=== PATIENT | female | born 1960 | race Caucasian/White ===

== ENCOUNTER 2023-12-16 09:16 | Outpatient (OUT) | payer OTHER, SELFPAY ==
--- NOTE | 2023-12-16 09:30 | CT_ITS ---
The [address] [address] Patient Name: THEODORE FLETCHER MRN: [id number] date: 1960 Sex: F Assigned Patient Location: CT Current Patient Location: Accession/Order Number: [id number] Exam Date: 12/16/2023 09:35 Report Date: 12/17/2023 07:19 At the request of: LITTLE ELLER Procedure: CT sinus wo con EXAMINATION: CT sinus wo con HISTORY: Chronic Sinusitis J32.9 COMPARISON: No relevant comparison available. TECHNIQUE: Axial and Coronal CT images were created without IV contrast. Dose reduction techniques were achieved by using automated exposure control and/or adjustment of mA and/or kV according to patient size and/or use of iterative reconstruction technique. FINDINGS: MAXILLARY SINUSES: Minimal mucoperiosteal thickening measuring 2.7 mm inferior right maxillary and 1.5 mm inferior left maxillary sinus. Infundibula are patent. No significant anomalous inferior orbital ethmoid (Anika) air cells. ETHMOID SINUSES: No significant mucosal thickening or fluid. Fovea ethmoidali and lamina papyracea are symmetric and intact. SPHENOID SINUSES: No significant mucosal thickening or fluid. Sphenoethmoidal recesses are patent. No bony dehiscence. FRONTAL SINUSES: No significant mucosal thickening or fluid. Frontal recesses are patent. NASAL FOSSA: 5 mm leftward deviation of the nasal septum. Bilateral indigo bullosa right middle nasal turbinates. OTHER: Negative. Limited views of the skull base and orbits are unremarkable. CT/CT sinus wo con IMPRESSION: Minimal mucoperiosteal thickening bilateral inferior maxillary sinuses Electronically authenticated by: TANIA OCONNELL Date: 12/17/2023 07:19
== END 2023-12-16 09:17 | disposition home or self-care (01) ==
LOC: CT 09:20
PROVIDERS: PCP Internal Medicine; Visit Provider Internal Medicine
DX: J32.9 Chronic sinusitis, unspecified (principal)
CPT/HCPCS: 70486

== ENCOUNTER 2024-08-04 02:16 | Observation (INO) | payer OTHER, SELFPAY ==
[2024-08-04] VITALS (86 sets, daily range): BP systolic 75–161; BP diastolic 39–83; PULSE 72–102; TEMP 36.3–36.7; O2SAT 94–100; BMI 19.2; BMI 19.8
--- OUTSIDE RECORDS SUMMARY | 2024-08-04 02:23 | XMS_ITS | CCD ---
Author Organization [facility] Care Team Providers Care Licensed Clinical Social Worker Name Role Phone Romeo Fariba Primary Care Provider ZEUS RUBALCAVA Attending Unavailable OBRIEN, FARIBA Referring Unavailable OBRIEN, FARIBA Primary Care Unavailable ROQUE BOYD Attending Unavailable OBRIEN, FARIBA Referring Unavailable OBRIEN, FARIBA Primary Care Unavailable ROQUE BOYD Attending Unavailable OBRIEN, FARIBA Referring Unavailable OBRIEN, FARIBA Primary Care Unavailable SUMAN BROWN Attending Unavailable OBRIEN, FARIBA Referring Unavailable OBRIEN, FARIBA Primary Care Unavailable LOBO PERALTA Attending Unavailable OBRIEN, FARIBA Referring Unavailable OBRIEN, FARIBA Primary Care Unavailable ZEUS RUBALCAVA Attending Unavailable OBRIEN, FARIBA Referring Unavailable OBRIEN, FARIBA Primary Care Unavailable LOBO PERALTA Attending Unavailable OBRIEN, FARIBA Referring Unavailable OBRIEN, FARIBA Primary Care Unavailable ROQUE BOYD Attending Unavailable OBRIEN, FARIBA Referring Unavailable OBRIEN, FARIBA Primary Care Unavailable LOBO PERALTA Attending Unavailable OBRIEN, FARIBA Referring Unavailable OBRIEN, FARIBA Primary Care Unavailable OBRIEN, FARIBA Referring Unavailable OBRIEN, FARIBA Primary Care Unavailable OBRIEN, FARIBA Referring Unavailable OBRIEN, FARIBA Primary Care Unavailable OBRIEN, FARIBA Referring Unavailable OBRIEN, FARIBA Primary Care Unavailable OBRIEN, FARIBA Referring Unavailable OBRIEN, FARIBA Primary Care Unavailable OBRIEN, FARIBA Referring Unavailable OBRIEN, FARIBA Primary Care Unavailable OBRIEN, FARIBA Referring Unavailable OBRIEN, FARIBA Primary Care Unavailable OBRIEN, FARIBA Referring Unavailable OBRIEN, FARIBA Primary Care Unavailable OBRIEN, FARIBA Referring Unavailable OBRIEN, FARIBA Primary Care Unavailable OBRIEN, FARIBA Referring Unavailable OBRIEN, FARIBA Primary Care Unavailable OBRIEN, FARIBA Referring Unavailable OBRIEN, FARIBA Primary Care Unavailable OBRIEN, FARIBA Referring Unavailable OBRIEN, FARIBA Primary Care Unavailable OBRIEN, FARIBA Referring Unavailable OBRIEN, FARIBA Primary Care Unavailable RAFITA, DR FITCH Primary Care Unavailable PAY ., DR ARTEAGA Admitting Unavailable PAY ., DR ARTEAGA Attending Unavailable PAY ., DR ARTEAGA Consulting Unavailable KNABE, PETER Consulting Unavailable PETZNICK, DR UREÑA Admitting Unavailable PETZNICK, DR UREÑA Attending Unavailable BALL, DR FITCH Primary Care Unavailable PETZNICK, DR UREÑA Consulting Unavailable NARCISO, JOSÉ Admitting Unavailable NARCISO, JOSÉ Attending Unavailable BALL, DR FITCH Primary Care Unavailable NARCISO, JOSÉ Consulting Unavailable Rafita, Hayes Unavailable Evelyn Finn Unavailable DONTRELL KIRBY Attending Unavailable BALL, HAYES E Referring Unavailable TIMMIS, OLGA Jara Attending Unavailable BALL, HAYES E Referring Unavailable ZADIPIKA MAK Attending Unavailable TIMMIS, OLGA Jara Attending Unavailable PETZNICK, TANIA Sandoval Attending Unavailable BIEDDUDLEY, AKHIL Vee Attending Unavailable PETZNCHACHO, TANIA Sandoval Attending Unavailable LEIGH, AKHIL Vee Attending Unavailable RAFITA, HAYES E Referring Unavailable PETZNICK, TANIA Sandoval Attending Unavailable RAFITA, HAYES Hewitt Referring Unavailable Hayes Watkins MD Primary Care Provider Akhil Abraham DO Unavailable [phone] Allergies Allergy Classification Reported Allergen(s) Allergy Type Date of Onset Reaction(s) Facility (20 sources) Cephalexin Drug Allergy 02-10-20 17 [place], [place] (20 sources) Antihistamines, Chlorpheniramine-T ype Propensity to adverse reactions to drug 02-10-20 17 Other (See Comments) [place], [place] (7 sources) Cephalexin Drug Allergy hives [facility] Repository (3 sources) Nitrofurantoin Drug Allergy 12-02-19 24 Unknown Reaction [facility] Rep[facility] (16 sources) fexofenadine / Pseudoephedrine Drug Allergy 04-15-20 23 Comment:syncop e [facility] Other (6 sources) levoFLOXacin Drug Allergy anaphylaxis [facility] Other (16 sources) Nitrofurantoin Drug Allergy 03-20-20 23 Unknown [facility] Other (6 sources) Keflex *CEPHALOSPORINS* Propensity to adverse reactions Unknown [facility] Other (6 sources) Biaxin *MACROLIDES* Propensity to adverse reactions 12-24-19 19 Unknown [facility] Other (11 sources) Cephalosporins (Antibiotic) Allergy to substance 12-02-19 24 Unknown Reaction [facility] (12 sources) Clarithromycin Drug Allergy 07-30-19 24 Unknown Reaction [facility] (12 sources) levoFLOXacin Drug Allergy 07-30-19 24 Anaphylaxis [facility] (2 sources) Antihistamine & Nasal Deconges Allergy to substance 06-10-19 Comment:syncop e [facility] (10 sources) Propylamine derivative antihistamine Drug Intolerance 02-10-20 [facility] Medications Current Medications Medication Drug Class(es) Dates Sig (Normalized) Sig (Original) azithromycin 250 mg oral tablet (7 sources) Macrolide Antimicrobial Start: 03-19-2023 Azithromycin 250 MG as directed Orally daily for 5 days May, Active Blood-Glucose Sensor (Freestyle Lianna 3 Sensor) device (4 sources) Start: 09-17-2023 Blood-Glucose Sensor (Freestyle Lianna 3 Sensor) device Active 0 .Route 1 September 17, 2023 4:09pm Use to test home BS 4x daily Start: 09-17-2023 End: 09-17-2023 Blood-Glucose Sensor (Freest yle Lianna 3 Sensor) device Discontinued 0 .Route September 17, 2023 12:00am September 17, 2023 4:11pm As directed Continuous Glucose Sensor (FreeStyle Lianna 3 Sensor) [facility] [place]14 sources) Start: 01-28-2024 End: 01-28-2024 inject 1 dose by subcutaneous injection once Continuous Glucose Sensor (FreeStyle Lianna 3 Sensor) [facility] Indications: 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 (CMS/HCC) Inject 1 Device under the skin every 14 (fourteen) days 6 each 3 01/28/2024 01/28/2024 Discontinued (Reorder) Start: 01-28-2024 inject 1 dose by sub cutaneous injection once Continuous Glucose Sensor (FreeStyle Lianna 3 Sensor) [facility] Indications: 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 (CMS/HCC) Inject 1 Device under the skin every 14 (fourteen) days 6 each 3 01/28/2024 Active Start: 12-13-2023 End: 01-28-2024 inject 1 dose by subcutaneous injection once Continuous Glucose Sensor (FreeStyle Lianna 3 Sensor) [facility] [place] Indications: 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 (CMS/HCC) Inject 1 Device under the skin every 14 (fourteen) days 6 each 3 12/13/2023 01/28/2024 Discontinued (Reorder) Start: 12-13-2023 inject 1 dose by sub cutaneous injection once Continuous Glucose Sensor (FreeStyle Lianna 3 Sensor) [facility] [place]ications: 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 (CMS/HCC) Inject 1 Device under the skin every 14 (fourteen) days 6 each 3 12/13/2023 Active doxycycline hyclate 100 mg oral capsule (2 sources) Tetracycline-class Drug Start: 06-10-2023 take 1 capsule by mouth twice daily Doxycycline Hyclate 100 MG 1 capsule Orally twice daily for 10 days May, Active fluticasone propionate 0.05 mg/actuat metered dose nasal spray (10 sources) Corticosteroid Start: 05-29-2023 take 2 spray(s) nasal route once daily Fluticasone Propionate 50 MCG/ACT 2 sprays Nasally Once a day for 14 day(s) May, Active Start: 05-31-2019 take 1 spray(s) nasa l route once daily as needed Fluticasone Propionate 50 MCG/ACT 1 spray in each nostril Nasally Once a day for 21 days May, Not-Taking/PRN Start: 05-31-2019 take 1 spray(s) nasa l route once daily Fluticasone Propionate 50 MCG/ACT 1 spray in each nostril Nasally Once a day for 21 days May, Not-Taking FreeStyle Lianna 14 Day Sensor (6 sources) Start: 10-04-2021 FreeStyle Libr e 14 Day Sensor FreeStyle Lianna 14 Day Sensor , 1 (one) Unit Use to read BS 6-8x daily # 1, 10/04/2021, Ref. x11. Active Use to read BS 6-8x daily for 30 September, Active FreeStyle Lianna 2 [place] (6 sources) Start: 10-18-2021 FreeStyle Libr e 2 [place] FreeStyle Lianna 2 [place] , 1 (one) Device Use for BS readings 6-8 times daily # 1, 10/18/2021, No Refill. 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 (CMS/HCC) Inject 15 Units under the skin Daily 15 mL 3 02/23/2024 Active Start: 02-23-2024 insulin deglud ec (Tresiba FlexTouch) 100 UNIT/ML injection Indications: 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 (CMS/HCC) Inject 15 Units under the skin Daily 15 mL 3 02/23/2024 Active Start: 01-28-2024 End: 02-23-2024 insulin degludec (Tresiba Fl exTouch) 100 UNIT/ML injection Indications: 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 (CMS/HCC) Inject 20 Units under the skin Daily 15 mL 3 01/28/2024 02/23/2024 Discontinued (Dose adjustment) Start: 12-13-2023 End: 01-28-2024 insulin degludec (Tresiba Fl exTouch) 100 UNIT/ML injection Indications: 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 (CMS/HCC) Inject 15 Units under the skin Daily 15 mL 3 12/13/2023 01/28/2024 Discontinued (Dose adjustment) 3 ml insulin glargine 100 unt/ml pen injector (20 sources) Insulin Analog Start: 09-17-2023 End: 09-17-2023 Insulin Glargine (Lantus Solostar U-100 Insulin) 100 unit/mL (3 mL) insulin pen Active 14 UNIT SUBCUT Daily at bedtime September 17, 2023 4:10pm Start: 01-09-2023 Lantus SoloSta r 100 UNIT/ML 14 units Subcutaneous q HS for 90 days Dec, Active Start: 12-22-2021 Lantus 100UNIT /ML Lantus( 100UNIT/ML Subcutaneous 22 units at bedtime ) Active -Hx Entry Subcutaneous at bedtime for 0 Nov, Not-Taking/PRN Start: 12-22-2021 Lantus 100UNIT /ML Lantus( 100UNIT/ML Subcutaneous 22 units at bedtime ) Active -Hx Entry Subcutaneous at bedtime for 0 Nov, Not-Taking Start: 04-12-2014 Lantus SoloSta r 100 UNIT/ML 20 units with lantus pen at hs Subcutaneous daily for 90 days Mar, Active End: 01-28-2024 Lantus SoloStar 100 UNIT/ML pen INJECT 14 UNITS SUBCUTANEOUSLY AT BEDTIME 01/28/2024 Discontinued insulin glargine (LANTUS) 100 UNIT/ML injection vial Inject into the skin nightly 22 units before bedtime 0 Active 3 ml insulin lispro-aabc 100 unt/ml pen injector (16 sources) Insulin Analog Start: 12-13-2023 take 15 mL into the eye(s) once daily insulin lispro-aabc (Lyumjev KwikPen) 100 UNIT/ML pen Indications: 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 (CMS/HCC) 1:10 carb ratio qAC plus correction 1:75 > 150 mg/dl (max daily 50 units) 15 mL 3 12/13/2023 Active Start: 01-09-2023 Lyumjev KwikPe n 100 UNIT/ML as directed Subcutaneous Dec, Active Insulin Lispro-Aabc (Lyumjev Kwikpen U-100 Insulin) 100 unit/mL insulin pen (2 sources) Start: 12-02-2023 Insulin Lispro -Aabc (Lyumjev Kwikpen U-100 Insulin) 100 unit/mL insulin pen Active 1 sliding scale dose SUBCUT Use as Directed December 02, 2023 12:00am Insulin, Aspart, Human (20 sources) Insulin Analog Start: 12-22-2021 NovoLOG 100UNI T/ML NovoLOG( 100UNIT/ML Subcutaneous 12 units before every meal ) Active -Hx Entry Subcutaneous before every meal for 0 Nov, Not-Taking/PRN Start: 12-22-2021 NovoLOG 100UNI T/ML NovoLOG( 100UNIT/ML Subcutaneous 12 units before every meal ) Active -Hx Entry Subcutaneous before every meal for 0 Nov, Not-Taking inject 40 [IU] by cason bcutaneous injection once daily before mealtime NovoLOG FlexPen 100 UNIT/ML 6,8,10 units according to meal size for a total daily amt of 40 units Subcutaneous AC for 90 days Active Insulin Aspart ( NOVOLOG SC) Inject into the skin 14 units before meals 0 Active methylPREDNISolone 4 mg oral tablet (4 sources) Corticosteroid Start: 05-29-2023 Medrol 4 MG as directed Orally As Directed for 6 days May, Active predniSONE 20 mg oral tablet (11 sources) Start: 03-19-2023 take 1 tablet by mouth once daily predniSONE 20 MG 1 tablet Orally qd w/ food for 5 days Feb, Active Start: 06-11-2019 predniSONE 20 MG 1 tablet twice daily x 2 days then 1 tablet daily x 2 days Orally as directed for 4 days May, Not-Taking/PRN sulfacetamide sodium 100 mg/ml ophthalmic solution (2 sources) Sulfonamide Antibacterial take 2 drop(s) into the eye(s) four times daily Sulfacetamide Sodium 10 % 2 drops Ophthalmic qid in the affected eye for 7 days Active tiZANidine 2 mg oral tablet (6 sources) Central alpha-2 Adrenergic Agonist Start: 08-31-19 take 1 tablet by mouth once at bedtime tiZANidine HCl 2MG tiZANidine HCl 2MG, - 1 Tablet q HS # 10, 08/30/2021, Ref. x1. Active Oral q HS for 10 Aug, Active 24 hr tolterodine tartrate 4 mg extended release oral capsule (20 sources) Cholinergic Muscarinic Antagonist take 1 capsule by mouth once daily tolterodine (DETROL LA) 4 MG extended release capsule Take 4 mg by mouth daily 0 Active Triceba Insulin (6 sources) Start: 12-23-19 Triceba Insulin Triceba Insulin( ) Active -Hx Entry for 0 Nov, Active Completed/Discontinued Medications Medication Drug Class(es) Dates Sig (Normalized) Sig (Original) [id number] actuat albuterol 0.09 mg/actuat metered dose inhaler (6 sources) beta2-Adrenergic Agonist Start: 05-31-2019 take 2 puff(s) by inhalation every four hours as needed Albuterol Sulfate HFA 108 (90 Base) MCG/ACT 2 puffs as needed Inhalation every 4 hrs May, Not-Taking/PRN Start: 05-31-2019 take 2 puff(s) by in halation every four hours as needed Albuterol Sulfate HFA 108 (90 Base) MCG/ACT 2 puffs as needed Inhalation every 4 hrs May, Not-Taking Start: 05-31-2019 take 2 puff(s) by in halation every four hours as needed Albuterol Sulfate HFA 108 (90 Base) MCG/ACT 2 puffs as needed Inhalation every 4 hrs May, Not-Taking codeine phosphate 2 mg/ml / guaiFENesin 20 mg/ml oral solution (6 sources) Opioid Agonist Start: 05-31-2019 guaiFENesin-Codeine 100-10 MG/5ML 5 ml as needed EVERY [address] OR OPERATE HEAVY MACHINERY May, Not-Taking/PRN 12 hr guaiFENesin 600 mg / pseudoephedrine hydrochloride 60 mg extended release oral tablet (6 sources) alpha-Adrene rgic Agonist Start: 06-11-2019 take 1 tablet by mouth twice daily as needed Mucinex D 60-600 MG 1 tablet as needed Orally Twice a day May, Not-Taking/PRN Lantus SoloStar 100UNIT/ML (6 sources) Start: 12-20-2021 inject 100 [IU] by subcutaneous injection once as needed Lantus SoloStar 100UNIT/ML Lantus SoloStar 100UNIT/ML, 18 units SC q HS # 2, 12/20/2021, Ref. x11. Active Subcutaneous SC q HS for 30 Nov, Not-Taking/PRN Start: 12-20-2021 inject 100 [IU] by s ubcutaneous injection once at bedtime Lantus SoloStar 100UNIT/ML Lantus SoloStar 100UNIT/ML, 18 units SC q HS # 2, 12/20/2021, Ref. x11. 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, bilateral; Translations: [Hyperglycemia due to type 1 diabetes mellitus] Onset: 07-17-2022 Resolved: 12-13-2023 Chronic Diabetes mellitus without complication (1 source) Type 2 diabetes mellitus without complications; Translations: [TYPE 2 DM WITHOUT COMPLICATIONS] Onset: 09-10-2021 Chronic Disorders of lipid metabolism (7 sources) Mixed hyperlipidemia; Translations: [Mixed hyperlipidemia] Chronic Menopausal disorders (6 sources) Menopausal symptom; Translations: [Menopausal and female climacteric states] Chronic Other circulatory disease (1 source) Orthostatic hypotension; Translations: [Syncope due to orthostatic hypotension] Episodic Other circulatory disease (5 sources) Syncope due to orthostatic hypotension; Translations: [Orthostatic hypotension] Episodic Other ear and sense organ disorders (1 source) Sensorineural hearing loss; Translations: [Unspecified sensorineural hearing loss] 12-02-2023 Chronic Other ear and sense organ disorders (1 source) Unspecified sensorineural hearing loss; Translations: [Sensorineural hearing loss, unspecified] 12-02-2023 Chronic Other ear and sense organ disorders (10 sources) Mixed conductive AND sensorineural hearing loss; Translations: [Mixed conductive and sensorineural hearing loss, unilateral, left ear with restricted hearing on the contralateral side] Onset: 08-05-2023 08-05-2023 Chronic Other ear and sense organ disorders (4 sources) Sensorineural hearing loss, bilateral; Translations: [Sensorineural hearing loss, bilateral] 01-26-2024 Chronic Other screening for suspected conditions (not mental disorders or infectious disease) (7 sources) Mammographic breast density; Translations: [Inconclusive mammogram] Episodic Other upper respiratory disease (4 sources) Chronic rhinitis; Translations: [Chronic rhinitis] 01-26-2024 Chronic Other upper respiratory disease (4 sources) Deviated nasal septum; Translations: [Deviated nasal septum] 01-26-2024 Episodic Other upper respiratory infections (12 sources) Chronic sinusitis; Translations: [Chronic sinusitis, unspecified] Onset: 01-26-2024 Resolved: 01-26-2024 12-02-2023 Chronic Other upper respiratory infections (1 source) Acute upper respiratory infection, unspecified Episodic Spondylosis; intervertebral disc disorders; other back problems (12 sources) Sciatica; Translations: [Lumbago with sciatica, unspecified side] Episodic Unclassified (2 sources) LOW BACK PAIN, UNSPECIFIED; Translations: [LOW BACK PAIN, UNSPECIFIED] Onset: 09-10-2021 Past or Other Problems Problem Classification Problem Date Documented Da te Episodic/Chronic Calculus of urinary tract (20 sources) Kidney stone; Translations: [Calculus of kidney] Onset: 02-09-2017 Resolved: 01-26-2024 02-09-2017 Episodic Conditions associated with dizziness or vertigo (16 sources) Benign paroxysmal positional vertigo; Translations: [Benign paroxysmal vertigo, unspecified ear] Onset: 01-26-2024 Resolved: 01-26-2024 12-02-2023 Episodic Fluid and electrolyte disorders (1 source) Dehydration; Translations: [DEHYDRATION] Onset: 09-10-2021 Episodic Lymphadenitis (20 sources) Lymphadenopathy; Translations: [Enlarged lymph nodes, unspecified] Onset: 11-29-2003 Resolved: 01-26-2024 09-30-2017 Episodic Other aftercare (1 source) group home (current) use of insulin; Translations: [SENIOR LIVING CURRENT USE OF INSULIN] Onset: 09-10-2021 Episodic Other aftercare (1 source) Other fpc (current) drug therapy; Translations: [OTH SENIOR LIVING CURRENT DRUG THERAPY] Onset: 09-10-2021 Episodic Otitis media and related conditions (20 sources) Acute serous otitis media, left ear; Translations: [Acute serous otitis media of left ear] Onset: 07-30-2023 Episodic Unclassified (1 source) LOW BACK PAIN, UNSPECIFIED; Translations: [LOW BACK PAIN, UNSPECIFIED] Onset: 09-08-2021 Unclassified (1 source) Contact with and (suspected) exposure to covid-19 Z20.822 Urinary tract infections (20 sources) Recurrent urinary tract infection; Translations: [Urinary tract infection, site not specified] Onset: 02-09-2017 Resolved: 01-26-2024 02-09-2017 Episodic Results Test Name Value Interpretation Reference Range Facility HbA1c (Bld) [Mass fraction]o n 02-23-2024 Interpretation and review of laboratory results Abnormal [facility] Laboratory - Hematology and Cell countson 02-23-2024 HbA1c (Bld) [Mass fraction] 13.0 % [facility] COVID/FLU RT-PCRon SARS-CoV-2 (COVID-19) RNA SELVIN+probe Ql (Unsp spec) Negative [facility] Other COVID/FLU RT-PCR Negative [facility] [employer] Other CBC AUTO DIFFon 07-12-2022 BASO # 0.1 103/ul Normal 0.0-0.1 [facility] Comment on above: Performed By: #### L IPID, TSH, CMP #### [facility] [address] [address] [address] Jonas Ann Basophils/100 WBC (Bld) 0.8 % Normal 0.2-2.0 [facility] Comment on above: Performed By: #### L IPID, TSH, CMP #### [facility] [address] [address] [address] Jonas Ann EO # 0.2 103/ul Normal 0.0-0.7 [facility] Comment on above: Performed By: #### L IPID, TSH, CMP #### [facility] [address] [address] [address] Jonas Ann Eosinophils/100 WBC (Bld) 2.5 % Normal 0.9-7.0 [facility] Comment on above: Performed By: #### L IPID, TSH, CMP #### [facility] [address] [address] [address] Jonas Ann Erythrocyte distribution width (RBC) [Ratio] 12.8 % Normal 11.0-15.0 [facility] Comment on above: Performed By: #### L IPID, TSH, CMP #### [facility] [address] [place] [address] Dr. Jonas Ann Hematocrit (Bld) [Volume fraction] 39.5 % Normal 36.0-48.0 [facility] Comment on above: Performed By: #### L IPID, TSH, CMP #### [facility] [address] [place] [address] Dr. Jonas Ann Hemoglobin (Bld) [Mass/Vol] 13.4 g/dL Normal 12.0-16.0 [facility] Comment on above: Performed By: #### L IPID, TSH, CMP #### [facility] [address] [place] [address] Dr. Jonas Ann IG # 0.02 10e3/ul Normal 0.00-0.03 [facility] Comment on above: Performed By: #### L IPID, TSH, CMP #### [facility] [address] [place] [address] Dr. Jonas Ann IG % 0.3 % Normal 0.0-0.5 [facility] Comment on above: Performed By: #### L IPID, TSH, CMP #### [facility] [address] [place] [address] Dr. Jonas Ann LYMPH # 2.3 103/ul Normal 1.2-3.8 [facility] Comment on above: Performed By: #### L IPID, TSH, CMP #### [facility] [address] [place] [address] Dr. Jonas Ann Lymphocytes/100 WBC (Bld) 39.1 % Normal 20.5-60.0 [facility] Comment on above: Performed By: #### L IPID, TSH, CMP #### [facility] [address] [place] [address] Dr. Jonas Ann MANUAL DIFF REQ NO Normal [facility] Comment on above: Performed By: #### L IPID, TSH, CMP #### [facility] [address] [place] [address] Dr. Jonas Ann MCH (RBC) [Entitic mass] 28.9 pg Normal 26.7-34.0 [facility] Comment on above: Performed By: #### L IPID, TSH, CMP #### [facility] [address] [place] [address] Dr. Jonas Ann MCHC (RBC) [Mass/Vol] 33.9 g/dL Normal 29.9-35.2 [facility] Comment on above: Performed By: #### L IPID, TSH, CMP #### [facility] [address] [place] [address] Dr. Jonas Ann MCV (RBC) [Entitic vol] 85.1 fL Normal 81.0-99.0 [facility] Comment on above: Performed By: #### L IPID, TSH, CMP #### [facility] [address] [place] [address] Dr. Jonas Ann MONO # 0.5 103/ul Normal 0.3-0.8 [facility] Comment on above: Performed By: #### L IPID, TSH, CMP #### [facility] [address] [place] [address] Dr. Jonas Ann Monocytes/100 WBC (Bld) 8.3 % Normal 1.7-12.0 [facility] Comment on above: Performed By: #### L IPID, TSH, CMP #### [facility] [address] [place] [address] Dr. Jonas Ann NEUT # 2.9 103/ul Normal 1.4-6.5 [facility] Comment on above: Performed By: #### L IPID, TSH, CMP #### [facility] [address] [place] [address] Dr. Jonas Ann Neutrophils/100 WBC (Bld) 49.0 % Normal 43.0-75.0 [facility] Comment on above: Performed By: #### L IPID, TSH, CMP #### [facility] [address] [place] [address] Dr. Jonas Ann Platelet mean volume (Bld) [Entitic vol] 10.9 fL Normal 9.5-13.5 [facility] Comment on above: Performed By: #### L IPID, TSH, CMP #### [facility] [address] [address] [address] Jonas Ann PLT 278 103/ul Normal 150-450 [facility] Comment on above: Performed By: #### L IPID, TSH, CMP #### [facility] [address] [address] [address] Jonas Ann RBC 4.64 106/ul Normal 4.20-5.40 [facility] Comment on above: Performed By: #### L IPID, TSH, CMP #### [facility] [address] [address] [address] Jonas Ann WBC 5.9 103/ul Normal 4.0-11.0 [facility] Comment on above: Performed By: #### L IPID, TSH, CMP #### [facility] [address] [place] [address] Dr. Jonas Ann LIPID PROFILEon 07-12-2022 CHOL-HDL RATIO NORM SEE BELOW Normal [facility] Comment on above: Result Comment: 3.3 - 4.4 LOW RISK 4.4 - 7.1 AVERAGE RISK 7.1 - 11.0 MODERATE RISK >11.0 HIGH RISK Performed By: #### L IPID, TSH, CMP #### [facility] [address] [place] [address] Dr. Jonas Ann Cholesterol [Mass/Vol] 264 mg/dL Critically high <=200 [facility] Comment on above: Performed By: #### L IPID, TSH, CMP #### [facility] [address] [address] [address] Jonas Ann Cholesterol in HDL [Mass/Vol] 95 mg/dL Critically high 40-60 [facility] Comment on above: Performed By: #### L IPID, TSH, CMP #### [facility] [address] [place] [address] Dr. Jonas Ann Cholesterol in LDL [Mass/Vol] 155.2 mg/dL Normal [facility] Comment on above: Performed By: #### L IPID, TSH, CMP #### [facility] [address] [place] [address] Dr. Jonas Ann Cholesterol.total/C holesterol in HDL [Mass ratio] 2.8 {ratio} Normal [facility] Comment on above: Performed By: #### L IPID, TSH, CMP #### [facility] [address] [place] [address] Dr. Jonas Ann HDL NORMAL > or = 60 mg/dl - LO W CARDIOVASCULAR RISK <40 mg/dl - HIGH CARDIOVASCULAR RISK Normal [facility] Comment on above: Performed By: #### L IPID, TSH, CMP #### [facility] [address] [address] [address] Jonas Ann LDL CALC NORMAL SEE BELOW Normal [facility] Comment on above: Result Comment: <100 mg/dl OPTIMAL 100 - 129 mg/dl NEAR OR ABOVE OPTIMAL 130 - 159 mg/dl BORDERLINE HIGH 160 - 189 mg/dl HIGH >190 mg/dl VERY HIGH Performed By: #### L IPID, TSH, CMP #### [facility] [address] [place] [address] Dr. Jonas Ann Triglyceride [Mass/Vol] 69 mg/dL Normal <=150 [facility] Comment on above: Performed By: #### L IPID, TSH, CMP #### [facility] [address] [place] [address] Dr. Jonas Ann VLDL CALC 13.8 mg/dL Normal [facility] Comment on above: Performed By: #### L IPID, TSH, CMP #### [facility] [address] [place] [address] Dr. Jonas Ann MICROALB CREAT RATIO RANDOMo n 07-12-2022 mALB 4.5 mg/L Normal <=30.0 [facility] Comment on above: Performed By: #### L IPID, TSH, CMP #### [facility] [address] [place] [address] Dr. Jonas Ann MALB CR RATIO 20.9 mg/g Normal 0.0-29.9 [facility] Comment on above: Performed By: #### L IPID, TSH, CMP #### [facility] [address] [place] [address] Dr. Jonas Ann MALB CR RATIO RANGE SEE BELOW Normal [facility] Comment on above: Result Comment: NO M ICROALBUMINURIA 0-29 MG/G CLINICAL MICROALBUMINURIA 30-300 MG/G MACROALBUMINURIA >300 MG/G Performed By: #### L IPID, TSH, CMP #### [facility] [address] [address] [address] Jonas Ann URINE CREAT 215.82 mg/dL Normal 20.00-300.00 [facility] Comment on above: Performed By: #### L IPID, TSH, CMP #### [facility] [address] [address] [address] Jonas Ann PROF 14(COMP METB)on 023 Albumin [Mass/Vol] 3.7 g/dL Normal 3.4-5.0 [facility] Comment on above: Performed By: #### L IPID, TSH, CMP #### [facility] [address] [place] [address] Dr. Jonas Ann Albumin/Globulin [Mass ratio] 1.1 {ratio} Normal [facility] Comment on above: Performed By: #### L IPID, TSH, CMP #### [facility] [address] [place] [address] Dr. Jonas Ann ALP [Catalytic activity/Vol] 93 U/L Normal 46-116 [facility] Comment on above: Performed By: #### L IPID, TSH, CMP #### [facility] [address] [address] [address] Jonas Ann ALT [Catalytic activity/Vol] 26 U/L Normal 14-59 [facility] Comment on above: Performed By: #### L IPID, TSH, CMP #### [facility] [address] [address] [address] Jonas Ann Anion gap [Moles/Vol] 12.8 mmol/L Normal [facility] Comment on above: Performed By: #### L IPID, TSH, CMP #### [facility] [address] [address] [address] Jonas Ann AST [Catalytic activity/Vol] 17 U/L Normal 15-37 [facility] Comment on above: Performed By: #### L IPID, TSH, CMP #### [facility] [address] [place] [address] Dr. Jonas Ann Bilirubin [Mass/Vol] 0.7 mg/dL Normal 0.2-1.0 [facility] Comment on above: Performed By: #### L IPID, TSH, CMP #### [facility] [address] [place] [address] Dr. Jonas Ann Calcium [Mass/Vol] 9.4 mg/dL Normal 8.5-10.1 [facility] Comment on above: Performed By: #### L IPID, TSH, CMP #### [facility] [address] [place] [address] Dr. Jonas Ann Chloride [Moles/Vol] 106 mmol/L Normal 98-107 [facility] Comment on above: Performed By: #### L IPID, TSH, CMP #### [facility] [address] [place] [address] Dr. Jonas Ann CO2 [Moles/Vol] 27.5 mmol/L Normal 21.0-32.0 [facility] Comment on above: Performed By: #### L IPID, TSH, CMP #### [facility] [address] [place] [address] Dr. Jonas Ann Creatinine [Mass/Vol] 0.76 mg/dL Normal 0.55-1.02 [facility] Comment on above: Performed By: #### L IPID, TSH, CMP #### [facility] [address] [place] [address] Dr. Jonas Ann EGFR-AF BHUTANESE >60 Normal >=60 [facility] Comment on above: Performed By: #### L IPID, TSH, CMP #### [facility] [address] [place] [address] Dr. Jonas Ann EGFR-NON AF BHUTANESE >60 Normal >=60 [facility] Comment on above: Performed By: #### L IPID, TSH, CMP #### [facility] [address] [place], [place] [id number] Dr. Jonas Ann Globulin (S) [Mass/Vol] 3.3 g/dL Normal [facility] Comment on above: Performed By: #### L IPID, TSH, CMP #### [facility] [address] [place] [address] Dr. Jonas Ann Glucose [Mass/Vol] 211 mg/dL Critically high 74-106 [facility] Comment on above: Performed By: #### L IPID, TSH, CMP #### [facility] [address] [place] [address] Dr. Jonas Ann Potassium [Moles/Vol] 4.3 mmol/L Normal 3.5-5.1 [facility] Comment on above: Performed By: #### L IPID, TSH, CMP #### [facility] [address] [place] [address] Dr. Jonas Ann Protein [Mass/Vol] 7.0 g/dL Normal 6.4-8.2 [facility] Comment on above: Performed By: #### L IPID, TSH, CMP #### [facility] [address] [place] [address] Dr. Jonas Ann Sodium [Moles/Vol] 142 mmol/L Normal 136-145 [facility] Comment on above: Performed By: #### L IPID, TSH, CMP #### [facility] [address] [place] [address] Dr. Jonas Ann Urea nitrogen [Mass/Vol] 15.0 mg/dL Normal 7.0-18.0 [facility] Comment on above: Performed By: #### L IPID, TSH, CMP #### [facility] [address] [place] [address] Dr. Jonas Ann Urea nitrogen/Creatinine [Mass ratio] 19.7 mg/mg Normal [facility] Comment on above: Performed By: #### L IPID, TSH, CMP #### [facility] [address] [place] [address] Dr. Jonas Ann TSHon 07-12-2022 TSH 0.417 uIU/mL Normal 0.358-3.740 [facility] Comment on above: Performed By: #### L IPID, TSH, CMP #### [facility] [address] [address] [address] Jonas Ann GLUCOSE BLOODon 05-05-2022 Glucose [Mass/Vol] 224 mg/dL Critically high 74-106 [facility] Comment on above: Performed By: #### G KAYLI, LIPID #### [facility] [address] [address] [address] Jonas Ann LIPID PROFILEon 05-05-2022 CHOL-HDL RATIO NORM SEE BELOW Normal [facility] Comment on above: Result Comment: 3.3 - 4.4 LOW RISK 4.4 - 7.1 AVERAGE RISK 7.1 - 11.0 MODERATE RISK >11.0 HIGH RISK Performed By: #### G KAYLI, LIPID #### [facility] [address] [address] [address] Jonas Ann Cholesterol [Mass/Vol] 287 mg/dL Critically high <=200 [facility] Comment on above: Performed By: #### G KAYLI, LIPID #### [facility] [address] [address] [address] Jonas Ann Cholesterol in HDL [Mass/Vol] 99 mg/dL Critically high 40-60 [facility] Comment on above: Performed By: #### G KAYLI, LIPID #### [facility] [address] [address] [address] Jonas Ann Cholesterol in LDL [Mass/Vol] 170.2 mg/dL Normal [facility] Comment on above: Performed By: #### G KAYLI, LIPID #### [facility] [address] [address] [address] Jonas Ann Cholesterol.total/C holesterol in HDL [Mass ratio] 2.9 {ratio} Normal [facility] Comment on above: Performed By: #### G KAYLI, LIPID #### [facility] [address] [address] [address] Jonas Ann HDL NORMAL > or = 60 mg/dl - LO W CARDIOVASCULAR RISK <40 mg/dl - HIGH CARDIOVASCULAR RISK Normal [facility] Comment on above: Performed By: #### G KAYLI, LIPID #### [facility] [address] [place] [address] Dr. Jonas Ann LDL CALC NORMAL SEE BELOW Normal [facility] Comment on above: Result Comment: <100 mg/dl OPTIMAL 100 - 129 mg/dl NEAR OR ABOVE OPTIMAL 130 - 159 mg/dl BORDERLINE HIGH 160 - 189 mg/dl HIGH >190 mg/dl VERY HIGH Performed By: #### G KAYLI, LIPID #### [facility] [address] [place] [address] Dr. Jonas Ann Triglyceride [Mass/Vol] 89 mg/dL Normal <=150 [facility] Comment on above: Performed By: #### G KAYLI, LIPID #### [facility] [address] [place] [address] Dr. Jonas Ann VLDL CALC 17.8 mg/dL Normal [facility] Comment on above: Performed By: #### G KAYLI, LIPID #### [facility] [address] [place] [address] Dr. Jonas Ann CBC AUTO DIFFon 09-08-2021 BASO # 0.0 103/ul Normal 0.0-0.1 [facility] Comment on above: Performed By: #### L IPID, TSH, CMP #### [facility] [address] [place] [address] Dr. Jonas Ann Basophils/100 WBC (Bld) 0.4 % Normal 0.2-2.0 [facility] Comment on above: Performed By: #### L IPID, TSH, CMP #### [facility] [address] [place] [address] Dr. Jonas Ann EO # 0.1 103/ul Normal 0.0-0.7 [facility] Comment on above: Performed By: #### L IPID, TSH, CMP #### [facility] [address] [place] [address] Dr. Jonas Ann Eosinophils/100 WBC (Bld) 0.8 % Critically low 0.9-7.0 [facility] Comment on above: Performed By: #### L IPID, TSH, CMP #### [facility] [address] [address] [address] Jonas Ann Erythrocyte distribution width (RBC) [Ratio] 13.2 % Normal 11.0-15.0 [facility] Comment on above: Performed By: #### L IPID, TSH, CMP #### [facility] [address] [place] [address] Dr. Jonas Ann Hematocrit (Bld) [Volume fraction] 37.6 % Normal 36.0-48.0 [facility] Comment on above: Performed By: #### L IPID, TSH, CMP #### [facility] [address] [place] [address] Dr. Jonas Ann Hemoglobin (Bld) [Mass/Vol] 12.4 g/dL Normal 12.0-16.0 [facility] Comment on above: Performed By: #### L IPID, TSH, CMP #### [facility] [address] [place] [address] Dr. Jonas Ann IG # 0.03 10e3/ul Normal 0.00-0.03 [facility] Comment on above: Performed By: #### L IPID, TSH, CMP #### [facility] [address] [place] [address] Dr. Jonas Ann IG % 0.3 % Normal 0.0-0.5 [facility] Comment on above: Performed By: #### L IPID, TSH, CMP #### [facility] [address] [place] [address] Dr. Jonas Ann LYMPH # 2.0 103/ul Normal 1.2-3.8 [facility] Comment on above: Performed By: #### L IPID, TSH, CMP #### [facility] [address] [place] [address] Dr. Jonas Ann Lymphocytes/100 WBC (Bld) 20.5 % Normal 20.5-60.0 [facility] Comment on above: Performed By: #### L IPID, TSH, CMP #### [facility] [address] [place] [address] Dr. Jonas Ann MANUAL DIFF REQ NO Normal [facility] Comment on above: Performed By: #### L IPID, TSH, CMP #### [facility] [address] [place] [address] Dr. Jonas Ann MCH (RBC) [Entitic mass] 29.0 pg Normal 26.7-34.0 [facility] Comment on above: Performed By: #### L IPID, TSH, CMP #### [facility] [address] [place] [address] Dr. Jonas Ann MCHC (RBC) [Mass/Vol] 33.0 g/dL Normal 29.9-35.2 [facility] Comment on above: Performed By: #### L IPID, TSH, CMP #### [facility] [address] [place] [address] Dr. Jonas Ann MCV (RBC) [Entitic vol] 88.1 fL Normal 81.0-99.0 [facility] Comment on above: Performed By: #### L IPID, TSH, CMP #### [facility] [address] [place] [address] Dr. Jonas Ann MONO # 0.7 103/ul Normal 0.3-0.8 [facility] Comment on above: Performed By: #### L IPID, TSH, CMP #### [facility] [address] [place] [address] Dr. Jonas Ann Monocytes/100 WBC (Bld) 7.4 % Normal 1.7-12.0 [facility] Comment on above: Performed By: #### L IPID, TSH, CMP #### [facility] [address] [place] [address] Dr. Jonas Ann NEUT # 6.9 103/ul Critically high 1.4-6.5 [facility] Comment on above: Performed By: #### L IPID, TSH, CMP #### [facility] [address] [place] [address] Dr. Jonas Ann Neutrophils/100 WBC (Bld) 70.6 % Normal 43.0-75.0 [facility] Comment on above: Performed By: #### L IPID, TSH, CMP #### [facility] [address] [place], [place] [address] Dr. Jonas Ann Platelet mean volume (Bld) [Entitic vol] 11.3 fL Normal 9.5-13.5 [facility] Comment on above: Performed By: #### L IPID, TSH, CMP #### [facility] [address] [place], [place] [address] Dr. Jonas Ann PLT 275 103/ul Normal 150-450 [facility] Comment on above: Performed By: #### L IPID, TSH, CMP #### [facility] [address] [place], [place] [address] Dr. Jonas Ann RBC 4.27 106/ul Normal 4.20-5.40 [facility] Comment on above: Performed By: #### L IPID, TSH, CMP #### [facility] [address] [place], [place] [address] Dr. Jonas Ann WBC 9.8 103/ul Normal 4.0-11.0 [facility] Comment on above: Performed By: #### L IPID, TSH, CMP #### [facility] [address] [place], [place] [address] ABD/PELV W CONon 09-09-19 CT ABD/PELV W CON EXAMINATION: CT ABD/PEL W CON HISTORY: Generalized abdominal pain. COMPARISON: 08/13/2016. TECHNIQUE: Routine CT abdomen/pelvis with intravenous contrast. Dose reduction techniques were achieved by using automated exposure control and/or adjustment of mA and/or kV according to patient size and/or use of iterative reconstruction technique. FINDINGS: Lower chest: Unremarkable. Solid organs: There is a 0.2 to 0.3 cm hypodense lesion within the liver near the dome which most likely represents a cyst however is too small to further characterize by computed tomography. There is a 0.4 cm nodule along the wall of the gallbladder which most likely represents a polyp. The common duct is upper limits normal size measuring 0.6 cm in transverse dimension on the coronal images. The intrahepatic biliary tree is visualized however does not appear significantly dilated. There is absence of the pancreatic neck, body and tail. The spleen is unremarkable. The bilateral adrenal glands are unremarkable. Kidneys: There is cortical scarring along the contour of both kidneys. There is a 0.2 to 0.3 cm nonobstructing calculus within the mid to upper pole of the right renal pelvis. There is an extra renal pelvis. There is no right pelvocaliectasis. The right ureter is partially obscured. Given this limitation, there is no obvious right ureteral calculus or hydroureter. There are numerous nonobstructing calculi within the left renal pelvis, largest measuring 0.8 cm. There is an obstructing 0.6 cm calculus within the proximal left ureter with moderate left pelvocaliectasis and moderate left hydroureter proximal to this. The left ureter distal to this is normal size. There are bilateral renal cysts. Bowel: There is a large amount of stool within the nondistended colon. There is no colonic wall thickening. There are diverticula. There is no diverticulitis. The appendix is unremarkable. The distal esophagus, stomach and small bowel are unremarkable. The bowel gas pattern is nonobstructive. Inflammation: There is a small amount of free fluid within the dependent portion of the pelvis. There is no free air or inflammatory reaction. Lymphadenopathy: There are no pathologically enlarged lymph nodes within the abdomen/pelvis. Vasculature: Atheromatous plaque along the distal descending thoracic aorta and the abdominal aorta. There are also atheromatous calcifications along the iliac arteries. The inferior vena cava is unremarkable. Pelvis: The urinary bladder is collapsed and not adequately visualized. There is a subserosal fibroid off the fundal portion of the uterus containing numerous calcifications. There are pelvic phleboliths. Musculoskeletal: There is a small amount of mesenteric fat extending into the umbilicus. The bony structures are osteopenic. There is mild dextroscoliosis of the lumbar spine. IMPRESSION: There is an obstructing 0.6 cm calculus within the proximal left ureter with moderate left pelvocaliectasis and moderate left hydroureter proximal to this. Numerous additional findings as described in the body the report. Electronically authenticated by: VIVIAN OSPINA Date: 2021-09-08 16:14 Normal [facility] ER URINE PROFILEon 2 Bilirubin Ql (U) Negative Normal NEGATIVE [facility] Comment on above: Performed By: #### E SLOANE FARAH #### [facility] [address] [place] [address] Dr. Jonas Ann Clarity (U) CLEAR Normal CLEAR [facility] Comment on above: Performed By: #### Marcelina FARAH UMICRO #### [facility] [address] [address] [address] Jonas Ann Color (U) LT. YELLOW Normal YELLOW [facility] Comment on above: Performed By: #### Marcelina FARAH UMICRO #### [facility] [address] [address] [address] Jonas SMITH A micrscopic examination will be performed if indicated. Normal [facility] Comment on above: Performed By: #### Marcelina FARAH UMICRO #### [facility] [address] [place] [address] Dr. Jonas Ann Glucose Ql (U) 500 mg/dl Abnormal NEGATIVE [facility] Comment on above: Performed By: #### Marcelina FARAH UMICRO #### [facility] [address] [place] [address] Dr. Jonas Ann Hemoglobin Ql (U) LARGE Abnormal NEGATIVE [facility] Comment on above: Performed By: #### Marcelina FARAH UMICRO #### [facility] [address] [place] [address] Dr. Jonas Ann Ketones Ql (U) >=80 Abnormal NEGATIVE [facility] Comment on above: Performed By: #### Marcelina FARAH UMICRO #### [facility] [address] [place] [address] Dr. Jonas Ann LEUKOCYTES Negative Normal NEGATIVE [facility] Comment on above: Performed By: #### Marcelina FARAH UMICRO #### [facility] [address] [place] [address] Dr. Jonas Ann Nitrite Ql (U) Negative Normal NEGATIVE [facility] Comment on above: Performed By: #### Marcelina FARAH UMICRO #### [facility] [address] [place] [address] Dr. Jonas Ann pH (U) 5.5 [pH] Normal 5-9 [facility] Comment on above: Performed By: #### Marcelina FARAH UMICRO #### [facility] [address] [place] [address] Dr. Jonas Ann SPEC GRAVITY 1.020 Normal 1.005-<=1.025 [facility] Comment on above: Performed By: #### ARMANDO CASASRO #### [facility] [address] [place] [address] Dr. Jonas Ann UA PROTEIN Negative Normal NEGATIVE/ TRACE [facility] Comment on above: Performed By: #### ARMANDO CASASRO #### [facility] [address] [place] [address] Dr. Jonas Ann UR MICRO IND INDICATED Normal [facility] Comment on above: Performed By: #### SLOANE CASAS #### [facility] [address] [place] [address] Dr. Jonas Ann Urobilinogen Qn (U) 0.2 {Bettina'U}/dL Normal 0.2 - 1. 0 [facility] Comment on above: Performed By: #### ARMANDO CASASRO #### [facility] [address] [place] [address] Dr. Jonas Ann LIPASEon 09-08-2021 Lipase [Catalytic activity/Vol] 94.0 U/L Normal 23.0-300.0 [facility] Comment on above: Performed By: #### L IPA, CMP #### [facility] [address] [place] [address] Dr. Jonas Ann PROF 14(COMP METB)on 022 Albumin [Mass/Vol] 4.2 g/dL Normal 3.4-5.0 [facility] Comment on above: Performed By: #### L IPA, CMP #### [facility] [address] [place] [address] Dr. Jonas Ann Albumin/Globulin [Mass ratio] 1.3 {ratio} Normal [facility] Comment on above: Performed By: #### L IPA, CMP #### [facility] [address] [place] [address] Dr. Jonas Ann ALP [Catalytic activity/Vol] 107 U/L Normal 46-116 [facility] Comment on above: Performed By: #### L IPA, CMP #### [facility] [address] [address] [address] Jonas Ann ALT [Catalytic activity/Vol] 44 U/L Normal 14-59 [facility] Comment on above: Performed By: #### L IPA, CMP #### [facility] [address] [address] [address] Jonas Ann Anion gap [Moles/Vol] 19.4 mmol/L Normal [facility] Comment on above: Performed By: #### L IPA, CMP #### [facility] [address] [address] [address] Jonas Ann AST [Catalytic activity/Vol] 28 U/L Normal 15-37 [facility] Comment on above: Performed By: #### L IPA, CMP #### [facility] [address] [address] [address] Jonas Ann Bilirubin [Mass/Vol] 1.2 mg/dL Normal 0.2-1.3 [facility] Comment on above: Performed By: #### L IPA, CMP #### [facility] [address] [address] [address] Jonas Ann Calcium [Mass/Vol] 9.4 mg/dL Normal 8.5-10.1 [facility] Comment on above: Performed By: #### L IPA, CMP #### [facility] [address] [address] [address] Jonas Ann Chloride [Moles/Vol] 100 mmol/L Normal 98-107 [facility] Comment on above: Performed By: #### L IPA, CMP #### [facility] [address] [address] [address] Jonas Ann CO2 [Moles/Vol] 21.9 mmol/L Critically low 22.0-30.0 [facility] Comment on above: Performed By: #### L IPA, CMP #### [facility] [address] [address] [address] Jonas Ann Creatinine [Mass/Vol] 0.86 mg/dL Normal 0.52-1.04 [facility] Comment on above: Performed By: #### L IPA, CMP #### [facility] [address] [address] [address] Jonas Ann EGFR-AF BHUTANESE >60 Normal >=60 [facility] Comment on above: Performed By: #### L IPA, CMP #### [facility] [address] [address] [address] Jonas Ann EGFR-NON AF BHUTANESE >60 Normal >=60 [facility] Comment on above: Performed By: #### L IPA, CMP #### [facility] [address] [address] [address] Jonas Ann Globulin (S) [Mass/Vol] 3.2 g/dL Normal [facility] Comment on above: Performed By: #### L IPA, CMP #### [facility] [address] [address] [address] Jonas Ann Glucose [Mass/Vol] 262 mg/dL Critically high 74-106 [facility] Comment on above: Performed By: #### L IPA, CMP #### [facility] [address] [address] [address] Jonas Ann Potassium [Moles/Vol] 3.3 mmol/L Critically low 3.4-5.0 [facility] Comment on above: Performed By: #### L IPA, CMP #### [facility] [address] [address] [address] Jonas Ann Protein [Mass/Vol] 7.4 g/dL Normal 6.1-8.2 [facility] Comment on above: Performed By: #### L IPA, CMP #### [facility] [address] [address] [address] Jonas Ann Sodium [Moles/Vol] 138 mmol/L Normal 137-145 [facility] Comment on above: Performed By: #### L IPA, CMP #### [facility] [address] [address] [address] Jonas Ann Urea nitrogen [Mass/Vol] 19.0 mg/dL Critically high 7.0-18.0 [facility] Comment on above: Performed By: #### L IPA, CMP #### [facility] [address] [place] [address] Dr. Jonas Ann Urea nitrogen/Creatinine [Mass ratio] 22.1 mg/mg Normal [facility] Comment on above: Performed By: #### L IPA, CMP #### [facility] [address] [place] [address] Dr. Jonas Ann URINE MICROSCOPIC ONLYon BACTERIA NONE SEEN Normal NONE SEEN [facility] Comment on above: Performed By: #### E RUR, UMICRO #### [facility] [address] [place] [address] Dr. Jonas Ann Bacteria identified Cx Nom (U) NOT INDICATED Normal [facility] Comment on above: Performed By: #### E RUR, UMICRO #### [facility] [address] [place] [address] Dr. Jonas Ann CAST NONE SEEN Normal NONE SEEN [facility] Comment on above: Performed By: #### E RUR, UMICRO #### [facility] [address] [place] [address] Dr. Jonas Ann Crystals LM Nom (Urine sed) SEEN Abnormal NONE SEEN [facility] Comment on above: Performed By: #### E RUR, UMICRO #### [facility] [address] [place] [address] Dr. Jonas Ann Epithelial cells LM Ql (Urine sed) NONE SEEN Normal NONE SEEN /RARE [facility] Comment on above: Performed By: #### E RUR, UMICRO #### [facility] [address] [place] [address] Dr. Jonas Ann MUCOUS NONE SEEN Normal NONE SEEN [facility] Comment on above: Performed By: #### E RUR, UMICRO #### [facility] [address] [place] [address] Dr. Jonas Ann RBC 10-20 Abnormal 0-2 [facility] Comment on above: Performed By: #### E RUR, UMICRO #### [facility] [address] [place] [address] Dr. Jonas Ann WBC NONE SEEN Normal NONE SEEN [facility] Comment on above: Performed By: #### E SLOANE FARAH #### [facility] [address] [address] [address] Jonas Ann Vital Signs Date Time Vital Sign Value Performing Clinician Facility 02-23-2024 09:25-0400 Body height 157.5 cm Tania Petznick DO Work Phone: [facility] 02-23-2024 09:25-0400 Body mass index (BMI) [Ratio] 19.39 kg/m2 Tania Petznick DO Work Phone: [facility] 02-23-2024 09:25-0400 Body temperature 97.5 [degF] Tania Petznick DO Work Phone: [facility] 02-23-2024 09:25-0400 Body weight 48.08 kg Tania Petznick DO Work Phone: [facility] 02-23-2024 09:25-0400 Diastolic blood pressure 72 mm[Hg] Tania Petznick DO Work Phone: [facility] 02-23-2024 09:25-0400 Heart rate 70 /min Tania Petznick DO Work Phone: [facility] 02-23-2024 09:25-0400 SaO2% (BldA) [Mass fraction] 99 % Tania Petznick DO Work Phone: [facility] 02-23-2024 09:25-0400 Systolic blood pressure 124 mm[Hg] Tania Petznick DO Work Phone: [facility] 02-16-2024 15:36-0400 Body height 157.5 cm Akhil Biedenbach DO Work Phone: [facility] 02-16-2024 15:36-0400 Body mass index (BMI) [Ratio] 18.47 kg/m2 Akhil Biedenbach DO Work Phone: [facility] 02-16-2024 15:36-0400 Body weight 45.81 kg Akhil Biedenbach DO Work Phone: [facility] 01-28-2024 [id number]:110400 Body height 157.5 cm Tania Petznick DO Work Phone: [facility] 01-28-2024 09:11-0400 Body mass index (BMI) [Ratio] 18.47 kg/m2 Tania Petznick DO Work Phone: [facility] 01-28-2024 09:11-0400 Body temperature 98.1 [degF] Tania Petznick DO Work Phone: [facility] 01-28-2024 09:11-0400 Body weight 45.81 kg Tania Petznick DO Work Phone: [facility] 01-28-2024 09:11-0400 Diastolic blood pressure 60 mm[Hg] Tania Petznick DO Work Phone: [facility] 01-28-2024 09:11-0400 Heart rate 67 /min Tania Petznick DO Work Phone: [facility] 01-28-2024 09:11-0400 SaO2% (BldA) [Mass fraction] 95 % Tania Petznick DO Work Phone: [facility] 01-28-2024 09:11-0400 Systolic blood pressure 122 mm[Hg] Tania Petznick DO Work Phone: [facility] 01-26-2024 15:17-0400 Body height 157.5 cm Akhil Zaydamarbin DO Work Phone: [facility] 01-26-2024 15:17-0400 Body mass index (BMI) [Ratio] 18.11 kg/m2 Akhil Biedenbach DO Work Phone: [facility] 01-26-2024 15:17-0400 Body weight 44.91 kg Akhil Biedenmarbin DO Work Phone: [facility] 12-02-2023 09:29-0400 Body height 157.48 cm [facility] 12-02-2023 09:29-0400 Body mass index (BMI) [Ratio] 18.3 kg/m2 [facility] 12-02-2023 09:29-0400 Body weight 45.35 kg [facility] 12-02-2023 09:29-0400 Diastolic blood pressure 67 mm[Hg] [facility] 12-02-2023 09:29-0400 Heart rate 76 /min [facility] 12-02-2023 09:29-0400 Respiratory rate 12 /min [facility] 12-02-2023 09:29-0400 Systolic blood pressure 106 mm[Hg] [facility] 06-10-2023 09:30-0500 Body height 157.48 cm Hayes Ball Other [facility] [employer] Other 06-10-2023 09:30-0500 Body mass index (BMI) [Ratio] 19.75 kg/m2 Hayes Ball Other [facility] [employer] Other 06-10-2023 09:30-0500 Body weight 48.99 kg Hayes Ball Other [facility] [employer] Other 06-10-2023 09:30-0500 Diastolic blood pressure 70 mm[Hg] Hayes Ball Other [facility] [employer] Other 06-10-2023 09:30-0500 Respiratory rate 12 /min Hayes Ball Other [facility] [employer] Other 06-10-2023 09:30-0500 Systolic blood pressure 111 mm[Hg] Hayes Ball Other [facility] [employer] Other 05-29-2023 12:25-0500 Body height 157.48 cm Evelyn Finn Other [employer] Other 05-29-2023 12:25-0500 Body mass index (BMI) [Ratio] 19.46 kg/m2 Evelyn Finn Other [employer] Other 05-29-2023 12:25-0500 Body temperature 97.5 [degF] Evelyn Finn Other [employer] Other 05-29-2023 12:25-0500 Body weight 48.26 kg Evelyn Silvermanmond Other [employer] Other 05-29-2023 12:25-0500 Diastolic blood pressure 54 mm[Hg] Evelyn Finn Other [employer] Other 05-29-2023 12:25-0500 Respiratory rate 18 /min Evelyn Finn Other [employer] Other 05-29-2023 12:25-0500 SaO2% (BldA) [Mass fraction] 97 % Evelyn Finn Other [employer] Other 05-29-2023 12:25-0500 Systolic blood pressure 112 mm[Hg] Evelyn Silvermanmond Other [employer] Other 01-09-2023 08:45-0400 Body height 157.48 cm Hayes Ball Other [employer] Other 01-09-2023 08:45-0400 Body mass index (BMI) [Ratio] 21.54 kg/m2 Hayes Ball Other [employer] Other 01-09-2023 08:45-0400 Body weight 53.43 kg Hayes Ball Other [employer] Other 01-09-2023 08:45-0400 Diastolic blood pressure 74 mm[Hg] Hayes Ball Other [employer] Other 01-09-2023 08:45-0400 Respiratory rate 12 /min Hayes Watkins Other [employer] Other 01-09-2023 08:45-0400 Systolic blood pressure 133 mm[Hg] Hayes Watkins Other [employer] Other Encounters Encounter Date Encounter Type Care Provider Facility Start: 02-23-2024 End: 02-23-2024 Office outpatient visit 25 minutes Tania Samson DO Work Phone: 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 (CMS/HCC) Start: 02-23-2024 End: 02-23-2024 ambulatory TANIA KAMINSKIGERRY Not Available Start: 02-16-2024 End: 02-16-2024 ambulatory AKHIL ABRAHAM Not Available Start: 02-16-2024 End: 02-16-2024 Office outpatient visit 15 minutes Akhil Abraham DO Work Phone: [facility] Comment on above: Sensorineural hearin g loss (SNHL) of both ears (Primary Dx); Dizziness and giddiness; Nasal septal deviation; Chronic rhinitis Start: 02-16-2024 End: 02-16-2024 Bamboo flowsheet Akhil Abraham DO Work Phone: [facility] Start: 02-16-2024 End: 02-16-2024 Bamboo flowsheet Akhil Abraham DO Work Phone: [facility] Start: 01-28-2024 End: 01-28-2024 Office outpatient visit 25 minutes Tania Samson DO Work Phone: 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 (CMS/HCC) Start: 01-28-2024 End: 01-28-2024 ambulatory TANIA SAMSON Not Available Start: 01-26-2024 End: 01-26-2024 Office outpatient visit 25 minutes [facility] Comment on above: Sensorineural hearin g loss (SNHL) of both ears (Primary Dx); Dizziness and giddiness; Nasal septal deviation; Chronic rhinitis Start: 01-26-2024 End: 01-26-2024 ambulatory AKHIL ABRAHAM Not Available Start: 01-26-2024 End: 01-26-2024 Bamboo flowsheet [facility] Start: 01-26-2024 End: 01-26-2024 Bamboo flowsheet Akhil Abraham DO Work Phone: [facility] Start: 12-17-2023 ambulatory [facility] Work Phone: Start: 12-17-2023 Non-patient / Non-visit [facility] Work Phone: Start: 12-11-2023 End: 12-11-2023 ambulatory TANIA SAMSON Not Available Start: 12-02-2023 End: 12-02-2023 ambulatory [facility] Work Phone: Start: 12-02-2023 End: 12-02-2023 Patient encounter procedure [facility] Physician [facility] Work Phone: Start: 09-17-2023 Non-patient / Non-visit [facility] Physician [facility] Work Phone: Start: 08-11-2023 End: 08-11-2023 ambulatory OLGA H TIMMIS Not Available Start: 08-05-2023 End: 08-05-2023 ambulatory OLGA H TIMMIS Not Available Start: 07-31-2023 End: 07-31-2023 ambulatory DONTRELL KIRBY Not Available Start: 06-15-2023 End: 06-15-2023 ambulatory Hayes Watkins Other [employer] Other Start: 06-15-2023 Telephone encounter Hayes LYN [facility] Start: 06-10-2023 End: 06-10-2023 ambulatory Hayes Watkins Other [employer] Other Start: 06-10-2023 Office outpatient vi sit 15 minutes Hayes Watkins [facility] Start: 05-29-2023 End: 05-29-2023 ambulatory Evelyn Finn Other [employer] Other Start: 05-29-2023 Office outpatient vi sit 15 minutes Evelynjaren Finn [facility] Start: 05-29-2023 Telephone encounter Hayes [facility] Start: 04-15-2023 End: 04-15-2023 ambulatory DIPIKA GRANT Not Available Start: 03-19-2023 End: 03-19-2023 ambulatory Hayes Watkins Other [employer] Other Start: 03-19-2023 Office outpatient vi sit 15 minutes Hayes Watkins [facility] Start: 01-09-2023 End: 01-09-2023 ambulatory Hayes Watkins Other [employer] Other Start: 01-09-2023 Encounter for genera l adult medical examination without abnormal findings Hayes Watkins [facility] Start: 01-09-2023 Periodic preventive med est patient 40-64yrs Hayes Watkins [facility] Start: 07-17-2022 Encounter for genera l adult medical examination without abnormal findings DR TANIA SAMSON [facility] Start: 07-12-2022 End: 07-13-[address] TANIA SAMSON Facility:[facility] Start: 07-12-2022 End: 07-13-2022 Encounter for general adult medical examination without abnormal findings DR TANIA SAMSON Facility:[facility] Start: 05-05-2022 End: 05-06-2022 ambulatory JOSÉ STUART Facility:[facility] Start: 09-08-2021 End: 09-08-[address] HAYES WATKINS Facility:[facility] Start: 04-12-2019 End: 04-13-2019 [facility] Start: 04-12-2019 End: 04-12-2019 Subsequent hospital visit by physician Suman Brown [facility] Comment on above: Arrived Start: 04-06-2019 End: 04-07-2019 Patient encounter [facility] Start: 03-30-2019 End: 03-30-2019 Subsequent hospital visit by physician Zeus Rubalcava [facility] Start: 03-28-2019 End: 03-29-2019 Patient encounter [facility] Start: 03-28-2019 End: 03-28-2019 Subsequent hospital visit by physician Roque Boyd [facility] Comment on above: Arrived Start: 03-23-2019 End: 03-24-2019 Patient encounter procedure FARIBA OBRIEN [facility] Start: 03-23-2019 End: 03-23-2019 Subsequent hospital visit by physician Zeus Rubalcava [facility] Comment on above: Arrived Start: 03-21-2019 End: 03-22-2019 Patient encounter procedure FARIBA OBRIEN [facility] Start: 03-21-2019 End: 03-21-2019 Subsequent hospital visit by physician Lobo Floyd [facility] Comment on above: Arrived Start: 03-16-2019 End: 03-16-2019 Subsequent hospital visit by physician Roque Boyd [facility] Start: 03-14-2019 End: 03-15-2019 Patient encounter procedure FARIBA OBRIEN [facility] Start: 03-14-2019 End: 03-14-2019 Subsequent hospital visit by physician Lobo Floyd [facility] Comment on above: Arrived Start: 03-09-2019 End: 03-09-2019 Subsequent hospital visit by physician Zeus Rubalcava [facility] Start: 03-08-2019 End: 03-09-2019 Patient encounter procedure [facility] Start: 03-08-2019 End: 03-08-2019 Subsequent hospital visit by physician Maximiliano Hickey [facility] Comment on above: Arrived Start: 03-02-2019 End: 03-03-2019 Patient encounter procedure FARIBA [place] [facility] Start: 03-02-2019 End: 03-02-2019 Subsequent hospital visit by physician Zeus [facility] Comment on above: Arrived Start: 03-01-2019 End: 03-02-2019 Patient encounter procedure FARIBA [place] [facility] Start: 03-01-2019 End: 03-01-2019 Subsequent hospital visit by physician Roque [facility] Comment on above: Arrived Start: 02-23-2019 End: 02-24-2019 Patient encounter procedure FARIBA [place] [facility] Start: 02-23-2019 End: 02-23-2019 Subsequent hospital visit by physician Roque [facility] Comment on above: Arrived Start: 02-21-2019 End: 02-22-2019 Patient encounter procedure FARIBA [place] [facility] Start: 02-21-2019 End: 02-21-2019 Subsequent hospital visit by physician Lobo [facility] Comment on above: Arrived Start: 02-15-2019 End: 02-16-2019 Patient encounter procedure FARIBA [place] [facility] Start: 02-14-2019 End: 02-15-2019 Patient encounter procedure [facility] Start: 02-14-2019 End: 02-14-2019 Subsequent hospital visit by physician Lobo [facility] Comment on above: Arrived Start: 02-09-2019 End: 02-10-2019 Patient encounter procedure [facility]YD [facility] Start: 02-09-2019 End: 02-09-2019 Subsequent hospital visit by physician Roque [facility] Comment on above: Arrived Start: 02-07-2019 End: 02-08-2019 Patient encounter procedure [facility] Start: 02-07-2019 End: 02-07-2019 Subsequent hospital visit by physician Lobo [facility] Comment on above: Arrived Start: 02-02-2019 End: 02-03-2019 Patient encounter procedure ZEUS RUBALCAVA [facility] Start: 02-02-2019 End: 02-02-2019 Subsequent hospital visit by physician Zeus [facility] Comment on above: Arrived Start: 01-31-2019 End: 02-01-2019 Patient encounter procedure LOBO PERALTA [facility] Start: 01-31-2019 End: 01-31-2019 Subsequent hospital visit by physician Lobo Floyd [facility] Comment on above: Arrived Start: 01-26-2019 End: 01-27-2019 Patient encounter procedure SUMAN BROWN [facility] Start: 01-26-2019 End: 01-26-2019 Subsequent hospital visit by physician Suman Brown [facility] Comment on above: Arrived Start: 01-19-2019 End: 01-20-2019 Patient encounter procedure [facility] Start: 01-17-2019 End: 01-18-2019 Patient encounter procedure [facility] Start: 01-17-2019 End: 01-17-2019 Subsequent hospital visit by physician Rqoue Boyd [facility] Comment on above: Arrived Start: 01-12-2019 End: 01-13-2019 [facility] Start: 01-12-2019 End: 01-12-2019 [facility]: Arrived Procedures Date Procedure Procedure Detail Performing Clinician Start: 02-23-2024 Hemoglobin glycosyla annie a1c Tania Samson DO Work Phone: Plan of Treatment Date Care Activity Detail Author Start: 02-21-2025 End: 02-21-2025 Patient encounter procedure 02/21/2025 3:45 PM EDT Office Visit [facility] [address] [place] [phone] Akhil Abraham, DO [address] [place] [address] [facility] [place] Start: 02-14-2025 End: 02-14-2025 Patient encounter procedure 02/14/2025 3:30 PM EDT Office Visit [facility] [address] [place] [phone] Tania Warren, AUD [address] [place] [address] [facility] Start: 04-08-2024 End: 04-08-2024 Patient encounter procedure 04/08/2024 8:45 AM EST Office Visit [facility] [address] [place] [phone] Tania Samson, DO [address] [place] [address] [facility] [address] Start: 02-23-2024 End: 02-23-2024 Patient encounter procedure 02/23/2024 9:30 AM EDT Office Visit [facility] [address] [place] [phone] Tania Samson, DO [address] [place] [address] [facility] [address] Start: 02-16-2024 End: 02-16-2024 Patient encounter procedure 02/16/2024 3:30 PM EDT Office Visit [facility] [address] [place] [phone] Akhil Abraham, DO [address] [place] [address] [facility] [place] Start: 01-28-2024 End: 01-28-2024 Patient encounter procedure 01/28/2024 9:15 AM EDT Office Visit [facility] [address] [place] [phone] Tania Samson, DO [address] [place] [address] [facility] [address] Start: 01-26-2024 End: 01-26-2024 Patient encounter procedure 01/26/2024 3:30 PM EDT Office Visit [facility] [address] [place] [phone] Akhil Abraham S, DO [address] [facility] [address] Arrived [facility] [place] Comment on above: Arrived Start: 12-17-2023 Patient referral [facility] Work Phone: Start: 04-12-2019 End: 04-12-2019 Appointment [facility] Start: 04-06-2019 End: 04-06-2019 Appointment 04/06/2019 Appointment Physical Therapy [facility] Start: 03-30-2019 End: 03-30-2019 Appointment 03/30/2019 Appointment Physical Therapy [facility] Rubalcava, [facility] Start: 03-23-2019 End: 03-23-2019 Appointment 03/23/2019 Appointment Physical Therapy Zeus Rubalcava, [facility] Start: 03-21-2019 End: 03-21-2019 Appointment [facility] Start: 03-16-2019 End: 03-16-2019 Appointment [facility] Start: 03-14-2019 End: 03-14-2019 Appointment [facility] Start: 03-09-2019 End: 03-09-2019 Appointment 03/09/2019 Appointment Physical Therapy [facility] Start: 03-08-2019 End: 03-08-2019 Appointment 03/08/2019 Appointment Physical Therapy Maximiliano Hickey [facility] Start: 03-07-2019 End: 03-07-2019 Appointment 03/07/2019 Appointment Physical Therapy Lobo Floyd, LEGAL ADMINISTRATIVE ASSISTANT [facility] Start: 03-02-2019 End: 03-02-2019 Appointment 03/02/2019 Appointment Physical Therapy Zeus Rubalcava, PT [facility] Start: 03-01-2019 End: 03-01-2019 Appointment 03/01/2019 Appointment Physical Therapy Roque Boyd P[facility] Start: 02-23-2019 End: 02-23-2019 Appointment 02/23/2019 Appointment Physical Therapy Roque Boyd PTA [facility] Physical Therapy Start: 02-21-2019 End: 02-21-2019 Appointment 02/21/2019 Appointment Physical Therapy Lobo Floyd PTA [facility] Physical Therapy Start: 02-16-2019 End: 02-16-2019 Appointment 02/16/2019 Appointment Physical Therapy Zeus Rubalcava PT [facility] Physical Therapy Start: 02-15-2019 End: 02-15-2019 Appointment 02/15/2019 Appointment Physical Therapy Maximiliano Hickey [facility] Physical Therapy Start: 02-14-2019 End: 02-14-2019 Appointment 02/14/2019 Appointment Physical Therapy Lobo Floyd PTA [facility] Physical Therapy Start: 02-09-2019 End: 02-09-2019 Appointment 02/09/2019 Appointment Physical Therapy Roque Boyd PTA [facility] Physical Therapy Start: 02-07-2019 End: 02-07-2019 Appointment 02/07/2019 Appointment Physical Therapy Lobo Floyd PTA [facility] [facility] Start: 02-02-2019 End: 02-02-2019 Appointment [facility] Start: 01-31-2019 End: 01-31-2019 Appointment 01/31/2019 Appointment Physical Therapy Lobo Floyd PTA [facility] Physical Therapy Start: 01-26-2019 End: 01-26-2019 Appointment [facility] Start: 01-23-2019 Influenza vaccination Flu vaccine (# 1) [place], [place] Start: 01-20-2019 End: 01-20-2019 Appointment 01/20/2019 Appointment Physical Therapy Ramya Odonnell [facility] Physical Therapy Start: 01-19-2019 End: 01-19-2019 Appointment 01/19/2019 Appointment Physical Therapy Roque Boyd PTA [facility] Physical Therapy Start: 01-17-2019 End: 01-17-2019 Appointment 01/17/2019 Appointment Physical Therapy Roque Boyd PTA [facility] Physical Therapy Start: 2012 Breast cancer screen Breast cancer s creen [place], [place] Start: 2012 Colon cancer screen colonoscopy Colon cancer screen colonoscopy [place], [place] Start: 2012 Shingles Vaccine (1 of 2) Shingles Vaccine (1 of 2) [place], [place] Start: 2002 Lipid screen Lipid screen [place], [place] Start: 1983 Cervical cancer screen Cervical canc er screen [place], [place] Start: 1981 DTaP/Tdap/Td vaccine (1 - Tdap) DTaP/Tdap/Td vaccine (1 - Tdap) [place], [place] Start: 1977 HIV screen HIV screen [place], [place] Start: 1973 DTaP/Tdap/Td vaccine (1 - Tdap) DTaP/Tdap/Td vaccine (1 - Tdap) [place], [place] Start: 1962 Hepatitis C screen Hepatitis C scree n [place], [place] CT Sinuses WO contrast [facility] Patient referral [facility] Work Phone: Payers Date Payer Category Payer Private Health Insurance [facility] [id number] 2022-Present [address] [address] [place] [address] [id number] 2022 Private Health Insurance [id number] 2016 Unknown [employer] [address] xxxxxxxxxxxx 2016-Present [phone] [address] [place] [address] xxxxxxxxxxxx [id number] 2016 Unknown [id number] 1962 Unknown [id number] 2.16.840.1.423731.3.579.2 .173 1962 Unknown [id number] 2.16.840.1.969223.3.579.2 .173 1962 Unknown [id number] 2.16.840.1.427036.3.579.2 .173 1962 Unknown [id number] 2.16.840.1.843559.3.579.2 .173 1962 Unknown [id number] 2.16.840.1.193870.3.579.2 .173 1962 Unknown [id number] 2.16.840.1.811920.3.579.2 .173 1962 Unknown [id number] 2.16.840.1.085065.3.579.2 .173 1962 Unknown [id number] 2.16.840.1.382200.3.579.2 .173 1962 Unknown [id number] 2.16.840.1.846332.3.579.2 .173 1962 Unknown [id number] 2.16.840.1.355580.3.579.2 .173 1962 Unknown [id number] 2.16.840.1.335226.3.579.2 .173 1962 Unknown [id number] 2.16.840.1.022524.3.579.2 .173 1962 Unknown [id number] 2.16.840.1.055563.3.579.2 .173 1962 Unknown [id number] 2.16.840.1.451824.3.579.2 .173 1962 Unknown [id number] 2.16.840.1.994643.3.579.2 .173 1962 Unknown [id number] 2.16.840.1.322654.3.579.2 .173 1962 Unknown [id number] 2.16.840.1.818632.3.579.2 .173 1962 Unknown [id number] 2.16.840.1.494174.3.579.2 .173 1962 Unknown [id number] 2.16.840.1.758951.3.579.2 .173 1962 Unknown [id number] 2.16.840.1.876107.3.579.2 .173 1962 Unknown [id number] 2.16.840.1.893487.3.579.2 .173 1962 Unknown [id number] 2.16.840.1.117788.3.579.2 .593 1962 Unknown [id number] 2.16.840.1.105911.3.579.2 .593 1962 Unknown [id number] 2.16.840.1.694968.3.579.2 .593 1962 Unknown [id number] 2.16.840.1.224870.3.579.2 .1259 1962 Unknown [id number] 2.16.840.1.151701.3.579.2 .9 1962 Unknown [id number] 2.16.840.1.966440.3.579.2 .9 1962 Unknown [id number] 2.16.840.1.824490.3.579.2 .1259 1962 Unknown [id number] 2.16.840.1.002594.3.579.2 .9 1962 Unknown [id number] 2.16.840.1.604714.3.579.2 .1259 1962 Unknown [id number] 2.16.840.1.082803.3.579.2 .9 1962 Unknown [id number] 2.16.840.1.064750.3.579.2 .1259 1962 Unknown [id number] 2.16.840.1.821262.3.579.2 .9 1959 Unknown [id number] Social History Date Type Detail Facility Start: 09-30-2017 End: 08-05-2023 Tobacco smoking status NCIS Never smoker [facility] Start: 09-30-2017 End: 12-04-2023 Alcohol intake Yes [facility] Start: 09-18-2017 Alcohol Comment occasional [facility] Start: 1960 [facility] Start: 09-30-2017 End: 02-16-2024 Alcohol intake Current drinker of alcohol (finding) Nancie [facility] SHANEKA KRISHNAMURTHY Start: 1960 Sex Assigned At Female [facility] Start: 08-05-2023 Tobacco use and exposure Smokeless tobacco non-user [facility] Start: 12-04-2023 End: 01-28-2024 History of Social function [facility] How often do you nee d to have someone help you when you read instructions, pamphlets, or other written material from your doctor or pharmacy [SILS] Never [facility] Do you belong to any clubs or organizations such as judaism groups, unions, fraternal or athletic groups, or school groups? Yes [facility] Are you now , , , , never or living with a partner? [facility] How many standard dr inks containing alcohol do you have on a typical day? 1 or 2 [facility] How often do you hav e 6 or more drinks on 1 occasion? Never [facility] Do you feel stress - tense, restless, nervous, or anxious, or unable to sleep at night because your mind is troubled all the time - these days [OSQ] To some extent [facility] (I/We) worried wheth er (my/our) food would run out before (I/we) got money to buy more. Never true [facility] In the past 12 month s, was there a time when you were not able to pay the mortgage or rent on time? No [facility] Start: 01-26-2024 Alcohol Comment Only have 1 or 2 drinks per month [facility] Start: 07-30-2023 Alcohol Comment 1- Monthly [facility] Clinical Notes 01-09-2023 to 02-23-2024 Tania Samson, DO - 02/23/2024 12:56 PM Dhara Samson, DO - 02/23/2024 9:30 AM Martha Abraham, DO - 02/16/2024 3:30 PM Dhara Samson, DO - 01/28/2024 11:15 AM EDT Note Date & Type Note Facility 02-23-2024 History of Present illness Narrative Associated Problem(s): Type 1 diabetes mellitus with proliferative retinopathy of both eyes ([facility]) During the appointment today all pertinent labs, imaging, health maintenance, and glucose readings were reviewed. Encouraged to check blood glucose throughout the day with some fasting and some PP readings. They are to bring their glucose meter/cgm in to all appointments. All of the patients questions, treatment options, and current care plan and goals were discussed. A copy of this along with pertinent instructions were given to the patient at the end of the appointment. The patient voices understanding of all of this and is to call in between appointments if they have any problems or questions. Marychuy Robertson is making improvements and encouraged on this. , The patient is wearing their cgm on a daily basis and making decisions in regards to adjusting insulin daily as well for at least the last 60 days , Instructed on the importance of taking insulin before eating. If it has been more than 30-45 min since eating they should not give the meal dose but should just give a correction insulin dose. , Instructions given today include: Hypoglycemia management, Insulin instructions, and Dietary education. She is to keep working on her consistency with taking insulin, counting carbs, and taking the right amt of insulin for her carbs. Will decrease tresiba to help prevent low bg. Images from the original note were not included. Marychuy Robertson is a 63 y.o. female presents with chief complaint of Diabetes HPI: Diabetes Mellitus Follow-up: Marychuy Robertson is here for follow-up evaluation of diabetes mellitus. The initial diagnosis of diabetes was made in 1991 with GDM and 1997 DM Type 2. Diabetes complications: retinopathy She has been checking her blood glucose with Lianna 3 CGM - LINKED- on a daily basis. Last A1c: >15 on 12/11/2023 Last eye exam: 03/20/2023 Current concerns include: Last office visit was on 01/28/2024 States her BG have are better Noticed when she put her sensor on her arm she had a lot of pain (normally wears on abdomen). Pt not sure why she had so much pain. Diet: Trying to watch what she is eating Drinks: water, zero sugar tea, diet pop Exercise: none Hypoglycemia: Unsure Taking tresiba about 5 days a week. Getting better with the lyumjev, still misses this about once a day at dinner. Not taking any correction doses of lyumjev due to being nervous about it dropping her too low. She is still not great about counting carbs and taking the correct amt of insulin. Is doing better with eating more protein and less carbs during the day. SUBJECTIVE: PROBLEM LIST SOCIAL ALLERGIES: Patient Active Problem List Diagnosis Age-related nuclear cataract of both eyes Pseudophakia Left acute serous otitis media Type 1 diabetes mellitus with proliferative retinopathy of both eyes (CMS/HCC) Mixed conductive and sensorineural hearing loss of left ear with restricted hearing of right ear ETD (Eustachian tube dysfunction), bilateral Type 1 diabetes mellitus with hyperglycemia (HCC) (CMS/HCC) Social History Tobacco Use Smoking status: Never Smokeless tobacco: Never Substance Use Topics Alcohol use: Yes Comment: Only have 1 or 2 drinks per month Drug use: Never Allergies Allergen Reactions Levaquin [Levofloxacin] Anaphylaxis Antihistamines, Chlorpheniramine-Type Other Reaction(s): Other (See Comments) dizziness Biaxin [Clarithromycin] Cephalexin Hives Other Reaction(s): hives Cephalosporins Other Reaction(s): Unknown Reaction Fexofenadine-Pseudoephed Er Other Reaction(s): dizzy Nitrofurantoin Other Reaction(s): shortness of breath and rapid heart beat Synopsis [facility] 02/23/2024 01/28/2024 01/26/2024 00:00 Antidiabetic medications Insulin Degludec 15 Units Daily SC-Discontinued (Dose adjustm) 15 Units Daily SC No sig Insulin Degludec 20 Units Daily SC-Discontinued (Dose adjustm) 20 Units Daily SC Insulin Degludec 15 Units Daily SC Insulin Glargine INJECT 14 UNITS SUBCUTANEOUSLY AT BEDTIME (100 UNIT/ML SOPN)-Discontinued INJECT 14 UNITS SUBCUTANEOUSLY AT BEDTIME (100 UNIT/ML SOPN) Insulin Lispro-aabc 1:10 carb ratio qAC plus correction 1:75 > 150 mg/dl (max daily 50 units) (100 UNIT/ML SOPN) 1:10 carb ratio qAC plus correction 1:75 > 150 mg/dl (max daily 50 units) (100 UNIT/ML SOPN) 1:10 carb ratio qAC plus correction 1:75 > 150 mg/dl (max daily 50 units) (100 UNIT/ML SOPN) No sig Labs MHPT A1C 13.0 Outpatient prescription Medication marked as long-term Patient-reported medication REVIEW OF SYMPTOMS: Review of Systems Constitutional: Positive for fatigue. Negative for appetite change and unexpected weight change. Eyes: Negative for visual disturbance. Respiratory: Negative for cough, shortness of breath and wheezing. Cardiovascular: Negative for chest pain, palpitations and leg swelling. Neurological: Positive for numbness. Endocrine: Negative for polydipsia, polyphagia and polyuria. OBJECTIVE: 02/23/2024 9:25 AM 02/16/2024 3:36 PM 01/28/2024 9:11 AM Vitals BMI 19.39 kg/m2 18.47 kg/m2 18.47 kg/m2 Systolic 124 122 Diastolic 72 60 Heart Rate 70 67 Temp 97.5 F 98.1 F Height (in) 5' 2 5' 2 5' 2 Weight (lb) 106 101 101 Visit Report Report Report Report Physical Exam Constitutional: General: She is not in acute distress. Appearance: Normal appearance. Cardiovascular: Rate and Rhythm: Normal rate and regular rhythm. Heart sounds: No murmur heard. No friction rub. No gallop. Pulmonary: Breath sounds: Normal breath sounds. No wheezing, rhonchi or rales. Musculoskeletal: General: No swelling. Neurological: Mental Status: She is alert. ASSESSMENT AND PLAN: Problem List Items Addressed This Visit Type 1 diabetes mellitus with proliferative retinopathy of both eyes (CMS/HCC) During the appointment today all pertinent labs, imaging, health maintenance, and glucose readings were reviewed. Encouraged to check blood glucose throughout the day with some fasting and some PP readings. They are to bring their glucose meter/cgm in to all appointments. All of the patients questions, treatment options, and current care plan and goals were discussed. A copy of this along with pertinent instructions were given to the patient at the end of the appointment. The patient voices understanding of all of this and is to call in between appointments if they have any problems or questions. Marychuy Robertson is making improvements and encouraged on this. , The patient is wearing their cgm on a daily basis and making decisions in regards to adjusting insulin daily as well for at least the last 60 days , Instructed on the importance of taking insulin before eating. If it has been more than 30-45 min since eating they should not give the meal dose but should just give a correction insulin dose. , Instructions given today include: Hypoglycemia management, Insulin instructions, and Dietary education. She is to keep working on her consistency with taking insulin, counting carbs, and taking the right amt of insulin for her carbs. Will decrease tresiba to help prevent low bg. Relevant Medications insulin degludec (Tresiba FlexTouch) 100 UNIT/ML injection Other Relevant Orders POCT glycosylated hemoglobin (Hb A1C) docked device (Completed) Type 1 diabetes mellitus with hyperglycemia (HCC) ([facility]/HCC) - Primary Follow up in about 6 weeks (around 04/05/2024) for Recheck. Patient's Medications New Prescriptions No medications on file Previous Medications CONTINUOUS GLUCOSE SENSOR (FREESTYLE LIANNA 3 SENSOR) MISC Inject 1 Device under the skin every 14 (fourteen) days INSULIN LISPRO-AABC (LYUMJEV KWIKPEN) 100 UNIT/ML PEN 1:10 carb ratio qAC plus correction 1:75 > 150 mg/dl (max daily 50 units) Modified Medications Modified Medication Previous Medication INSULIN DEGLUDEC (TRESIBA FLEXTOUCH) 100 UNIT/ML INJECTION insulin degludec (Tresiba FlexTouch) 100 UNIT/ML injection Inject 15 Units under the skin Daily Inject 20 Units under the skin Daily Discontinued Medications No medications on file I have reviewed and reconciled the history and medication list with the patient today. documented in this encounter [facility] 02-16-2024 History of Present illness Narrative Subjective Patient ID: Marychuy Robertson is a 63 y.o. female who presents for Vertigo (3 week kevin ) HPI This patient presents for recheck of bilateral hearing loss, dizziness, septal deviation, and chronic rhinitis. Review of Systems Patient describes significant improvement of condition. Continues to have difficulties with dizziness which is likely secondary to her low blood pressure. Has been using steroid nasal spray on a daily basis with some improvement of nasal function. Denies any significant change of her hearing. The rest of her review of systems is unchanged. Objective ENT Physical Exam General Examination: General overview: Normal, age-appropriate, no evidence of distress Head: Normocephalic, atraumatic Eyes: Pupils are equally round and reactive to light and accommodation, extraocular muscles are intact Ears: External ear architecture within normal limits, ear canals are patent, tympanic membranes are intact. Nose: External nose unremarkable, nares patent, septum intact, Deviation of the nasal septum. Mild to moderate congestion. Oral cavity: Mucosa moist, no evidence of ulcer, mass, or lesion Throat: Clear Neck/thyroid: Neck supple, full range of motion, no cervical lymphadenopathy, no evidence of thyromegaly Lymph nodes: No cervical lymphadenopathy Skin: Warm and dry, no evidence of suspicious lesions, no rash Heart: No jugular venous distention, point of maximal impulse normal Lungs: Good air movement, no audible wheezing, no shortness of breath Chest: Normal shape and expansion Abdomen: Normal, soft, nontender, nondistended Musculoskeletal: Cervical spine normal, full range of motion Extremities: No clubbing, cyanosis, or edema Peripheral pulses: 2+ radial, 2+ carotid Neurologic: Alert and oriented, cranial nerves 2-12 are grossly intact Psych: Alert and oriented, normal affect, no evidence of distress Assessment/Plan Diagnoses and all orders for this visit: Sensorineural hearing loss (SNHL) of both ears Comments: Recommend repeat hearing test in 1 year Dizziness and giddiness Comments: stable, we will see this patient back if her symptoms worsen. Nasal septal deviation Comments: Observe for any worsening symptoms Chronic rhinitis Comments: continue steroid nasal spray. documented in this encounter [facility] 01-28-2024 History of Present illness Narrative Associated Problem(s): Type 1 diabetes mellitus with proliferative retinopathy of both eyes ([facility]) During the appointment today all pertinent labs, imaging, health maintenance, and glucose readings were reviewed. Encouraged to check blood glucose throughout the day with some fasting and some PP readings. They are to bring their glucose meter/cgm in to all appointments. All of the patients questions, treatment options, and current care plan and goals were discussed. A copy of this along with pertinent instructions were given to the patient at the end of the appointment. The patient voices understanding of all of this and is to call in between appointments if they have any problems or questions. Marychuy Robertson is struggling to gain control of their diabetes. I am very concerned for diabetes related complications. , The patient is wearing their cgm on a daily basis and making decisions in regards to adjusting insulin daily as well for at least the last 60 days , Instructed on the importance of taking insulin before eating. If it has been more than 30-45 min since eating they should not give the meal dose but should just give a correction insulin dose. , Instructions given today include: Insulin instructions and Dietary education. She is to keep her lyumjev in a clear glass on her table and work and in her living room to help remind her to take this when she is eating. Recommend eating more meals and less on snacking. Will increase tresiba. Images from the original note were not included. Marychuy Robertson is a 63 y.o. female presents with chief complaint of Diabetes HPI: Diabetes Mellitus Follow-up: Marychuy Robertson is here for follow-up evaluation of diabetes mellitus. The initial diagnosis of diabetes was made in 1991 with GDM and 1997 DM Type 2. Diabetes complications: retinopathy She has been checking her blood glucose with Lianna 3 CGM - LINKED- on a daily basis. Running high throughout the day. Last A1c: >15 on 12/11/2023 Last eye exam: 2022 Current concerns include: States her BG have are still high. She has not been wearing a sensor for a week due to running out. She doesn't have a meter so she has not checked her bg level. Diet: no appetite, not eating much. Needs help with quick healthy foods. Drinks: water, zero sugar tea, diet pop Exercise: none Hypoglycemia: none Taking tresiba daily but still missing lyumjev about 75% of the time. SUBJECTIVE: PROBLEM LIST SOCIAL ALLERGIES: Patient Active Problem List Diagnosis Age-related nuclear cataract of both eyes Pseudophakia Left acute serous otitis media Type 1 diabetes mellitus with proliferative retinopathy of both eyes (CMS/HCC) Mixed conductive and sensorineural hearing loss of left ear with restricted hearing of right ear ETD (Eustachian tube dysfunction), bilateral Type 1 diabetes mellitus with hyperglycemia (HCC) (CMS/HCC) Social History Tobacco Use Smoking status: Never Smokeless tobacco: Never Substance Use Topics Alcohol use: Yes Comment: Only have 1 or 2 drinks per month Drug use: Never Allergies Allergen Reactions Levaquin [Levofloxacin] Anaphylaxis Antihistamines, Chlorpheniramine-Type Other Reaction(s): Other (See Comments) dizziness Biaxin [Clarithromycin] Cephalexin Hives Other Reaction(s): hives Cephalosporins Other Reaction(s): Unknown Reaction Fexofenadine-Pseudoephed Er Other Reaction(s): dizzy Nitrofurantoin Other Reaction(s): shortness of breath and rapid heart beat Synopsis [facility] 01/28/2024 01/26/2024 00:00 12/13/2023 Antidiabetic medications Insulin Degludec 15 Units Daily SC-Discontinued (Dose adjustm) 15 Units Daily SC 15 Units Daily SC Insulin Degludec 20 Units Daily SC Insulin Glargine inject subcutaneously 14 UNITS AT BEDTIME (100 UNIT/ML SOPN) -Discontinued No sig Insulin Glargine INJECT 14 UNITS SUBCUTANEOUSLY AT BEDTIME (100 UNIT/ML SOPN)-Discontinued INJECT 14 UNITS SUBCUTANEOUSLY AT BEDTIME (100 UNIT/ML SOPN) Insulin Lispro-aabc 1:5 carb ratio QAC plus correction 1:75 > 150 mg/dl (max daily 50 units) Subcutaneous (100 UNIT/ML SOPN) -Discontinued (Reorder) No sig Insulin Lispro-aabc 1:10 carb ratio qAC plus correction 1:75 > 150 mg/dl (max daily 50 units) (100 UNIT/ML SOPN) 1:10 carb ratio qAC plus correction 1:75 > 150 mg/dl (max daily 50 units) (100 UNIT/ML SOPN) 1:10 carb ratio qAC plus correction 1:75 > 150 mg/dl (max daily 50 units) (100 UNIT/ML SOPN) Outpatient prescription Medication marked as long-term Patient-reported medication REVIEW OF SYMPTOMS: Review of Systems Constitutional: Positive for fatigue. Negative for appetite change and unexpected weight change. Eyes: Negative for visual disturbance. Respiratory: Negative for cough, shortness of breath and wheezing. Cardiovascular: Negative for chest pain, palpitations and leg swelling. Neurological: Negative for numbness. Endocrine: Negative for polydipsia, polyphagia and polyuria. OBJECTIVE: 01/28/2024 9:11 AM 01/26/2024 3:17 PM 12/11/2023 8:18 AM Vitals BMI 18.47 kg/m2 18.11 kg/m2 18.22 kg/m2 Systolic 122 112 Diastolic 60 62 Heart Rate 67 80 Temp 98.1 F 98.5 F Height (in) 5' 2 5' 2 5' 2 Weight (lb) 101 99 99.6 Visit Report Report Report Report Physical Exam Constitutional: General: She is not in acute distress. Appearance: Normal appearance. Cardiovascular: Rate and Rhythm: Normal rate and regular rhythm. Heart sounds: No murmur heard. No friction rub. No gallop. Pulmonary: Breath sounds: Normal breath sounds. No wheezing, rhonchi or rales. Musculoskeletal: General: No swelling. Neurological: Mental Status: She is alert. ASSESSMENT AND PLAN: Problem List Items Addressed This Visit Type 1 diabetes mellitus with proliferative retinopathy of both eyes (CMS/HCC) During the appointment today all pertinent labs, imaging, health maintenance, and glucose readings were reviewed. Encouraged to check blood glucose throughout the day with some fasting and some PP readings. They are to bring their glucose meter/cgm in to all appointments. All of the patients questions, treatment options, and current care plan and goals were discussed. A copy of this along with pertinent instructions were given to the patient at the end of the appointment. The patient voices understanding of all of this and is to call in between appointments if they have any problems or questions. Marychuy Robertson is struggling to gain control of their diabetes. I am very concerned for diabetes related complications. , The patient is wearing their cgm on a daily basis and making decisions in regards to adjusting insulin daily as well for at least the last 60 days , Instructed on the importance of taking insulin before eating. If it has been more than 30-45 min since eating they should not give the meal dose but should just give a correction insulin dose. , Instructions given today include: Insulin instructions and Dietary education. She is to keep her trevor in a clear glass on her table and work and in her living room to help remind her to take this when she is eating. Recommend eating more meals and less on snacking. Will increase tresiba. Relevant Medications Continuous Glucose Sensor (FreeStyle Lianna 3 Sensor) misc insulin degludec (Tresiba FlexTouch) 100 UNIT/ML injection Type 1 diabetes mellitus with hyperglycemia (HCC) ([facility]/HCC) - Primary Follow up in about 4 weeks (around 02/25/2024) for Recheck. Patient's Medications New Prescriptions No medications on file Previous Medications INSULIN LISPRO-AABC (LYUMJEV KWIKPEN) 100 UNIT/ML PEN 1:10 carb ratio qAC plus correction 1:75 > 150 mg/dl (max daily 50 units) Modified Medications Modified Medication Previous Medication CONTINUOUS GLUCOSE SENSOR (FREESTYLE LIANNA 3 SENSOR) MISC Continuous Glucose Sensor (FreeStyle Lianna 3 Sensor) misc Inject 1 Device under the skin every 14 (fourteen) days Inject 1 Device under the skin every 14 (fourteen) days INSULIN DEGLUDEC (TRESIBA FLEXTOUCH) 100 UNIT/ML INJECTION insulin degludec (Tresiba FlexTouch) 100 UNIT/ML injection Inject 20 Units under the skin Daily Inject 15 Units under the skin Daily Discontinued Medications LANTUS SOLOSTAR 100 UNIT/ML PEN INJECT 14 UNITS SUBCUTANEOUSLY AT BEDTIME I have reviewed and reconciled the history and medication list with the patient today. documented in this encounter [facility] 01-26-2024 History of Present illness Narrative Subjective Patient ID: Marychuy Robertson is a 63 y.o. female who presents for Vertigo (Previous Timmis / vertigo) HPI 63-year-old white female presents today for evaluation of hearing loss and episodic dizziness. Symptoms began several months ago with cyst ear infection resulting in ear discomfort and drainage. Patient was treated with antibiotics but has had persistent decreased hearing in both ears. Review of Systems Patient does describe difficulties with hearing bilaterally, greater on the right. Describes episodic difficulties with severe lightheadedness when changing position. Denies any loss of consciousness. Does describe difficulties with nasal congestion and pressure. Patient does have a history of diabetes in his currently on insulin. Patient also describes to have a history of low blood pressure. Family history is positive for hearing loss on her father side. Denies any history of head trauma. Denies any cephalgia. The rest of her review of systems is negative. Allergies as of 01/26/2024 - Reviewed 01/26/2024 Allergen Reaction Noted Levaquin [levofloxacin] Anaphylaxis 07/30/2023 Antihistamines, chlorpheniramine-type 02/09/2017 Biaxin [clarithromycin] 07/30/2023 Cephalexin Hives 02/09/2017 Cephalosporins 12/02/2023 Fexofenadine-pseudoephed er 04/15/2023 Nitrofurantoin 03/20/2023 Past Medical History: Diagnosis Date BPPV (benign paroxysmal positional vertigo) 01/26/2024 Breast density Cataract Chronic sinusitis 01/26/2024 Ear problems May 2023 Enlarged lymph nodes 11/29/2003 Frequent UTI 02/09/2017 History of anemia History of nephrolithiasis HL (hearing loss) Had a virus in May that caused hearing loss Low back pain with radiation Low blood pressure Menopausal symptoms Pain in pelvis PDR (proliferative diabetic retinopathy) ([facility]) s/p antiVEGF OD x1 and OS x4 and PRP OU. R.A.C. Renal stones 02/09/2017 Sciatica of left side Syncope due to orthostatic hypotension Type 1 diabetes ([facility]) 1991 started Gestational Current Outpatient Medications: Continuous Glucose Sensor (FreeStyle Lianna 3 Sensor) misc, Inject 1 Device under the skin every 14 (fourteen) days, Disp: 6 each, Rfl: 3 insulin degludec (Tresiba FlexTouch) 100 UNIT/ML injection, Inject 15 Units under the skin Daily, Disp: 15 mL, Rfl: 3 insulin lispro-aabc (Lyumjev KwikPen) 100 UNIT/ML pen, 1:10 carb ratio qAC plus correction 1:75 > 150 mg/dl (max daily 50 units), Disp: 15 mL, Rfl: 3 Lantus SoloStar 100 UNIT/ML pen, INJECT 14 UNITS SUBCUTANEOUSLY AT BEDTIME, Disp: , Rfl: Past Surgical History: Procedure Laterality Date CATARACT EXTRACTION CYST REMOVAL 6th grade - removal KIDNEY STONE SURGERY LYMPH NODE DISSECTION 3 x surgery removal TUBAL LIGATION 1991 Social History Socioeconomic History Marital status: Spouse name: Not on file Number of children: Not on file Years of education: Not on file Highest education level: Not on file Occupational History Not on file Tobacco Use Smoking status: Never Smokeless tobacco: Never Substance and Sexual Activity Alcohol use: Yes Comment: Only have 1 or 2 drinks per month Drug use: Never Sexual activity: Defer Other Topics Concern Not on file Social History Narrative Not on file Social Determinants of Health Financial Resource Strain: Low Risk (12/04/2023) Overall Financial Resource Strain (CARDIA) Difficulty of Paying Living Expenses: Not hard at all Food Insecurity: No Food Insecurity (12/04/2023) Hunger Vital Sign Worried About Running Out of Food in the Last Year: Never true Ran Out of Food in the Last Year: Never true Transportation Needs: No Transportation Needs (12/04/2023) PRAPARE - Transportation Lack of Transportation (Medical): No Lack of Transportation (Non-Medical): No Physical Activity: Inactive (12/04/2023) Exercise Vital Sign Days of Exercise per Week: 0 days Minutes of Exercise per Session: 0 min Stress: Stress Concern Present (12/04/2023) [place] [employer] - Occupational Stress Questionnaire Feeling of Stress : To some extent Social Connections: Moderately Isolated (12/04/2023) Social Connection and Isolation Panel [NHANES] Frequency of Communication with Friends and Family: Once a week Frequency of Social Gatherings with Friends and Family: Once a week Attends Christian Services: More than 4 times per year Active Member of Clubs or Organizations: Yes Attends Club or Organization Meetings: More than 4 times per year Marital Status: Intimate Partner Violence: Not on file Housing Stability: Low Risk (12/04/2023) Housing Stability Vital Sign Unable to Pay for Housing in the Last Year: No Number of Times Moved in the Last Year: 0 Homeless in the Last Year: No Objective ENT Physical Exam General Examination: General overview: Normal, age-appropriate, no evidence of distress Head: Normocephalic, atraumatic Eyes: Pupils are equally round and reactive to light and accommodation, extraocular muscles are intact Ears: External ear architecture within normal limits, ear canals are patent, tympanic membranes are intact. Review of her audiogram does reveal evidence of bilateral downsloping sensorineural hearing loss, more significant on the right. Flat tympanogram on the left. Nose: External nose unremarkable, nares patent, septum intact, deviation of the nasal septum to the left with mild to moderate congestion. Oral cavity: Mucosa moist, no evidence of ulcer, mass, or lesion Throat: Clear Neck/thyroid: Neck supple, full range of motion, no cervical lymphadenopathy, no evidence of thyromegaly Lymph nodes: No cervical lymphadenopathy Skin: Warm and dry, no evidence of suspicious lesions, no rash Heart: No jugular venous distention, point of maximal impulse normal Lungs: Good air movement, no audible wheezing, no shortness of breath Chest: Normal shape and expansion Abdomen: Normal, soft, nontender, nondistended Musculoskeletal: Cervical spine normal, full range of motion Extremities: No clubbing, cyanosis, or edema Peripheral pulses: 2+ radial, 2+ carotid Neurologic: Alert and oriented, cranial nerves 2-12 are grossly intact Psych: Alert and oriented, normal affect, no evidence of distress Assessment/Plan Diagnoses and all orders for this visit: Sensorineural hearing loss (SNHL) of both ears Comments: Consider hearing aids Dizziness and giddiness Comments: Recommend this patient return to her family physician for orthostatic blood pressures Nasal septal deviation Comments: Observe for worsening symptoms Chronic rhinitis Comments: Continue Flonase, will get a copy of her CT scan for review documented in this encounter [facility] 12-17-2023 Hospital Discharge instructions Ambulatory OrdersReferral to ENT Time Frame: 12/17/23, Location: [facility] Work Phone: 06-10-2023 Evaluation note Encounter Date Diagnosis Assessment Notes May, Non-recurrent acute serous otitis media of left ear (ICD-10 - H65.02) Continue use of saline NS and Flonase. Stop Cortisporin otic drops. Will send for Audiogram and ENT evaluation. May, Type 1 diabetes mellitus with hyperglycemia (ICD-10 - E10.65) This patient is following a comprehensive diabetic treatment plan. They are checking their feet daily for calluses and nonhealing ulcers. They are being seen for yearly dilated eye examinations. Goals: SBP less than 130, LDL less than 100, FBS less than 140, A1C less than 7%. They are checking their BS daily, will which are reviewed at the office visit. Continue regular routine monitoring of A1C,] Microalbumin, Dilated eye exam and Foot exam Increases her risk for more severe, persistent infection. [facility] Other 01-05-2024 Evaluation note* Encounter Date Diagnosis Assessment Notes Treatment Notes Treatment Clinical Notes May, Contact with and (suspected) exposure to covid-19 (ICD-10 - Z20.822) May, Viral URI (ICD-10 - J06.9) Drink plenty fluids, get plenty of rest. Continue home medications as prescribed. Take the Medrol Dosepak as prescribed until gone. The fluticasone nasal spray as prescribed for your sinus symptoms until your symptoms improved. Take Tylenol or Motrin as needed for aches pains or fevers. Take Mucinex and/or Sudafed for congestion. Run a coolmist humidifier at bedside. Follow-up with your family physician if no improvement in 2 to 3 days [facility] Other 10-26-2023 Evaluation note* Encounter Date Diagnosis Assessment Notes Treatment Notes Treatment Clinical Notes Feb, Acute bronchitis due to other specified organisms (ICD-10 - J20.8) Instructed to use Robitussin or Mucinex for cough, saline or Flonase NS for congestion, Tylenol for pain and fever. Feb, Type 1 diabetes mellitus with hyperglycemia (ICD-10 - E10.65) Acute illness and prednisone may increase BS temporarily. May adjust insulin if experienced. [facility] Other 08-18-2023 Evaluation note* Encounter Date Diagnosis Assessment Notes Treatment Notes Treatment Clinical Notes Dec, Wellness examination (ICD-10 - Z00.00) Healthy diet and exercise. Reviewed age-appropriate preventive testing recommended. Dec, Type 1 diabetes mellitus with hyperglycemia (ICD-10 - E10.65) This patient is following a comprehensive diabetic treatment plan. They are checking their feet daily for calluses and nonhealing ulcers. They are being seen for yearly dilated eye examinations. Goals: SBP less than 130, LDL less than 100, FBS less than 140, AC and A1C less than 7%. They are checking their BS daily, will which are reviewed at the office visit. Continue regular routine monitoring of A1C,] Microalbumin, Dilated eye exam and Foot exam Dec, Type 1 diabetes mellitus with moderate nonproliferative retinopathy of both eyes without macular edema (ICD-10 - E10.3393) Optimal control of diabetes, f/u Ophthalmology Dec, Mixed hyperlipidemia (ICD-10 - E78.2) Instructed on diet and exercise with continued statin therapy.Discussed the beneficial effects of lowering cholesterol in reducing the risk for cerebrovascular and cardiovascular disease. Dec, History of nephrolithiasis (ICD-10 - Z87.442) Push fluids, no recent attacks Dec, Screening for colon cancer (ICD-10 - Z12.11) Reommend colonoscopy but patient refuses. 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 (CMS/HCC) documented in this encounter [facility] HealthcareEvaluation note* Diagnosis Sensorineural hearing loss (SNHL) of both ears- Primary Dizziness and giddiness Nasal septal deviation Deviated nasal septum Chronic rhinitis documented in this encounter [facility] HealthcareEvaluation note* Diagnosis Type 1 diabetes mellitus with hyperglycemia (HCC) (CMS/HCC)- Primary 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 (CMS/HCC) documented in this encounter [facility] HealthcareEvaluation note* Diagnosis Sensorineural hearing loss (SNHL) of both ears- Primary Dizziness and giddiness Nasal septal deviation Deviated nasal septum Chronic rhinitis documented in this encounter [facility] HealthcareHistory general Narrative - Reported* Type Description Date Medical History type II diabetic Medical History low blood pressure Medical History hx of anemia Medical History Type 1 diabetes mellitus with hy perglycemia Medical History History of nephrolithiasis Medical History Syncope due to orthostatic hypot ension Medical History Breast density Medical History Pain in pelvis Medical History Menopausal symptom Medical History Low back pain with radiation Medical History Sciatica of left side Surgical History tubal ligation 1991 Surgical History 3x's surgery lymp node removal Surgical History 6th grade cyst removal Surgical History ablation 2010 Surgical History kidney stones Surgical History gland in vaginal area removed Hospitalization History SEE ABOVE SURGERY [facility] Other History general Narrative - Reported* Type Description Date Medical History type II diabetic Medical History low blood pressure Medical History hx of anemia Medical History Type 1 diabetes mellitus with hy perglycemia Medical History History of nephrolithiasis Medical History Syncope due to orthostatic hypot ension Medical History Breast density Medical History Pain in pelvis Medical History Menopausal symptom Medical History Low back pain with radiation Medical History Sciatica of left side Surgical History tubal ligation 1991 Surgical History 3x's surgery lymp node removal Surgical History 6th grade cyst removal Surgical History ablation 2010 Surgical History kidney stones Surgical History gland in vaginal area removed Surgical History cataract removal 2022 Hospitalization History SEE ABOVE SURGERY [facility] Other Reason for referral (narrative)* Reason Referral for persist ent decreased hearing, left ear pain, drainage and dizziness Diagnosis 1 Non-recurrent acute serous otitis media of left ear (H65.02) Referral Organization [facility] Rafita saldivar Referring Provider First Name Hayes Referring Provider Last Name Rafita Referring Provider Specialty Internal Me jenni Referred Organization [facility] Referred Provider Olga Pinon Referred Address ,[place], [place],[address] Referred Provider Specialty Otolaryngolo gy Referral Priority Routine General Notes Patient w/ persisten t left ear pain, drainage and dizziness. Examination reveals erythematous, injected left TM (RUQ) w/ ear drainage, decreased hearing w/ B>A and dizziness. She has been instructed to continue Flonase and prescribed a second antibiotic. 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 Advance Directives and Living Will Power of Firesetter Advance Directive Response Recorded Date/ Time Advance Directives No December 01 9:15am History of Present Illness * Sarah Youngblood - 03/16/2019 3:44 PM EDT [facility] Inpatient/Observation/Outpatient Rehabilitation Date: 03/16/2019 Patient Name: Marychuy Robertson [] Inpatient Acute/Observation [x] Outpatient : 1960 [] Pt no showed for scheduled appointment [] Pt refused/declined therapy at this time due to: [x] Pt cancelled due to: [] No Reason Given [] Sick/ill [x] Other: Patient called to cancel statingthat a nurse is coming to the house to do a teaching for her and her . Sarah Youngblood Date: 03/16/2019 documented in this encounter* Zeus Rubalcava, PT - 03/23/2019 6:09 PM EDT [facility] Outpatient Physical Therapy Daily Note Patient: Marychuy Robertson : 1960 CSN #: [id number] Referring Practitioner: Prasad Ortega DO Referral Date : 01/07/19 Date: 03/23/2019 Diagnosis: Adhesive capsulitis of left shoulder, M75.02 Treatment Diagnosis: L shoulder adhesive capsulitis Onset Date: 10/12/18 PT Insurance Information: [id number] VISITS PT&OT COMBINED COVERED AT 100% AFTER 3820.00 DED MET 0 MET Total # of Visits Approved: 24 Per Physician Order Total # of Visits to Date: No Show: 0 Canceled Appointment: 1 Pre-Treatment Pain: 0/10 Subjective: Pt. reports stiffness/tightness remains in R shoulder but it is still feeling pretty good. Pt. is hoping the doctor will approve more therapy visits so she can continue improving her shoulder. Exercises: Exercise 1: HEP: IR towel stretch, post. capsule stretch, table slides flex/abd, ER with cane, scapretractions Exercise 2: Pulleys x 6 min Exercise 3: Ball rolls up wall 15x 5 sec holds Exercise 4: Standing cane ex 15x ea Exercise 5: ER stretch at wall 3x30 sec Exercise 6: Table slides 15x Exercise 7: IR behind back stretch w/ strap 3x30 sec Exercise 8: TRX shld flex stretch 15x 3 sec holds Exercise 14: Supine hands behind head stretch 3x20 sec Exercise 15: Posterior capsule stretch/cross arm stretch 3x30 sec ea Manual: Joint mobilization: Gr I-II post-inf L GH mob's PROM: L shoulder all planes Assessment Assessment: Patient demo's improved PROM of L shoulder ER/IR: 35*, flexion: 126*, abd: 123*, progressing toward goal for improved functional mobility. Patient to benefit from continued physical therapy to meet remaining goals. Will progress as able. Patient Education Exercise technique; POC Pt verbalized/demonstrated good understanding: [x] Yes [] No, pt required further clarification. Post Treatment Pain: 0/10 Plan Times per week: 3 Plan weeks: 6-8 Goals (Total # of Visits to Date: 19) Short Term Goals - Time Frame for Short term goals: 3 weeks Short term goal 1: Pt. to initiate HEP for improved L shoulder ROM -MET []Met []Partially met []Not met Short term goal 2: Pt. to begin AAROM exercises progressing to AROM as able for improved functionalmobility -MET []Met []Partially met []Not met Short term goal 3: Pt. to have improved PROM of L shoulder flex: 140, abd: 120*, ER: 35*, IR: 35* for improved functional mobility. -PARTIALLY MET (03/23/19 flex: 126*, abd: 123*, ER: 36*, IR: 35*) []Met []Partially met []Not met []Met []Partially met []Not met [facility] Goals - Time Frame for continuous churn buttermaker goals : 6 weeks continuous churn buttermaker goal 1: Pt. to be independent with HEP -MET []Met []Partially met []Not met continuous churn buttermaker goal 2: Pt. to have improved AROM of L shoulder flex/abd: 120*, ER: T2, IR: T10 in order to improve functional mobility. []Met []Partially met []Not met group home goal 3: Pt. to have increased L shoulder strength >/=4/5 all planes for improved functional strength. -MET []Met []Partially met []Not met group home goal 4: Pt. to report decrease in pain to </=3/10 at worst for improved QOL. -MET []Met []Partially met []Not met []Met []Partially met []Not met Minutes Tracking: Time In: 1731 Time Out: 1809 Minutes: 38 Zeus Rubalcava PT, DPT Date: 03/23/2019 documented in this encounter* Zeus Rubalcava, PT - 03/30/2019 6:36 PM [facility] Inpatient/Observation/Outpatient Rehabilitation Date: 03/30/2019 Patient Name: Marychuy Robertson [] Inpatient Acute/Observation [x] Outpatient : 1960 [x] Pt no showed for scheduled appointment [] Pt refused/declined therapy at this time due to: [] Pt cancelled due to: [] No Reason Given [] Sick/ill [] Other: Called and left voicemail reminding patient of next scheduled appointment, April 06, at 5:15pm. Will attempt evaluation at our earliest opportunity. Zeus Rubalcava PT, DPT Date: 03/30/2019 documented in this encounter* Roque Boyd, LEGAL ADMINISTRATIVE ASSISTANT - 02/09/2019 6:09 PM EDT [facility] Outpatient Physical Therapy Daily Note Patient: Marychuy Robertson : 1960 CSN #: [id number] Referring Practitioner: Prasad Ortega DO Referral Date : 01/07/19 Date: 02/09/2019 Diagnosis: Adhesive capsulitis of left shoulder, M75.02 Treatment Diagnosis: L shoulder adhesive capsulitis Onset Date: 10/12/18 PT Insurance Information: [id number] VISITS PT&OT COMBINED COVERED AT 100% AFTER 3820.00 DED MET 0 MET Total # of Visits Approved: 24 Per Physician Order Total # of Visits to Date: 8 No Show: 0 Canceled Appointment: 0 Pre-Treatment Pain: 0/10 Subjective: Pt reports she still is having pain in front side of shoulder and still has alot of tightness but up untill today she flet like it was getting a little looser. Pt denies current pain. Exercises: Exercise 1: HEP: IR towel stretch, post. capsule stretch, table slides flex/abd, ER with cane, scapretractions Exercise 2: Pulleys x 8 min Exercise 3: Ball rolls up wall 15x 5 sec holds Exercise 9: sidelying ER 15x/ sidelying flex 15x and sidelying flex with cane 15x Manual: Joint mobilization: Gr I-II post-inf L GH mob's PROM: L shoulder all planes Modalities: Moist heat: MHP x15 minutes in sitting to L shoulder to decrease pain and promote muscle relaxation E-stim (parameters): IFC x15 min for pain relief Assessment Assessment: Pt L shld flex PROM 119* and Abd PROM 80*. Focused on joint mobs and capsular stretching within tolerable limits. Patient Education Cont current HEP. Pt verbalized/demonstrated good understanding: [x] Yes [] No, pt required further clarification. Post Treatment Pain: 0/10 Plan Times per week: 3 Plan weeks: 6-8 Goals (Total # of Visits to Date: 8) Short Term Goals - Time Frame for Short term goals: 3 weeks Short term goal 1: Pt. to initiate HEP for improved L shoulder ROM -MET [x]Met []Partially met []Not met Short term goal 2: Pt. to begin AAROM exercises progressing to AROM as able for improved functionalmobility -MET [x]Met []Partially met []Not met Short term goal 3: Pt. to have improved PROM of L shoulder flex: 140, abd: 120*, ER: 35*, IR: 35* for improved functional mobility. -PROGRESSING (refer to note on 02/02/19 for measurements) []Met [x]Partially met []Not met []Met []Partially met []Not met [facility] Goals - Time Frame for group home goals : 6 weeks group home goal 1: Pt. to be independent with HEP []Met []Partially met [x]Not met group home goal 2: Pt. to have improved AROM of L shoulder flex/abd: 120*, ER: T2, IR: T10 in order to improve functional mobility. []Met []Partially met [x]Not met group home goal 3: Pt. to have increased L shoulder strength >/=4/5 all planes for improved functional strength. []Met []Partially met [x]Not met continuous churn buttermaker goal 4: Pt. to report decrease in pain to </=3/10 at worst for improved QOL. []Met []Partially met [x]Not met []Met []Partially met []Not met Minutes Tracking: Time In: 1709 Time Out: 1805 Minutes: 56 Roque Boyd PTA Date: 02/09/2019 documented in this encounter* Zeus Rubalcava, PT - 01/12/2019 7:02 PM EDT [facility] Outpatient Physical Therapy Evaluation Date: 01/12/2019 Patient: Marychuy Robertson : 1960 [facility] #: [id number] Referring Practitioner: Prasad Ortega DO Referral Date : 01/07/19 Diagnosis: Adhesive capsulitis of left shoulder, M75.02 Treatment Diagnosis: L shoulder adhesive capsulitis Onset Date: 10/12/18 PT Insurance Information: [employer] [place] Total # of Visits Approved: 24 Total # of Visits to Date: 1 No Show: 0 Canceled Appointment: 0 Subjective Subjective: Pt. reports occasional numbness and tingling in ulnar nerve distribution and sharp shooting pain along neck and L collar bone. Pt. reports 7/10 pain at worst and 1/10 pain at rest in the L shoulder, and nerve damage in L index finger from working with scissors several years ago. Pt. hasgreat difficulty with grooming hair, dressing, and other basic ADL's due to ROM limitations. Pt. remembers no initial injury, just gradual onset of pain and stiffness. 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 Additional Pertinent Hx: DM Type I, bladder control problems, removal of kidney stones (July 2016) Objective Observation/Palpation Posture: Fair Palpation: TTP L biceps, L teres minor Observation: Pt. stands with forward head and shoulders. RLE General AROM: . RUE General AROM: Shoulder, flex/abd: 160*, IR: T7, ER: T4 LUE General PROM: Shoulder flex: 110*, abd: 101*, ER: 15*, IR: 19* LUE General AROM: Shoulder flex: 90*, abd: 70*, ER: top of shoulder, IR: L hip Strength RUE Comment: Shoulder flex/abd: 4-/5, IR/ER: 4/5; elbow flex: 4/5, ext: 3+/5 Strength LUE Comment: Shoulder flex/abd: 3+/5, ER: 4-/5, IR: 4-/5 Functional Outcome Measures Any of your usual work, housework, or school activities: Quite a Bit of Difficulty Your usual hobbies, recreational, or sporting activities: Extreme Difficulty or Unable to Perform Activity Lifting a bag of groceries to waist level: Quite a Bit of Difficulty Lifting a bag of groceries above your head: Extreme Difficulty or Unable to Perform Activity Grooming your hair: Quite a Bit of Difficulty Pushing up on your hands (eg from bathtub/chair): Moderate Difficulty Preparing food (eg peeling, cutting): Moderate Difficulty Driving: Moderate Difficulty Vacuuming, sweeping, or raking: Quite a Bit of Difficulty Dressing: Quite a Bit of Difficulty Doing up buttons: No Difficulty Using tools or appliances: Quite a Bit of Difficulty Opening doors: Moderate Difficulty Cleaning: Quite a Bit of Difficulty Tying or lacing shoes: A Little Bit of Difficulty Sleeping: Extreme Difficulty or Unable to Perform Activity Laundering clothes (eg washing, ironing, folding) : Quite a Bit of Difficulty Opening a jar: Moderate Difficulty Throwing a ball: Extreme Difficulty or Unable to Perform Activity Carrying a small suitcase with your affected limb: Quite a Bit of Difficulty UEFS Score: 32.5 Assessment Assessment: Pt. is 58 year old female with dx of L shoulder adhesive capsulitis who presents with increased pain 7/10 at worst and 1/10 at rest with minimal radicular symptoms following ulnar nerve distribution. Pt. stands with forward head and shoulders and is TTP L biceps tendon and L teres minor. Pt. has decreased L shoulder AROM: Shoulder flex: 90*, abd: 70*, ER: top of shoulder, IR: L hip and decreased PROM: Shoulder flex: 110*, abd: 101*, ER: 15*, IR: 19*. Pt. has decreased L shoulder strength: Shoulder flex/abd: 3+/5, ER: 4-/5, IR: 4- /5. Pt. to benefit from physical therapy to decreasepain and improve L shoulder ROM and strength in order to return to PLOF. Prognosis: Good Decision Making: Low Complexity Patient Education PT eval, POC, HEP Pt verbalized/demonstrated good understanding: [X] Yes [] No, pt required further clarification. Goals Short term goals Time Frame for Short term goals: 3 weeks Short term goal 1: Pt. to initiate HEP for improved L shoulder ROM Short term goal 2: Pt. to begin AAROM exercises progressing to AROM as able for improved functionalmobility Short term goal 3: Pt. to have improved PROM of L shoulder flex: 140, abd: 120*, ER: 35*, IR: 35* for improved functional mobility. continuous churn buttermaker goals Time Frame for continuous churn buttermaker goals : 6 weeks continuous churn buttermaker goal 1: Pt. to be independent with HEP group home goal 2: Pt. to have improved AROM of L shoulder flex/abd: 120*, ER: T2, IR: T10 in order to improve functional mobility. continuous churn buttermaker goal 3: Pt. to have increased L shoulder strength >/=4/5 all planes for improved functional strength. continuous churn buttermaker goal 4: Pt. to report decrease in pain to </=3/10 at worst for improved QOL. Patient goals : To regain my range of motion and get rid of any pain and numbness Minutes Tracking: Time In: 1740 Time Out: 1835 Minutes: 55 Zeus Rubalcava, PT, DPT 01/12/2019 documented in this encounter* Zeus Rubalcava, PT - 02/02/2019 5:55 PM EDT [facility] Outpatient Physical Therapy Daily Note Patient: Marychuy Robertson : 1960 CSN #: [id number] Referring Practitioner: Prasad Ortega DO Referral Date : 01/07/19 Date: 02/02/2019 Diagnosis: Adhesive capsulitis of left shoulder, M75.02 Treatment Diagnosis: L shoulder adhesive capsulitis Onset Date: 10/12/18 PT Insurance Information: [employer] [place] Total # of Visits Approved: 24 Per Physician Order Total # of Visits to Date: 6 No Show: 0 Canceled Appointment: 0 Pre-Treatment Pain: 4/10 Subjective: Pt. 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 Pt.arrived 30 minutes late to session; able to accommodate d/t half hour gap in schedule. Exercises: Exercise 1: HEP: IR towel stretch, post. capsule stretch, table slides flex/abd, ER with cane, scapretractions Exercise 2: Pulleys 5 mins Exercise 3: Ball rolls up wall 10x 5 sec holds Exercise 4: Standing cane ex 15x ea Exercise 5: ER stretch at wall 3x30 sec Exercise 6: table slides 15x Exercise 7: IR behind back stretch w/ strap 3x20 sec Exercise 8: TRX shld flex stretch 15x 3 sec holds Manual: Joint mobilization: Gr I-II post-inf L GH mob's PROM: L shoulder all planes Modalities: Moist heat: MHP x15 minutes in sitting to L shoulder to decrease pain and promote muscle relaxation E-stim (parameters): IFC x15 min for pain relief Assessment Assessment: Pt. tolerated all ther ex well this date to improve L shoulder mobility and had less pain with IR stretch with strap with inferior mob provided by therapist simultaneously. Pt. demo's mild improvements in shoulder ROM since initial evaluation flex: 119*, scaption: 122*, abd: 110*, ER: 26* and IR: 37* following manual techniques and mobilizations. Will cont. to progress as able. Patient Education Exercise technique; progression toward ROM goals Pt verbalized/demonstrated good understanding: [x] Yes [] No, pt required further clarification. Post Treatment Pain: 3/10 Plan Times per week: 3 Plan weeks: 6-8 Goals (Total # of Visits to Date: 6) Short Term Goals - Time Frame for Short term goals: 3 weeks Short term goal 1: Pt. to initiate HEP for improved L shoulder ROM -MET []Met []Partially met []Not met Short term goal 2: Pt. to begin AAROM exercises progressing to AROM as able for improved functionalmobility -MET []Met []Partially met []Not met Short term goal 3: Pt. to have improved PROM of L shoulder flex: 140, abd: 120*, ER: 35*, IR: 35* for improved functional mobility. -PROGRESSING []Met []Partially met []Not met []Met []Partially met []Not met Quarantine Inspector Goals - Time Frame for continuous churn buttermaker goals : 6 weeks group home goal 1: Pt. to be independent with HEP []Met []Partially met []Not met group home goal 2: Pt. to have improved AROM of L shoulder flex/abd: 120*, ER: T2, IR: T10 in order to improve functional mobility. []Met []Partially met []Not met group home goal 3: Pt. to have increased L shoulder strength >/=4/5 all planes for improved functional strength. []Met []Partially met []Not met group home goal 4: Pt. to report decrease in pain to </=3/10 at worst for improved QOL. []Met []Partially met []Not met []Met []Partially met []Not met Minutes Tracking: Time In: 1713 Time Out: 1812 Minutes: 59 Zeus Rubalcava, PT, DPT Date: 02/02/2019 documented in this encounter* Zeus Rubalcava, PT - 03/02/2019 6:09 PM EDT [facility] Outpatient Physical Therapy Daily Note Patient: Marychuy Robertson : 1960 CSN #: [id number] Referring Practitioner: Prasad Ortega DO Referral Date : 01/07/19 Date: 03/02/2019 Diagnosis: Adhesive capsulitis of left shoulder, M75.02 Treatment Diagnosis: L shoulder adhesive capsulitis Onset Date: 10/12/18 PT Insurance Information: [id number] VISITS PT&OT COMBINED COVERED AT 100% AFTER 3820.00 DED MET 0 MET Total # of Visits Approved: 24 Per Physician Order Total # of Visits to Date: 15 No Show: 0 Canceled Appointment: 0 Pre-Treatment Pain: 0/10 Subjective: Patient reports no pain in the shoulder, just stiffness. Exercises: Exercise 1: HEP: IR towel stretch, post. capsule stretch, table slides flex/abd, ER with cane, scapretractions Exercise 2: Pulleys x 6 min Exercise 3: Ball rolls up wall 15x 5 sec holds Exercise 4: Standing cane ex 15x ea Exercise 5: ER stretch at wall 3x30 sec Exercise 7: IR behind back stretch w/ strap 3x20 sec Exercise 14: Supine hands behind head stretch 3x20 sec Exercise 15: Posterior capsule stretch/cross arm stretch 3x30 sec ea Manual: Joint mobilization: Gr I-II post-inf L GH mob's PROM: L shoulder all planes Assessment Assessment: Patient continues to have limited capsular mobility and ROM. PROM flexion: 118*, abd inscapular plane: 123*, ER: 25*, IR: 15*. Will progress as able. Patient Education Exercise technique Pt verbalized/demonstrated good understanding: [x] Yes [] No, pt required further clarification. Post Treatment Pain: 0/10 Plan Times per week: 3 Plan weeks: 6-8 Goals (Total # of Visits to Date: 15) Short Term Goals - Time Frame for Short term goals: 3 weeks Short term goal 1: Pt. to initiate HEP for improved L shoulder ROM -MET []Met []Partially met []Not met Short term goal 2: Pt. to begin AAROM exercises progressing to AROM as able for improved functionalmobility -MET []Met []Partially met []Not met Short term goal 3: Pt. to have improved PROM of L shoulder flex: 140, abd: 120*, ER: 35*, IR: 35* for improved functional mobility. -PROGRESSING (03/02/19 flex: 118*, abd: 123*, ER: 25*, IR: 15*) []Met []Partially met []Not met []Met []Partially met []Not met Quarantine Inspector Goals - Time Frame for group home goals : 6 weeks group home goal 1: Pt. to be independent with HEP -MET []Met []Partially met []Not met continuous churn buttermaker goal 2: Pt. to have improved AROM of L shoulder flex/abd: 120*, ER: T2, IR: T10 in order to improve functional mobility. []Met []Partially met []Not met continuous churn buttermaker goal 3: Pt. to have increased L shoulder strength >/=4/5 all planes for improved functional strength. []Met []Partially met []Not met continuous churn buttermaker goal 4: Pt. to report decrease in pain to </=3/10 at worst for improved QOL. -MET []Met []Partially met []Not met []Met []Partially met []Not met Minutes Tracking: Time In: 1728 Time Out: 1807 Minutes: 39 Zeus Rubalcava, PT, DPT Date: 03/02/2019 documented in this encounter* Zeus Rubalcava, PT - 03/09/2019 5:43 PM EDT [facility] Inpatient/Observation/Outpatient Rehabilitation Date: 03/09/2019 Patient Name: Marychuy Robertson [] Inpatient Acute/Observation [x] Outpatient : 1960 [] Pt no showed for scheduled appointment [] Pt refused/declined therapy at this time due to: [x] Pt cancelled due to: [] No Reason Given [] Sick/ill [] Other: Patient is sick and cancelled herappointment today. Will attempt evaluation at our earliest opportunity. Zeus Rubalcava PT, DPT Date: 03/09/2019 documented in this encounter* Suman Brown, LEGAL ADMINISTRATIVE ASSISTANT - 01/26/2019 10:15 AM EDT [facility] Outpatient Physical Therapy Daily Note Patient: Marychuy Robertson : 1960 CSN #: [id number] Referring Practitioner: Prasad Ortega DO Referral Date : 01/07/19 Date: 01/26/2019 Diagnosis: Adhesive capsulitis of left shoulder, M75.02 Treatment Diagnosis: L shoulder adhesive capsulitis Onset Date: 10/12/18 PT Insurance Information: [employer] [place] Total # of Visits Approved: 24 Per Physician Order Total # of Visits to Date: 4 No Show: 0 Canceled Appointment: 0 Pre-Treatment Pain: Reports not having much pain. Subjective: Pt reports not having much pain at all upon arrival. States her pain will increase with sleeping or with a lot of movement. Exercises: Exercise 1: HEP: IR towel stretch, post. capsule stretch, table slides flex/abd, ER with cane, scapretractions Exercise 2: Pulleys 5 mins Exercise 4: cane ex 15x ea Exercise 5: ER stretch on wall 3x30 Exercise 7: IR behind back stretch 3x30 Manual: Joint mobilization: Gr I-II post-inf L GH mob's PROM: L shoulder all planes Modalities: Moist heat: HP x15 minutes in sitting to L shoulder to decrease pain and promote muscle relaxation E-stim (parameters): IFC x15 min for pain relief Assessment Assessment: Focused on manual and stretching today to increase ROM. Pt limited by pain today with PROM. PROM jbpe=721*, abd=87*, IR=27* and ER=16 - all limited by pain today. WIll progress. Patient Education Exercise rationale Pt verbalized/demonstrated good understanding: [x] Yes [] No, pt required further clarification. Post Treatment Pain: 0/10 Plan Times per week: 3 Plan weeks: 6-8 Goals (Total # of Visits to Date: 4) Short Term Goals - Time Frame for Short term goals: 3 weeks Short term goal 1: Pt. to initiate HEP for improved L shoulder ROM []Met []Partially met []Not met Short term goal 2: Pt. to begin AAROM exercises progressing to AROM as able for improved functionalmobility []Met []Partially met []Not met Short term goal 3: Pt. to have improved PROM of L shoulder flex: 140, abd: 120*, ER: 35*, IR: 35* for improved functional mobility.- progressing []Met []Partially met []Not met []Met []Partially met []Not met [facility] Goals - Time Frame for continuous churn buttermaker goals : 6 weeks group home goal 1: Pt. to be independent with HEP []Met []Partially met []Not met continuous churn buttermaker goal 2: Pt. to have improved AROM of L shoulder flex/abd: 120*, ER: T2, IR: T10 in order to improve functional mobility. []Met []Partially met []Not met continuous churn buttermaker goal 3: Pt. to have increased L shoulder strength >/=4/5 all planes for improved functional strength. []Met []Partially met []Not met continuous churn buttermaker goal 4: Pt. to report decrease in pain to </=3/10 at worst for improved QOL. []Met []Partially met []Not met []Met []Partially met []Not met Minutes Tracking: Time In: 931 Time Out: 1029 Minutes: 57 Suman Brown, RADHAMES Date: 01/26/2019 documented in this encounter Summary Purpose Family History Relationship Condition Age at Onset Recorded Date/T tanmay father Malignant neoplasm Unknown grandparent Malignant neoplasm Unknown Unknown Chief Complaint and Reason for Visit Chief Complaint Amb Documentation Vertigo Chief Complaint Vertigo Reason for Visit BPPV (benign paroxys mal positional vertigo) Chronic sinusitis SNHL (sensorineural hearing loss) Additional Source Comments INFORMATION SOURCE (unrecogn ized section and content) DATE CREATED AUTHOR 04/13/2019 [facility] DATE CREATED AUTHOR AUTHOR'S ORGANIZ ATION 07/18/2022 [facility] DATE CREATED AUTHOR AUTHOR'S ORGANIZ ATION 02/24/2024 [facility] EPIC REASON FOR VISIT (unrecogniz ed section and content) Reason Comments Diabetes Reason Comments Vertigo Previous Timmis / ve rtigo Reason Comments Vertigo 3 week kevin Care Teams (unrecognized sec tion and content) Team Status: Active Member Role Status Dates Hayes Watkins DO Primary Care Provider Active Team Status: Inactive Member Role Status Dates Hayes Watkins DO Primary Care Provide r, Attending Provider Active Start: December 02, 2023 End: December 02, 2023 Team Status: Active Member Role Status Dates Hayes Watkins DO Primary Care Provide r, Attending Provider Active Start: December 17, 2023 Team Status: Active Member Role Status Dates Javi Rivers DO Primary Care Provider Active Start: September 17, 2023 KHADAR Rangel Attending Provider Active Start : September 17, 2023 Licensed Clinical Social Worker Relationship Specialty Start Date End Date Hayes Watkins MD [address] [place] [phone] PCP - General Internal Medicine 01/21/24 Akhil Abraham DO [address] [place] [address] Otolaryngology 02/16/24 Licensed Clinical Social Worker Relationship Specialty Start Date End Date Hayes Watkins MD [address] [place] [phone] PCP - General Internal Medicine 01/21/24 Licensed Clinical Social Worker Relationship Specialty Start Date End Date Hayes Watkins MD [address] [place] [phone] PCP - General Internal Medicine 01/21/24 Licensed Clinical Social Worker Relationship Specialty Start Date End Date Hayes Watikns MD [address] [place] [phone] PCP - General Internal Medicine 01/21/24 Licensed Clinical Social Worker Relationship Specialty Start Date End Date Hayes Watkins MD [address] [place] [facility] [phone] PCP - General Internal Medicine 01/21/24 Akhil Abraham, [address] [place] [address] Otolaryngology 02/16/24 Licensed Clinical Social Worker Relationship Specialty Start Date End Date Hayes Watkins MD [address] [place] [facility] [phone] PCP - General Internal Medicine 01/21/24 Akhil Abraham DO [address] [place] [address] Otolaryngology 02/16/24 Goals (unrecognized section and content) Goals may be documented in a n alternate section FOR RECORDS PERTAINING TO PATIENTS WHO ARE OR HAVE BEEN ENROLLED IN A CHEMICAL DEPENDENCY/SUBSTANCEABUSE PROGRAM, SOME INFORMATION MAY BE OMITTED. This clinical summary was aggregated from multiple sources. Caution should be exercised in using it in the provision of clinical care. This summary normalizes information from multiple sources, and as a consequence, information in this document may materially change the coding, format and clinical context of patient data. In addition, data may be omitted in some cases. CLINICAL DECISIONS SHOULD BE BASED ON THE PRIMARY CLINICAL RECORDS. [employer] [email or web address] provides no warranty or guarantee of the accuracy or completeness of information in this document.
--- NOTE | 2024-08-04 02:33 | ED.GENADUL1 ---
HPI HPI - General Adult General Chief complaint: Abdominal Pain Stated complaint: POSS KIDNEY STONE Time Seen by Provider: 08/04/24 02:27 Source: patient Mode of arrival: walk-in Limitations: no limitations History of Present Illness HPI narrative: Patient is a 64-year-old female presenting to the emergency department for left flank pain. Pain began on August 01. Patient had pain in her left flank and had evidence of hematuria. It went away. Then tonight at midnight the pain started again. Pain is a 10 out of 10. Radiates to her left lower quadrant. Patient has associated nausea and vomiting. No dysuria hematuria, urgency or frequency today. Patient did not take anything for the pain or nausea prior to arrival. Patient's had a longstanding history of kidney stones. She has not had 1 in 5 years. They have all needed intervention such as cystoscopy or lithotripsy. Patient stated that her pain feels the same. Nothing makes it worse. Nothing makes it better. Patient denies any diarrhea or constipation. No recent black, bloody, tarry stools. No known history of diverticulitis. No fever or chills. Patient is shaky but she states that she is anxious. Patient sees [facility]. She used to see Dr. Musa but would like to not see this gentleman in that practice. Related Data Home Medications ?Medication ?Instructions ?Recorded ?Confirmed insulin glargine 100 unit/mL (3 unit subcut 08/04/24 mL) subcutaneous pen (Lantus Solostar U-100 Insulin) insulin lispro-aabc 100 unit/mL subcut 08/04/24 subcutaneous pen (Lyumjev KwikPen U-100 Insulin) Allergies Allergy/AdvReac Type Severity Reaction Status Date / Time cephalexin (From Keflex) Allergy Unknown Unknown Verified 08/04/24 02:21 nitrofurantoin (From Allergy Unknown Unknown Verified 08/04/24 02:21 Macrobid) Opioid HPI Opioid Management Most Recent Opioid Data: No Data to Display Review of Systems ROS Narrative 10 Systems were reviewed, and unless noted in the HPI, all other systems are reviewed, unremarkable, or noncontributory. PFSH PFSH Social History Little interest or pleasure in doing things: not at all Feeling down, depressed, or hopeless: not at all Exam Narrative Exam Narrative: Prior to examining the patient, I have washed with hospital approved and provided Antiseptic Hand Adjunct Trainer and have also applied gloves.? Prior to touching the patient, I asked for consent to examine the patient.? General: Alert and oriented, well nourished, moderate distress. Shaking uncontrollably Eye: PERRL, EOMI, normal conjunctiva. HENT: Normocephalic, normal hearing, moist oral mucosa, no scleral icterus Neck: Supple, non-tender, no carotid bruits, no JVD, no lymphadenopathy. Lungs: Clear to auscultation and percussion, non-labored respiration. Heart: Normal rate, regular rhythm, no murmur, gallop or edema. Abdomen: Soft, non-tender, non-distended, normal bowel sounds, no masses. Musculoskeletal: Normal range of motion and strength, no tenderness or swelling. Skin: Skin is warm, dry and pink, no rashes or lesions. Neurologic: Awake, alert, and oriented X3, CN II-XII intact. Psychiatric: Cooperative, appropriate mood and affect.? Following the conclusion of the examination, I have washed my hands thoroughly after removing examination gloves. Constitutional Vital Signs, click to edit/add: Last Vital Signs Temp 97.8 F 08/04/24 02:21 Pulse 85 08/04/24 02:21 Resp 16 08/04/24 02:21 BP 161/71 H 08/04/24 02:21 Pulse Ox 100 08/04/24 02:21 O2 Del Method Room Air 08/04/24 02:21 Course Course Hospital Course: Patient's a 64-year-old female who was going to have an IV placed on her left upper extremity. Patient is can to be given a liter normal saline bolus, Zofran, morphine, Toradol. Patient is receiving a CBC, BMP, urinalysis and a CT scan. Reevaluation(s) Reevaluation #1: Inform the patient that she has a kidney stone but unfortunately also has pretty significant hyperglycemia and would need that manage before she gets attempted surgical intervention. In the interim, or calling the urologist on-call. Time: 03:50 Consultations Consultation #1: I had an opportunity to speak to the urologist Dr. Ethan estrada and I went through all of the laboratories and imaging. I have explained to her at this time the patient does not appear septic. She does not appear toxic. I do not believe for her to have a UTI. She is not having any burning, urgency, frequency. She has no white count or nitrites. We are going to get blood cultures and empirically treat her while she is awaiting procedures and since then obstructive uropathy. She is also going to be kept NPO. Time: 04:00 Consultation #2: Discussed with Allisonurnist/IM. She did agree to accept the admission of the patient. Time: 04:08 Vital Signs Vital signs: Vital Signs Temperature 97.8 F 08/04/24 02:21 Pulse Rate 85 08/04/24 02:21 Respiratory Rate 16 08/04/24 02:21 Blood Pressure 161/71 H 08/04/24 02:21 Pulse Oximetry 100 08/04/24 02:21 Oxygen Delivery Method Room Air 08/04/24 02:21 Temperature 97.8 F 08/04/24 02:21 Pulse Rate 85 08/04/24 02:21 Respiratory Rate 16 08/04/24 02:21 Blood Pressure 161/71 H 08/04/24 02:21 Pulse Oximetry 100 08/04/24 02:21 Oxygen Delivery Method Room Air 08/04/24 02:21 Medical Decision Making [facility] Narrative Medical decision making narrative: Patient is a 64-year-old female presenting to the [facility] part for left flank pain rating to the left lower quadrant. Patient arrived and received IV fluids and was kept n.p.o. received Toradol and Zofran. She was offered morphine but declined. Patient had a confirmatory CT scan that revealed the severe left hydronephrosis and hydroureter due to a 6 mm mid ureteral stone. The patient was given Flomax. Upon further investigation the patient was found to have an elevated lactic acid. We are hydrating her with 0 point percent normal saline 1 L bolus. In addition, the patient was found to have marked hyperglycemia without evidence of diabetic ketoacidosis. Patient is being started on an insulin drip without a bolus. Patient does not have evidence of a urinary tract infection nor does she has symptoms. However, after having a conversation with Dr. Long, the patient will continue to be aggressively hydrated, kept n.p.o., blood cultures were advised and we will start the patient on prophylactic antibiotic therapy for procedure. Patient is allergic to Rocephin so we provided Cipro 400 mg IV piggyback. Differential Diagnosis Differential Diagnosis: Kidney stone, pyelonephritis, gastroenteritis, diverticulitis, bowel obstru Medical Records Medical records reviewed: Yes I reviewed the patient's medical records Lab Data Lab results reviewed: Yes I reviewed the patient's lab results Lab results narrative: Patient has no evidence of anemia or leukocytosis. Patient is lactic acid elevation at 3.3 as well as hyperglycemia with a sugar of 639. Patient has a normal bicarb level and the acetone is negative. Patient does not have evidence of diabetic ketoacidosis. Patient has a pseudohyponatremia with a listed sodium of 134 but her corrected sodium is 142. Labs: Lab Results 08/04/24 08/04/24 Range/Units 02:27 02:34 WBC 8.9 (4.0-11.0) 10^3/uL RBC 4.32 (4.20-5.40) 10^6/uL Hgb 12.5 (12.0-16.0) g/dL Hct 36.6 (36.0-48.0) % MCV 84.7 (81.0-99.0) fL MCH 28.9 (26.7-34.0) pg MCHC 34.2 (29.9-35.2) g/dL RDW 12.7 (11.0-15.0) % Plt Count 304 (150-450) 10^3/uL MPV 11.5 (9.5-13.5) fL Neut % (Auto) 60.8 (43.0-75.0) % Lymph % (Auto) 29.6 (20.5-60.0) % Sandoval % (Auto) 7.7 (1.7-12.0) % Eos % (Auto) 1.2 (0.9-7.0) % Baso % (Auto) 0.5 (0.2-2.0) % Neut # (Auto) 5.4 (1.4-6.5) 10^3/uL Lymph # (Auto) 2.6 (1.2-3.8) 10^3/uL Sandoval # (Auto) 0.7 (0.3-0.8) 10^3/uL Eos # (Auto) 0.1 (0.0-0.7) 10^3/uL Baso # (Auto) 0.0 (0.0-0.1) 10^3/uL Abs Immat Gran (auto) 0.02 (0.00-0.03) 10^3/uL Imm/Tot Granulo (auto) 0.2 (0.0-0.5) % Sodium 134 L (136-145) mmol/L Potassium 4.0 (3.5-5.1) mmol/L Chloride 96 L (98-107) mmol/L Carbon Dioxide 24.4 (21.0-32.0) mmol/L Anion Gap 17.6 BUN 19.0 H (7.0-18.0) mg/dL Creatinine 1.41 H (0.55-1.02) mg/dL Est GFR ( Amer) 46 L (>=60 mL/min/1.73m^2) Est GFR (Non-Af Amer) 38 L (>=60 mL/min/1.73m^2) BUN/Creatinine Ratio 13.5 Glucose 639 H* (74-106) mg/dL Lactate 3.3 H* (0.4-2.0) mmol/L Calcium 9.5 (8.5-10.1) mg/dL Total Bilirubin 0.5 (0.2-1.0) mg/dL AST 13 L (15-37) U/L ALT 25 (14-59) U/L Alkaline Phosphatase 106 (46-116) U/L Total Protein 7.3 (6.4-8.2) g/dL Albumin 3.7 (3.4-5.0) g/dL Globulin 3.6 g/dL Albumin/Globulin Ratio 1.0 Urine Color Lt. yellow (YELLOW) Urine Clarity Clear (CLEAR) Urine pH 8.0 (5.0-9.0) Ur Specific [place] 1.010 (1.005-1.025) Urine Protein Negative (NEG/TRACE) mg/dL Urine Glucose (UA) >=1000 A (NEGATIVE) mg/dL Urine Ketones Negative (NEGATIVE) mg/dL Urine Occult Blood Moderate A (NEGATIVE) Urine Nitrite Negative (NEGATIVE) Urine Bilirubin Negative (NEGATIVE) Urine Urobilinogen 0.2 (0.2-1.0) EU/dL Ur Leukocyte Esterase Trace A (NEGATIVE) Urine RBC 20-50 A (0-2) #/HPF Urine WBC 5-10 A (NONE SEEN) #/HPF Ur Squamous Epith Cells None seen (NONE/RARE) #/LPF Urine Crystals None seen (None Seen) #/HPF Urine Bacteria Trace A (NONE SEEN) #/HPF Urine Casts None seen (NONE SEEN) #/LPF Urine Mucus None seen (NONE SEEN) Ur Culture Indicated? Yes-[facility] Acetone, Qual Negative (NEGATIVE) Imaging Data CT scan - abdomen: Attestation: I have reviewed the pertinent imaging results. Radiologist's impression: Impression: 1. Severe left hydronephrosis and hydroureter due to a 6 mm mid ureteral stone. 2. Bilateral nephrolithiasis. Discharge Plan Discharge Chief Complaint: Abdominal Pain Clinical Impression: Hydronephrosis due to obstruction of ureter, Acute hyperglycemia Patient Disposition: Admitted As Inpatient Time of Disposition Decision: 04:21 Condition: Fair Prescriptions / Home Meds: No Action insulin glargine [Lantus Solostar U-100 Insulin] 100 unit/mL (3 mL) insulin pen SUBCUT Jennifer Garza U-100 Insulin 100 unit/mL insulin pen SUBCUT Print Language: Italian Referrals: Hayes Watkins DO [Primary Care Provider] - 1 week
[2024-08-04 02:44] LABS: Basophils Percent Auto 0.5 % (0.2-2.0); Eosinophils Absolute Auto 0.1 10^3/uL (0.0-0.7); Eosinophils Percent Auto 1.2 % (0.9-7.0); Hematocrit 36.6 % (36.0-48.0); Hemoglobin 12.5 g/dL (12.0-16.0); Immature Granulocytes Abs Auto 0.02 10^3/uL (0.00-0.03); Immature Granulocytes Pct Auto 0.2 % (0.0-0.5); Lymphocytes Absolute Auto 2.6 10^3/uL (1.2-3.8); Lymphocytes Percent Auto 29.6 % (20.5-60.0); Mean Corpuscular HGB Conc 34.2 g/dL (29.9-35.2); Mean Corpuscular Hemoglobin 28.9 pg (26.7-34.0); Mean Corpuscular Volume 84.7 fL (81.0-99.0); Mean Platelet Volume 11.5 fL (9.5-13.5); Monocytes Absolute Auto 0.7 10^3/uL (0.3-0.8); Monocytes Percent Auto 7.7 % (1.7-12.0); Neutrophils Absolute Auto 5.4 10^3/uL (1.4-6.5); Neutrophils Percent Auto 60.8 % (43.0-75.0); Platelet Count 304 10^3/uL (150-450); Red Blood Count 4.32 10^6/uL (4.20-5.40); Red Cell Distribution Width 12.7 % (11.0-15.0); White Blood Count 8.9 10^3/uL (4.0-11.0)
[2024-08-04 02:45] LABS: Bilirubin Urine NEGATIVE (NEGATIVE); Blood Urine MODERATE (NEGATIVE); Clarity Urine CLEAR (CLEAR); Color Urine LT. YELLOW (YELLOW); Glucose Urine UA >=1000 mg/dL (NEGATIVE); Ketones Urine NEGATIVE (NEGATIVE); Leukocyte Esterase Urine TRACE (NEGATIVE); Nitrite Urine NEGATIVE (NEGATIVE); Protein Urine NEGATIVE (NEG/TRACE); Urobilinogen Urine 0.2 EU/dL (0.2-1.0)
[2024-08-04] MEDS: ONDANSETRON PF 4 MG/2 ML VIAL IV ×2 (02:56→08:51)
[2024-08-04] MEDS: KETOROLAC TROMETHAMINE 30 MG/ML VIAL 15 MG IVP (02:56)
[2024-08-04] MEDS: 0.9 % SODIUM CHLORIDE 1,000 ML 999 ML IV (02:57)
[2024-08-04 02:58] LABS: Bacteria Urine TRACE #/HPF (NONE SEEN); Cast Seen? NONE SEEN #/LPF (NONE SEEN); Crystals Seen? None Seen #/HPF (None Seen); Mucus Urine NONE SEEN (NONE SEEN); RBC Urine 20-50 #/HPF (0-2); Squamous Epithelial Cell Urine NONE SEEN #/LPF (NONE/RARE); Urine Culture Indicated YES-FRMC
[2024-08-04 03:10] LABS: Alanine Aminotransferase 25 U/L (14-59); Albumin Level 3.7 g/dL (3.4-5.0); Alkaline Phosphatase 106 U/L (46-116); Anion Gap 17.6; Aspartate Amino Transferase 13 U/L (15-37); BUN Creatinine Ratio 13.5; Bilirubin Total 0.5 mg/dL (0.2-1.0); Calcium 9.5 mg/dL (8.5-10.1); Carbon Dioxide 24.4 mmol/L (21.0-32.0); Chloride 96 mmol/L (98-107); Estimated GFR (African America 46 (>=60 mL/min/1.73m^2); Estimated GFR (Non-African Ame 38 (>=60 mL/min/1.73m^2); Globulin 3.6 g/dL; Sodium 134 mmol/L (136-145); Total Protein 7.3 g/dL (6.4-8.2)
[2024-08-04 03:17] LABS: Lactate/Lactic Acid 3.3 mmol/L (0.4-2.0)
[2024-08-04 03:29] LABS: Glucose 639 mg/dL (74-106)
[2024-08-04] MEDS: INSULIN REGULAR IN 0.9 % NACL 100 UNIT/100 ML PLAST..BAG IV (03:49)
[2024-08-04 03:52] LABS: Acetone NEGATIVE (NEGATIVE)
[2024-08-04] MEDS: 0.9 % SODIUM CHLORIDE 1,000 ML 1000 ML IV (04:25)
[2024-08-04] MEDS: CIPROFLOXACIN IN 5 % DEXTROSE 400 MG/200 ML PREMIX 200 MG IV ×3 (04:25→14:08)
[2024-08-04 04:40] LABS: Lactate/Lactic Acid 1.1 mmol/L (0.4-2.0)
--- OUTSIDE RECORDS SUMMARY | 2024-08-04 05:00 | XMS_ITS | CCD ---
Author Organization [facility] Care Team Providers Care Supervisor Of Operations Name Role Phone Romeo Fariba Primary Care [...] Primary Care Provider Akhil Abraham DO Unavailable [phone] Allergies Allergy Classification Reported Allergen(s) Allergy Type Date of Onset Reaction(s) Facility (20 sources) Cephalexin Drug Allergy 02-10-20 17 [place], [place] (20 sources) Antihistamines, Chlorpheniramine-T ype Propensity to adverse reactions to drug 02-10-20 17 Other (See Comments) [place], [place] (7 sources) Cephalexin Drug Allergy hives [facility] Repository (3 sources) Nitrofurantoin Drug Allergy 12-02-19 24 Unknown Reaction [facility] (16 sources) fexofenadine / Pseudoephedrine Drug Allergy 04-15-20 23 Comment:syncop e [facility] Other (6 sources) levoFLOXacin Drug Allergy anaphylaxis [facility] Other (16 sources) Nitrofurantoin Drug Allergy 03-20-20 23 Unknown [facility] Other (6 sources) Keflex *CEPHALOSPORINS* Propensity to adverse reactions Unknown [facility] Other (6 sources) Biaxin *MACROLIDES* Propensity to adverse reactions 12-24-19 19 Unknown [facility] Other (11 sources) Cephalosporins (Antibiotic) Allergy to substance 12-02-19 24 Unknown Reaction [facility] (12 sources) Clarithromycin Drug Allergy 07-30-19 24 Unknown Reaction [facility] (12 sources) levoFLOXacin Drug Allergy 07-30-19 24 Anaphylaxis [facility] (2 sources) Antihistamine & Nasal Deconges Allergy to substance 06-10-19 Comment:syncop e [facility] (10 sources) Propylamine derivative antihistamine Drug Intolerance [...] Continuous Glucose Sensor (FreeStyle Lianna 3 Sensor) [facility] (14 sources) Start: 01-28-2024 End: 01-28-2024 inject 1 dose by subcutaneous injection once Continuous Glucose Sensor (FreeStyle Lianna 3 Sensor) [facility] Indications: 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 (CMS/HCC) Inject 1 Device under the skin every 14 (fourteen) days 6 each 3 01/28/2024 01/28/2024 Discontinued (Reorder) Start: 01-28-2024 inject 1 dose by sub cutaneous injection once Continuous Glucose Sensor (FreeStyle Lianna 3 Sensor) [facility] Indications: 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 (CMS/HCC) Inject 1 Device under the skin every 14 (fourteen) days 6 each 3 01/28/2024 Active Start: 12-13-2023 End: 01-28-2024 inject 1 dose by subcutaneous injection once Continuous Glucose Sensor (FreeStyle Lianna 3 Sensor) [facility] Indications: 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 Active Use for BS readings 6-8 times daily for 999 September, Active hydrocortisone 10 mg/ml / neomycin 3.5 mg/ml / polymyxin b 75961 unt/ml otic suspension (2 sources) Aminoglycoside Antibacterial, Polymyxin-class Antibacterial, Corticosteroid Start: 06-02-2023 Nmydqgeh-Iygqrmwgc-C C 3.5-05541-9 4 drops into affected ear Otic qid [...] Drug Class(es) Dates Sig (Normalized) Sig (Original) [id number] actuat albuterol 0.09 mg/actuat metered dose [...] 01-26-2024 09-30-2017 Episodic Other aftercare (1 source) [facility] (current) use of insulin; Translations: [GROUP HOME CURRENT USE OF INSULIN] Onset: 09-10-2021 Episodic Other aftercare (1 source) Other snf (current) drug therapy; Translations: [OTH GROUP HOME CURRENT DRUG THERAPY] Onset: 09-10-2021 Episodic Otitis [...] Interpretation and review of laboratory results Abnormal [facility] e Laboratory - Hematology and Cell countson 02-23-2024 HbA1c (Bld) [Mass fraction] 13.0 % [facility] COVID/FLU RT-PCRon SARS-CoV-2 (COVID-19) RNA SELVIN+probe Ql (Unsp spec) Negative [facility] Other COVID/FLU RT-PCR Negative [facility] [employer] Other CBC AUTO DIFFon 07-12-2022 BASO # 0.1 103/ul Normal 0.0-0.1 [facility] Comment on above: Performed By: #### L IPID, TSH, CMP #### [facility] [address] [address] [address] Jonas Ann Basophils/100 WBC (Bld) 0.8 % Normal 0.2-2.0 [facility] Comment on above: Performed By: #### L IPID, TSH, CMP #### [facility] [address] [address] [address] Jonas Ann EO # 0.2 103/ul Normal 0.0-0.7 [facility] Comment on above: Performed By: #### L IPID, TSH, CMP #### [facility] [address] [address] [address] Jonas Ann Eosinophils/100 WBC (Bld) 2.5 % Normal 0.9-7.0 [facility] Comment on above: Performed By: #### L IPID, TSH, CMP #### [facility] [address] [address] [address] Jonas Ann Erythrocyte distribution width (RBC) [Ratio] 12.8 % Normal 11.0-15.0 [facility] Comment on above: Performed By: #### L IPID, TSH, CMP #### [facility] [address] [place] [address] Dr. Jonas Ann Hematocrit (Bld) [Volume fraction] 39.5 % Normal 36.0-48.0 [facility] Comment on above: Performed By: #### L IPID, TSH, CMP #### [facility] [address] [place] [address] Dr. Jonas Ann Hemoglobin (Bld) [Mass/Vol] 13.4 g/dL Normal 12.0-16.0 [facility] Comment on above: Performed By: #### L IPID, TSH, CMP #### [facility] [address] [place] [address] Dr. Jonas Ann IG # 0.02 10e3/ul Normal 0.00-0.03 [facility] Comment on above: Performed By: #### L IPID, TSH, CMP #### [facility] [address] [place] [address] Dr. Jonas Ann IG % 0.3 % Normal 0.0-0.5 [facility] Comment on above: Performed By: #### L IPID, TSH, CMP #### [facility] [address] [place] [address] Dr. Jonas Ann LYMPH # 2.3 103/ul Normal 1.2-3.8 [facility] Comment on above: Performed By: #### L IPID, TSH, CMP #### [facility] [address] [place] [address] Dr. Jonas Ann Lymphocytes/100 WBC (Bld) 39.1 % Normal 20.5-60.0 [facility] Comment on above: Performed By: #### L IPID, TSH, CMP #### [facility] [address] [place] [address] Dr. Jonas Ann MANUAL DIFF REQ NO Normal [facility] Comment on above: Performed By: #### L IPID, TSH, CMP #### [facility] [address] [place] [address] Dr. Jonas Ann MCH (RBC) [Entitic mass] 28.9 pg Normal 26.7-34.0 [facility] Comment on above: Performed By: #### L IPID, TSH, CMP #### [facility] [address] [place] [address] Dr. Jonas Ann MCHC (RBC) [Mass/Vol] 33.9 g/dL Normal 29.9-35.2 [facility] Comment on above: Performed By: #### L IPID, TSH, CMP #### [facility] [address] [place] [address] Dr. Jonas Ann MCV (RBC) [Entitic vol] 85.1 fL Normal 81.0-99.0 [facility] Comment on above: Performed By: #### L IPID, TSH, CMP #### [facility] [address] [place] [address] Dr. Jonas Ann MONO # 0.5 103/ul Normal 0.3-0.8 [facility] Comment on above: Performed By: #### L IPID, TSH, CMP #### [facility] [address] [place] [address] Dr. Jonas Ann Monocytes/100 WBC (Bld) 8.3 % Normal 1.7-12.0 [facility] Comment on above: Performed By: #### L IPID, TSH, CMP #### [facility] [address] [place] [address] Dr. Jonas Ann NEUT # 2.9 103/ul Normal 1.4-6.5 [facility] Comment on above: Performed By: #### L IPID, TSH, CMP #### [facility] [address] [place] [address] Dr. Jonas Ann Neutrophils/100 WBC (Bld) 49.0 % Normal 43.0-75.0 [facility] Comment on above: Performed By: #### L IPID, TSH, CMP #### [facility] [address] [place] [address] Dr. Jonas Ann Platelet mean volume (Bld) [Entitic vol] 10.9 fL Normal 9.5-13.5 [facility] Comment on above: Performed By: #### L IPID, TSH, CMP #### [facility] [address] [address] [address] Jonas Ann PLT 278 103/ul Normal 150-450 [facility] Comment on above: Performed By: #### L IPID, TSH, CMP #### [facility] [address] [address] [address] Jonas Ann RBC 4.64 106/ul Normal 4.20-5.40 [facility] Comment on above: Performed By: #### L IPID, TSH, CMP #### [facility] [address] [address] [address] Jonas Ann WBC 5.9 103/ul Normal 4.0-11.0 [facility] Comment on above: Performed By: #### L IPID, TSH, CMP #### [facility] [address] [place] [address] Dr. Jonas Ann LIPID PROFILEon 07-12-2022 CHOL-HDL RATIO NORM SEE BELOW Normal [facility] Comment on above: Result Comment: 3.3 - 4.4 LOW RISK 4.4 - 7.1 AVERAGE RISK 7.1 - 11.0 MODERATE RISK >11.0 HIGH RISK Performed By: #### L IPID, TSH, CMP #### [facility] [address] [place] [address] Dr. Jonas Ann Cholesterol [Mass/Vol] 264 mg/dL Critically high <=200 [facility] Comment on above: Performed By: #### L IPID, TSH, CMP #### [facility] [address] [address] [address] Jonas Ann Cholesterol in HDL [Mass/Vol] 95 mg/dL Critically high 40-60 [facility] Comment on above: Performed By: #### L IPID, TSH, CMP #### [facility] [address] [place] [address] Dr. Jonas Ann Cholesterol in LDL [Mass/Vol] 155.2 mg/dL Normal [facility] Comment on above: Performed By: #### L IPID, TSH, CMP #### [facility] [address] [place] [address] Dr. Jonas Ann Cholesterol.total/C holesterol in HDL [Mass ratio] 2.8 {ratio} Normal [facility] Comment on above: Performed By: #### L IPID, TSH, CMP #### [facility] [address] [place] [address] Dr. Jonas Ann HDL NORMAL > or = 60 mg/dl - LO W CARDIOVASCULAR RISK <40 mg/dl - HIGH CARDIOVASCULAR RISK Normal [facility] Comment on above: Performed By: #### L IPID, TSH, CMP #### [facility] [address] [address] [address] Jonas Ann LDL CALC NORMAL SEE BELOW Normal [facility] Comment on above: Result Comment: <100 mg/dl OPTIMAL 100 - 129 mg/dl NEAR OR ABOVE OPTIMAL 130 - 159 mg/dl BORDERLINE HIGH 160 - 189 mg/dl HIGH >190 mg/dl VERY HIGH Performed By: #### L IPID, TSH, CMP #### [facility] [address] [place] [address] Dr. Jonas Ann Triglyceride [Mass/Vol] 69 mg/dL Normal <=150 [facility] Comment on above: Performed By: #### L IPID, TSH, CMP #### [facility] [address] [place] [address] Dr. Jonas Ann VLDL CALC 13.8 mg/dL Normal [facility] Comment on above: Performed By: #### L IPID, TSH, CMP #### [facility] [address] [place] [address] Dr. Jonas Ann MICROALB CREAT RATIO RANDOMo n 07-12-2022 mALB 4.5 mg/L Normal <=30.0 [facility] Comment on above: Performed By: #### L IPID, TSH, CMP #### [facility] [address] [place] [address] Dr. Jonas Ann MALB CR RATIO 20.9 mg/g Normal 0.0-29.9 [facility] Comment on above: Performed By: #### L IPID, TSH, CMP #### [facility] [address] [place] [address] Dr. Jonas Ann MALB CR RATIO RANGE SEE BELOW Normal [facility] Comment on above: Result Comment: NO M ICROALBUMINURIA 0-29 MG/G CLINICAL MICROALBUMINURIA 30-300 MG/G MACROALBUMINURIA >300 MG/G Performed By: #### L IPID, TSH, CMP #### [facility] [address] [address] [address] Jonas Ann URINE CREAT 215.82 mg/dL Normal 20.00-300.00 [facility] Comment on above: Performed By: #### L IPID, TSH, CMP #### [facility] [address] [address] [address] Jonas Ann PROF 14(COMP METB)on 023 Albumin [Mass/Vol] 3.7 g/dL Normal 3.4-5.0 [facility] Comment on above: Performed By: #### L IPID, TSH, CMP #### [facility] [address] [place] [address] Dr. Jonas Ann Albumin/Globulin [Mass ratio] 1.1 {ratio} Normal [facility] Comment on above: Performed By: #### L IPID, TSH, CMP #### [facility] [address] [place] [address] Dr. Jonas Ann ALP [Catalytic activity/Vol] 93 U/L Normal 46-116 [facility] Comment on above: Performed By: #### L IPID, TSH, CMP #### [facility] [address] [address] [address] Jonas Ann ALT [Catalytic activity/Vol] 26 U/L Normal 14-59 [facility] Comment on above: Performed By: #### L IPID, TSH, CMP #### [facility] [address] [address] [address] Jonas Ann Anion gap [Moles/Vol] 12.8 mmol/L Normal [facility] Comment on above: Performed By: #### L IPID, TSH, CMP #### [facility] [address] [address] [address] Jonas Ann AST [Catalytic activity/Vol] 17 U/L Normal 15-37 [facility] Comment on above: Performed By: #### L IPID, TSH, CMP #### [facility] [address] [place] [address] Dr. Jonas Ann Bilirubin [Mass/Vol] 0.7 mg/dL Normal 0.2-1.0 [facility] Comment on above: Performed By: #### L IPID, TSH, CMP #### [facility] [address] [place] [address] Dr. Jonas Ann Calcium [Mass/Vol] 9.4 mg/dL Normal 8.5-10.1 [facility] Comment on above: Performed By: #### L IPID, TSH, CMP #### [facility] [address] [place] [address] Dr. Jonas Ann Chloride [Moles/Vol] 106 mmol/L Normal 98-107 [facility] Comment on above: Performed By: #### L IPID, TSH, CMP #### [facility] [address] [place] [address] Dr. Jonas Ann CO2 [Moles/Vol] 27.5 mmol/L Normal 21.0-32.0 [facility] Comment on above: Performed By: #### L IPID, TSH, CMP #### [facility] [address] [place] [address] Dr. Jonas Ann Creatinine [Mass/Vol] 0.76 mg/dL Normal 0.55-1.02 [facility] Comment on above: Performed By: #### L IPID, TSH, CMP #### [facility] [address] [place] [address] Dr. Jonas Ann EGFR-AF SWAZI >60 Normal >=60 [facility] Comment on above: Performed By: #### L IPID, TSH, CMP #### [facility] [address] [place] [address] Dr. Jonas Ann EGFR-NON AF SWAZI >60 Normal >=60 [facility] Comment on above: Performed By: #### L IPID, TSH, CMP #### [facility] [address] [place], [place] [id number] Dr. Jonas Ann Globulin (S) [Mass/Vol] 3.3 g/dL Normal [facility] Comment on above: Performed By: #### L IPID, TSH, CMP #### [facility] [address] [place] [address] Dr. Jonas Ann Glucose [Mass/Vol] 211 mg/dL Critically high 74-[address] [facility] Comment on above: Performed By: #### L IPID, TSH, CMP #### [facility] [address] [place] [address] Dr. Jonas Ann Potassium [Moles/Vol] 4.3 mmol/L Normal 3.5-5.1 [facility] Comment on above: Performed By: #### L IPID, TSH, CMP #### [facility] [address] [place] [address] Dr. Jonas Ann Protein [Mass/Vol] 7.0 g/dL Normal 6.4-8.2 [facility] Comment on above: Performed By: #### L IPID, TSH, CMP #### [facility] [address] [place] [address] Dr. Jonas Ann Sodium [Moles/Vol] 142 mmol/L Normal 136-145 [facility] Comment on above: Performed By: #### L IPID, TSH, CMP #### [facility] [address] [place] [address] Dr. Jonas Ann Urea nitrogen [Mass/Vol] 15.0 mg/dL Normal 7.0-18.0 [facility] Comment on above: Performed By: #### L IPID, TSH, CMP #### [facility] [address] [place] [address] Dr. Jonas Ann Urea nitrogen/Creatinine [Mass ratio] 19.7 mg/mg Normal [facility] Comment on above: Performed By: #### L IPID, TSH, CMP #### [facility] [address] [place] [address] Dr. Jonas Ann TSHon 07-12-2022 TSH 0.417 uIU/mL Normal 0.358-3.740 [facility] Comment on above: Performed By: #### L IPID, TSH, CMP #### [facility] [address] [address] [address] Jonas Ann GLUCOSE BLOODon 05-05-2022 Glucose [Mass/Vol] 224 mg/dL Critically high 74-106 [facility] Comment on above: Performed By: #### G KAYLI, LIPID #### [facility] [address] [address] [address] Jonas Ann LIPID PROFILEon 05-05-2022 CHOL-HDL RATIO NORM SEE BELOW Normal [facility] Comment on above: Result Comment: 3.3 - 4.4 LOW RISK 4.4 - 7.1 AVERAGE RISK 7.1 - 11.0 MODERATE RISK >11.0 HIGH RISK Performed By: #### G KAYLI, LIPID #### [facility] [address] [address] [address] Jonas Ann Cholesterol [Mass/Vol] 287 mg/dL Critically high <=200 [facility] Comment on above: Performed By: #### G KAYLI, LIPID #### [facility] [address] [address] [address] Jonas Ann Cholesterol in HDL [Mass/Vol] 99 mg/dL Critically high 40-60 [facility] Comment on above: Performed By: #### G KAYLI, LIPID #### [facility] [address] [address] [address] Jonas Ann Cholesterol in LDL [Mass/Vol] 170.2 mg/dL Normal [facility] Comment on above: Performed By: #### G KAYLI, LIPID #### [facility] [address] [address] [address] Jonas Ann Cholesterol.total/C holesterol in HDL [Mass ratio] 2.9 {ratio} Normal [facility] Comment on above: Performed By: #### G KAYLI, LIPID #### [facility] [address] [address] [address] Jonas Ann HDL NORMAL > or = 60 mg/dl - LO W CARDIOVASCULAR RISK <40 mg/dl - HIGH CARDIOVASCULAR RISK Normal [facility] Comment on above: Performed By: #### G KAYLI, LIPID #### [facility] [address] [place] [address] Dr. Jonas Ann LDL CALC NORMAL SEE BELOW Normal [facility] Comment on above: Result Comment: <100 mg/dl OPTIMAL 100 - 129 mg/dl NEAR OR ABOVE OPTIMAL 130 - 159 mg/dl BORDERLINE HIGH 160 - 189 mg/dl HIGH >190 mg/dl VERY HIGH Performed By: #### G KAYLI, LIPID #### [facility] [address] [place] [address] Dr. Jonas Ann Triglyceride [Mass/Vol] 89 mg/dL Normal <=150 [facility] Comment on above: Performed By: #### G KAYLI, LIPID #### [facility] [address] [place] [address] Dr. Jonas Ann VLDL CALC 17.8 mg/dL Normal [facility] Comment on above: Performed By: #### G KAYLI, LIPID #### [facility] [address] [place] [address] Dr. Jonas Ann CBC AUTO DIFFon 09-08-2021 BASO # 0.0 103/ul Normal 0.0-0.1 [facility] Comment on above: Performed By: #### L IPID, TSH, CMP #### [facility] [address] [place] [address] Dr. Jonas Ann Basophils/100 WBC (Bld) 0.4 % Normal 0.2-2.0 [facility] Comment on above: Performed By: #### L IPID, TSH, CMP #### [facility] [address] [place] [address] Dr. Jonas Ann EO # 0.1 103/ul Normal 0.0-0.7 [facility] Comment on above: Performed By: #### L IPID, TSH, CMP #### [facility] [address] [place] [address] Dr. Jonas Ann Eosinophils/100 WBC (Bld) 0.8 % Critically low 0.9-7.0 [facility] Comment on above: Performed By: #### L IPID, TSH, CMP #### [facility] [address] [address] [address] Jonas Ann Erythrocyte distribution width (RBC) [Ratio] 13.2 % Normal 11.0-15.0 [facility] Comment on above: Performed By: #### L IPID, TSH, CMP #### [facility] [address] [place] [address] Dr. Jonas Ann Hematocrit (Bld) [Volume fraction] 37.6 % Normal 36.0-48.0 [facility] Comment on above: Performed By: #### L IPID, TSH, CMP #### [facility] [address] [place] [address] Dr. Jonas Ann Hemoglobin (Bld) [Mass/Vol] 12.4 g/dL Normal 12.0-16.0 [facility] Comment on above: Performed By: #### L IPID, TSH, CMP #### [facility] [address] [place] [address] Dr. Jonas Ann IG # 0.03 10e3/ul Normal 0.00-0.03 [facility] Comment on above: Performed By: #### L IPID, TSH, CMP #### [facility] [address] [place] [address] Dr. Jonas Ann IG % 0.3 % Normal 0.0-0.5 [facility] Comment on above: Performed By: #### L IPID, TSH, CMP #### [facility] [address] [place] [address] Dr. Jonas Ann LYMPH # 2.0 103/ul Normal 1.2-3.8 [facility] Comment on above: Performed By: #### L IPID, TSH, CMP #### [facility] [address] [place] [address] Dr. Jonas Ann Lymphocytes/100 WBC (Bld) 20.5 % Normal 20.5-60.0 [facility] Comment on above: Performed By: #### L IPID, TSH, CMP #### [facility] [address] [place] [address] Dr. Jonas Ann MANUAL DIFF REQ NO Normal [facility] Comment on above: Performed By: #### L IPID, TSH, CMP #### [facility] [address] [place] [address] Dr. Jonas Ann MCH (RBC) [Entitic mass] 29.0 pg Normal 26.7-34.0 [facility] Comment on above: Performed By: #### L IPID, TSH, CMP #### [facility] [address] [place] [address] Dr. Jonas Ann MCHC (RBC) [Mass/Vol] 33.0 g/dL Normal 29.9-35.2 [facility] Comment on above: Performed By: #### L IPID, TSH, CMP #### [facility] [address] [place] [address] Dr. Jonas Ann MCV (RBC) [Entitic vol] 88.1 fL Normal 81.0-99.0 [facility] Comment on above: Performed By: #### L IPID, TSH, CMP #### [facility] [address] [place] [address] Dr. Jonas Ann MONO # 0.7 103/ul Normal 0.3-0.8 [facility] Comment on above: Performed By: #### L IPID, TSH, CMP #### [facility] [address] [place] [address] Dr. Jonas Ann Monocytes/100 WBC (Bld) 7.4 % Normal 1.7-12.0 [facility] Comment on above: Performed By: #### L IPID, TSH, CMP #### [facility] [address] [place] [address] Dr. Jonas Ann NEUT # 6.9 103/ul Critically high 1.4-6.5 [facility] Comment on above: Performed By: #### L IPID, TSH, CMP #### [facility] [address] [place] [address] Dr. Jonas Ann Neutrophils/100 WBC (Bld) 70.6 % Normal 43.0-75.0 [facility] Comment on above: Performed By: #### L IPID, TSH, CMP #### [facility] [address] [place], [place] [address] Dr. Jonas Ann Platelet mean volume (Bld) [Entitic vol] 11.3 fL Normal 9.5-13.5 [facility] Comment on above: Performed By: #### L IPID, TSH, CMP #### [facility] [address] [place], [place] [address] Dr. Jonas Ann PLT 275 103/ul Normal 150-450 [facility] Comment on above: Performed By: #### L IPID, TSH, CMP #### [facility] [address], [place] [address] Dr. Jonas Ann RBC 4.27 106/ul Normal 4.20-5.40 [facility] Comment on above: Performed By: #### L IPID, TSH, CMP #### [facility] [address], [place] [address] Dr. Jonas Ann WBC 9.8 103/ul Normal 4.0-11.0 [facility] Comment on above: Performed By: #### L IPID, TSH, CMP #### [facility] [address], [place] [address] ABD/PELV W CONon [...] VIVIAN OSPINA Date: 2021-09-08 16:14 Normal [facility] ER URINE PROFILEon 2 Bilirubin Ql (U) Negative Normal NEGATIVE The [facility] Comment on above: Performed By: #### E SLOANE FARAH #### [facility] [address] [place] [address] Dr. Jonas Ann Clarity (U) CLEAR Normal CLEAR [facility] Comment on above: Performed By: #### Marcelina FARAH UMICRO #### [facility] [address] [place] [address] [address] Jonas Ann Color (U) LT. YELLOW Normal YELLOW [facility] Comment on above: Performed By: #### Marcelina FARAH UMICRO #### [facility] [address] [address] [address] Jonas SMITH A micrscopic examination will be performed if indicated. Normal [facility] Comment on above: Performed By: #### Marcelina FARAH UMICRO #### [facility] [address] [place] [address] Dr. Jonas Ann Glucose Ql (U) 500 mg/dl Abnormal NEGATIVE [facility] Comment on above: Performed By: #### Marcelina FARAH UMICRO #### [facility] [address] [place] [address] Dr. Jonas Ann Hemoglobin Ql (U) LARGE Abnormal NEGATIVE [facility] Comment on above: Performed By: #### Marcelina FARAH UMICRO #### [facility] [address] [place] [address] Dr. Jonas Ann Ketones Ql (U) >=80 Abnormal NEGATIVE [facility] Comment on above: Performed By: #### Marcelina FARAH UMICRO #### [facility] [address] [place] [address] Dr. Jonas Ann LEUKOCYTES Negative Normal NEGATIVE [facility] Comment on above: Performed By: #### Marcelina FARAH UMICRO #### [facility] [address] [place] [address] Dr. Jonas Ann Nitrite Ql (U) Negative Normal NEGATIVE [facility] Comment on above: Performed By: #### Marcelina FARAH UMICRO #### [facility] [address] [place] [address] Dr. Jonas Ann pH (U) 5.5 [pH] Normal 5-9 [facility] Comment on above: Performed By: #### Marcelina FARAH UMICRO #### [facility] [address] [place] [address] Dr. Jonas Ann SPEC GRAVITY 1.020 Normal 1.005-<=1.025 The [facility] Comment on above: Performed By: #### ARMANDO CASASRO #### [facility] [address] [place] [address] Dr. Jonas Ann UA PROTEIN Negative Normal NEGATIVE/ TRACE [facility] Comment on above: Performed By: #### ARMANDO CASASRO #### [facility] [address] [place] [address] Dr. Jonas Ann UR MICRO IND INDICATED Normal [facility] Comment on above: Performed By: #### SLOANE CASAS #### [facility] [address] [place] [address] Dr. Jonas Ann Urobilinogen Qn (U) 0.2 {Bettina'U}/dL Normal 0.2 - 1. 0 [facility] Comment on above: Performed By: #### ARMANDO CASASRO #### [facility] [address] [place] [address] Dr. Jonas Ann LIPASEon 09-08-2021 Lipase [Catalytic activity/Vol] 94.0 U/L Normal 23.0-300.0 [facility] Comment on above: Performed By: #### L IPA, CMP #### [facility] [address] [place] [address] Dr. Jonas Ann PROF 14(COMP METB)on 022 Albumin [Mass/Vol] 4.2 g/dL Normal 3.4-5.0 [facility] Comment on above: Performed By: #### L IPA, CMP #### [facility] [address] [place] [address] Dr. Jonas Ann Albumin/Globulin [Mass ratio] 1.3 {ratio} Normal [facility] Comment on above: Performed By: #### L IPA, CMP #### [facility] [address] [place] [address] Dr. Jonas Ann ALP [Catalytic activity/Vol] 107 U/L Normal 46-116 [facility] Comment on above: Performed By: #### L IPA, CMP #### [facility] [address] [address] [address] Jonas Ann ALT [Catalytic activity/Vol] 44 U/L Normal 14-59 [facility] Comment on above: Performed By: #### L IPA, CMP #### [facility] [address] [address] [address] Jonas Ann Anion gap [Moles/Vol] 19.4 mmol/L Normal [facility] Comment on above: Performed By: #### L IPA, CMP #### [facility] [address] [address] [address] Jonas Ann AST [Catalytic activity/Vol] 28 U/L Normal 15-37 [facility] Comment on above: Performed By: #### L IPA, CMP #### [facility] [address] [address] [address] Jonas Ann Bilirubin [Mass/Vol] 1.2 mg/dL Normal 0.2-1.3 [facility] Comment on above: Performed By: #### L IPA, CMP #### [facility] [address] [address] [address] Jonas Ann Calcium [Mass/Vol] 9.4 mg/dL Normal 8.5-10.1 [facility] Comment on above: Performed By: #### L IPA, CMP #### [facility] [address] [address] [address] Jonas Ann Chloride [Moles/Vol] 100 mmol/L Normal 98-107 [facility] Comment on above: Performed By: #### L IPA, CMP #### [facility] [address] [address] [address] Jonas Ann CO2 [Moles/Vol] 21.9 mmol/L Critically low 22.0-30.0 [facility] Comment on above: Performed By: #### L IPA, CMP #### [facility] [address] [address] [address] Jonas Ann Creatinine [Mass/Vol] 0.86 mg/dL Normal 0.52-1.04 [facility] Comment on above: Performed By: #### L IPA, CMP #### [facility] [address] [address] [address] Jonas Ann EGFR-AF SWAZI >60 Normal >=60 [facility] Comment on above: Performed By: #### L IPA, CMP #### [facility] [address] [address] [address] Jonas Ann EGFR-NON AF SWAZI >60 Normal >=60 [facility] Comment on above: Performed By: #### L IPA, CMP #### [facility] [address] [address] [address] Jonas Ann Globulin (S) [Mass/Vol] 3.2 g/dL Normal [facility] Comment on above: Performed By: #### L IPA, CMP #### [facility] [address] [address] [address] Jonas Ann Glucose [Mass/Vol] 262 mg/dL Critically high 74-[address] [facility] Comment on above: Performed By: #### L IPA, CMP #### [facility] [address] [address] [address] Jonas Ann Potassium [Moles/Vol] 3.3 mmol/L Critically low 3.4-5.0 [facility] Comment on above: Performed By: #### L IPA, CMP #### [facility] [address] [address] [address] Jonas Ann Protein [Mass/Vol] 7.4 g/dL Normal 6.1-8.2 [facility] Comment on above: Performed By: #### L IPA, CMP #### [facility] [address] [address] [address] Jonas Ann Sodium [Moles/Vol] 138 mmol/L Normal 137-145 [facility] Comment on above: Performed By: #### L IPA, CMP #### [facility] [address] [address] [address] Jonas Ann Urea nitrogen [Mass/Vol] 19.0 mg/dL Critically high 7.0-18.0 [facility] Comment on above: Performed By: #### L IPA, CMP #### [facility] [address] [place] [address] Dr. Jonas Ann Urea nitrogen/Creatinine [Mass ratio] 22.1 mg/mg Normal [facility] Comment on above: Performed By: #### L IPA, CMP #### [facility] [address] [place] [address] Dr. Jonas Ann URINE MICROSCOPIC ONLYon BACTERIA NONE SEEN Normal NONE SEEN [facility] Comment on above: Performed By: #### E RUR, UMICRO #### [facility] [address] [place] [address] Dr. Jonas Ann Bacteria identified Cx Nom (U) NOT INDICATED Normal [facility] Comment on above: Performed By: #### E RUR, UMICRO #### [facility] [address] [place] [address] Dr. Jonas Ann CAST NONE SEEN Normal NONE SEEN [facility] Comment on above: Performed By: #### E RUR, UMICRO #### [facility] [address] [place] [address] Dr. Jonas Ann Crystals LM Nom (Urine sed) SEEN Abnormal NONE SEEN [facility] Comment on above: Performed By: #### E RUR, UMICRO #### [facility] [address] [place] [address] Dr. Jonas Ann Epithelial cells LM Ql (Urine sed) NONE SEEN Normal NONE SEEN /RARE [facility] Comment on above: Performed By: #### E RUR, UMICRO #### [facility] [address] [place] [address] Dr. Jonas Ann MUCOUS NONE SEEN Normal NONE SEEN [facility] Comment on above: Performed By: #### E RUR, UMICRO #### [facility] [address] [place] [address] Dr. Jonas Ann RBC 10-20 Abnormal 0-2 [facility] Comment on above: Performed By: #### E RUR, UMICRO #### [facility] [address] [place] [address] Dr. Jonas Ann WBC NONE SEEN Normal NONE SEEN [facility] Comment on above: Performed By: #### E SLOANE FARAH #### [facility] [address] [address] [address] Jonas Ann Vital Signs Date Time Vital Sign Value Performing Clinician Facility 02-23-2024 09:25-0400 Body height 157.5 cm Tania Petznick DO Work Phone: [facility] 02-23-2024 09:25-0400 Body mass index (BMI) [Ratio] 19.39 kg/m2 Tania Petznick DO Work Phone: [facility] 02-23-2024 09:25-0400 Body temperature 97.5 [degF] Tania Petznick DO Work Phone: [facility] 02-23-2024 09:25-0400 Body weight 48.08 kg Tania Petznick DO Work Phone: [facility] 02-23-2024 09:25-0400 Diastolic blood pressure 72 mm[Hg] Tania Petznick DO Work Phone: [facility] 02-23-2024 09:25-0400 Heart rate 70 /min Tania Petznick DO Work Phone: [facility] 02-23-2024 09:25-0400 SaO2% (BldA) [Mass fraction] 99 % Tania Petznick DO Work Phone: [facility] 02-23-2024 09:25-0400 Systolic blood pressure 124 mm[Hg] Tania Petznick DO Work Phone: [facility] 02-16-2024 15:36-0400 Body height 157.5 cm Akhil Biedenbach DO Work Phone: [facility] 02-16-2024 15:36-0400 Body mass index (BMI) [Ratio] 18.47 kg/m2 Akhil Biedenbach DO Work Phone: [facility] 02-16-2024 15:36-0400 Body weight 45.81 kg Akhil Biedenbach DO Work Phone: [facility] 01-28-2024 [id number] Body height 157.5 cm Tania Petznick DO Work Phone: [facility] 01-28-2024 09:11-0400 Body mass index (BMI) [Ratio] 18.47 kg/m2 Tania Petznick DO Work Phone: [facility] 01-28-2024 09:11-0400 Body temperature 98.1 [degF] Tania Petznick DO Work Phone: [facility] 01-28-2024 09:11-0400 Body weight 45.81 kg Tania Petznick DO Work Phone: [facility] 01-28-2024 09:11-0400 Diastolic blood pressure 60 mm[Hg] Tania Petznick DO Work Phone: [facility] 01-28-2024 09:11-0400 Heart rate 67 /min Tania Petznick DO Work Phone: [facility] 01-28-2024 09:11-0400 SaO2% (BldA) [Mass fraction] 95 % Tania Petznick DO Work Phone: [facility] 01-28-2024 09:11-0400 Systolic blood pressure 122 mm[Hg] Tania Petznick DO Work Phone: [facility] 01-26-2024 15:17-0400 Body height 157.5 cm Akhil Zaydamarbin DO Work Phone: [facility] 01-26-2024 15:17-0400 Body mass index (BMI) [Ratio] 18.11 kg/m2 Akhil Biedenbach DO Work Phone: [facility] 01-26-2024 15:17-0400 Body weight 44.91 kg Akhil Biedenmarbin DO Work Phone: [facility] 12-02-2023 09:29-0400 Body height 157.48 cm [facility] 12-02-2023 09:29-0400 Body mass index (BMI) [Ratio] 18.3 kg/m2 [facility] 12-02-2023 09:29-0400 Body weight 45.35 kg [facility] 12-02-2023 09:29-0400 Diastolic blood pressure 67 mm[Hg] [facility] 12-02-2023 09:29-0400 Heart rate 76 /min [facility] 12-02-2023 09:29-0400 Respiratory rate 12 /min [facility] 12-02-2023 09:29-0400 Systolic blood pressure 106 mm[Hg] [facility] 06-10-2023 09:30-0500 Body height 157.48 cm Hayes Ball Other [facility] [employer] Other 06-10-2023 09:30-0500 Body mass index (BMI) [Ratio] 19.75 kg/m2 Hayes Ball Other [facility] [employer] Other 06-10-2023 09:30-0500 Body weight 48.99 kg Hayes Ball Other [facility] [employer] Other 06-10-2023 09:30-0500 Diastolic blood pressure 70 mm[Hg] Hayes Ball Other [facility] [employer] Other 06-10-2023 09:30-0500 Respiratory rate 12 /min Hayes Ball Other [facility] [employer] Other 06-10-2023 09:30-0500 Systolic blood pressure 111 mm[Hg] Hayes Ball Other [facility] [employer] Other 05-29-2023 12:25-0500 Body height 157.48 cm Evelyn Finn Other [facility] Other 05-29-2023 12:25-0500 Body mass index (BMI) [Ratio] 19.46 kg/m2 Evelyn Finn Other [facility] Other 05-29-2023 12:25-0500 Body temperature 97.5 [degF] Evelyn Finn Other [facility] Other 05-29-2023 12:25-0500 Body weight 48.26 kg Evelyn Silvermanmond Other [facility] Other 05-29-2023 12:25-0500 Diastolic blood pressure 54 mm[Hg] Evelyn Finn Other [facility] Other 05-29-2023 12:25-0500 Respiratory rate 18 /min Evelyn Finn Other [facility] Other 05-29-2023 12:25-0500 SaO2% (BldA) [Mass fraction] 97 % Evelyn Finn Other [facility] Other 05-29-2023 12:25-0500 Systolic blood pressure 112 mm[Hg] Evelyn Silvermanmond Other [facility] Other 01-09-2023 08:45-0400 Body height 157.48 cm Hayes Ball Other [facility] Other 01-09-2023 08:45-0400 Body mass index (BMI) [Ratio] 21.54 kg/m2 Hayes Ball Other [facility] Other 01-09-2023 08:45-0400 Body weight 53.43 kg Hayes Ball Other [facility] Other 01-09-2023 08:45-0400 Diastolic blood pressure 74 mm[Hg] Hayes Ball Other [facility] Other 01-09-2023 08:45-0400 Respiratory rate 12 /min Hayes Watkins Other [facility] Other 01-09-2023 08:45-0400 Systolic blood pressure 133 mm[Hg] Hayes Watkins Other [facility] Other Encounters Encounter Date Encounter Type Care Provider Facility Start: 02-23-2024 End: 02-23-2024 Office outpatient visit 25 minutes Tania Samson DO Work Phone: [facility] Comment on above: Type 1 diabetes gary [...] Phone: 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 (CMS/HCC) Start: 01-28-2024 End: 01-28-2024 ambulatory TANIA SAMSON Not Available Start: 01-26-2024 End: 01-26-2024 Office outpatient visit 25 minutes [facility] Comment on above: Sensorineural hearin g loss (SNHL) of both ears (Primary Dx); Dizziness and giddiness; Nasal septal deviation; Chronic rhinitis Start: 01-26-2024 End: 01-26-2024 ambulatory AKHIL ABRAHAM Not Available Start: 01-26-2024 End: 01-26-2024 Bamboo flowsheet Akhil Abraham DO [facility] Start: 01-26-2024 End: 01-26-2024 Bamboo flowsheet Akhil Abraham DO Work Phone: [facility] Start: 12-17-2023 ambulatory [facility] Work Phone: Start: 12-17-2023 Non-patient / Non-visit [facility] Physician [facility] Work Phone: Start: 12-11-2023 End: 12-11-2023 ambulatory TANIA SAMSON Not Available Start: 12-02-2023 End: 12-02-2023 ambulatory [facility] Work Phone: Start: 12-02-2023 End: 12-02-2023 Patient encounter procedure [facility] Physician [facility] Work Phone: Start: 09-17-2023 Non-patient / Non-visit [facility] Physician [facility] Work Phone: Start: 08-11-2023 End: 08-11-2023 ambulatory OLGA H TIMMIS Not Available Start: 08-05-2023 End: 08-05-2023 ambulatory OLGA H TIMMIS Not Available Start: 07-31-2023 End: 07-31-2023 ambulatory DONTRELL KIRBY Not Available Start: 06-15-2023 End: 06-15-2023 ambulatory Hayes Watkins Other [facility] Other Start: 06-15-2023 Telephone encounter Hayes LYN G [facility] Start: 06-10-2023 End: 06-10-2023 ambulatory Hayes Watkins Other [facility] Other Start: 06-10-2023 Office outpatient vi sit 15 minutes Hayes Watkins [facility] Start: 05-29-2023 End: 05-29-2023 ambulatory Evelyn Finn Other [facility] Other Start: 05-29-2023 Office outpatient vi sit 15 minutes Evelynjaren Finn [facility] Start: 05-29-2023 Telephone encounter [facility] Start: 04-15-2023 End: 04-15-2023 ambulatory DIPIKA GRANT Not Available Start: 03-19-2023 End: 03-19-2023 ambulatory Hayes Watkins Other [facility] Other Start: 03-19-2023 Office outpatient vi sit 15 minutes Hayes Watkins [facility] Start: 01-09-2023 End: 01-09-2023 ambulatory Hayes Watkins Other [facility] Other Start: 01-09-2023 Encounter for genera l adult medical examination without abnormal findings Hayes Watkins [facility] Start: 01-09-2023 Periodic preventive med est patient 40-64yrs Hayes Watkins [facility] Start: 07-17-2022 Encounter for genera l adult medical examination without abnormal findings DR TANIA SAMSON [facility] Start: 07-12-2022 End: 07-13-[address] TANIA SAMSON Facility:[facility] Start: 07-12-2022 End: 07-13-2022 Encounter for general adult medical examination without abnormal findings DR TANIA SAMSON Facility:[facility] Start: 05-05-2022 End: 05-06-2022 ambulatory JOSÉ STUART Facility:[facility] Start: 09-08-2021 End: 09-08-[address] HAYES WATKINS Facility:[facility] Start: 04-12-2019 End: 04-13-2019 [facility] [place] [facility] Start: 04-12-2019 End: 04-12-2019 Subsequent hospital visit by physician Suman Brown [facility] Comment on above: Arrived Start: 04-06-2019 End: 04-07-2019 Patient [facility] [place] [facility] Start: 03-30-2019 End: 03-30-2019 Subsequent hospital visit by physician Zeus Rubalcava [facility] Start: 03-28-2019 End: 03-29-2019 Patient encounter [facility] [place] [facility] Start: 03-28-2019 End: 03-28-2019 Subsequent hospital visit by physician Roque Boyd [facility] Comment on above: Arrived Start: 03-23-2019 End: 03-24-2019 Patient encounter procedure FARIBA OBRIEN [facility] [place] Start: 03-23-2019 End: 03-23-2019 Subsequent hospital visit by physician Zeus Rubalcava [facility] Comment on above: Arrived Start: 03-21-2019 End: 03-22-2019 Patient encounter procedure FARIBA OBRIEN [facility] [place] Start: 03-21-2019 End: 03-21-2019 Subsequent hospital visit by physician Lobo Floyd [facility] Comment on above: Arrived Start: 03-16-2019 End: 03-16-2019 Subsequent hospital visit by physician Roque Boyd [facility] Start: 03-14-2019 End: 03-15-2019 Patient encounter procedure FARIBA OBRIEN [facility] [place] Start: 03-14-2019 End: 03-14-2019 Subsequent hospital visit by physician Lobo Floyd [facility] Comment on above: Arrived Start: 03-09-2019 End: 03-09-2019 Subsequent hospital visit by physician Zeus Rubalcava [facility] Start: 03-08-2019 End: 03-09-2019 Patient encounter [facility] [place] [facility] Start: 03-08-2019 End: 03-08-2019 Subsequent hospital visit by physician Mxaimiliano Hickey [facility] Comment on above: Arrived Start: 03-02-2019 End: 03-03-2019 Patient encounter procedure FARIBA [place] [facility] Start: 03-02-2019 End: 03-02-2019 Subsequent hospital visit by physician Zeus [facility] Comment on above: Arrived Start: 03-01-2019 End: 03-02-2019 Patient encounter procedure FARIBA [facility] Start: 03-01-2019 End: 03-01-2019 Subsequent hospital visit by physician Roque [facility] Comment on above: Arrived Start: 02-23-2019 End: 02-24-2019 Patient encounter procedure FARIBA [facility] Start: 02-23-2019 End: 02-23-2019 Subsequent hospital visit by physician Roque [facility] Comment on above: Arrived Start: 02-21-2019 End: 02-22-2019 Patient encounter procedure FARIBA [facility] Start: 02-21-2019 End: 02-21-2019 Subsequent hospital visit by physician Lobo [facility] Comment on above: Arrived Start: 02-15-2019 End: 02-16-2019 Patient encounter procedure FARIBA [facility] Start: 02-14-2019 End: 02-15-2019 Patient [facility] [place] [facility] Start: 02-14-2019 End: 02-14-2019 Subsequent hospital visit by physician Lobo [facility] Comment on above: Arrived Start: 02-09-2019 End: 02-10-2019 Patient encounter [facility] [place] [facility] Start: 02-09-2019 End: 02-09-2019 Subsequent hospital visit by physician Roque [facility] Comment on above: Arrived Start: 02-07-2019 End: 02-08-2019 Patient encounter [facility] [place] [facility] Start: 02-07-2019 End: 02-07-2019 Subsequent hospital visit by physician Lobo [facility] Comment on above: Arrived Start: 02-02-2019 End: 02-03-2019 Patient encounter procedure ZEUS RUBALCAVA [facility] [place] Start: 02-02-2019 End: 02-02-2019 Subsequent hospital visit by physician Zeus [facility] Comment on above: Arrived Start: 01-31-2019 End: 02-01-2019 Patient encounter procedure LOBO PERALTA [facility] [place] Start: 01-31-2019 End: 01-31-2019 Subsequent hospital visit by physician Lobo Floyd [facility] Comment on above: Arrived Start: 01-26-2019 End: 01-27-2019 Patient encounter procedure SUMAN BROWN [facility] [place] Start: 01-26-2019 End: 01-26-2019 Subsequent hospital visit by physician Suman Brown [facility] Comment on above: Arrived Start: 01-19-2019 End: 01-20-2019 Patient encounter procedure [facility] Start: 01-17-2019 End: 01-18-2019 Patient encounter procedure [facility] Start: 01-17-2019 End: 01-17-2019 Subsequent hospital visit by physician Roque Boyd [facility] Comment on above: Arrived Start: 01-12-2019 End: 01-13-2019 [facility] Start: 01-12-2019 End: 01-12-2019 Subsequent hospital visit by physician [facility]ren [facility] Comment on above: Arrived Procedures Date Procedure Procedure Detail Performing Clinician Start: 02-23-2024 Hemoglobin glycosyla annie a1c Tania Samson DO Work Phone: Plan of Treatment Date Care Activity Detail Author Start: 02-21-2025 End: 02-21-2025 Patient encounter procedure 02/21/2025 3:45 PM EDT Office Visit [facility] [address] [place] [id number] Akhil Abraham, DO [address] [place] [address] [facility] Start: 02-14-2025 End: 02-14-2025 Patient encounter procedure 02/14/2025 3:30 PM EDT Office Visit [facility] [address] [place] [phone] Tania Warren, AUD [address] [place] [address] [facility] Start: 04-08-2024 End: 04-08-2024 Patient encounter procedure 04/08/2024 8:45 AM EST Office Visit [facility] [address] [place] [phone] Tania Samson, DO [address] [place] [address] [facility] [address] Start: 02-23-2024 End: 02-23-2024 Patient encounter procedure 02/23/2024 9:30 AM EDT Office Visit [facility] [address] [place] [phone] Tania Samson, DO [address] [place] [address] [facility] [address] Start: 02-16-2024 End: 02-16-2024 Patient encounter procedure 02/16/2024 3:30 PM EDT Office Visit [facility] [address] [place] [phone] Akhil Abraham, DO [address] [place] [address] [facility] Start: 01-28-2024 End: 01-28-2024 Patient encounter procedure 01/28/2024 9:15 AM EDT Office Visit [facility] [address] [place] [phone] Tania Samson, DO [address] [place] [address] [facility] [address] Start: 01-26-2024 End: 01-26-2024 Patient encounter procedure 01/26/2024 3:30 PM EDT Office Visit [facility] [address] [place] [phone] Akhil Abraham S, DO [address] [facility] [address] Arrived [facility] [place] Comment on above: Arrived Start: 12-17-2023 Patient referral [facility] Work Phone: Start: 04-12-2019 End: 04-12-2019 Appointment [facility] Start: 04-06-2019 End: 04-06-2019 Appointment 04/06/2019 Appointment Physical Therapy Zeus Rubalcava, PT [facility] Start: 03-30-2019 End: 03-30-2019 Appointment 03/30/2019 Appointment Physical Therapy Zeus Rubalcava, PT [facility] Physical [facility] Start: 03-23-2019 End: 03-23-2019 Appointment 03/23/2019 Appointment Physical Therapy Zeus Rubalcava, PT [facility] Physical Therapy Start: 03-21-2019 End: 03-21-2019 Appointment [facility] Start: 03-16-2019 End: 03-16-2019 Appointment [facility] Start: 03-14-2019 End: 03-14-2019 Appointment [facility] Start: 03-09-2019 End: 03-09-2019 Appointment 03/09/2019 Appointment Physical Therapy Zeus Rubalcava PT [facility] Physical Therapy Start: 03-08-2019 End: 03-08-2019 Appointment 03/08/2019 Appointment Physical Therapy Maximiliano Hickey [facility] Physical Therapy Start: 03-07-2019 End: 03-07-2019 Appointment 03/07/2019 Appointment Physical Therapy Lobo Floyd, BACK TACKER [facility] Physical Therapy Start: 03-02-2019 End: 03-02-2019 Appointment 03/02/2019 Appointment Physical Therapy Zeus Rubalcava, PT [facility] Physical Therapy Start: 03-01-2019 End: 03-01-2019 Appointment 03/01/2019 Appointment Physical Therapy Roque Boyd PTA [facility] Physical Therapy Start: 02-23-2019 End: 02-23-2019 Appointment 02/23/2019 Appointment Physical Therapy Roque Boyd PTA [facility] Physical Therapy Start: 02-21-2019 End: 02-21-2019 Appointment 02/21/2019 Appointment Physical Therapy Lobo Floyd PTA [facility] Physical Therapy Start: 02-16-2019 End: 02-16-2019 Appointment 02/16/2019 Appointment Physical Therapy Zeus Rubalcava PT [facility] Physical Therapy Start: 02-15-2019 End: 02-15-2019 Appointment 02/15/2019 Appointment Physical Therapy Maximiliano Hickey [facility] Physical Therapy Start: 02-14-2019 End: 02-14-2019 Appointment 02/14/2019 Appointment Physical Therapy Lobo Floyd PTA [facility] Physical Therapy Start: 02-09-2019 End: 02-09-2019 Appointment 02/09/2019 Appointment Physical Therapy Roque Boyd PTA [facility] Physical Therapy Start: 02-07-2019 End: 02-07-2019 Appointment 02/07/2019 Appointment Physical Therapy Lobo Floyd PTA [facility] Physical Therapy Start: 02-02-2019 End: 02-02-2019 Appointment [facility] Start: 01-31-2019 End: 01-31-2019 Appointment 01/31/2019 Appointment Physical Therapy Lobo Floyd PTA [facility] Physical Therapy Start: 01-26-2019 End: 01-26-2019 Appointment [facility] Start: 01-23-2019 Influenza vaccination Flu vaccine (# 1) [place], [place] Start: 01-20-2019 End: 01-20-2019 Appointment 01/20/2019 Appointment Physical Therapy Ramya Odonnell [facility] Physical Therapy Start: 01-19-2019 End: 01-19-2019 Appointment 01/19/2019 Appointment Physical Therapy Roque Boyd PTA [facility] Physical Therapy Start: 01-17-2019 End: 01-17-2019 Appointment 01/17/2019 Appointment Physical Therapy Roque Boyd PTA [facility] Physical Therapy Start: 2012 Breast cancer screen Breast cancer s creen [place], [place] Start: 2012 Colon cancer screen colonoscopy Colon cancer screen colonoscopy [place], [place] Start: 2012 Shingles Vaccine (1 of 2) Shingles Vaccine (1 of 2) [place], [place] Start: 2002 Lipid screen Lipid screen [place], [place] Start: 1983 Cervical cancer screen Cervical canc er screen [place], [place] Start: 1981 DTaP/Tdap/Td vaccine (1 - Tdap) DTaP/Tdap/Td vaccine (1 - Tdap) [place], [place] Start: 1977 HIV screen HIV screen [place], [place] Start: 1973 DTaP/Tdap/Td vaccine (1 - Tdap) DTaP/Tdap/Td vaccine (1 - Tdap) [place], [place] Start: 1962 Hepatitis C screen Hepatitis C scree n [place], [place] CT Sinuses WO contrast [facility] Patient referral [facility] Work Phone: Payers Date Payer Category Payer Private Health Insurance [facility] [id number] 2022-Present [address] [address] [place] [address] [id number] 2022 Private Health Insurance [id number] [id number] 2016 Unknown [employer] [address] xxxxxxxxxxxx 2016-Present [phone] [address] [place] [address] xxxxxxxxxxxx [id number] .[id number] 2016 Unknown [id number] 1962 Unknown [id number] 2.16.840.1.417905.3.579.2 .173 1962 Unknown [id number] 2.16.840.1.223681.3.579.2 .173 1962 Unknown [id number] 2.16.840.1.597496.3.579.2 .173 1962 Unknown [id number] 2.16.840.1.563448.3.579.2 .173 1962 Unknown [id number] 2.16.840.1.308075.3.579.2 .173 1962 Unknown [id number] 2.16.840.1.504690.3.579.2 .173 1962 Unknown [id number] 2.16.840.1.479207.3.579.2 .173 1962 Unknown [id number] 2.16.840.1.663988.3.579.2 .173 1962 Unknown [id number] 2.16.840.1.026502.3.579.2 .173 1962 Unknown [id number] 2.16.840.1.030828.3.579.2 .173 1962 Unknown [id number] 2.16.840.1.996298.3.579.2 .173 1962 Unknown [id number] 2.16.840.1.072187.3.579.2 .173 1962 Unknown [id number] 2.16.840.1.264167.3.579.2 .173 1962 Unknown [id number] 2.16.840.1.329135.3.579.2 .173 1962 Unknown [id number] 2.16.840.1.255660.3.579.2 .173 1962 Unknown [id number] 2.16.840.1.005301.3.579.2 .173 1962 Unknown [id number] 2.16.840.1.457898.3.579.2 .173 1962 Unknown [id number] 2.16.840.1.448697.3.579.2 .173 1962 Unknown [id number] 2.16.840.1.949630.3.579.2 .173 1962 Unknown [id number] 2.16.840.1.066040.3.579.2 .173 1962 Unknown [id number] 2.16.840.1.832956.3.579.2 .173 1962 Unknown [id number] 2.16.840.1.035808.3.579.2 .593 1962 Unknown [id number] 2.16.840.1.719091.3.579.2 .593 1962 Unknown [id number] 2.16.840.1.833358.3.579.2 .593 1962 Unknown [id number] 2.16.840.1.287426.3.579.2 .1259 1962 Unknown [id number] 2.16.840.1.073643.3.579.2 .9 1962 Unknown [id number] 2.16.840.1.600723.3.579.2 .9 1962 Unknown [id number] 2.16.840.1.292554.3.579.2 .1259 1962 Unknown [id number] 2.16.840.1.112553.3.579.2 .9 1962 Unknown [id number] 2.16.840.1.773087.3.579.2 .1259 1962 Unknown [id number] 2.16.840.1.168655.3.579.2 .9 1962 Unknown [id number] 2.16.840.1.815923.3.579.2 .1259 1962 Unknown [id number] 2.16.840.1.396687.3.579.2 .9 1959 Unknown [id number] Social History Date Type Detail Facility Start: 09-30-2017 End: 08-05-2023 Tobacco smoking status TXIS Never smoker [facility] Start: 09-30-2017 End: 12-04-2023 Alcohol intake Yes [facility] Start: 09-18-2017 Alcohol Comment [facility]: 1960 [facility] Start: 09-30-2017 End: 02-16-2024 Alcohol intake Current drinker of alcohol (finding) [facility]ISH[facility]THY Start: 1960 Sex Assigned At Female [facility] Start: 08-05-2023 Tobacco use and exposure Smokeless tobacco non-user [facility] Start: 12-04-2023 End: 01-28-2024 History of Social function [facility] How often do you nee d to have someone help you when you read instructions, pamphlets, or other written material from your doctor or pharmacy [SILS] Never [facility] Do you belong to any clubs or organizations such as presybeterian groups, unions, fraternal or athletic groups, or [...] mellitus with proliferative retinopathy of both eyes ([facility]) During the appointment today all [...] Type 1 diabetes mellitus with hyperglycemia (HCC) ([facility]/HCC) - Primary Follow up in about 6 [...] the patient today. documented in this encounter [facility] 02-16-2024 History of Present illness Narrative Subjective [...] steroid nasal spray. documented in this encounter [facility] 01-28-2024 History of Present illness Narrative Associated Problem(s): Type 1 diabetes mellitus with proliferative retinopathy of both eyes ([facility]) During the appointment today all [...] Type 1 diabetes mellitus with hyperglycemia (HCC) ([facility]/HCC) - Primary Follow up in about 4 [...] the patient today. documented in this encounter [facility] 01-26-2024 History of Present illness Narrative Subjective [...] Pain in pelvis PDR (proliferative diabetic retinopathy) ([facility]) s/p antiVEGF OD x1 and OS x4 and PRP OU. R.A.C. Renal stones 02/09/2017 Sciatica of left side Syncope due to orthostatic hypotension Type 1 diabetes ([facility]) 1991 started Gestational Current Outpatient [...] 0 min Stress: Stress Concern Present (12/04/2023) [employer] - Occupational Stress Questionnaire Feeling of Stress : To some extent Social Connections: Moderately Isolated (12/04/2023) Social Connection and Isolation Panel [NHANES] Frequency of Communication with Friends and Family: Once a week Frequency of Social Gatherings with Friends and Family: Once a week Attends [employer] Services: More than 4 times per year [...] scan for review documented in this encounter [facility] 12-17-2023 Hospital Discharge instructions Ambulatory OrdersReferral to ENT Time Frame: 12/17/23, Location: [facility] Work Phone: 06-10-2023 Evaluation note Encounter [...] her risk for more severe, persistent infection. [facility] Other 01-05-2024 Evaluation note* Encounter Date Diagnosis [...] no improvement in 2 to 3 days [facility] 10-26-2023 Evaluation note* Encounter Date Diagnosis [...] BS temporarily. May adjust insulin if experienced. [facility] Other 08-18-2023 Evaluation note* Encounter Date Diagnosis [...] Reommend colonoscopy but patient refuses. 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 (CMS/HCC) documented in this encounter [facility] HealthcareEvaluation note* Diagnosis Sensorineural hearing loss (SNHL) of both ears- Primary Dizziness and giddiness Nasal septal deviation Deviated nasal septum Chronic rhinitis documented in this encounter [facility] HealthcareEvaluation note* Diagnosis Type 1 diabetes mellitus with hyperglycemia (HCC) (CMS/HCC)- Primary 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 (CMS/HCC) documented in this encounter [facility] HealthcareEvaluation note* Diagnosis Sensorineural hearing loss (SNHL) of both ears- Primary Dizziness and giddiness Nasal septal deviation Deviated nasal septum Chronic rhinitis documented in this encounter [facility] HealthcareHistory general Narrative - Reported* Type Description [...] area removed Hospitalization History SEE ABOVE SURGERY [facility] Other History general Narrative - Reported* Type [...] removal 2022 Hospitalization History SEE ABOVE SURGERY [facility] Other Reason for referral (narrative)* Reason Referral for persist ent decreased hearing, left ear pain, drainage and dizziness Diagnosis 1 Non-recurrent acute serous otitis media of left ear (H65.02) Referral Organization [facility] Rafita saldivar Referring Provider First Name Hayes Referring Provider Last Name Rafita Referring Provider Specialty Internal Me jenni Referred Organization [facility] Referred Provider Olga Pinon Referred Address ,[place], [place],[address] Referred Provider Specialty Otolaryngolo gy Referral Priority Routine General Notes Patient w/ persisten t left ear pain, drainage and dizziness. Examination reveals erythematous, injected left TM (RUQ) w/ ear drainage, decreased hearing w/ B>A and dizziness. She has been instructed to continue Flonase and prescribed a second antibiotic. [facility] Other Advance Directives Documents on File Type Date Recorded Patient Clinical Admissions Manager Expl anation Advance Directives and Living Will Power of Manager Machine Advance Directive Response Recorded Date/ Time Advance Directives No December 01 9:15am History of Present Illness * Sarah Youngblood - 03/16/2019 3:44 PM EDT [facility] Inpatient/Observation/Outpatient Rehabilitation Date: 03/16/2019 Patient Name: Marychuy [...] Rubalcava, PT - 03/23/2019 6:09 PM EDT [facility] Outpatient Physical Therapy Daily Note Patient: Marychuy Robertson : 1960 CSN #: [id number] Referring Practitioner: Prasad Orteag DO Referral Date : 01/07/19 Date: 03/23/2019 [...] []Not met []Met []Partially met []Not met [facility] Goals - Time Frame for termite exterminator goals : 6 weeks termite exterminator goal 1: Pt. to be independent with HEP -MET []Met []Partially met []Not met termite exterminator goal 2: Pt. to have improved AROM of L shoulder flex/abd: 120*, ER: T2, IR: T10 in order to improve functional mobility. []Met []Partially met []Not met [facility] goal 3: Pt. to have increased L shoulder strength >/=4/5 all planes for improved functional strength. -MET []Met []Partially met []Not met [facility] goal 4: Pt. to report decrease in pain to </=3/10 at worst for improved QOL. -MET []Met []Partially met []Not met []Met []Partially met []Not met Minutes Tracking: Time In: 1731 Time Out: 1809 Minutes: 38 Zeus Rubalcava PT, DPT Date: 03/23/2019 documented in this encounter* Zeus Rubalcava, PT - 03/30/2019 6:36 PM [facility] Inpatient/Observation/Outpatient Rehabilitation Date: 03/30/2019 Patient Name: Marychuy [...] 03/30/2019 documented in this encounter* Roque Boyd, BACK TACKER - 02/09/2019 6:09 PM EDT [facility] Outpatient Physical Therapy Daily Note Patient: Marychuy Robertson : 1960 CSN #: [id number] Referring Practitioner: Prasad Ortega DO Referral Date [...] []Not met []Met []Partially met []Not met [facility] Goals - Time Frame for [facility] goals : 6 weeks [facility] goal 1: Pt. to be independent with HEP []Met []Partially met [x]Not met [facility] goal 2: Pt. to have improved AROM of L shoulder flex/abd: 120*, ER: T2, IR: T10 in order to improve functional mobility. []Met []Partially met [x]Not met [facility] goal 3: Pt. to have increased L shoulder strength >/=4/5 all planes for improved functional strength. []Met []Partially met [x]Not met termite exterminator goal 4: Pt. to report decrease in pain to </=3/10 at worst for improved QOL. []Met []Partially met [x]Not met []Met []Partially met []Not met Minutes Tracking: Time In: 1709 Time Out: 1805 Minutes: 56 Roque Boyd PTA Date: 02/09/2019 documented in this encounter* Zeus Rubalcava, PT - 01/12/2019 7:02 PM EDT [facility] Outpatient Physical Therapy Evaluation Date: 01/12/2019 Patient: Marychuy Robertson : 1960 [facility] #: [id number] Referring Practitioner: Prasad Ortega DO Referral Date : 01/07/19 Diagnosis: Adhesive capsulitis of left shoulder, M75.02 Treatment Diagnosis: L shoulder adhesive capsulitis Onset Date: 10/12/18 PT Insurance Information: [employer] [place] Total # of Visits Approved: 24 Total [...] 35*, IR: 35* for improved functional mobility. termite exterminator goals Time Frame for termite exterminator goals : 6 weeks termite exterminator goal 1: Pt. to be independent with HEP [facility] goal 2: Pt. to have improved AROM of L shoulder flex/abd: 120*, ER: T2, IR: T10 in order to improve functional mobility. termite exterminator goal 3: Pt. to have increased L shoulder strength >/=4/5 all planes for improved functional strength. termite exterminator goal 4: Pt. to report decrease in pain to </=3/10 at worst for improved QOL. Patient goals : To regain my range of motion and get rid of any pain and numbness Minutes Tracking: Time In: 1740 Time Out: 1835 Minutes: 55 Zeus Rubalcava, PT, DPT 01/12/2019 documented in this encounter* Zeus Rubalcava, PT - 02/02/2019 5:55 PM EDT [facility] Outpatient Physical Therapy Daily Note Patient: Marychuy Robertson : 1960 CSN #: [id number] Referring Practitioner: Prasad Ortega DO Referral Date : 01/07/19 Date: 02/02/2019 Diagnosis: Adhesive capsulitis of left shoulder, M75.02 Treatment Diagnosis: L shoulder adhesive capsulitis Onset Date: 10/12/18 PT Insurance Information: [employer] [place] Total # of Visits Approved: 24 Per [...] []Not met []Met []Partially met []Not met Registered Radiographer Goals - Time Frame for termite exterminator goals : 6 weeks [facility] goal 1: Pt. to be independent with HEP []Met []Partially met []Not met [facility] goal 2: Pt. to have improved AROM of L shoulder flex/abd: 120*, ER: T2, IR: T10 in order to improve functional mobility. []Met []Partially met []Not met [facility] goal 3: Pt. to have increased L shoulder strength >/=4/5 all planes for improved functional strength. []Met []Partially met []Not met [facility] goal 4: Pt. to report decrease in pain to </=3/10 at worst for improved QOL. []Met []Partially met []Not met []Met []Partially met []Not met Minutes Tracking: Time In: 1713 Time Out: 1812 Minutes: 59 Zeus Rubalcava, PT, DPT Date: 02/02/2019 documented in this encounter* Zeus Rubalcava, PT - 03/02/2019 6:09 PM EDT [facility] Outpatient Physical Therapy Daily Note Patient: Marychuy Robertson : 1960 CSN #: [id number] Referring Practitioner: Prasad Ortega DO Referral Date [...] []Not met []Met []Partially met []Not met Registered Radiographer Goals - Time Frame for [facility] goals : 6 weeks [facility] goal 1: Pt. to be independent with HEP -MET []Met []Partially met []Not met termite exterminator goal 2: Pt. to have improved AROM of L shoulder flex/abd: 120*, ER: T2, IR: T10 in order to improve functional mobility. []Met []Partially met []Not met termite exterminator goal 3: Pt. to have increased L shoulder strength >/=4/5 all planes for improved functional strength. []Met []Partially met []Not met termite exterminator goal 4: Pt. to report decrease in pain to </=3/10 at worst for improved QOL. -MET []Met []Partially met []Not met []Met []Partially met []Not met Minutes Tracking: Time In: 1728 Time Out: 1807 Minutes: 39 Zeus Rubalcava, PT, DPT Date: 03/02/2019 documented in this encounter* Zeus Rubalcava, PT - 03/09/2019 5:43 PM EDT [facility] Inpatient/Observation/Outpatient Rehabilitation Date: 03/09/2019 Patient Name: Marychuy [...] 03/09/2019 documented in this encounter* Suman Brown, BACK TACKER - 01/26/2019 10:15 AM EDT [facility] Outpatient Physical Therapy Daily Note Patient: Marychuy Robertson : 1960 CSN #: [id number] Referring Practitioner: Prasad Ortega DO Referral Date : 01/07/19 Date: 01/26/2019 Diagnosis: Adhesive capsulitis of left shoulder, M75.02 Treatment Diagnosis: L shoulder adhesive capsulitis Onset Date: 10/12/18 PT Insurance Information: [employer] [place] Total # of Visits Approved: 24 Per [...] limited by pain today with PROM. PROM ibex=264*, abd=87*, IR=27* and ER=16 - all limited [...] []Not met []Met []Partially met []Not met [facility] Goals - Time Frame for termite exterminator goals : 6 weeks [facility] goal 1: Pt. to be independent with HEP []Met []Partially met []Not met termite exterminator goal 2: Pt. to have improved AROM of L shoulder flex/abd: 120*, ER: T2, IR: T10 in order to improve functional mobility. []Met []Partially met []Not met termite exterminator goal 3: Pt. to have increased L shoulder strength >/=4/5 all planes for improved functional strength. []Met []Partially met []Not met termite exterminator goal 4: Pt. to report decrease in [...] DATE CREATED AUTHOR AUTHOR'S ORGANIZ ATION 02/24/2024 [facility] EPIC REASON FOR VISIT (unrecogniz [...] Provider Active Start : September 17, 2023 Supervisor Of Operations Relationship Specialty Start Date End Date Hayes Watkins MD [address] [place] [phone] PCP - General Internal Medicine 01/21/24 Akhil Abraham DO [address] [place] [address] Otolaryngology 02/16/24 Supervisor Of Operations Relationship Specialty Start Date End Date Hayes Watkins MD [address] [place] [phone] PCP - General Internal Medicine 01/21/24 Supervisor Of Operations Relationship Specialty Start Date End Date Hayes Watkins MD [address] [place] [phone] PCP - General Internal Medicine 01/21/24 Supervisor Of Operations Relationship Specialty Start Date End Date Hayes Watkins MD [address] [place] [phone] PCP - General Internal Medicine 01/21/24 Supervisor Of Operations Relationship Specialty Start Date End Date Hayes Watkins MD [address] [facility] [place] [phone] PCP - General Internal Medicine 01/21/24 Akhil Abraham, [address] [place] [address] Otolaryngology 02/16/24 Supervisor Of Operations Relationship Specialty Start Date End Date Hayes Watkins MD [address] [facility] [place] [phone] PCP - General Internal Medicine 01/21/24 Akhil Abraham DO [address] [place] [address] Otolaryngology 02/16/24 Goals (unrecognized section and content) [...] BE BASED ON THE PRIMARY CLINICAL RECORDS. [facility]. provides no warranty or guarantee of the accuracy or completeness of information in this document.
[2024-08-04] MEDS: TAMSULOSIN HCL 0.4 MG CAPSULE PO (05:04)
[2024-08-04] MEDS: 0.9 % SODIUM CHLORIDE 1,000 ML 125 ML IV ×3 (05:05→16:28)
[2024-08-04 05:07] LABS: Glucometer 422 mg/dL (74-106)
[2024-08-04 05:56] LABS: Glucometer 280 mg/dL (74-106)
--- OUTSIDE RECORDS SUMMARY | 2024-08-04 06:12 | XMS_ITS | CCD ---
Author Organization [facility] Care Team Providers Care Warehouse Foreman Name Role Phone Romeo Fariba Primary Care Provider [phone] ZEUS RUBALCAVA Attending Unavailable OBRIEN, FARIBA Referring Unavailable OBRIEN, FARIBA Primary Care Unavailable ROQUE BOYD Attending Unavailable OBRIEN, FARIBA Referring Unavailable OBRIEN, FARIBA Primary Care Unavailable ROQUE BOYD Attending Unavailable OBRIEN, FARIBA Referring Unavailable OBRIEN, FARIBA Primary Care Unavailable SUMAN BROWN Attending Unavailable OBRIEN, FRAIBA Referring Unavailable OBRIEN, FARIBA Primary Care Unavailable [...] Primary Care Provider Akhil Abraham DO Unavailable Allergies Allergy Classification Reported Allergen(s) Allergy Type Date of Onset Reaction(s) Facility (20 sources) Cephalexin Drug Allergy 02-10-20 17 [place], [place] (20 sources) Antihistamines, Chlorpheniramine-T ype Propensity to adverse reactions to drug 02-10-20 17 Other (See Comments) [place], [place] (7 sources) Cephalexin Drug Allergy hives [facility] Repository (3 sources) Nitrofurantoin Drug Allergy 12-02-19 24 Unknown Reaction [facility] Repository (16 sources) fexofenadine / Pseudoephedrine Drug Allergy 04-15-20 23 Comment:syncop e Search to Phone Other (6 sources) levoFLOXacin Drug Allergy anaphylaxis Search to Phone Other (16 sources) Nitrofurantoin Drug Allergy 03-20-20 23 Unknown Search to Phone Other (6 sources) Keflex *CEPHALOSPORINS* Propensity to adverse reactions Unknown Search to Phone Other (6 sources) Biaxin *MACROLIDES* Propensity to adverse reactions 12-24-19 19 Unknown Search to Phone Other (11 sources) Cephalosporins (Antibiotic) Allergy to substance 12-02-19 24 Unknown Reaction [facility] (12 sources) Clarithromycin Drug Allergy 07-30-19 24 Unknown Reaction [facility] (12 sources) levoFLOXacin Drug Allergy 07-30-19 24 Anaphylaxis [facility] (2 sources) Antihistamine & Nasal Deconges Allergy to substance 06-10-19 Comment:syncop e [facility] (10 sources) Propylamine derivative antihistamine Drug Intolerance [...] Continuous Glucose Sensor (FreeStyle Lianna 3 Sensor) [facility] (14 sources) Start: 01-28-2024 End: 01-28-2024 inject 1 dose by subcutaneous injection once Continuous Glucose Sensor (FreeStyle Lianna 3 Sensor) 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 Indications: Type 1 diabetes mellitus with proliferative [...] for 30 September, Active FreeStyle Lianna 2 [place] (6 sources) Start: 10-18-2021 FreeStyle Libr e 2 [place] FreeStyle Lianna 2 [place] , 1 (one) Device Use for BS readings 6-8 times daily # 1, 10/18/2021, No Refill. Active Use for BS readings 6-8 times daily for 999 September, Active hydrocortisone 10 mg/ml / neomycin 3.5 mg/ml / polymyxin b 42719 unt/ml otic suspension (2 sources) Aminoglycoside Antibacterial, Polymyxin-class Antibacterial, Corticosteroid Start: 06-02-2023 Utulwbfo-Vplauiubf-Y C 3.5-25675-8 4 drops into affected ear Otic qid [...] Drug Class(es) Dates Sig (Normalized) Sig (Original) [id number] actuat albuterol 0.09 mg/actuat metered dose [...] 01-26-2024 09-30-2017 Episodic Other aftercare (1 source) shelter (current) use of insulin; Translations: [PRISON CURRENT USE OF INSULIN] Onset: 09-10-2021 Episodic Other aftercare (1 source) Other care home (current) drug therapy; Translations: [OTH PRISON CURRENT DRUG THERAPY] Onset: 09-10-2021 Episodic Otitis [...] Interpretation and review of laboratory results Abnormal [facility] e Laboratory - Hematology and Cell countson 02-23-2024 HbA1c (Bld) [Mass fraction] 13.0 % [facility] COVID/FLU RT-PCRon SARS-CoV-2 (COVID-19) RNA SELVIN+probe Ql (Unsp spec) Negative Search to Phone Other COVID/FLU RT-PCR Negative [place] [place] [employer] Other CBC AUTO DIFFon 07-12-2022 BASO # 0.1 103/ul Normal 0.0-0.1 [facility] Comment on above: Performed By: #### L IPID, TSH, CMP #### [facility] [address] [address] [address] Jonas Ann Basophils/100 WBC (Bld) 0.8 % Normal 0.2-2.0 [facility] Comment on above: Performed By: #### L IPID, TSH, CMP #### [facility] [address] [address] [address] Jonas Ann EO # 0.2 103/ul Normal 0.0-0.7 [facility] Comment on above: Performed By: #### L IPID, TSH, CMP #### [facility] [address] [address] [address] Jonas Ann Eosinophils/100 WBC (Bld) 2.5 % Normal 0.9-7.0 [facility] Comment on above: Performed By: #### L IPID, TSH, CMP #### [facility] [address] [address] [address] Jonas Ann Erythrocyte distribution width (RBC) [Ratio] 12.8 % Normal 11.0-15.0 [facility] Comment on above: Performed By: #### L IPID, TSH, CMP #### [facility] [address] [place] [address] Dr. Jonas Ann Hematocrit (Bld) [Volume fraction] 39.5 % Normal 36.0-48.0 [facility] Comment on above: Performed By: #### L IPID, TSH, CMP #### [facility] [address] [place] [address] Dr. Jonas Ann Hemoglobin (Bld) [Mass/Vol] 13.4 g/dL Normal 12.0-16.0 [facility] Comment on above: Performed By: #### L IPID, TSH, CMP #### [facility] [address] [place] [address] Dr. Jonas Ann IG # 0.02 10e3/ul Normal 0.00-0.03 [facility] Comment on above: Performed By: #### L IPID, TSH, CMP #### [facility] [address] [place] [address] Dr. Jonas Ann IG % 0.3 % Normal 0.0-0.5 [facility] Comment on above: Performed By: #### L IPID, TSH, CMP #### [facility] [address] [place] [address] Dr. Jonas Ann LYMPH # 2.3 103/ul Normal 1.2-3.8 [facility] Comment on above: Performed By: #### L IPID, TSH, CMP #### [facility] [address] [place] [address] Dr. Jonas Ann Lymphocytes/100 WBC (Bld) 39.1 % Normal 20.5-60.0 [facility] Comment on above: Performed By: #### L IPID, TSH, CMP #### [facility] [address] [place] [address] Dr. Jonas Ann MANUAL DIFF REQ NO Normal [facility] Comment on above: Performed By: #### L IPID, TSH, CMP #### [facility] [address] [place] [address] Dr. Jonas Ann MCH (RBC) [Entitic mass] 28.9 pg Normal 26.7-34.0 [facility] Comment on above: Performed By: #### L IPID, TSH, CMP #### [facility] [address] [place] [address] Dr. Jonas Ann MCHC (RBC) [Mass/Vol] 33.9 g/dL Normal 29.9-35.2 [facility] Comment on above: Performed By: #### L IPID, TSH, CMP #### [facility] [address] [place] [address] Dr. Jonas Ann MCV (RBC) [Entitic vol] 85.1 fL Normal 81.0-99.0 [facility] Comment on above: Performed By: #### L IPID, TSH, CMP #### [facility] [address] [place] [address] Dr. Jonas Ann MONO # 0.5 103/ul Normal 0.3-0.8 [facility] Comment on above: Performed By: #### L IPID, TSH, CMP #### [facility] [address] [place] [address] Dr. Jonas Ann Monocytes/100 WBC (Bld) 8.3 % Normal 1.7-12.0 [facility] Comment on above: Performed By: #### L IPID, TSH, CMP #### [facility] [address] [place] [address] Dr. Jonas Ann NEUT # 2.9 103/ul Normal 1.4-6.5 [facility] Comment on above: Performed By: #### L IPID, TSH, CMP #### [facility] [address] [place] [address] Dr. Jonas Ann Neutrophils/100 WBC (Bld) 49.0 % Normal 43.0-75.0 [facility] Comment on above: Performed By: #### L IPID, TSH, CMP #### [facility] [address] [place] [address] Dr. Jonas Ann Platelet mean volume (Bld) [Entitic vol] 10.9 fL Normal 9.5-13.5 [facility] Comment on above: Performed By: #### L IPID, TSH, CMP #### [facility] [address] [address] [address] Jonas Ann PLT 278 103/ul Normal 150-450 [facility] Comment on above: Performed By: #### L IPID, TSH, CMP #### [facility] [address] [address] [address] Jonas Ann RBC 4.64 106/ul Normal 4.20-5.40 [facility] Comment on above: Performed By: #### L IPID, TSH, CMP #### [facility] [address] [address] [address] Jonas Ann WBC 5.9 103/ul Normal 4.0-11.0 [facility] Comment on above: Performed By: #### L IPID, TSH, CMP #### [facility] [address] [place] [address] Dr. Jonas Ann LIPID PROFILEon 07-12-2022 CHOL-HDL RATIO NORM SEE BELOW Normal [facility] Comment on above: Result Comment: 3.3 - 4.4 LOW RISK 4.4 - 7.1 AVERAGE RISK 7.1 - 11.0 MODERATE RISK >11.0 HIGH RISK Performed By: #### L IPID, TSH, CMP #### [facility] [address] [place] [address] Dr. Jonas Ann Cholesterol [Mass/Vol] 264 mg/dL Critically high <=200 [facility] Comment on above: Performed By: #### L IPID, TSH, CMP #### [facility] [address] [address] [address] Jonas Ann Cholesterol in HDL [Mass/Vol] 95 mg/dL Critically high 40-60 [facility] Comment on above: Performed By: #### L IPID, TSH, CMP #### [facility] [address] [place] [address] Dr. Jonas Ann Cholesterol in LDL [Mass/Vol] 155.2 mg/dL Normal [facility] Comment on above: Performed By: #### L IPID, TSH, CMP #### [facility] [address] [place] [address] Dr. Jonas Ann Cholesterol.total/C holesterol in HDL [Mass ratio] 2.8 {ratio} Normal [facility] Comment on above: Performed By: #### L IPID, TSH, CMP #### [facility] [address] [place] [address] Dr. Jonas Ann HDL NORMAL > or = 60 mg/dl - LO W CARDIOVASCULAR RISK <40 mg/dl - HIGH CARDIOVASCULAR RISK Normal [facility] Comment on above: Performed By: #### L IPID, TSH, CMP #### [facility] [address] [address] [address] Jonas Ann LDL CALC NORMAL SEE BELOW Normal [facility] Comment on above: Result Comment: <100 mg/dl OPTIMAL 100 - 129 mg/dl NEAR OR ABOVE OPTIMAL 130 - 159 mg/dl BORDERLINE HIGH 160 - 189 mg/dl HIGH >190 mg/dl VERY HIGH Performed By: #### L IPID, TSH, CMP #### [facility] [address] [place] [address] Dr. Jonas Ann Triglyceride [Mass/Vol] 69 mg/dL Normal <=150 [facility] Comment on above: Performed By: #### L IPID, TSH, CMP #### [facility] [address] [place] [address] Dr. Jonas Ann VLDL CALC 13.8 mg/dL Normal [facility] Comment on above: Performed By: #### L IPID, TSH, CMP #### [facility] [address] [place] [address] Dr. Jonas Ann MICROALB CREAT RATIO RANDOMo n 07-12-2022 mALB 4.5 mg/L Normal <=30.0 [facility] Comment on above: Performed By: #### L IPID, TSH, CMP #### [facility] [address] [place] [address] Dr. Jonas Ann MALB CR RATIO 20.9 mg/g Normal 0.0-29.9 [facility] Comment on above: Performed By: #### L IPID, TSH, CMP #### [facility] [address] [place] [address] Dr. Jonas Ann MALB CR RATIO RANGE SEE BELOW Normal [facility] Comment on above: Result Comment: NO M ICROALBUMINURIA 0-29 MG/G CLINICAL MICROALBUMINURIA 30-300 MG/G MACROALBUMINURIA >300 MG/G Performed By: #### L IPID, TSH, CMP #### [facility] [address] [address] [address] Jonas Ann URINE CREAT 215.82 mg/dL Normal 20.00-300.00 [facility] Comment on above: Performed By: #### L IPID, TSH, CMP #### [facility] [address] [address] [address] Jonas Ann PROF 14(COMP METB)on 023 Albumin [Mass/Vol] 3.7 g/dL Normal 3.4-5.0 [facility] Comment on above: Performed By: #### L IPID, TSH, CMP #### [facility] [address] [place] [address] Dr. Jonas Ann Albumin/Globulin [Mass ratio] 1.1 {ratio} Normal [facility] Comment on above: Performed By: #### L IPID, TSH, CMP #### [facility] [address] [place] [address] Dr. Jonas Ann ALP [Catalytic activity/Vol] 93 U/L Normal 46-116 [facility] Comment on above: Performed By: #### L IPID, TSH, CMP #### [facility] [address] [address] [address] Jonas Ann ALT [Catalytic activity/Vol] 26 U/L Normal 14-59 [facility] Comment on above: Performed By: #### L IPID, TSH, CMP #### [facility] [address] [address] [address] Jonas Ann Anion gap [Moles/Vol] 12.8 mmol/L Normal [facility] Comment on above: Performed By: #### L IPID, TSH, CMP #### [facility] [address] [address] [address] Jonas Ann AST [Catalytic activity/Vol] 17 U/L Normal 15-37 [facility] Comment on above: Performed By: #### L IPID, TSH, CMP #### [facility] [address] [place] [address] Dr. Jonas Ann Bilirubin [Mass/Vol] 0.7 mg/dL Normal 0.2-1.0 [facility] Comment on above: Performed By: #### L IPID, TSH, CMP #### [facility] [address] [place] [address] Dr. Jonas Ann Calcium [Mass/Vol] 9.4 mg/dL Normal 8.5-10.1 [facility] Comment on above: Performed By: #### L IPID, TSH, CMP #### [facility] [address] [place] [address] Dr. Jonas Ann Chloride [Moles/Vol] 106 mmol/L Normal 98-107 [facility] Comment on above: Performed By: #### L IPID, TSH, CMP #### [facility] [address] [place] [address] Dr. Jonas Ann CO2 [Moles/Vol] 27.5 mmol/L Normal 21.0-32.0 [facility] Comment on above: Performed By: #### L IPID, TSH, CMP #### [facility] [address] [place] [address] Dr. Jonas Ann Creatinine [Mass/Vol] 0.76 mg/dL Normal 0.55-1.02 [facility] Comment on above: Performed By: #### L IPID, TSH, CMP #### [facility] [address] [place] [address] Dr. Jonas Ann EGFR-AF NAMIBIAN >60 Normal >=60 [facility] Comment on above: Performed By: #### L IPID, TSH, CMP #### [facility] [address] [place] [address] Dr. Jonas Ann EGFR-NON AF NAMIBIAN >60 Normal >=60 [facility] Comment on above: Performed By: #### L IPID, TSH, CMP #### [facility] [address] [place], [place] [id number] Dr. Jonas Ann Globulin (S) [Mass/Vol] 3.3 g/dL Normal [facility] Comment on above: Performed By: #### L IPID, TSH, CMP #### [facility] [address] [place] [address] Dr. Jonas Ann Glucose [Mass/Vol] 211 mg/dL Critically high 74-106 [facility] Comment on above: Performed By: #### L IPID, TSH, CMP #### [facility] [address] [place] [address] Dr. Jonas Ann Potassium [Moles/Vol] 4.3 mmol/L Normal 3.5-5.1 [facility] Comment on above: Performed By: #### L IPID, TSH, CMP #### [facility] [address] [place] [address] Dr. Jonas Ann Protein [Mass/Vol] 7.0 g/dL Normal 6.4-8.2 [facility] Comment on above: Performed By: #### L IPID, TSH, CMP #### [facility] [address] [place] [address] Dr. Jonas Ann Sodium [Moles/Vol] 142 mmol/L Normal 136-145 [facility] Comment on above: Performed By: #### L IPID, TSH, CMP #### [facility] [address] [place] [address] Dr. Jonas Ann Urea nitrogen [Mass/Vol] 15.0 mg/dL Normal 7.0-18.0 [facility] Comment on above: Performed By: #### L IPID, TSH, CMP #### [facility] [address] [place] [address] Dr. Jonas Ann Urea nitrogen/Creatinine [Mass ratio] 19.7 mg/mg Normal [facility] Comment on above: Performed By: #### L IPID, TSH, CMP #### [facility] [address] [place] [address] Dr. Jonas Ann TSHon 07-12-2022 TSH 0.417 uIU/mL Normal 0.358-3.740 [facility] Comment on above: Performed By: #### L IPID, TSH, CMP #### [facility] [address] [address] [address] Jonas Ann GLUCOSE BLOODon 05-05-2022 Glucose [Mass/Vol] 224 mg/dL Critically high 74-106 [facility] Comment on above: Performed By: #### G KAYLI, LIPID #### [facility] [address] [address] [address] Jonas Ann LIPID PROFILEon 05-05-2022 CHOL-HDL RATIO NORM SEE BELOW Normal [facility] Comment on above: Result Comment: 3.3 - 4.4 LOW RISK 4.4 - 7.1 AVERAGE RISK 7.1 - 11.0 MODERATE RISK >11.0 HIGH RISK Performed By: #### G AKYLI, LIPID #### [facility] [address] [address] [address] Jonas Ann Cholesterol [Mass/Vol] 287 mg/dL Critically high <=200 [facility] Comment on above: Performed By: #### G KAYLI, LIPID #### [facility] [address] [address] [address] Jonas Ann Cholesterol in HDL [Mass/Vol] 99 mg/dL Critically high 40-60 [facility] Comment on above: Performed By: #### G KAYLI, LIPID #### [facility] [address] [address] [address] Jonas Ann Cholesterol in LDL [Mass/Vol] 170.2 mg/dL Normal [facility] Comment on above: Performed By: #### G KAYLI, LIPID #### [facility] [address] [address] [address] Jonas Ann Cholesterol.total/C holesterol in HDL [Mass ratio] 2.9 {ratio} Normal [facility] Comment on above: Performed By: #### G KAYLI, LIPID #### [facility] [address] [address] [address] Jonas Ann HDL NORMAL > or = 60 mg/dl - LO W CARDIOVASCULAR RISK <40 mg/dl - HIGH CARDIOVASCULAR RISK Normal [facility] Comment on above: Performed By: #### G KAYLI, LIPID #### [facility] [address] [place] [address] Dr. Jonas Ann LDL CALC NORMAL SEE BELOW Normal [facility] Comment on above: Result Comment: <100 mg/dl OPTIMAL 100 - 129 mg/dl NEAR OR ABOVE OPTIMAL 130 - 159 mg/dl BORDERLINE HIGH 160 - 189 mg/dl HIGH >190 mg/dl VERY HIGH Performed By: #### G KAYLI, LIPID #### [facility] [address] [place] [address] Dr. Jonas Ann Triglyceride [Mass/Vol] 89 mg/dL Normal <=150 [facility] Comment on above: Performed By: #### G KAYLI, LIPID #### [facility] [address] [place] [address] Dr. Jonas Ann VLDL CALC 17.8 mg/dL Normal [facility] Comment on above: Performed By: #### G KAYLI, LIPID #### [facility] [address] [place] [address] Dr. Jonas Ann CBC AUTO DIFFon 09-08-2021 BASO # 0.0 103/ul Normal 0.0-0.1 [facility] Comment on above: Performed By: #### L IPID, TSH, CMP #### [facility] [address] [place] [address] Dr. Jonas Ann Basophils/100 WBC (Bld) 0.4 % Normal 0.2-2.0 [facility] Comment on above: Performed By: #### L IPID, TSH, CMP #### [facility] [address] [place] [address] Dr. Jonas Ann EO # 0.1 103/ul Normal 0.0-0.7 [facility] Comment on above: Performed By: #### L IPID, TSH, CMP #### [facility] [address] [place] [address] Dr. Jonas Ann Eosinophils/100 WBC (Bld) 0.8 % Critically low 0.9-7.0 [facility] Comment on above: Performed By: #### L IPID, TSH, CMP #### [facility] [address] [address] [address] Jonas Ann Erythrocyte distribution width (RBC) [Ratio] 13.2 % Normal 11.0-15.0 [facility] Comment on above: Performed By: #### L IPID, TSH, CMP #### [facility] [address] [place] [address] Dr. Jonas Ann Hematocrit (Bld) [Volume fraction] 37.6 % Normal 36.0-48.0 [facility] Comment on above: Performed By: #### L IPID, TSH, CMP #### [facility] [address] [place] [address] Dr. Jonas Ann Hemoglobin (Bld) [Mass/Vol] 12.4 g/dL Normal 12.0-16.0 [facility] Comment on above: Performed By: #### L IPID, TSH, CMP #### [facility] [address] [place] [address] Dr. Jonas Ann IG # 0.03 10e3/ul Normal 0.00-0.03 [facility] Comment on above: Performed By: #### L IPID, TSH, CMP #### [facility] [address] [place] [address] Dr. Jonas Ann IG % 0.3 % Normal 0.0-0.5 [facility] Comment on above: Performed By: #### L IPID, TSH, CMP #### [facility] [address] [place] [address] Dr. Jonas Ann LYMPH # 2.0 103/ul Normal 1.2-3.8 [facility] Comment on above: Performed By: #### L IPID, TSH, CMP #### [facility] [address] [place] [address] Dr. Jonas Ann Lymphocytes/100 WBC (Bld) 20.5 % Normal 20.5-60.0 [facility] Comment on above: Performed By: #### L IPID, TSH, CMP #### [facility] [address] [place] [address] Dr. Jonas Ann MANUAL DIFF REQ NO Normal [facility] Comment on above: Performed By: #### L IPID, TSH, CMP #### [facility] [address] [place] [address] Dr. Jonas Ann MCH (RBC) [Entitic mass] 29.0 pg Normal 26.7-34.0 [facility] Comment on above: Performed By: #### L IPID, TSH, CMP #### [facility] [address] [place] [address] Dr. Jonas Ann MCHC (RBC) [Mass/Vol] 33.0 g/dL Normal 29.9-35.2 [facility] Comment on above: Performed By: #### L IPID, TSH, CMP #### [facility] [address] [place] [address] Dr. Jonas Ann MCV (RBC) [Entitic vol] 88.1 fL Normal 81.0-99.0 [facility] Comment on above: Performed By: #### L IPID, TSH, CMP #### [facility] [address] [place] [address] Dr. Jonas Ann MONO # 0.7 103/ul Normal 0.3-0.8 [facility] [facility] Comment on above: Performed By: #### L IPID, TSH, CMP #### [facility] [address] [place] [address] Dr. Jonas Ann Monocytes/100 WBC (Bld) 7.4 % Normal 1.7-12.0 [facility] Comment on above: Performed By: #### L IPID, TSH, CMP #### [facility] [address] [place] [address] Dr. Jonas Ann NEUT # 6.9 103/ul Critically high 1.4-6.5 [facility] Comment on above: Performed By: #### L IPID, TSH, CMP #### [facility] [address] [place] [address] Dr. Jonas Ann Neutrophils/100 WBC (Bld) 70.6 % Normal 43.0-75.0 [facility] Comment on above: Performed By: #### L IPID, TSH, CMP #### [facility] [address] [place], [place] [address] Dr. Jonas Ann Platelet mean volume (Bld) [Entitic vol] 11.3 fL Normal 9.5-13.5 [facility] Comment on above: Performed By: #### L IPID, TSH, CMP #### [facility] [address] [place], [place] [address] Dr. Jonas Ann PLT 275 103/ul Normal 150-450 [facility] Comment on above: Performed By: #### L IPID, TSH, CMP #### [facility] [address] [place], [place] [address] Dr. Jonas Ann RBC 4.27 106/ul Normal 4.20-5.40 [facility] Comment on above: Performed By: #### L IPID, TSH, CMP #### [facility] [address] [place], [place] [address] Dr. Jonas Ann WBC 9.8 103/ul Normal 4.0-11.0 [facility] Comment on above: Performed By: #### L IPID, TSH, CMP #### [facility] [address] [place], [place] [address] ABD/PELV W CONon [...] VIVIAN OSPINA Date: 2021-09-08 16:14 Normal [facility] ER URINE PROFILEon 2 Bilirubin Ql (U) Negative Normal NEGATIVE [facility] Comment on above: Performed By: #### E SLOANE FARAH #### [facility] [address] [place] [address] Dr. Jonas Ann Clarity (U) CLEAR Normal CLEAR [facility] Comment on above: Performed By: #### Marcelina FARAH UMICRO #### [facility] [address] [place] [address] [address] Jonas Ann Color (U) LT. YELLOW Normal YELLOW [facility] Comment on above: Performed By: #### Marcelina FARAH UMICRO #### [facility] [address] [place] [address] [address] Jonas SMITH A micrscopic examination will be performed if indicated. Normal [facility] Comment on above: Performed By: #### Marcelina FARAH UMICRO #### [facility] [address] [place] [address] Dr. Jonas Ann Glucose Ql (U) 500 mg/dl Abnormal NEGATIVE [facility] Comment on above: Performed By: #### Marcelina FARAH UMICRO #### [facility] [address] [place] [address] Dr. Jonas Ann Hemoglobin Ql (U) LARGE Abnormal NEGATIVE [facility] Comment on above: Performed By: #### Marcelina FARAH UMICRO #### [facility] [address] [place] [address] Dr. Jonas Ann Ketones Ql (U) >=80 Abnormal NEGATIVE [facility] Comment on above: Performed By: #### Marcelina FARAH UMICRO #### [facility] [address] [place] [address] Dr. Jonas Ann LEUKOCYTES Negative Normal NEGATIVE [facility] Comment on above: Performed By: #### Marcelina FARAH UMICRO #### [facility] [address] [place] [address] Dr. Jonas Ann Nitrite Ql (U) Negative Normal NEGATIVE [facility] Comment on above: Performed By: #### Marcelina FARAH UMICRO #### [facility] [address] [place] [address] Dr. Jonas Ann pH (U) 5.5 [pH] Normal 5-9 [facility] Comment on above: Performed By: #### Marcelina FARAH UMICRO #### [facility] [address] [place] [address] Dr. Jonsa Ann SPEC GRAVITY 1.020 Normal 1.005-<=1.025 [facility] Comment on above: Performed By: #### ARMANDO CASASRO #### [facility] [address] [place] [address] Dr. Jonas Ann UA PROTEIN Negative Normal NEGATIVE/ TRACE [facility] Comment on above: Performed By: #### ARMANDO CASASRO #### [facility] [address] [place] [address] Dr. Jonas Ann UR MICRO IND INDICATED Normal [facility] Comment on above: Performed By: #### SLOANE CASAS #### [facility] [address] [place] [address] Dr. Jonas Ann Urobilinogen Qn (U) 0.2 {Bettina'U}/dL Normal 0.2 - 1. 0 [facility] Comment on above: Performed By: #### ARMANDO CASASRO #### [facility] [address] [place] [address] Dr. Jonas Ann LIPASEon 09-08-2021 Lipase [Catalytic activity/Vol] 94.0 U/L Normal 23.0-300.0 [facility] Comment on above: Performed By: #### L IPA, CMP #### [facility] [address] [place] [address] Dr. Jonsa Ann PROF 14(COMP METB)on 022 Albumin [Mass/Vol] 4.2 g/dL Normal 3.4-5.0 [facility] Comment on above: Performed By: #### L IPA, CMP #### [facility] [address] [place] [address] Dr. Jonas Ann Albumin/Globulin [Mass ratio] 1.3 {ratio} Normal [facility] Comment on above: Performed By: #### L IPA, CMP #### [facility] [address] [place] [address] Dr. Jonas Ann ALP [Catalytic activity/Vol] 107 U/L Normal 46-116 [facility] Comment on above: Performed By: #### L IPA, CMP #### [facility] [address] [place] [address] [address] Jonas Ann ALT [Catalytic activity/Vol] 44 U/L Normal 14-59 [facility] Comment on above: Performed By: #### L IPA, CMP #### [facility] [address] [place] [address] [address] Jonas Ann Anion gap [Moles/Vol] 19.4 mmol/L Normal [facility] Comment on above: Performed By: #### L IPA, CMP #### [facility] [address] [place] [address] [address] Jonas Ann AST [Catalytic activity/Vol] 28 U/L Normal 15-37 [facility] Comment on above: Performed By: #### L IPA, CMP #### [facility] [address] [address] [address] Jonas Ann Bilirubin [Mass/Vol] 1.2 mg/dL Normal 0.2-1.3 [facility] Comment on above: Performed By: #### L IPA, CMP #### [facility] [address] [place] [address] [address] Jonas Ann Calcium [Mass/Vol] 9.4 mg/dL Normal 8.5-10.1 [facility] Comment on above: Performed By: #### L IPA, CMP #### [facility] [address] [place] [address] [address] Jonas Ann Chloride [Moles/Vol] 100 mmol/L Normal 98-107 [facility] Comment on above: Performed By: #### L IPA, CMP #### [facility] [address] [place] [address] [address] Jonas Ann CO2 [Moles/Vol] 21.9 mmol/L Critically low 22.0-30.0 [facility] Comment on above: Performed By: #### L IPA, CMP #### [facility] [address] [address] [address] Jonas Ann Creatinine [Mass/Vol] 0.86 mg/dL Normal 0.52-1.04 [facility] Comment on above: Performed By: #### L IPA, CMP #### [facility] [address] [place] [address] [address] Jonas Ann EGFR-AF NAMIBIAN >60 Normal >=60 [facility] Comment on above: Performed By: #### L IPA, CMP #### [facility] [address] [place] [address] [address] Jonas Ann EGFR-NON AF NAMIBIAN >60 Normal >=60 [facility] Comment on above: Performed By: #### L IPA, CMP #### [facility] [address] [place] [address] [address] Jonas Ann Globulin (S) [Mass/Vol] 3.2 g/dL Normal [facility] Comment on above: Performed By: #### L IPA, CMP #### [facility] [address] [place] [address] [address] Jonas Ann Glucose [Mass/Vol] 262 mg/dL Critically high 74-106 [facility] Comment on above: Performed By: #### L IPA, CMP #### [facility] [address] [place] [address] [address] Jonas Ann Potassium [Moles/Vol] 3.3 mmol/L Critically low 3.4-5.0 [facility] Comment on above: Performed By: #### L IPA, CMP #### [facility] [address] [place] [address] [address] Jonas Ann Protein [Mass/Vol] 7.4 g/dL Normal 6.1-8.2 [facility] Comment on above: Performed By: #### L IPA, CMP #### [facility] [address] [place] [address] [address] Jonas Ann Sodium [Moles/Vol] 138 mmol/L Normal 137-145 [facility] Comment on above: Performed By: #### L IPA, CMP #### [facility] [address] [place] [address] [address] Jonas Ann Urea nitrogen [Mass/Vol] 19.0 mg/dL Critically high 7.0-18.0 [facility] Comment on above: Performed By: #### L IPA, CMP #### [facility] [address] [place] [address] Dr. Jonas Ann Urea nitrogen/Creatinine [Mass ratio] 22.1 mg/mg Normal [facility] Comment on above: Performed By: #### L IPA, CMP #### [facility] [address] [place] [address] Dr. Jonas Ann URINE MICROSCOPIC ONLYon BACTERIA NONE SEEN Normal NONE SEEN [facility] Comment on above: Performed By: #### E RUR, UMICRO #### [facility] [address] [place] [address] Dr. Jonas Ann Bacteria identified Cx Nom (U) NOT INDICATED Normal [facility] Comment on above: Performed By: #### E RUR, UMICRO #### [facility] [address] [place] [address] Dr. Jonas Ann CAST NONE SEEN Normal NONE SEEN [facility] Comment on above: Performed By: #### E RUR, UMICRO #### [facility] [address] [place] [address] Dr. Jonas Ann Crystals LM Nom (Urine sed) SEEN Abnormal NONE SEEN [facility] Comment on above: Performed By: #### E RUR, UMICRO #### [facility] [address] [place] [address] Dr. Jonas Ann Epithelial cells LM Ql (Urine sed) NONE SEEN Normal NONE SEEN /RARE [facility] Comment on above: Performed By: #### E RUR, UMICRO #### [facility] [address] [place] [address] Dr. Jonas Ann MUCOUS NONE SEEN Normal NONE SEEN [facility] Comment on above: Performed By: #### E RUR, UMICRO #### [facility] [address] [place] [address] Dr. Jonas Ann RBC 10-20 Abnormal 0-2 [facility] Comment on above: Performed By: #### E RUR, UMICRO #### [facility] [address] [place] [address] Dr. Jonas Ann WBC NONE SEEN Normal NONE SEEN [facility] Comment on above: Performed By: #### E SLOANE FARAH #### [facility] [address] [place] [address] [address] Jonas Ann Vital Signs Date Time Vital Sign Value Performing Clinician Facility 02-23-2024 09:25-0400 Body height 157.5 cm Tania Petznick DO Work Phone: [facility] 02-23-2024 09:25-0400 Body mass index (BMI) [Ratio] 19.39 kg/m2 Tania Petznick DO Work Phone: [facility] 02-23-2024 09:25-0400 Body temperature 97.5 [degF] Tania Petznick DO Work Phone: [facility] 02-23-2024 09:25-0400 Body weight 48.08 kg Tania Petznick DO Work Phone: [facility] 02-23-2024 09:25-0400 Diastolic blood pressure 72 mm[Hg] Tania Petznick DO Work Phone: [facility] 02-23-2024 09:25-0400 Heart rate 70 /min Tania Petznick DO Work Phone: [facility] 02-23-2024 09:25-0400 SaO2% (BldA) [Mass fraction] 99 % Tania Petznick DO Work Phone: [facility] 02-23-2024 09:25-0400 Systolic blood pressure 124 mm[Hg] Tania Petznick DO Work Phone: [facility] 02-16-2024 15:36-0400 Body height 157.5 cm Akhil Biedenbach DO Work Phone: [facility] 02-16-2024 15:36-0400 Body mass index (BMI) [Ratio] 18.47 kg/m2 Akhil Biedenbach DO Work Phone: [facility] 02-16-2024 15:36-0400 Body weight 45.81 kg Akhil Biedenbach DO Work Phone: [facility] 01-28-2024 [id number] Body height 157.5 cm Tania Petznick DO Work Phone: [facility] 01-28-2024 09:11-0400 Body mass index (BMI) [Ratio] 18.47 kg/m2 Tania Petznick DO Work Phone: [facility] 01-28-2024 09:11-0400 Body temperature 98.1 [degF] Tania Petznick DO Work Phone: [facility] 01-28-2024 09:11-0400 Body weight 45.81 kg Tania Petznick DO Work Phone: [facility] 01-28-2024 09:11-0400 Diastolic blood pressure 60 mm[Hg] Tania Petznick DO Work Phone: [facility] 01-28-2024 09:11-0400 Heart rate 67 /min Tania Petznick DO Work Phone: [facility] 01-28-2024 09:11-0400 SaO2% (BldA) [Mass fraction] 95 % Tania Petznick DO Work Phone: [facility] 01-28-2024 09:11-0400 Systolic blood pressure 122 mm[Hg] Tania Petznick DO Work Phone: [facility] 01-26-2024 15:17-0400 Body height 157.5 cm Akhil Zaydamarbin DO Work Phone: [facility] 01-26-2024 15:17-0400 Body mass index (BMI) [Ratio] 18.11 kg/m2 Akhil Biedenbach DO Work Phone: [facility] 01-26-2024 15:17-0400 Body weight 44.91 kg Akhil Biedenmarbin DO Work Phone: [facility] 12-02-2023 09:29-0400 Body height 157.48 cm [facility] 12-02-2023 09:29-0400 Body mass index (BMI) [Ratio] 18.3 kg/m2 [facility] 12-02-2023 09:29-0400 Body weight 45.35 kg [facility] 12-02-2023 09:29-0400 Diastolic blood pressure 67 mm[Hg] [facility] 12-02-2023 09:29-0400 Heart rate 76 /min [facility] 12-02-2023 09:29-0400 Respiratory rate 12 /min [facility] 12-02-2023 09:29-0400 Systolic blood pressure 106 mm[Hg] [facility] 06-10-2023 09:30-0500 Body height 157.48 cm Hayes Ball Other [facility] [employer] Other 06-10-2023 09:30-0500 Body mass index (BMI) [Ratio] 19.75 kg/m2 Hayes Ball Other [facility] [employer] Other 06-10-2023 09:30-0500 Body weight 48.99 kg Hayes Ball Other [facility] [employer] Other 06-10-2023 09:30-0500 Diastolic blood pressure 70 mm[Hg] Hayes Ball Other [facility] [employer] Other 06-10-2023 09:30-0500 Respiratory rate 12 /min Hayes Ball Other [facility] [employer] Other 06-10-2023 09:30-0500 Systolic blood pressure 111 mm[Hg] Hayes Ball Other [facility] [employer] Other 05-29-2023 12:25-0500 Body height 157.48 cm Evelyn Finn Other [employer] Other 05-29-2023 12:25-0500 Body mass index (BMI) [Ratio] 19.46 kg/m2 Evelyn Finn Other [employer] Other 05-29-2023 12:25-0500 Body temperature 97.5 [degF] Evelyn Finn Other [employer] Other 05-29-2023 12:25-0500 Body weight 48.26 kg Evelyn Silvermanmond Other [employer] Other 05-29-2023 12:25-0500 Diastolic blood pressure 54 mm[Hg] Evelyn Finn Other [employer] Other 05-29-2023 12:25-0500 Respiratory rate 18 /min Evelyn Finn Other [employer] Other 05-29-2023 12:25-0500 SaO2% (BldA) [Mass fraction] 97 % Evelyn Finn Other [employer] Other 05-29-2023 12:25-0500 Systolic blood pressure 112 mm[Hg] Evelyn Silvermanmond Other [employer] Other 01-09-2023 08:45-0400 Body height 157.48 cm Hayes Ball Other [employer] Other 01-09-2023 08:45-0400 Body mass index (BMI) [Ratio] 21.54 kg/m2 Hayes Ball Other [employer] Other 01-09-2023 08:45-0400 Body weight 53.43 kg Hayes Ball Other [employer] Other 01-09-2023 08:45-0400 Diastolic blood pressure 74 mm[Hg] Hayes Ball Other [employer] Other 01-09-2023 08:45-0400 Respiratory rate 12 /min Hayes Watkins Other [employer] Other 01-09-2023 08:45-0400 Systolic blood pressure 133 mm[Hg] Hayes Watkins Other [employer] Other Encounters Encounter Date Encounter Type Care Provider Facility Start: 02-23-2024 End: 02-23-2024 Office outpatient visit 25 minutes Tania Samson DO Work Phone: [facility] Comment on above: Type 1 diabetes gary [...] minutes Tania Samson DO Work Phone: [phone] Comment on above: Type 1 diabetes gary itus with hyperglycemia (HCC) (CMS/HCC) (Primary Dx); 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 (CMS/HCC) Start: 01-28-2024 End: 01-28-2024 ambulatory TANIA SAMSON Not Available Start: 01-26-2024 End: 01-26-2024 Office outpatient visit 25 minutes [facility]il Abraham [facility] Comment on above: Sensorineural hearin g loss (SNHL) of both ears (Primary Dx); Dizziness and giddiness; Nasal septal deviation; Chronic rhinitis Start: 01-26-2024 End: 01-26-2024 ambulatory AKHIL ABARHAM Not Available Start: 01-26-2024 End: 01-26-2024 Bamboo flowsheet Akhil Abraham DO [facility] Start: 01-26-2024 End: 01-26-2024 Bamboo flowsheet Akhil Abraham DO Work Phone: [facility] Start: 12-17-2023 ambulatory [facility] Work Phone: Start: 12-17-2023 Non-patient / Non-visit [facility] Physician [facility] Work Phone: Start: 12-11-2023 End: 12-11-2023 ambulatory TANIA SAMSON Not Available Start: 12-02-2023 End: 12-02-2023 ambulatory [facility] Work Phone: Start: 12-02-2023 End: 12-02-2023 Patient encounter procedure [facility] Physician [facility] Work Phone: Start: 09-17-2023 Non-patient / Non-visit [facility] Physician [facility] Work Phone: Start: 08-11-2023 End: 08-11-2023 ambulatory OLGA H TIMMIS Not Available Start: 08-05-2023 End: 08-05-2023 ambulatory OLGA H TIMMIS Not Available Start: 07-31-2023 End: 07-31-2023 ambulatory DONTRELL KIRBY Not Available Start: 06-15-2023 End: 06-15-2023 ambulatory Hayes Watkins Other [employer] Other Start: 06-15-2023 Telephone encounter Hayes LYN G [facility] Start: 06-10-2023 End: 06-10-2023 ambulatory Hayes Watkins Other [employer] Other Start: 06-10-2023 Office outpatient vi sit 15 minutes Hayes Watkins [facility] Start: 05-29-2023 End: 05-29-2023 ambulatory Evelyn Finn Other [employer] Other Start: 05-29-2023 Office outpatient vi sit 15 minutes Evelynjaren Finn [facility] Start: 05-29-2023 Telephone encounter Hayes [facility] Start: 04-15-2023 End: 04-15-2023 ambulatory DIPIKA GRANT Not Available Start: 03-19-2023 End: 03-19-2023 ambulatory Hayes Watkins Other [employer] Other Start: 03-19-2023 Office outpatient vi sit 15 minutes Hayes Watkins [facility] Start: 01-09-2023 End: 01-09-2023 ambulatory Hayes Watkins Other [employer] Other Start: 01-09-2023 Encounter for genera l adult medical examination without abnormal findings Hayes Watkins [facility] Start: 01-09-2023 Periodic preventive med est patient 40-64yrs Hayes Watkins [facility] Start: 07-17-2022 Encounter for genera l adult medical examination without abnormal findings DR TANIA SAMSON [facility] Start: 07-12-2022 End: 07-13-[address] TANIA SAMSON Facility:[facility] Start: 07-12-2022 End: 07-13-2022 Encounter for general adult medical examination without abnormal findings DR TANIA SAMSON Facility:[facility] Start: 05-05-2022 End: 05-06-2022 ambulatory JOSÉ STUART Facility:[facility] Start: 09-08-2021 End: 09-08-[address] HAYES WATKINS Facility:[facility] Start: 04-12-2019 End: 04-13-2019 [facility] Start: 04-12-2019 End: 04-12-2019 Subsequent hospital visit by physician Suman Brown [facility] Comment on above: Arrived Start: 04-06-2019 End: 04-07-2019 Patient [facility] Start: 03-30-2019 End: 03-30-2019 Subsequent hospital visit by physician Zeus Rubalcava [facility] Start: 03-28-2019 End: 03-29-2019 Patient encounter [facility] Start: 03-28-2019 End: 03-28-2019 Subsequent hospital visit by physician Roque Boyd [facility] Comment on above: Arrived Start: 03-23-2019 End: 03-24-2019 Patient encounter procedure FARIBA OBRIEN [facility] Start: 03-23-2019 End: 03-23-2019 Subsequent hospital visit by physician Zeus Rubalcava [facility] Comment on above: Arrived Start: 03-21-2019 End: 03-22-2019 Patient encounter procedure FARIBA OBRIEN [facility] Start: 03-21-2019 End: 03-21-2019 Subsequent hospital visit by physician Lobo Floyd [facility] Comment on above: Arrived Start: 03-16-2019 End: 03-16-2019 Subsequent hospital visit by physician Roque Boyd [facility] Start: 03-14-2019 End: 03-15-2019 Patient encounter procedure FARIBA OBRIEN [facility] Start: 03-14-2019 End: 03-14-2019 Subsequent hospital visit by physician Lobo Floyd [facility] Comment on above: Arrived Start: 03-09-2019 End: 03-09-2019 Subsequent hospital visit by physician Zeus Rubalcava [facility] Start: 03-08-2019 End: 03-09-2019 Patient encounter [facility] Start: 03-08-2019 End: 03-08-2019 Subsequent hospital visit by physician Maximiliano Hickey [facility] Comment on above: Arrived Start: 03-02-2019 End: 03-03-2019 Patient encounter procedure FARIBA [facility] Start: 03-02-2019 End: 03-02-2019 Subsequent hospital visit by physician Zeus [facility] Comment on above: Arrived Start: 03-01-2019 End: 03-02-2019 Patient encounter procedure FARIBA [facility] Start: 03-01-2019 End: 03-01-2019 Subsequent hospital visit by physician Roque [facility] Comment on above: Arrived Start: 02-23-2019 End: 02-24-2019 Patient encounter procedure FARIBA [facility] Start: 02-23-2019 End: 02-23-2019 Subsequent hospital visit by physician Roque [facility] Comment on above: Arrived Start: 02-21-2019 End: 02-22-2019 Patient encounter procedure FARIBA [facility] Start: 02-21-2019 End: 02-21-2019 Subsequent hospital visit by physician Lobo [facility] Comment on above: Arrived Start: 02-15-2019 End: 02-16-2019 Patient encounter procedure FARIBA [facility] Start: 02-14-2019 End: 02-15-2019 Patient [facility] Start: 02-14-2019 End: 02-14-2019 Subsequent hospital visit by physician Lobo [facility] Comment on above: Arrived Start: 02-09-2019 End: 02-10-2019 Patient encounter [facility]D [facility] Start: 02-09-2019 End: 02-09-2019 Subsequent hospital visit by physician Roque [facility] Comment on above: Arrived Start: 02-07-2019 End: 02-08-2019 Patient [facility] Start: 02-07-2019 End: 02-07-2019 Subsequent hospital visit by physician Lobo [facility] Comment on above: Arrived Start: 02-02-2019 End: 02-03-2019 Patient encounter procedure ZEUS RUBALCAVA [facility] Start: 02-02-2019 End: 02-02-2019 Subsequent hospital visit by physician Zeus [facility] Comment on above: Arrived Start: 01-31-2019 End: 02-01-2019 Patient encounter procedure LOBO PERALTA [facility] Start: 01-31-2019 End: 01-31-2019 Subsequent hospital visit by physician Lobo Floyd [facility] Physical Therapy Comment on above: Arrived Start: 01-26-2019 End: 01-27-2019 Patient encounter procedure SUMAN BROWN [facility] Start: 01-26-2019 End: 01-26-2019 Subsequent hospital visit by physician Suman Brown [facility] Physical Therapy Comment on above: Arrived Start: 01-19-2019 End: 01-20-2019 Patient encounter procedure [facility] Start: 01-17-2019 End: 01-18-2019 Patient encounter procedure [facility] Start: 01-17-2019 End: 01-17-2019 Subsequent hospital visit by physician Roque Boyd [facility] Physical Therapy Comment on above: Arrived Start: 01-12-2019 End: 01-13-2019 [facility] Start: 01-12-2019 End: 01-12-2019 [facility] above: Arrived Procedures Date Procedure Procedure Detail Performing Clinician Start: 02-23-2024 Hemoglobin glycosyla annie a1c Tania Samson DO Work Phone: Plan of Treatment Date Care Activity Detail Author Start: 02-21-2025 End: 02-21-2025 Patient encounter procedure 02/21/2025 3:45 PM EDT Office Visit [facility] [address] [place] [phone] Akhil Abraham, DO [address] [place] [address] [facility] [place] Start: 02-14-2025 End: 02-14-2025 Patient encounter procedure 02/14/2025 3:30 PM EDT Office Visit [facility] [address] [place] [phone] Tania Warren, AUD [address] [place] [address] [facility] Start: 04-08-2024 End: 04-08-2024 Patient encounter procedure 04/08/2024 8:45 AM EST Office Visit [facility] [address] [place] [phone] Tania Samson, DO [address] [place] [address] [facility] [address] Start: 02-23-2024 End: 02-23-2024 Patient encounter procedure 02/23/2024 9:30 AM EDT Office Visit [facility] [address] [place] [phone] Tania Samson, DO [address] [place] [address] [facility] [address] Start: 02-16-2024 End: 02-16-2024 Patient encounter procedure 02/16/2024 3:30 PM EDT Office Visit [facility] [place] [address] [place] [phone] Akhil Abraham, DO [address] [place] [address] [facility] [place] Start: 01-28-2024 End: 01-28-2024 Patient encounter procedure 01/28/2024 9:15 AM EDT Office Visit [facility] [address] [place] [phone] Tania Samson, DO [address] [place] [address] [facility] [address] Start: 01-26-2024 End: 01-26-2024 Patient encounter procedure 01/26/2024 3:30 PM EDT Office Visit [facility] [place] [address] [place] [phone] Akhil Abraham S, DO [address] [facility] [place] [address] Arrived [facility] [place] Comment on above: Arrived Start: 12-17-2023 Patient referral [facility] Work Phone: Start: 04-12-2019 End: 04-12-2019 Appointment [facility] Start: 04-06-2019 End: 04-06-2019 Appointment 04/06/2019 Appointment Physical Therapy Zeus Rubalcava, PT [facility] Start: 03-30-2019 End: 03-30-2019 Appointment 03/30/2019 Appointment Physical Therapy Zeus Rubalcava, PT [facility] Start: 03-23-2019 End: 03-23-2019 Appointment 03/23/2019 Appointment Physical Therapy Zeus Rubalcava, PT [facility] Start: 03-21-2019 End: 03-21-2019 Appointment [facility] Start: 03-16-2019 End: 03-16-2019 Appointment [facility] Start: 03-14-2019 End: 03-14-2019 Appointment [facility] Start: 03-09-2019 End: 03-09-2019 Appointment 03/09/2019 Appointment Physical Therapy Zeus Rubalcava PT [facility] Start: 03-08-2019 End: 03-08-2019 Appointment 03/08/2019 Appointment Physical Therapy Maximiliano Hickey [facility] Start: 03-07-2019 End: 03-07-2019 Appointment 03/07/2019 Appointment Physical Therapy Lobo Floyd, BIOLOGICAL SCIENCE TECHNICIAN FISH [facility] Start: 03-02-2019 End: 03-02-2019 Appointment 03/02/2019 Appointment Physical Therapy Zeus Rubalcava, PT [facility] Start: 03-01-2019 End: 03-01-2019 Appointment 03/01/2019 Appointment Physical Therapy Roque Boyd PTA [facility] Start: 02-23-2019 End: 02-23-2019 Appointment 02/23/2019 Appointment Physical Therapy Roque Boyd PTA [facility] Physical Therapy Start: 02-21-2019 End: 02-21-2019 Appointment 02/21/2019 Appointment Physical Therapy Lobo Floyd PTA [facility] Physical Therapy Start: 02-16-2019 End: 02-16-2019 Appointment 02/16/2019 Appointment Physical Therapy Zeus Rubalcava PT [facility] Physical Therapy Start: 02-15-2019 End: 02-15-2019 Appointment 02/15/2019 Appointment Physical Therapy Maximiliano Hickey [facility] Physical Therapy Start: 02-14-2019 End: 02-14-2019 Appointment 02/14/2019 Appointment Physical Therapy Lobo Floyd PTA [facility] Physical Therapy Start: 02-09-2019 End: 02-09-2019 Appointment 02/09/2019 Appointment Physical Therapy Roque Boyd PTA [facility] Physical Therapy Start: 02-07-2019 End: 02-07-2019 Appointment 02/07/2019 Appointment Physical Therapy Lobo Floyd PTA [facility] Physical Therapy Start: 02-02-2019 End: 02-02-2019 Appointment [facility] Start: 01-31-2019 End: 01-31-2019 Appointment 01/31/2019 Appointment Physical Therapy Lobo Floyd PTA [facility] Physical Therapy Start: 01-26-2019 End: 01-26-2019 Appointment [facility] Start: 01-23-2019 Influenza vaccination Flu vaccine (# 1) [place] Start: 01-20-2019 End: 01-20-2019 Appointment 01/20/2019 Appointment Physical Therapy Ramya Odonnell [facility] Physical Therapy Start: 01-19-2019 End: 01-19-2019 Appointment 01/19/2019 Appointment Physical Therapy Roque Boyd PTA [facility] Physical Therapy Start: 01-17-2019 End: 01-17-2019 Appointment 01/17/2019 Appointment Physical Therapy Roque Boyd PTA [facility] Physical Therapy Start: 2012 Breast cancer screen Breast cancer s creen [place], [place] Start: 2012 Colon cancer screen colonoscopy Colon cancer screen colonoscopy [place] Start: 2012 Shingles Vaccine (1 of 2) Shingles Vaccine (1 of 2) [place] Start: 2002 Lipid screen Lipid screen [place], [place] Start: 1983 Cervical cancer screen Cervical canc er screen [place], [place] Start: 1981 DTaP/Tdap/Td vaccine (1 - Tdap) DTaP/Tdap/Td vaccine (1 - Tdap) [place] Start: 1977 HIV screen HIV screen [place], [place] Start: 1973 DTaP/Tdap/Td vaccine (1 - Tdap) DTaP/Tdap/Td vaccine (1 - Tdap) [place] Start: 1962 Hepatitis C screen Hepatitis C scree n [place], [place] CT Sinuses WO contrast [facility] Patient referral [facility] Work Phone: Payers Date Payer Category Payer Private Health Insurance [facility] [id number] 2022-Present [address] [address] [place] [address] [id number] 2022 Private Health Insurance [id number] [id number] 2016 Unknown [employer] [address] xxxxxxxxxxxx 2016-Present [phone] [address] [place] [address] xxxxxxxxxxxx [id number] .[id number] 2016 Unknown [id number] 1962 Unknown [id number] 2.16.840.1.330928.3.579.2 .173 1962 Unknown [id number] 2.16.840.1.752083.3.579.2 .173 1962 Unknown [id number] 2.16.840.1.621992.3.579.2 .173 1962 Unknown [id number] 2.16.840.1.596083.3.579.2 .173 1962 Unknown [id number] 2.16.840.1.876821.3.579.2 .173 1962 Unknown [id number] 2.16.840.1.583008.3.579.2 .173 1962 Unknown [id number] 2.16.840.1.305726.3.579.2 .173 1962 Unknown [id number] 2.16.840.1.394810.3.579.2 .173 1962 Unknown [id number] 2.16.840.1.427123.3.579.2 .173 1962 Unknown [id number] 2.16.840.1.117753.3.579.2 .173 1962 Unknown [id number] 2.16.840.1.841719.3.579.2 .173 1962 Unknown [id number] 2.16.840.1.374721.3.579.2 .173 1962 Unknown [id number] 2.16.840.1.274132.3.579.2 .173 1962 Unknown [id number] 2.16.840.1.163307.3.579.2 .173 1962 Unknown [id number] 2.16.840.1.472174.3.579.2 .173 1962 Unknown [id number] 2.16.840.1.082712.3.579.2 .173 1962 Unknown [id number] 2.16.840.1.068511.3.579.2 .173 1962 Unknown [id number] 2.16.840.1.931550.3.579.2 .173 1962 Unknown [id number] 2.16.840.1.543089.3.579.2 .173 1962 Unknown [id number] 2.16.840.1.475883.3.579.2 .173 1962 Unknown [id number] 2.16.840.1.301259.3.579.2 .173 1962 Unknown [id number] 2.16.840.1.095733.3.579.2 .593 1962 Unknown [id number] 2.16.840.1.801757.3.579.2 .593 1962 Unknown [id number] 2.16.840.1.480723.3.579.2 .593 1962 Unknown [id number] 2.16.840.1.598602.3.579.2 .1259 1962 Unknown [id number] 2.16.840.1.252598.3.579.2 .9 1962 Unknown [id number] 2.16.840.1.867560.3.579.2 .9 1962 Unknown [id number] 2.16.840.1.321684.3.579.2 .1259 1962 Unknown [id number] 2.16.840.1.646613.3.579.2 .9 1962 Unknown [id number] 2.16.840.1.972398.3.579.2 .1259 1962 Unknown [id number] 2.16.840.1.577048.3.579.2 .9 1962 Unknown [id number] 2.16.840.1.024746.3.579.2 .1259 1962 Unknown [id number] 2.16.840.1.169181.3.579.2 .9 1959 Unknown [id number] Social History Date Type Detail Facility Start: 09-30-2017 End: 08-05-2023 Tobacco smoking status VTIS Never smoker [facility] Start: 09-30-2017 End: 12-04-2023 Alcohol intake Yes [facility] Start: 09-18-2017 Alcohol Comment occasional [facility] Start: 1960 [facility]igned [facility] Start: 09-30-2017 End: 02-16-2024 Alcohol intake Current drinker of alcohol (finding) Nancie [facility] KRISHNAMURTHY Start: 1960 Sex Assigned At Female [facility] Start: 08-05-2023 Tobacco use and exposure Smokeless tobacco non-user [facility] Start: 12-04-2023 End: 01-28-2024 History of Social function [facility] How often do you nee d to have someone help you when you read instructions, pamphlets, or other written material from your doctor or pharmacy [SILS] Never [facility] Do you belong to any clubs or organizations such as latter day groups, unions, fraternal or athletic groups, or [...] mellitus with proliferative retinopathy of both eyes ([facility]) During the appointment today all pertinent labs, [...] Type 1 diabetes mellitus with hyperglycemia (HCC) ([facility]/HCC) - Primary Follow up in about 6 [...] the patient today. documented in this encounter [facility] 02-16-2024 History of Present illness Narrative [...] steroid nasal spray. documented in this encounter [facility] 01-28-2024 History of Present illness Narrative Associated Problem(s): Type 1 diabetes mellitus with proliferative retinopathy of both eyes ([facility]) During the appointment today all pertinent labs, [...] Type 1 diabetes mellitus with hyperglycemia (HCC) ([facility]/HCC) - Primary Follow up in about 4 [...] the patient today. documented in this encounter [facility] 01-26-2024 History of Present illness Narrative [...] Pain in pelvis PDR (proliferative diabetic retinopathy) ([facility]) s/p antiVEGF OD x1 and OS x4 and PRP OU. R.A.C. Renal stones 02/09/2017 Sciatica of left side Syncope due to orthostatic hypotension Type 1 diabetes ([facility]) 1991 started Gestational Current Outpatient Medications: Continuous [...] 0 min Stress: Stress Concern Present (12/04/2023) [employer] - Occupational Stress Questionnaire Feeling of Stress : To some extent Social Connections: Moderately Isolated (12/04/2023) Social Connection and Isolation Panel [NHANES] Frequency of Communication with Friends and Family: Once a week Frequency of Social Gatherings with Friends and Family: Once a week Attends Jainism Services: More than 4 times per year [...] scan for review documented in this encounter [facility] 12-17-2023 Hospital Discharge instructions Ambulatory OrdersReferral to ENT Time Frame: 12/17/23, Location: [facility] Work Phone: 06-10-2023 Evaluation note Encounter [...] her risk for more severe, persistent infection. Search to Phone Other 01-05-2024 Evaluation note* Encounter Date Diagnosis [...] no improvement in 2 to 3 days Search to Phone Other 10-26-2023 Evaluation note* Encounter Date Diagnosis [...] BS temporarily. May adjust insulin if experienced. Search to Phone Other 08-18-2023 Evaluation note* Encounter Date Diagnosis [...] Reommend colonoscopy but patient refuses. 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 (CMS/HCC) documented in this encounter [facility] HealthcareEvaluation note* Diagnosis Sensorineural hearing loss (SNHL) of both ears- Primary Dizziness and giddiness Nasal septal deviation Deviated nasal septum Chronic rhinitis documented in this encounter [facility] HealthcareEvaluation note* Diagnosis Type 1 diabetes mellitus with hyperglycemia (HCC) (CMS/HCC)- Primary 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 (CMS/HCC) documented in this encounter [facility] HealthcareEvaluation note* Diagnosis Sensorineural hearing loss (SNHL) of both ears- Primary Dizziness and giddiness Nasal septal deviation Deviated nasal septum Chronic rhinitis documented in this encounter [facility] HealthcareHistory general Narrative - Reported* Type [...] area removed Hospitalization History SEE ABOVE SURGERY Search to Phone Other History general Narrative - Reported* Type [...] removal 2022 Hospitalization History SEE ABOVE SURGERY Search to Phone Other Reason for referral (narrative)* Reason Referral for persist ent decreased hearing, left ear pain, drainage and dizziness Diagnosis 1 Non-recurrent acute serous otitis media of left ear (H65.02) Referral Organization [facility] Rafita saldivar Referring Provider First Name Hayes Referring Provider Last Name Rafita Referring Provider Specialty Internal Me jenni Referred Organization [facility] Referred Provider Olga Pinon Referred Address ,[place], [place],[address] Referred Provider Specialty Otolaryngolo gy Referral Priority Routine General Notes Patient w/ persisten t left ear pain, drainage and dizziness. Examination reveals erythematous, injected left TM (RUQ) w/ ear drainage, decreased hearing w/ B>A and dizziness. She has been instructed to continue Flonase and prescribed a second antibiotic. Search to Phone Other Advance Directives Documents on File Type Date Recorded Patient Aoc Operations Intelligence Chief Expl anation Advance Directives and Living Will Power of Clay Molder Advance Directive Response Recorded Date/ Time Advance Directives No December 01 9:15am History of Present Illness * Sarah Youngblood - 03/16/2019 3:44 PM EDT [facility] Inpatient/Observation/Outpatient Rehabilitation Date: 03/16/2019 Patient Name: Marychuy [...] Rubalcava, PT - 03/23/2019 6:09 PM EDT [facility] Outpatient Physical Therapy Daily Note Patient: Marychuy Robertson : 1960 CSN #: [id number] Referring Practitioner: Prasad Ortega DO Referral Date [...] []Not met []Met []Partially met []Not met Longterm Goals - Time Frame for line maintainer goals : 6 weeks line maintainer goal 1: Pt. to be independent with HEP -MET []Met []Partially met []Not met line maintainer goal 2: Pt. to have improved AROM of L shoulder flex/abd: 120*, ER: T2, IR: T10 in order to improve functional mobility. []Met []Partially met []Not met shelter goal 3: Pt. to have increased L shoulder strength >/=4/5 all planes for improved functional strength. -MET []Met []Partially met []Not met shelter goal 4: Pt. to report decrease in pain to </=3/10 at worst for improved QOL. -MET []Met []Partially met []Not met []Met []Partially met []Not met Minutes Tracking: Time In: 1731 Time Out: 1809 Minutes: 38 Zeus Rubalcava PT, DPT Date: 03/23/2019 documented in this encounter* Zeus Rubalcava, PT - 03/30/2019 6:36 PM [facility] Inpatient/Observation/Outpatient Rehabilitation Date: 03/30/2019 Patient Name: Marychuy [...] 03/30/2019 documented in this encounter* Roque Boyd, BIOLOGICAL SCIENCE TECHNICIAN FISH - 02/09/2019 6:09 PM EDT [facility] Outpatient Physical Therapy Daily Note Patient: Marychuy Robertson : 1960 CSN #: [id number] Referring Practitioner: Prasad Ortega DO Referral Date [...] []Not met []Met []Partially met []Not met Longterm Goals - Time Frame for shelter goals : 6 weeks shelter goal 1: Pt. to be independent with HEP []Met []Partially met [x]Not met shelter goal 2: Pt. to have improved AROM of L shoulder flex/abd: 120*, ER: T2, IR: T10 in order to improve functional mobility. []Met []Partially met [x]Not met shelter goal 3: Pt. to have increased L shoulder strength >/=4/5 all planes for improved functional strength. []Met []Partially met [x]Not met line maintainer goal 4: Pt. to report decrease in pain to </=3/10 at worst for improved QOL. []Met []Partially met [x]Not met []Met []Partially met []Not met Minutes Tracking: Time In: 1709 Time Out: 1805 Minutes: 56 Roque Boyd PTA Date: 02/09/2019 documented in this encounter* Zeus Rubalcava, PT - 01/12/2019 7:02 PM EDT [facility] Outpatient Physical Therapy Evaluation Date: 01/12/2019 Patient: Marychuy Robertson : [address] [facility] #: [id number] Referring Practitioner: Prasad Ortega DO Referral Date : 01/07/19 Diagnosis: Adhesive capsulitis of left shoulder, M75.02 Treatment Diagnosis: L shoulder adhesive capsulitis Onset Date: 10/12/18 PT Insurance Information: [employer] Total # of Visits Approved: 24 Total [...] 35*, IR: 35* for improved functional mobility. line maintainer goals Time Frame for line maintainer goals : 6 weeks line maintainer goal 1: Pt. to be independent with HEP shelter goal 2: Pt. to have improved AROM of L shoulder flex/abd: 120*, ER: T2, IR: T10 in order to improve functional mobility. line maintainer goal 3: Pt. to have increased L shoulder strength >/=4/5 all planes for improved functional strength. line maintainer goal 4: Pt. to report decrease in pain to </=3/10 at worst for improved QOL. Patient goals : To regain my range of motion and get rid of any pain and numbness Minutes Tracking: Time In: 1740 Time Out: 1835 Minutes: 55 Zeus Rubalcava, PT, DPT 01/12/2019 documented in this encounter* Zeus Rubalcava, PT - 02/02/2019 5:55 PM EDT [facility] Outpatient Physical Therapy Daily Note Patient: Marychuy Robertson : 1960 CSN #: [id number] Referring Practitioner: Prasad Ortega DO Referral Date : 01/07/19 Date: 02/02/2019 Diagnosis: Adhesive capsulitis of left shoulder, M75.02 Treatment Diagnosis: L shoulder adhesive capsulitis Onset Date: 10/12/18 PT Insurance Information: [employer] Total # of Visits Approved: 24 Per [...] []Not met []Met []Partially met []Not met Analytical Laboratory Technician Goals - Time Frame for line maintainer goals : 6 weeks shelter goal 1: Pt. to be independent with HEP []Met []Partially met []Not met shelter goal 2: Pt. to have improved AROM of L shoulder flex/abd: 120*, ER: T2, IR: T10 in order to improve functional mobility. []Met []Partially met []Not met shelter goal 3: Pt. to have increased L shoulder strength >/=4/5 all planes for improved functional strength. []Met []Partially met []Not met shelter goal 4: Pt. to report decrease in pain to </=3/10 at worst for improved QOL. []Met []Partially met []Not met []Met []Partially met []Not met Minutes Tracking: Time In: 1713 Time Out: 1812 Minutes: 59 Zeus Rubalcava, PT, DPT Date: 02/02/2019 documented in this encounter* Zeus Rubalcava, PT - 03/02/2019 6:09 PM EDT [facility] Outpatient Physical Therapy Daily Note Patient: Marychuy Robertson : 1960 CSN #: [id number] Referring Practitioner: Prasad Ortega DO Referral Date [...] []Not met []Met []Partially met []Not met Analytical Laboratory Technician Goals - Time Frame for shelter goals : 6 weeks shelter goal 1: Pt. to be independent with HEP -MET []Met []Partially met []Not met line maintainer goal 2: Pt. to have improved AROM of L shoulder flex/abd: 120*, ER: T2, IR: T10 in order to improve functional mobility. []Met []Partially met []Not met line maintainer goal 3: Pt. to have increased L shoulder strength >/=4/5 all planes for improved functional strength. []Met []Partially met []Not met line maintainer goal 4: Pt. to report decrease in pain to </=3/10 at worst for improved QOL. -MET []Met []Partially met []Not met []Met []Partially met []Not met Minutes Tracking: Time In: 1728 Time Out: 1807 Minutes: 39 Zeus Rubalcava, PT, DPT Date: 03/02/2019 documented in this encounter* Zeus Rubalcava, PT - 03/09/2019 5:43 PM EDT [facility] Inpatient/Observation/Outpatient Rehabilitation Date: 03/09/2019 Patient Name: Marychuy [...] 03/09/2019 documented in this encounter* Suman Brown, BIOLOGICAL SCIENCE TECHNICIAN FISH - 01/26/2019 10:15 AM EDT [facility] Outpatient Physical Therapy Daily Note Patient: Marychuy Robertson : 1960 CSN #: [id number] Referring Practitioner: Prasad Ortega DO Referral Date : 01/07/19 Date: 01/26/2019 Diagnosis: Adhesive capsulitis of left shoulder, M75.02 Treatment Diagnosis: L shoulder adhesive capsulitis Onset Date: 10/12/18 PT Insurance Information: [employer] Total # of Visits Approved: 24 Per [...] limited by pain today with PROM. PROM [id number]*, abd=87*, IR=27* and ER=16 - all limited [...] []Not met []Met []Partially met []Not met Longterm Goals - Time Frame for line maintainer goals : 6 weeks shelter goal 1: Pt. to be independent with HEP []Met []Partially met []Not met line maintainer goal 2: Pt. to have improved AROM of L shoulder flex/abd: 120*, ER: T2, IR: T10 in order to improve functional mobility. []Met []Partially met []Not met line maintainer goal 3: Pt. to have increased L shoulder strength >/=4/5 all planes for improved functional strength. []Met []Partially met []Not met line maintainer goal 4: Pt. to report decrease in [...] DATE CREATED AUTHOR AUTHOR'S ORGANIZ ATION 02/24/2024 [facility] d[facility] Specialists EPIC REASON FOR VISIT (unrecogniz [...] Provider Active Start : September 17, 2023 Warehouse Foreman Relationship Specialty Start Date End Date Hayes Watkins MD [address] [place] [id number] PCP - General Internal Medicine 01/21/24 Akhil Abraham DO [address] [place] [address] Otolaryngology 02/16/24 Warehouse Foreman Relationship Specialty Start Date End Date Hayes Watkins MD [address] [place] [id number] PCP - General Internal Medicine 01/21/24 [employer] Relationship Specialty Start Date End Date Hayes Watkins MD [address] [place] [id number] PCP - General Internal Medicine 01/21/24 Warehouse Foreman Relationship Specialty Start Date End Date Hayes Watkins MD [address] [place] [id number] PCP - General Internal Medicine 01/21/24 Warehouse Foreman Relationship Specialty Start Date End Date Hayes Watkins MD [address] [place] [phone] PCP - General Internal Medicine 01/21/24 Akhil Abraham, [address] [place] [address] Otolaryngology 02/16/24 Warehouse Foreman Relationship Specialty Start Date End Date Hayes Watkins MD [address] [place] [phone] PCP - General Internal Medicine 01/21/24 Akhil Abraham DO [address] [place] [address] Otolaryngology 02/16/24 Goals (unrecognized section and content) [...] BE BASED ON THE PRIMARY CLINICAL RECORDS. [employer] [facility] provides no warranty or guarantee of the accuracy or completeness of information in this document.
[2024-08-04 07:07] LABS: Glucometer 108 mg/dL (74-106)
[2024-08-04 08:17] LABS: Glucometer 106 mg/dL (74-106)
--- NOTE | 2024-08-04 09:02 | ECG_ITS ---
[facility] Test Date: 2024-08-04 Pat Name: THEODORE FLETCHER Department: Room: 2731 Gender: Female Chamber Magistrate: : [id number] Requested By: TETE ARAGON Order Number: [id number] Reading MD: HENRIETTA RICHARDS M.D. Measurements Intervals [place] Rate: 81 P: 60 SD: 116 QRS: 74 QRSD: 80 T: 55 QT: 396 QTc: 434 Interpretive Statements 1100 Sinus rhythm 2210 Short SD interval 9150 abnormal ECG No previous ECG available for comparison Electronically Signed On 08-04-2024 20:25:30 EDT by HENRIETTA RICHARDS M.D.
--- NOTE | 2024-08-04 11:15 | PM.HP ---
HPI H&P: HPI History of Present Illness Chief complaint: OBSTRUCTIVE URETERAL CALCULI, HYPERGLYCEMIA Narrative: 64 y/o female with a history of kidney stones presents to ER with left flank pain. Initially felt pain few days prior in left flank. Noticed blood in urine then pain and hematuria improved. Day admission had sudden onset of recurrent pain. Pain in left flank and into LLQ. Developed nausea and vomiting. Again blood in urine and to ER. Afebrile and WBC normal. Glucose 639 but no evidence of DKA. Reports lost insurance and not back to endo but last A1C around 11. UA showed blood and CT with left mid ureter stone with hydronephrosis and hydroureter. Discussed with urology and admitted. Started cipro for possible UTI. Currently pain improved but still nausea. Opioid HPI Opioid Management Most Recent Pain and Opioid Data: Last Pain Assessment 08/04/24 10:00 Last ORT Total Score 0 08/04/24 05:04 08/04/24 Last ORT Risk Category Low Risk 08/04/24 05:04 08/04/24 Review of Systems ROS Constitutional Denies: fever, chills or fatigue Cardiovascular Denies: chest pain, palpitations or edema Respiratory Denies: shortness of breath, cough or wheezing Gastrointestinal Reports: abdominal pain, nausea and vomiting; Denies: diarrhea Genitourinary Reports: blood in urine; Denies: painful urination [facility] Medical History (Updated 08/04/24 @ 09:30 by Doug Junior MD) Ureteral stone with hydronephrosis ?N13.2 - Hydronephrosis with renal and ureteral calculous obstruction (ICD-10) Acute hyperglycemia ?R73.9 - Hyperglycemia, unspecified (ICD-10) Type 1 diabetes ?E10.9 - Type 1 diabetes mellitus without complications (ICD-10) Bilateral artificial lens implant ?Z96.1 - Presence of intraocular lens (ICD-10) Calcium kidney stone ?N20.0 - Calculus of kidney (ICD-10) Surgical History (Updated 08/04/24 @ 05:45 by Milla Villa) H/O lithotripsy ?Z98.890 - Other specified postprocedural states (ICD-10) H/O artificial lens replacement ?Z96.1 - Presence of intraocular lens (ICD-10) Family History (Updated 08/04/24 @ 05:44 by Milla Villa) Father Family history of cancer Social History (Updated 08/04/24 @ 05:46 by Milla Villa) Within the past year, how often did you have a drink containing alcohol: monthly or less Smoking status: Never smoker Non-prescribed substance use: denies use Highest level of school completed/degree received: high school graduate Are you now , , , , never or living with a partner: Little interest or pleasure in doing things: not at all Feeling down, depressed, or hopeless: not at all Feel stressed/tense/nervous/anxious/difficulty sleeping: not at all Do you think of yourself as: straight/heterosexual Gender Identity: female Meds Home Medications and Allergies Home Medications ?Medication ?Instructions ?Recorded ?Confirmed ?Type insulin glargine 100 unit/mL (3 14 unit subcut .QHS 08/04/24 08/04/24 History mL) subcutaneous pen (Lantus Solostar U-100 Insulin) insulin lispro-aabc 100 unit/mL 1 - 10 unit subcut [facility] 08/04/24 08/04/24 History subcutaneous pen (Lyumjev KwikPen U-100 Insulin) Allergies Allergy/AdvReac Type Severity Reaction Status Date / Time cephalexin (From Keflex) Allergy Unknown Unknown Verified 08/04/24 02:21 nitrofurantoin (From Allergy Unknown Unknown Verified 08/04/24 02:21 Macrobid) Antihistamines - Alkylamine AdvReac Severe confusion Verified 08/04/24 05:49 Exam Constitutional Vital Signs, click to edit/add: Last Vital Signs Temp 98.1 F 08/04/24 05:04 Pulse 90 08/04/24 10:00 Resp 21 H 08/04/24 07:20 BP 120/63 08/04/24 07:06 Pulse Ox 95 08/04/24 07:20 O2 Del Method Room Air 08/04/24 07:27 Documenting provider has reviewed patient's vital signs: yes Common normals: no apparent distress, oriented x3 and alert HENMT Common normals: normocephalic Eye Common normals: PERRL and EOMs intact bilaterally Respiratory Common normals: normal respiratory effort and clear to auscultation bilaterally Cardio Common normals: regular rate, regular rhythm, no gallops, no murmurs and no rub GI Common normals: Normal to inspection, nondistended, normoactive bowel sounds present and non-tender Extremity Common normals: no pedal edema Results Labs Labs: Short CBC 08/04/24 Range/Units 02:27 WBC 8.9 (4.0-11.0) 10^3/uL Hgb 12.5 (12.0-16.0) g/dL Hct 36.6 (36.0-48.0) % Plt Count 304 (150-450) 10^3/uL BMP 08/04/24 02:27 Sodium 134 L Potassium 4.0 Chloride 96 L Carbon Dioxide 24.4 BUN 19.0 H Creatinine 1.41 H Glucose 639 H* Calcium 9.5 Liver Function 08/04/24 Range/Units 02:27 Total Bilirubin 0.5 (0.2-1.0) mg/dL AST 13 L (15-37) U/L ALT 25 (14-59) U/L Alkaline Phosphatase 106 (46-116) U/L Albumin 3.7 (3.4-5.0) g/dL Urine 08/04/24 Range/Units 02:34 Urine Color Lt. yellow (YELLOW) Urine Clarity Clear (CLEAR) Urine pH 8.0 (5.0-9.0) Ur Specific [place] 1.010 (1.005-1.025) Urine Protein Negative (NEG/TRACE) mg/dL Urine Glucose (UA) >=1000 A (NEGATIVE) mg/dL Imaging CT scan - abdomen: Attestation: I have reviewed the pertinent imaging results. Assessment and Plan Assessment and Plan (1) Ureteral stone: (2) Hydronephrosis due to obstruction of ureter: (3) Type 1 diabetes mellitus with hyperglycemia: Plan Admitted with obstructing ureteral stone and hyperglycemia. Currently NPO and urology will take to OR later this afternoon. On cipro for possible UTI. Initially on insulin drip and glucose quickly improved. Currently on accuchecks and sliding scale. If symptoms improved after OR possibly home later today.
--- NOTE | 2024-08-04 11:20 | CM.NOTE ---
Rounds made with Dr. Junior, pt will go to OR at 2:00 and possible discharge to home post-op. Pt will follow up with PCP and urology.
[2024-08-04 11:24] LABS: Glucometer 145 mg/dL (74-106)
[2024-08-04] MEDS: PROMETHAZINE HCL 25 MG in 0.9 % SODIUM CHLORIDE 50 ML 204 MG IV (11:44)
--- NOTE | 2024-08-04 13:41 | PC.NURSE ---
taken to OR via bed. update given. family at bedside.
--- NOTE | 2024-08-04 14:18 | P.CN_ITS ---
Consult Note: HPI Data of Consult Consult date: 08/04/24 Requesting Physician: Doug Junior MD Primary Care Provider: Hayes Watkins, DO Consult Narrative Reason for consult: obstructive uropathy, pain, lactic acidosis Narrative: 64-year-old female with a history of kidney stones requiring intervention, IDDM1 presented to the emergency room overnight for worsening left flank pain x 3 days, nausea/emesis and hematuria. Workup revealed 6 mm left mid ureteral stone with severe hydronephrosis and significant perinephric stranding, multiple additional left kidney stones (largest 1.3x1 cm on review). Labs wnl except Cr 1.4, glucose > 600 and lactic acid 3.3. UA trace leuks, multiple RBCs, WBCs, sent for culture. Vitals wnl, however now developing tachycardia. She was started on empiric ciprofloxacin, fluids, glucose control, admitted to ICU for further management, on insulin drip. Urology consulted regarding ureteral stone. Prior pt of Dr. Musa, has not been seen in 3 years. Last stone event about 5 years ago. Reports history of recurrent UTI in past, none of recent. Admits DM have not been well controlled. Currently still with significant left flank pain. Denies fever, chills or dysuria. Denies hx [place] or stroke. Not on anticoagulation. Per daughter, pt has not been compliant with meds. Hx DM 1 and 2 cc:: CC: Doug Junior MD Review of Systems ROS Status of ROS 10 or more systems reviewed and unremark able except as noted in history and below Constitutional Denies: fever or chills Respiratory Denies: shortness of breath or cough Gastrointestinal Reports: nausea and vomiting Genitourinary Reports: blood in urine; Denies: painful urination Musculoskeletal Reports: back pain [facility] Medical History (Updated 08/04/24 @ 14:52 by Sarai Long MD) Ureteral stone with hydronephrosis ?N13.2 - Hydronephrosis with renal and ureteral calculous obstruction (ICD- 10) Acute hyperglycemia ?R73.9 - Hyperglycemia, unspecified (ICD-10) Type 1 diabetes ?E10.9 - Type 1 diabetes mellitus without complications (ICD-10) Bilateral artificial lens implant ?Z96.1 - Presence of intraocular lens (ICD-10) Calcium kidney stone ?N20.0 - Calculus of kidney (ICD-10) Surgical History (Updated 08/04/24 @ 05:45 by Milla Villa) H/O lithotripsy ?Z98.890 - Other specified postprocedural states (ICD-10) H/O artificial lens replacement ?Z96.1 - Presence of intraocular lens (ICD-10) Family History (Updated 08/04/24 @ 05:44 by Milla Villa) Father Family history of cancer Social History (Updated 08/04/24 @ 05:46 by Milla Villa) Within the past year, how often did you have a drink containing alcohol: monthly or less Smoking status: Never smoker Non-prescribed substance use: denies use Highest level of school completed/degree received: high school graduate Are you now , , , , never or living with a partner: Little interest or pleasure in doing things: not at all Feeling down, depressed, or hopeless: not at all Feel stressed/tense/nervous/anxious/difficulty sleeping: not at all Do you think of yourself as: straight/heterosexual Gender Identity: female Meds Home Medications and Allergies Home Medications ?Medication ?Instructions ?Recorded ?Confirmed ?Type insulin glargine 100 unit/mL (3 14 unit subcut .QHS 08/04/24 08/04/24 History mL) subcutaneous pen (Lantus Solostar U-100 Insulin) insulin lispro-aabc 100 unit/mL 1 - 10 unit subcut [facility] 08/04/24 08/04/24 History subcutaneous pen (Lyumjev KwikPen U-100 Insulin) Allergies Allergy/AdvReac Type Severity Reaction Status Date / Time cephalexin (From Keflex) Allergy Unknown Unknown Verified 08/04/24 02:21 nitrofurantoin (From Allergy Unknown Unknown Verified 08/04/24 02:21 Macrobid) Antihistamines - Alkylamine AdvReac Severe confusion Verified 08/04/24 05:49 Exam Narrative Exam Narrative: No acute distress, appears fatigued Nonlabored respirations, symmetric chest rise, on room air Normal rhythm, tachycardic, no peripheral edema Abd non tender, non distended Left CVA tenderness to palpation, no suprapubic or right CVA tenderness palpation Moves all extremities, no deformities Alert and oriented x 4, no acute focal deficits Skin dry, intact Appropriate, cooperative Constitutional Vital Signs, click to edit/add: Last Vital Signs Temp 98.1 F 08/04/24 05:04 Pulse 102 H 08/04/24 12:00 Resp 21 H 08/04/24 11:30 BP 112/59 08/04/24 11:21 Pulse Ox 96 08/04/24 11:38 O2 Del Method Room Air 08/04/24 11:38 Results Labs Labs: Short CBC 08/04/24 Range/Units 02:27 WBC 8.9 (4.0-11.0) 10^3/uL Hgb 12.5 (12.0-16.0) g/dL Hct 36.6 (36.0-48.0) % Plt Count 304 (150-450) 10^3/uL BMP 08/04/24 02:27 Sodium 134 L Potassium 4.0 Chloride 96 L Carbon Dioxide 24.4 BUN 19.0 H Creatinine 1.41 H Glucose 639 H* Calcium 9.5 Liver Function 08/04/24 Range/Units 02:27 Total Bilirubin 0.5 (0.2-1.0) mg/dL AST 13 L (15-37) U/L ALT 25 (14-59) U/L Alkaline Phosphatase 106 (46-116) U/L Albumin 3.7 (3.4-5.0) g/dL Urine 08/04/24 Range/Units 02:34 Urine Color Lt. yellow (YELLOW) Urine Clarity Clear (CLEAR) Urine pH 8.0 (5.0-9.0) Ur Specific [place] 1.010 (1.005-1.025) Urine Protein Negative (NEG/TRACE) mg/dL Urine Glucose (UA) >=1000 A (NEGATIVE) mg/dL Imaging CT scan - abdomen: Attestation: I personally reviewed and interpreted this imaging study as follows: My impression: 6 mm left proximal ureteral stone with severe hydronephrosis and significant perinephric stranding, multiple left kidney stones (4-5 stones, largest 1.3x1 cm) Assessment and Plan Assessment and Plan (1) Hydronephrosis due to obstruction of ureter: (2) Ureteral stone: (3) Lactic acidosis: (4) ISIS (acute kidney injury): (5) Flank pain: (6) Kidney stones: Plan 64-year-old female with a history of kidney stones requiring intervention and uncontrolled IDDM admitted with lactic acidosis, ISIS and pain secondary to a 6 mm left mid ureteral stone with severe hydronephrosis and significant perinephric stranding, multiple additional left kidney stones. Pt developing tachycardia, discussed potential for sepsis. Although WBC wnl, imaging concerning and UA may not be as impressive due to obstructing stone blocking infected urine. Discussed risks of septic shock, renal failure and stricture without intervention of stent. Risk of sepsis if stones were to be treated today, recommend acute decompression at this time. After discussion of risks/benefits of management options, patient elected to proceed to the OR for cystoscopy, left retrograde pyelogram, left ureteral stent placement. Risks were discussed including but not limited to bleeding, pain, infection, damage to surrounding structures, inability to treat the stone/place a stent, and need for additional procedures. The patient understands the stent is not permanent and needs to be removed or exchanged within 3 months to prevent encrustation, infection, invasive procedures and/or permanent renal damage. -Stone to be treated once potential UTI treated, glucose under control and period of decompression. Future surgery will be longer to treat large stone burden in kidney as well. -Cont care under primary postop, tight DM control, monitor for postop fevers, cont empiric abx -Office to call to schedule definitive stone treatment in 1-2 weeks.
[2024-08-04] MEDS: IOHEXOL 240 MG/ML - 50 ML VIAL INJ (14:39)
--- NOTE | 2024-08-04 14:59 | P.URON_ITS ---
Urology Surgery Operative Note Operative Note Procedure Date: 08/04/24 Time Out Performed: yes Pre-op Diagnosis: Left ureteral stone with hydronephrosis Post-op Diagnosis: same as pre-op (Left ureteral stone with hydronephrosis, cystit) Procedures performed: Cystoscopy, left retrograde pyelogram, left ureteral stent placement Anesthesia: MAC Primary Surgeon: Sarai Long Complications: none Estimated blood loss (mL): 0 Findings: Cystitis cystica throughout bladder. 1+ trabeculations. L RPG - no contrast passing radioqapque left mid ureteral stone. Severe hydronephrosis proximal to stone. Return of cloudy urine, hydronephrotic drip after wire placed. Specimens: urine culture Drains: 6Fr x 24 cm JJ left ureteral stent Indications for Procedures: 64-year-old female with a history of kidney stones requiring intervention and uncontrolled IDDM admitted with lactic acidosis, ISIS and pain secondary to a 6 mm left mid ureteral stone with severe hydronephrosis and significant perinephric stranding, multiple additional left kidney stones. Pt developing tachycardia, discussed potential for sepsis. After discussion of risks/benefits of management options, patient elected to proceed to the OR for cystoscopy, left retrograde pyelogram, left ureteral stent placement. Stone to be treated at later date. Risks were discussed including but not limited to bleeding, pain, infection, damage to surrounding structures, inability to treat the stone/place a stent, and need for additional procedures. The patient understands the stent is not permanent and needs to be removed or exchanged within 3 months to prevent encrustation, infection, invasive procedures and/or permanent renal damage. Detailed description of Procedure: After informed consent was obtained, the patient was brought to the operating room and transferred onto the operating table in supine position. Sequential compression devices were placed on bilateral lower extremities. The patient received the appropriate dose of preoperative IV antibiotics and MAC anesthesia was induced. They were positioned in modified dorsolithotomy with the appropriate pressure points padded, prepped, and draped in the usual sterile fashion for this procedure. An operative safety timeout was performed confirming the patient's identity, laterality and procedure, and all present agreed to proceed. I began by inserting a 22 [place] rigid cystoscope with 30 degree lens into the patient's urethra and bladder without difficulty. There were no bladder tumors, stones or foreign bodies; findings as above. Bilateral ureteral orifices were orthotopic and patent. I turned my attention to the left ureteral orifice and a 6- [place] open-ended catheter was inserted into the ureteral orifice. Gentle instillation of dilute contrast was injected for retrograde pyelogram with findings as above. A sensor wire was inserted into the catheter to bypass the radiopaque ureteral stone up to the renal pelvis confirmed on fluoroscopy. Released urine after wire was sent for culture. The open ended catheter was advanced over the wire to instill some contrast proximally to assist with anatomy for appropriate stent placement. The open-ended catheter was removed, leaving wire in place. A 6Fr x 24cm JJ ureteral stent was advanced over the wire, noting adequate curl in the renal pelvis and bladder on fluoroscopic and direct visualization. The bladder was irrigated several times until clear and inspected one final time to ensure adequate position of stent and no undue trauma to the bladder was done. The bladder was drained and cystoscope was removed. The patient tolerated the procedure well without complication. The patient was awakened from anesthesia and sent to the PACU in stable condition. Plan: -Cont care on the floor per primary. -Cont empiric abx and f/u urine culture to ensure on sensitive abx x 7-10 days -Stable for dc home tonight vs tmrw pending postop progression, no fevers, DM control and pain controlled -Tamsulosin 0.4mg qd, oxybutynin 5 mg TID PRN for bladder spasms/stent pain, pyridium 100-200mg TID PRN for dysuria. -Follow up in 1-2 weeks for left ureteroscopy, laser lithotripsy, stent exchange for treatment of both ureteral and kidney stones. Findings/plan discussed with pt's approved family member
[2024-08-04 15:00] LABS: Bilirubin Urine NEGATIVE (NEGATIVE); Blood Urine LARGE (NEGATIVE); Clarity Urine CLEAR (CLEAR); Color Urine LT. YELLOW (YELLOW); Glucose Urine UA 500 mg/dL (NEGATIVE); Ketones Urine NEGATIVE (NEGATIVE); Leukocyte Esterase Urine NEGATIVE (NEGATIVE); Nitrite Urine NEGATIVE (NEGATIVE); Protein Urine NEGATIVE (NEG/TRACE); Specific Gravity Urine 1.015 (1.005-1.025); Urobilinogen Urine 0.2 EU/dL (0.2-1.0); pH Urine 5.5 (5.0-9.0)
[2024-08-04 15:04] LABS: Urine Microscopic Indicated YES
[2024-08-04 15:10] LABS: Bacteria Urine TRACE #/HPF (NONE SEEN); Cast Seen? NONE SEEN #/LPF (NONE SEEN); Crystals Seen? None Seen #/HPF (None Seen); Mucus Urine NONE SEEN (NONE SEEN); RBC Urine 20-50 #/HPF (0-2); Squamous Epithelial Cell Urine RARE #/LPF (NONE/RARE); Urine Culture Indicated NO
[2024-08-04 16:03] LABS: Glucometer 156 mg/dL (74-106)
--- NOTE | 2024-08-04 18:20 | PC.NURSE ---
iv's x2 and tele dc'd. dc instructions explained to pt and daughter, both verbalize understanding. pt dressed, taken to exit via wheelchair with all belongings. discharged to private vehicle.
[2024-08-05 06:57] LABS: A. calcoaceticus-baumannii Cpx NOT DETECTED (NOT DETECTE); Bacteroides fragilis NOT DETECTED (NOT DETECTE); Candida albicans NOT DETECTED (NOT DETECTE); Candida auris NOT DETECTED (NOT DETECTE); Candida glabrata NOT DETECTED (NOT DETECTE); Candida krusei NOT DETECTED (NOT DETECTE); Candida parapsilosis NOT DETECTED (NOT DETECTE); Candida tropicalis NOT DETECTED (NOT DETECTE); Cryptococcus neoformans/gattii NOT DETECTED (NOT DETECTE); Enterobacter cloacae complex NOT DETECTED (NOT DETECTE); Enterobacterales NOT DETECTED (NOT DETECTE); Enterococcus faecalis NOT DETECTED (NOT DETECTE); Enterococcus faecium NOT DETECTED (NOT DETECTE); Haemophilus influenzae NOT DETECTED (NOT DETECTE); Klebsiella aerogenes NOT DETECTED (NOT DETECTE); Klebsiella pneumoniae group NOT DETECTED (NOT DETECTE); Listeria monocytogenes NOT DETECTED (NOT DETECTE); Neisseria meningitidis NOT DETECTED (NOT DETECTE); Proteus spp. NOT DETECTED (NOT DETECTE); Pseudomonas aeruginosa NOT DETECTED (NOT DETECTE); Salmonella spp. NOT DETECTED (NOT DETECTE); Serratia marcescens NOT DETECTED (NOT DETECTE); Staphylococcus epidermidis NOT DETECTED (NOT DETECTE); Staphylococcus lugdunensis NOT DETECTED (NOT DETECTE); Stenotrophomonas maltophilia NOT DETECTED (NOT DETECTE); Streptococcus agalactiae NOT DETECTED (NOT DETECTE); Streptococcus pneumoniae NOT DETECTED (NOT DETECTE); Streptococcus pyogenes NOT DETECTED (NOT DETECTE); Streptococcus spp. NOT DETECTED (NOT DETECTE)
[2024-08-05 10:35] LABS: Source BLOOD
[2024-08-05 10:37] LABS: Staphylococcus spp. DETECTED (NOT DETECTE)
--- NOTE | 2024-08-05 12:33 | CM.DCFOLLOWU ---
08/05- 1st attempt. No answer
--- NOTE | 2024-08-09 14:24 | CM.NOTE ---
Urine culture complete, pt discharged on Cipro organism susceptible to Cipro.
--- NOTE | 2024-08-10 14:21 | CM.DCFOLLOWU ---
2nd attempt 08/10/24, no answer
--- NOTE | 2024-08-11 13:43 | CM.DCFOLLOWU ---
08/11/24, 3rd attempt, no answer
== END 2024-08-04 18:12 | disposition home or self-care (01) ==
LOC: ER 04:54 → ICU 06:09
PROVIDERS: Urology; Admitting Provider Family Medicine; Emergency Provider Emergency Medicine; PCP Internal Medicine; Visit Provider Family Medicine
PROC: (CPT 52332; principal; 2024-08-04 14:00)
DX: N13.2 Hydronephrosis with renal and ureteral calculous obstruction (principal); E10.65 Type 1 diabetes mellitus with hyperglycemia; E87.20 Acidosis, unspecified; N17.9 Acute kidney failure, unspecified; Z79.4 Long term (current) use of insulin; Z88.1 Allergy status to other antibiotic agents; Z88.8 Allergy status to other drugs, medicaments and biological substances
CPT/HCPCS: 52332; 36415; 74176; 74420; 80053; 81001; 82009; 82948; 83605; 85025; 87040; 87086; 87150; 87186; 93005; 94761; 96361; 96365; 96366; 96367; 96368; 96375; 96376; 99285; 99999; G0378; J0744; J1885; J2250; J2405; J2550; J2704; J3010; Q9966

== ENCOUNTER 2024-08-09 13:01 | Outpatient (OUT) | payer OTHER, SELFPAY ==
--- OUTSIDE RECORDS SUMMARY | 2024-08-09 13:04 | XMS_ITS | CCD ---
Author Organization [facility] Care Team Providers Care Primary Care Md Name Role Phone Fariba Obrien Primary Care Provider ZEUS RUBALCAVA Attending Unavailable [...] Primary Care Unavailable OBRIEN, FARIBA Referring Unavailable ORBIEN, FARIBA Primary Care Unavailable OBRIEN, FARIBA Referring Unavailable OBRIEN, FARIBA Primary Care Unavailable RAFITA, DR FITCH Primary Care Unavailable PAY ., DR ARTEAGA Admitting Unavailable PAY ., DR ARTEAGA Attending Unavailable PAY ., DR ARTEAGA Consulting Unavailable KNABEVIVIAN Consulting Unavailable PETZNICK, DR UREÑA Admitting Unavailable PETZNICK, DR UREÑA Attending Unavailable BALL, DR FITCH Primary Care Unavailable PETZNICK, DR UREÑA Consulting Unavailable NARCISO, JOSÉ Admitting Unavailable NARCISO, JOSÉ Attending Unavailable BALL, DR FITCH Primary Care Unavailable NARCISO, JOSÉ Consulting Unavailable Ball, Hayes Unavailable Evelyn Finn Unavailable DONTRELL KIRBY Attending Unavailable BALL, HAYES E Referring Unavailable TIMMIS, OLGA Jara Attending Unavailable BALL, HAYES E Referring Unavailable ZAHLDIPIKA CHOUDHARY Attending Unavailable TIMMIS, OLGA Jara Attending Unavailable PETZNICK, TANIA Sandoval Attending Unavailable BIEDDUDLEY, AKHIL Swan Attending Unavailable PETZNICK, TANIA Sandoval Attending Unavailable BIEDAKHIL BUCKNER Attending Unavailable BALL, HAYES E Referring Unavailable PETZNICK, TANIA Sandoval Attending Unavailable BALLHAYES Referring Unavailable Ball Hayes BARTLETT Primary Care Provider Akhil Abraham DO Unavailable NON STAFF Attending Provider Unavailable NON STAFF Admitting Unavailable NON STAFF Attending Unavailable Sarai Long Attending Unavailable Sarai Long Attending Unavailable Allergies Allergy Classification Reported Allergen(s) Allergy Type Date of Onset Reaction(s) Facility (20 sources) Cephalexin Drug Allergy 02-10-20 17 [facility] [place], [place] (20 sources) Antihistamines, Chlorpheniramine-T ype Propensity to adverse reactions to drug 02-10-20 17 Other (See Comments) [place] (7 sources) Cephalexin Drug Allergy hives [facility] (4 sources) Nitrofurantoin Drug Allergy 12-02-19 24 Unknown Reaction [facility] (16 sources) fexofenadine / Pseudoephedrine Drug Allergy 04-15-20 23 Comment:syncop e [facility] Other (6 sources) levoFLOXacin Drug Allergy anaphylaxis [facility] Other (16 sources) Nitrofurantoin Drug Allergy 03-20-20 23 Unknown [facility] Other (6 sources) Keflex *CEPHALOSPORINS* Propensity to adverse reactions Unknown [facility] Other (6 sources) Biaxin *MACROLIDES* Propensity to adverse reactions 12-24-19 Unknown [facility] Other (12 sources) Cephalosporins (Antibiotic) Allergy to substance 12-02-19 Unknown Reaction [facility] (13 sources) Clarithromycin Drug Allergy 07-30-19 Unknown Reaction [facility] Comment on above: Onset Date: 12/24/19 19 (13 sources) levoFLOXacin Drug Allergy 07-30-19 Anaphylaxis [facility] (3 sources) Antihistamine & Nasal Deconges Allergy to substance 06-10-19 Comment:syncop e [facility] (10 sources) Propylamine derivative antihistamine Drug Intolerance 02-10-20 [facility] Medications Current Medications Medication Drug Class(es) Dates Sig (Normalized) Sig (Original) azithromycin 250 mg oral tablet (7 sources) Macrolide Antimicrobial Start: 03-19-2023 Azithromycin 250 MG as directed Orally daily for 5 days May, Active Blood-Glucose Sensor (Freestyle Lianna 3 Sensor) device (6 sources) Start: 09-17-2023 Blood-Glucose Sensor (Freestyle Lianna 3 Sensor) device Active 0 .Route 1 September 17, 2023 4:09pm Use to test home BS 4x daily Start: 09-17-2023 End: 09-17-2023 Blood-Glucose Sensor (Freest yle Lianna 3 Sensor) device Discontinued 0 .Route September 17, 2023 12:00am September 17, 2023 4:11pm As directed Continuous Glucose Sensor (FreeStyle Lianna 3 Sensor) misc (14 sources) Start: 01-28-2024 End: 01-28-2024 inject 1 dose by subcutaneous injection once Continuous Glucose Sensor (FreeStyle Lianna 3 Sensor) mis Indications: 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 (CMS/HCC) Inject 1 Device under the skin every 14 (fourteen) days 6 each 3 01/28/2024 01/28/2024 Discontinued (Reorder) Start: 01-28-2024 inject 1 dose by sub cutaneous injection once Continuous Glucose Sensor (FreeStyle Lianna 3 Sensor) [facility] [place] Indications: 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 (CMS/HCC) Inject 1 Device under the skin every 14 (fourteen) days 6 each 3 01/28/2024 Active Start: 12-13-2023 End: 01-28-2024 inject 1 dose by subcutaneous injection once Continuous Glucose Sensor (FreeStyle Lianna 3 Sensor) [facility] [place] Indications: 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 Active Use for BS readings 6-8 times daily for 999 September, Active hydrocortisone 10 mg/ml / neomycin 3.5 mg/ml / polymyxin b 22861 unt/ml otic suspension (2 sources) Aminoglycoside Antibacterial, Polymyxin-class Antibacterial, Corticosteroid Start: 06-02-2023 Axvnrdyn-Rvsisszff-A C 3.5-63180-3 4 drops into affected ear Otic qid [...] Kwikpen U-100 Insulin) 100 unit/mL insulin pen (3 sources) Start: 12-02-2023 Insulin Lispro -Aabc (Jennifer Archerbong U-100 Insulin) 100 unit/mL insulin pen Active [...] Drug Class(es) Dates Sig (Normalized) Sig (Original) [id number] 60 actuat albuterol 0.09 mg/actuat metered dose [...] Active Subcutaneous SC q HS for Nov, Not-Taking/PRN Start: 12-20-2021 inject 100 [IU] [...] bronchitis due to other specified organisms Episodic Calculus of urinary tract (20 sources) Kidney stone; Translations: [Calculus of kidney] Onset: 02-09-2017 Resolved: 01-26-2024 02-09-2017 Episodic Cataract (20 sources) Bilateral age-related nuclear cataracts; Translations: [Age-related nuclear cataract, bilateral] Onset: 03-20-2023 03-20-2023 Chronic Conditions associated with dizziness or vertigo (17 sources) Benign paroxysmal positional vertigo; Translations: [Benign paroxysmal vertigo, unspecified ear] Onset: 01-26-2024 Resolved: 01-26-2024 12-02-2023 Episodic Diabetes mellitus with complications (20 sources) Type [...] Episodic Other ear and sense organ disorders (2 sources) Sensorineural hearing loss; Translations: [Unspecified sensorineural hearing [...] septum] 01-26-2024 Episodic Other upper respiratory infections (13 sources) Chronic sinusitis; Translations: [Chronic sinusitis, unspecified] [...] Classification Problem Date Documented Da te Episodic/Chronic Fluid and electrolyte disorders (1 source) Dehydration; Translations: [DEHYDRATION] Onset: 09-10-2021 Episodic Lymphadenitis (20 sources) Lymphadenopathy; Translations: [Enlarged lymph nodes, unspecified] Onset: 11-29-2003 Resolved: 01-26-2024 09-30-2017 Episodic Other aftercare (1 source) 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 worker (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) use of insulin; Translations: [RETIREMENT CURRENT USE OF INSULIN] Onset: 09-10-2021 Episodic Other aftercare (1 source) Other long-term (current) drug therapy; Translations: [OTH BURN OUT TENDER LACE CURRENT DRUG THERAPY] Onset: 09-10-2021 Episodic Otitis [...] Test Name Value Interpretation Reference Range Facility Basophils Auto (Bld) [#/Vol] on 08-04-2024 Basophils (Bld) [#/Vol] Automated basophil count 0.0-0.1 [facility] Basophils/100 WBC Auto (Bld) on 08-04-2024 Basophils/100 WBC (Bld) Automated basophil % 0.2-2.0 [facility] Eosinophils/100 WBC Auto (Bl d)on 08-04-2024 Eosinophils/100 WBC (Bld) Automated eosinophil % 0.9-7.0 [facility] Erythrocyte distribution wid th Auto (RBC) [Ratio]on 08-04-2024 Erythrocyte distribution width (RBC) [Ratio] Erythrocyte distribution width [Ratio] by Automated count 11.0-15.0 [facility] Estimated glomerular filtrat ion rate (GFR) non- Americanon 08-04-2024 GFR/1.73 sq M.predicted among non-blacks MDRD (S/P/Bld) [Vol rate/Area] Estimated glomerular filtration rate (GFR) non- Low >=60 mL/min/1.73m 2 [facility] Globulin Calc (S) [Mass/Vol] on 08-04-2024 Globulin (S) [Mass/Vol] Serum globulin measurement by calculation (mass/volume) [facility] Hematocrit Auto (Bld) [Volum e fraction]on 08-04-2024 Hematocrit (Bld) [Volume fraction] Hematocrit [Volume Fraction] of Blood by Automated count 36.0-48.0 [facility] Hemoglobin [Mass/volume] in Bloodon 08-04-2024 Hemoglobin (Bld) [Mass/Vol] Hemoglobin [Mass/volume] in Blood 12.0-16.0 [facility] Laboratory - Chemistry and C hemistry - challengeon 08-04-2024 Lactate [Moles/Vol] 1.1 mmol/L 0.4-2.0 [facility] Albumin [Mass/Vol] 3.7 g/dL 3.4-5.0 [facility] ALP [Catalytic activity/Vol] 106 U/L 46-116 [facility] ALT [Catalytic activity/Vol] 25 U/L 14-59 [facility] AST [Catalytic activity/Vol] 13 U/L Low 15-37 [facility] Bilirubin [Mass/Vol] 0.5 mg/dL 0.2-1.0 [facility] Calcium [Mass/Vol] 9.5 mg/dL 8.5-10.1 [facility] Chloride [Moles/Vol] 96 mmol/L Low 98-107 [facility] CO2 [Moles/Vol] 24.4 mmol/L 21.0-32.0 [facility] Creatinine [Mass/Vol] 1.41 mg/dL High 0.55-1.02 [facility] GFR/1.73 sq M.predicted MDRD (S/P/Bld) [Vol rate/Area] 46 mL/min/{1.73_m2} Low >=60 mL/min/1.73m 2 [facility] Glucose [Mass/Vol] 639 mg/dL Critically high 74-[address] [facility] Comment on above: RESULTS CALLED TO JOHN JOSHUA RN at 0319 Potassium [Moles/Vol] 4.0 mmol/L 3.5-5.1 [facility] Protein [Mass/Vol] 7.3 g/dL 6.4-8.2 [facility] Sodium [Moles/Vol] 134 mmol/L Low 136-145 [facility] Urea nitrogen [Mass/Vol] 19.0 mg/dL High 7.0-18.0 [facility] Urea nitrogen/Creatinine [Mass ratio] 13.5 mg/mg [facility] Laboratory - Hematology and Cell countson 08-04-2024 Immature granulocytes/100 WBC (Bld) 0.2 % 0.0-0.5 [facility] - Urinalysison Mucus Ql (Urine sed) NONE SEEN NONE SEEN [facility] Leukocytes [#/volume] correc annie for nucleated erythrocytes in Blood by Automated counon 08-04-2024 WBC corrected for nucl RBC Auto (Bld) [#/Vol] Leukocytes [#/volume] corrected for nucleated erythrocytes in Blood by Automated coun 4.0-11.0 [facility] Lymphocytes Auto (Bld) [#/Vo l]on 08-04-2024 Lymphocytes (Bld) [#/Vol] Lymphocytes [#/volume] in Blood by Automated count 1.2-3.8 [facility] Lymphocytes/100 WBC Auto (Bl d)on 08-04-2024 Lymphocytes/100 WBC (Bld) Lymphocytes/100 leukocytes in Blood by Automated count 20.5-60.0 [facility] MCH Auto (RBC) [Entitic mass ]on 08-04-2024 MCH (RBC) [Entitic mass] MCH [Entitic mass] by Automated count 26.7-34.0 [facility] MCHC Auto (RBC) [Mass/Vol]on 08-04-2024 MCHC (RBC) [Mass/Vol] MCHC [Mass/volume] by Automated count 29.9-35.2 [facility] MCV Auto (RBC) [Entitic vol] on 08-04-2024 MCV (RBC) [Entitic vol] MCV [Entitic volume] by Automated count 81.0-99.0 [facility] Monocytes Auto (Bld) [#/Vol] on 08-04-2024 Monocytes (Bld) [#/Vol] Automated blood monocyte count 0.3-0.8 [facility] Monocytes/100 WBC Auto (Bld) on 08-04-2024 Monocytes/100 WBC (Bld) Automated monocyte % 1.7-12.0 [facility] Neutrophils Auto (Bld) [#/Vo l]on 08-04-2024 Neutrophils (Bld) [#/Vol] Neutrophils [#/volume] in Blood by Automated count 1.4-6.5 [facility] Neutrophils/100 WBC Auto (Bl d)on 08-04-2024 Neutrophils/100 WBC (Bld) Automated neutrophil % 43.0-75.0 [facility] No Panel Informationon 08-04 Urine Bacteria TRACE #/HPF Abnormal NONE SEEN [facility] Urine Culture Reflexed NO [facility] Urine Other Casts NONE SEEN #/LPF NONE SEEN [facility] Urine Other Crystals None Seen #/HPF None Seen [facility] Urine RBC 20-50 #/HPF Abnormal 0-2 [facility] Urine Squamous Epithelial Cells RARE #/LPF NONE/RARE [facility] Urine WBC 2-5 #/HPF Abnormal NONE SEEN [facility] Acetone Level Negative NEGATIVE [facility] Eosinophils # (Auto) 0.1 10 3/uL 0.0-0.7 [facility] Immature Granulocyte # (Auto) 0.02 10 3/uL 0.00-0.03 [facility] Platelet mean volume Auto (B ld) [Entitic vol]on 08-04-2024 Platelet mean volume (Bld) [Entitic vol] Platelet mean volume [Entitic volume] in Blood by Automated count 9.5-13.5 [facility] Platelets Auto (Bld) [#/Vol] on 08-04-2024 Platelets (Bld) [#/Vol] Platelets [#/volume] in Blood by Automated count 150-450 [facility] RBC Auto (Bld) [#/Vol]on RBC (Bld) [#/Vol] Erythrocytes [#/volume] in Blood by Automated count 4.20-5.40 [facility] Serum or plasma albumin/glob ulin mass ratioon 08-04-2024 Albumin/Globulin [Mass ratio] Serum or plasma albumin/globulin mass ratio [facility] Serum or plasma anion gap de terminationon 08-04-2024 Anion gap [Moles/Vol] Serum or plasma anion gap determination [facility] Urine Cultureon 08-04-2024 Bacteria identified Cx Nom (U) DR JEANNINE ULLOA ORGANISM: Escherichia coli (O:ESCCOL) [place] Count >100,000 Aerobic BECKI Charge ([id number]) ----- SUSCEPTIBILITY ---- ORGANISM: O:ESCCOL ANTIBIOTIC INTERPRETATION BECKI Amikacin S <16 Amoxacillin/K Clavulanate S <8 Ampicillin S <8 Ampicillin/Sulbactam S <4 Aztreonam S <4 Cefazolin S <2 Cefepime S <2 Ceftazidime S <1 Ceftazidime/Avibacta m S <4 Ceftolozane/Tazobact am S <2 Ceftriaxone S <1 Cefuroxime S <4 Ciprofloxacin S <0.25 Ertapenem S <0.5 Gentamicin S <2 Levofloxacin S <0.5 Meropenem S <1 Meropenem/Vaborbacta m S <2 Nitrofurantoin S <32 Piperacillin/Tazobac olivas S <8 Tetracycline S <4 Tigecycline S <2 Tobramycin S <2 Trimethoprim/Sulfame thoxazole S <0.5 S = SUSCEPTIBLE I = INTERMEDIATE R = RESISTANT BLANK = DATA NOT AVAILABLE, OR DRUG NOT ADVISABLE OR TESTED R* = RESISTANCE DUE TO EXTENDED SPECTRUM BETA-LACTAMASES ESBL = EXTENDED SPECTRUM BETA-LACTAMASE TFG = THYMIDINE-DEPENDENT STRAIN KATHERINE = BETA-LACTAMASE POSITIVE IB = INDUCIBLE BETA-LACTAMASE. APPEARS IN PLACE OF 'S' WITH SPECIES KNOWN TO POSSESS INDUCIBLE BETA-LACTAMASES. POTENTIALLY THEY MAY BECOME RESISTANT TO ALL B-LACTAM DRUGS. PERFORMED BY: [place] [address] PATHOLOGIST TIME PIECE REPAIRER MARIBELL MONZON M.D. Normal [facility] Comment on above: Performed By: #### C UU #### [address] HbA1c (Bld) [Mass fraction]o n 02-23-2024 Interpretation and review of laboratory results Abnormal [facility] Lob [facility] e Laboratory - Hematology and Cell countson 02-23-2024 HbA1c (Bld) [Mass fraction] 13.0 % [facility] COVID/FLU RT-PCRon 4 SARS-CoV-2 (COVID-19) RNA SELVIN+probe Ql (Unsp spec) Negative [facility] Other COVID/FLU RT-PCR Negative [facility] Other CBC AUTO DIFFon 07-12-2022 BASO # 0.1 103/ul Normal 0.0-0.1 [facility] Comment on above: Performed By: #### L IPID, TSH, CMP #### [facility] [address] [place] [address] Dr. Jonas Ann Basophils/100 WBC (Bld) 0.8 % Normal 0.2-2.0 [facility] Comment on above: Performed By: #### L IPID, TSH, CMP #### [facility] [address] [place] [address] Dr. Jonas Ann EO # 0.2 103/ul Normal 0.0-0.7 [facility] Comment on above: Performed By: #### L IPID, TSH, CMP #### [facility] [address] [place] [address] Dr. Jonas Ann Eosinophils/100 WBC (Bld) 2.5 % Normal 0.9-7.0 [facility] Comment on above: Performed By: #### L IPID, TSH, CMP #### [facility] [address] [place] [address] Dr. Jonas Ann Erythrocyte distribution width (RBC) [Ratio] 12.8 % Normal 11.0-15.0 [facility] Comment on above: Performed By: #### L IPID, TSH, CMP #### [facility] [address] [place] [address] Dr. Jonas Ann Hematocrit (Bld) [Volume fraction] 39.5 % Normal 36.0-48.0 [facility] Comment on above: Performed By: #### L IPID, TSH, CMP #### [facility] [address] [place] [address] Dr. Jonas Ann Hemoglobin (Bld) [Mass/Vol] 13.4 g/dL Normal 12.0-16.0 [facility] Comment on above: Performed By: #### L IPID, TSH, CMP #### [facility] [address] [place], [place] [id number] Dr. Jonas Ann IG # 0.02 10e3/ul Normal 0.00-0.03 [facility] Comment on above: Performed By: #### L IPID, TSH, CMP #### [facility] [address] [place] [address] Dr. Jonas Ann IG % 0.3 % Normal 0.0-0.5 [facility] Comment on above: Performed By: #### L IPID, TSH, CMP #### [facility] [address] [place] [address] Dr. Jonas Ann LYMPH # 2.3 103/ul Normal 1.2-3.8 [facility] Comment on above: Performed By: #### L IPID, TSH, CMP #### [facility] [address] [place] [address] Dr. Jonas Ann Lymphocytes/100 WBC (Bld) 39.1 % Normal 20.5-60.0 [facility] Comment on above: Performed By: #### L IPID, TSH, CMP #### [facility] [address] [place] [address] Dr. Jonas Ann MANUAL DIFF REQ NO Normal [facility] Comment on above: Performed By: #### L IPID, TSH, CMP #### [facility] [address] [place] [address] Dr. Jonas Ann MCH (RBC) [Entitic mass] 28.9 pg Normal 26.7-34.0 [facility] Comment on above: Performed By: #### L IPID, TSH, CMP #### [facility] [address] [place] [address] Dr. Jonas Ann MCHC (RBC) [Mass/Vol] 33.9 g/dL Normal 29.9-35.2 [facility] Comment on above: Performed By: #### L IPID, TSH, CMP #### [facility] [address] [place] [address] Dr. Jonas Ann MCV (RBC) [Entitic vol] 85.1 fL Normal 81.0-99.0 [facility] Comment on above: Performed By: #### L IPID, TSH, CMP #### [facility] [address] [place] [address] Dr. Jonas Ann MONO # 0.5 103/ul Normal 0.3-0.8 [facility] Comment on above: Performed By: #### L IPID, TSH, CMP #### [facility] [address] [place] [address] Dr. Jonas Ann Monocytes/100 WBC (Bld) 8.3 % Normal 1.7-12.0 [facility] Comment on above: Performed By: #### L IPID, TSH, CMP #### [facility] [address] [place] [address] Dr. Jnoas Ann NEUT # 2.9 103/ul Normal 1.4-6.5 [facility] Comment on above: Performed By: #### L IPID, TSH, CMP #### [facility] [address] [place] [address] Dr. Jonas Ann Neutrophils/100 WBC (Bld) 49.0 % Normal 43.0-75.0 [facility] Comment on above: Performed By: #### L IPID, TSH, CMP #### [facility] [address] [place] [address] Dr. Jonas Ann Platelet mean volume (Bld) [Entitic vol] 10.9 fL Normal 9.5-13.5 [facility] Comment on above: Performed By: #### L IPID, TSH, CMP #### [facility] [address] [place] [address] Dr. Jonas Ann PLT 278 103/ul Normal 150-450 [facility] Comment on above: Performed By: #### L IPID, TSH, CMP #### [facility] [address] [place] [address] Dr. Jonas Ann RBC 4.64 106/ul Normal 4.20-5.40 [facility] Comment on above: Performed By: #### L IPID, TSH, CMP #### [facility] [address] [place] [address] Dr. Jonas Ann WBC 5.9 103/ul Normal 4.0-11.0 [facility] Comment on above: Performed By: #### L IPID, TSH, CMP #### [facility] [address] [address] [address] Jonas Ann LIPID PROFILEon 07-12-2022 CHOL-HDL RATIO NORM SEE BELOW Normal [facility] Comment on above: Result Comment: 3.3 - 4.4 LOW RISK 4.4 - 7.1 AVERAGE RISK 7.1 - 11.0 MODERATE RISK >11.0 HIGH RISK Performed By: #### L IPID, TSH, CMP #### [facility] [address] [address] [address] Jonas Ann Cholesterol [Mass/Vol] 264 mg/dL Critically high <=200 [facility] Comment on above: Performed By: #### L IPID, TSH, CMP #### [facility] [address] [address] [address] Jonas Ann Cholesterol in HDL [Mass/Vol] 95 mg/dL Critically high 40-60 [facility] Comment on above: Performed By: #### L IPID, TSH, CMP #### [facility] [address] [address] [address] Jonas Ann Cholesterol in LDL [Mass/Vol] 155.2 mg/dL Normal [facility] Comment on above: Performed By: #### L IPID, TSH, CMP #### [facility] [address] [address] [address] Jonas Ann Cholesterol.total/Ch olesterol in HDL [Mass ratio] 2.8 {ratio} Normal [facility] Comment on above: Performed By: #### L IPID, TSH, CMP #### [facility] [address] [address] [address] Jonas Ann HDL NORMAL > or = 60 mg/dl - LOW CARDIOVASCULAR RISK <40 mg/dl - HIGH CARDIOVASCULAR RISK Normal [facility] Comment on above: Performed By: #### L IPID, TSH, CMP #### [facility] [address] [address] [address] Jonas Ann LDL CALC NORMAL SEE BELOW Normal [facility] Comment on above: Result Comment: <100 mg/dl OPTIMAL 100 - 129 mg/dl NEAR OR ABOVE OPTIMAL 130 - 159 mg/dl BORDERLINE HIGH 160 - 189 mg/dl HIGH >190 mg/dl VERY HIGH Performed By: #### L IPID, TSH, CMP #### [facility] [address] [address] [address] Jonas Ann Triglyceride [Mass/Vol] 69 mg/dL Normal <=150 [facility] Comment on above: Performed By: #### L IPID, TSH, CMP #### [facility] [address] [address] [address] Jonas Ann VLDL CALC 13.8 mg/dL Normal [facility] Comment on above: Performed By: #### L IPID, TSH, CMP #### [facility] [address] [address] [address] Jonas Ann MICROALB CREAT RATIO RANDOMo n 07-12-2022 mALB 4.5 mg/L Normal <=30.0 [facility] Comment on above: Performed By: #### L IPID, TSH, CMP #### [facility] [address] [address] [address] Jonas HUERTAB CR RATIO 20.9 mg/g Normal 0.0-29.9 [facility] Comment on above: Performed By: #### L IPID, TSH, CMP #### [facility] [address] [address] [address] Jonas Ann MALB CR RATIO RANGE SEE BELOW Normal [facility] Comment on above: Result Comment: NO M ICROALBUMINURIA 0-29 MG/G CLINICAL MICROALBUMINURIA 30-300 MG/G MACROALBUMINURIA >300 MG/G Performed By: #### L IPID, TSH, CMP #### [facility] [address] [address] [address] Jonas Ann URINE CREAT 215.82 mg/dL Normal 20.00-300.00 [facility] Comment on above: Performed By: #### L IPID, TSH, CMP #### [facility] [address] [address] [address] Jonas Ann PROF 14(COMP METB)on 023 Albumin [Mass/Vol] 3.7 g/dL Normal 3.4-5.0 [facility] Comment on above: Performed By: #### L IPID, TSH, CMP #### [facility] [address] [address] [address] Jonas Ann Albumin/Globulin [Mass ratio] 1.1 {ratio} Normal [facility] Comment on above: Performed By: #### L IPID, TSH, CMP #### [facility] [address] [address] [address] Jonas Ann ALP [Catalytic activity/Vol] 93 U/L Normal 46-116 [facility] Comment on above: Performed By: #### L IPID, TSH, CMP #### [facility] [address] [address] [address] Jonas Ann ALT [Catalytic activity/Vol] 26 U/L Normal 14-59 [facility] Comment on above: Performed By: #### L IPID, TSH, CMP #### [facility] [address] [address] [address] Jonas Ann Anion gap [Moles/Vol] 12.8 mmol/L Normal [facility] Comment on above: Performed By: #### L IPID, TSH, CMP #### [facility] [address] [address] [address] Jonas Ann AST [Catalytic activity/Vol] 17 U/L Normal 15-37 [facility] Comment on above: Performed By: #### L IPID, TSH, CMP #### [facility] [address] [address] [address] Jonas Ann Bilirubin [Mass/Vol] 0.7 mg/dL Normal 0.2-1.0 [facility] Comment on above: Performed By: #### L IPID, TSH, CMP #### [facility] [address] [address] [address] Jonas Ann Calcium [Mass/Vol] 9.4 mg/dL Normal 8.5-10.1 [facility] Comment on above: Performed By: #### L IPID, TSH, CMP #### [facility] [address] [address] [address] Jonas Ann Chloride [Moles/Vol] 106 mmol/L Normal 98-107 [facility] Comment on above: Performed By: #### L IPID, TSH, CMP #### [facility] [address] [address] [address] Jonas Ann CO2 [Moles/Vol] 27.5 mmol/L Normal 21.0-32.0 [facility] Comment on above: Performed By: #### L IPID, TSH, CMP #### [facility] [address] [address] [address] Jonas Ann Creatinine [Mass/Vol] 0.76 mg/dL Normal 0.55-1.02 [facility] Comment on above: Performed By: #### L IPID, TSH, CMP #### [facility] [address] [place] [address] Dr. Jonas Ann EGFR-AF QATARI >60 Normal >=60 [facility] Comment on above: Performed By: #### L IPID, TSH, CMP #### [facility] [address] [place] [address] Dr. Jonas Ann EGFR-NON AF QATARI >60 Normal >=60 [facility] Comment on above: Performed By: #### L IPID, TSH, CMP #### [facility] [address] [address] [address] Jonas Ann Globulin (S) [Mass/Vol] 3.3 g/dL Normal [facility] Comment on above: Performed By: #### L IPID, TSH, CMP #### [facility] [address] [address] [address] Jonas Ann Glucose [Mass/Vol] 211 mg/dL Critically high 74-106 [facility] Comment on above: Performed By: #### L IPID, TSH, CMP #### [facility] [address] [address] [address] Jonas Ann Potassium [Moles/Vol] 4.3 mmol/L Normal 3.5-5.1 [facility] Comment on above: Performed By: #### L IPID, TSH, CMP #### [facility] [address] [address] [address] Jonas Ann Protein [Mass/Vol] 7.0 g/dL Normal 6.4-8.2 [facility] Comment on above: Performed By: #### L IPID, TSH, CMP #### [facility] [address] [address] [address] Jonas Ann Sodium [Moles/Vol] 142 mmol/L Normal 136-145 [facility] Comment on above: Performed By: #### L IPID, TSH, CMP #### [facility] [address] [place] [address] Dr. Jonas Ann Urea nitrogen [Mass/Vol] 15.0 mg/dL Normal 7.0-18.0 [facility] Comment on above: Performed By: #### L IPID, TSH, CMP #### [facility] [address] [place] [address] Dr. Jonas Ann Urea nitrogen/Creatinine [Mass ratio] 19.7 mg/mg Normal [facility] Comment on above: Performed By: #### L IPID, TSH, CMP #### [facility] [address] [place] [address] Dr. Jonas Ann TSHon 07-12-2022 TSH 0.417 uIU/mL Normal 0.358-3.740 [facility] Comment on above: Performed By: #### L IPID, TSH, CMP #### [facility] [address] [place] [address] Dr. Jonas Ann GLUCOSE BLOODon 05-05-2022 Glucose [Mass/Vol] 224 mg/dL Critically high 74-106 [facility] Comment on above: Performed By: #### G KAYLI, LIPID #### [facility] [address] [place] [address] Dr. Jonas Ann LIPID PROFILEon 05-05-2022 CHOL-HDL RATIO NORM SEE BELOW Normal [facility] Comment on above: Result Comment: 3.3 - 4.4 LOW RISK 4.4 - 7.1 AVERAGE RISK 7.1 - 11.0 MODERATE RISK >11.0 HIGH RISK Performed By: #### G KAYLI, LIPID #### [facility] [address] [place] [address] Dr. Jonas Ann Cholesterol [Mass/Vol] 287 mg/dL Critically high <=200 [facility] Comment on above: Performed By: #### G KAYLI, LIPID #### [facility] [address] [place] [address] Dr. Jonas Ann Cholesterol in HDL [Mass/Vol] 99 mg/dL Critically high 40-60 [facility] Comment on above: Performed By: #### G KAYLI, LIPID #### [facility] [address] [place] [address] Dr. Jonas Ann Cholesterol in LDL [Mass/Vol] 170.2 mg/dL Normal [facility] Comment on above: Performed By: #### G KAYLI, LIPID #### [facility] [address] [place] [address] Dr. Jonas Ann Cholesterol.total/Ch olesterol in HDL [Mass ratio] 2.9 {ratio} Normal [facility] Comment on above: Performed By: #### G KAYIL, LIPID #### [facility] [address] [place] [address] Dr. Jonas Ann HDL NORMAL > or = 60 mg/dl - LOW CARDIOVASCULAR RISK <40 mg/dl - HIGH CARDIOVASCULAR RISK Normal [facility] Comment on above: Performed By: #### G KAYLI, LIPID #### [facility] [address] [place] [address] Dr. Jonas Ann LDL CALC NORMAL SEE BELOW Normal [facility] Comment on above: Result Comment: <100 mg/dl OPTIMAL 100 - 129 mg/dl NEAR OR ABOVE OPTIMAL 130 - 159 mg/dl BORDERLINE HIGH 160 - 189 mg/dl HIGH >190 mg/dl VERY HIGH Performed By: #### G KAYLI, LIPID #### [facility] [address] [place] [address] Dr. Jonas Ann Triglyceride [Mass/Vol] 89 mg/dL Normal <=150 [facility] Comment on above: Performed By: #### G KAYLI, LIPID #### [facility] [address] [place] [address] Dr. Jonas Ann VLDL CALC 17.8 mg/dL Normal [facility] Comment on above: Performed By: #### G KAYLI, LIPID #### [facility] [address] [place] [address] Dr. Jonas Ann CBC AUTO DIFFon 09-08-2021 BASO # 0.0 103/ul Normal 0.0-0.1 [facility] Comment on above: Performed By: #### L IPID, TSH, CMP #### [facility] [address] [place] [address] Dr. Jonas Ann Basophils/100 WBC (Bld) 0.4 % Normal 0.2-2.0 [facility] Comment on above: Performed By: #### L IPID, TSH, CMP #### [facility] [address] [place] [address] Dr. Jonas Ann EO # 0.1 103/ul Normal 0.0-0.7 [facility] Comment on above: Performed By: #### L IPID, TSH, CMP #### [facility] [address] [place] [address] Dr. Jonas Ann Eosinophils/100 WBC (Bld) 0.8 % Critically low 0.9-7.0 [facility] Comment on above: Performed By: #### L IPID, TSH, CMP #### [facility] [address] [place] [address] Dr. Jonas Ann Erythrocyte distribution width (RBC) [Ratio] 13.2 % Normal 11.0-15.0 [facility] Comment on above: Performed By: #### L IPID, TSH, CMP #### [facility] [address] [place] [address] Dr. Jonas Ann Hematocrit (Bld) [Volume fraction] 37.6 % Normal 36.0-48.0 [facility] Comment on above: Performed By: #### L IPID, TSH, CMP #### [facility] [address] [place] [address] Dr. Jonas Ann Hemoglobin (Bld) [Mass/Vol] 12.4 g/dL Normal 12.0-16.0 [facility] Comment on above: Performed By: #### L IPID, TSH, CMP #### [facility] [address] [place] [address] Dr. Jonas Ann IG # 0.03 10e3/ul Normal 0.00-0.03 [facility] Comment on above: Performed By: #### L IPID, TSH, CMP #### [facility] [address] [place] [address] Dr. Jonas Ann IG % 0.3 % Normal 0.0-0.5 [facility] Comment on above: Performed By: #### L IPID, TSH, CMP #### [facility] [address] [place] [address] Dr. Jnoas Ann LYMPH # 2.0 103/ul Normal 1.2-3.8 [facility] Comment on above: Performed By: #### L IPID, TSH, CMP #### [facility] [address] [place] [address] Dr. Jonas Ann Lymphocytes/100 WBC (Bld) 20.5 % Normal 20.5-60.0 [facility] Comment on above: Performed By: #### L IPID, TSH, CMP #### [facility] [address] [place] [address] Dr. Jonas Ann MANUAL DIFF REQ NO Normal [facility] Comment on above: Performed By: #### L IPID, TSH, CMP #### [facility] [address] [place] [address] Dr. Jonas Ann MCH (RBC) [Entitic mass] 29.0 pg Normal 26.7-34.0 [facility] Comment on above: Performed By: #### L IPID, TSH, CMP #### [facility] [address] [place] [address] Dr. Jonas Ann MCHC (RBC) [Mass/Vol] 33.0 g/dL Normal 29.9-35.2 [facility] Comment on above: Performed By: #### L IPID, TSH, CMP #### [facility] [address] [place] [address] Dr. Jonas Ann MCV (RBC) [Entitic vol] 88.1 fL Normal 81.0-99.0 [facility] Comment on above: Performed By: #### L IPID, TSH, CMP #### [facility] [address] [address] [address] Jonas Ann MONO # 0.7 103/ul Normal 0.3-0.8 [facility] Comment on above: Performed By: #### L IPID, TSH, CMP #### [facility] [address] [place] [address] Dr. Jonas Ann Monocytes/100 WBC (Bld) 7.4 % Normal 1.7-12.0 [facility] Comment on above: Performed By: #### L IPID, TSH, CMP #### [facility] [address] [place] [address] Dr. Jonas Ann NEUT # 6.9 103/ul Critically high 1.4-6.[address] [facility] Comment on above: Performed By: #### L IPID, TSH, CMP #### [facility] [address] [place] [address] Dr. Jonas Ann Neutrophils/100 WBC (Bld) 70.6 % Normal 43.0-75.0 [facility] Comment on above: Performed By: #### L IPID, TSH, CMP #### [facility] [address] [place] [address] Dr. Jonas Ann Platelet mean volume (Bld) [Entitic vol] 11.3 fL Normal 9.5-13.5 [facility] Comment on above: Performed By: #### L IPID, TSH, CMP #### [facility] [address] [place] [address] Dr. Jonas Ann PLT 275 103/ul Normal 150-450 [facility] Comment on above: Performed By: #### L IPID, TSH, CMP #### [facility] [address] [place] [address] Dr. Jonas Ann RBC 4.27 106/ul Normal 4.20-5.40 [facility] Comment on above: Performed By: #### L IPID, TSH, CMP #### [facility] [address] [place], [place] [address] Dr. Jonas Ann WBC 9.8 103/ul Normal 4.0-11.0 [facility] Comment on above: Performed By: #### L IPID, TSH, CMP #### [facility] [address] [place], [place] [address] ABD/PELV W CONon [...] VIVIAN OSPINA Date: 2021-09-08 16:14 Normal [facility] ER URINE PROFILEon 2 Bilirubin Ql (U) Negative Normal NEGATIVE [facility] Comment on above: Performed By: #### SLOANE CASAS #### [facility] [address] [place] [address] Dr. Jonas Ann Clarity (U) CLEAR Normal CLEAR [facility] Comment on above: Performed By: #### SLOANE CASAS #### [facility] [address] [place] [address] Dr. Jonas Ann Color (U) LT. YELLOW Normal YELLOW [facility] Comment on above: Performed By: #### SLOANE CASAS #### [facility] [address] [place] [address] Dr. Jonas Ann ERUAHD A micrscopic examination will be performed if indicated. Normal [facility] Comment on above: Performed By: #### SLOANE CASAS #### [facility] [address] [address] [address] Jonas Ann Glucose Ql (U) 500 mg/dl Abnormal NEGATIVE [facility] Comment on above: Performed By: #### VLAD CASASICRO #### [facility] [address] [place] [address] Dr. Jonas Ann Hemoglobin Ql (U) LARGE Abnormal NEGATIVE [facility] Comment on above: Performed By: #### Marcelina FARAH UMICRO #### [facility] [address] [address] [address] Jonas Ann Ketones Ql (U) >=80 Abnormal NEGATIVE [facility] Comment on above: Performed By: #### Marcelina FARAH UMICRO #### [facility] [address] [place] [address] Dr. Jonas Ann LEUKOCYTES Negative Normal NEGATIVE [facility] Comment on above: Performed By: #### Marcelina FARAH UMICRO #### [facility] [address] [place] [address] Dr. Jonas Ann Nitrite Ql (U) Negative Normal NEGATIVE [facility] Comment on above: Performed By: #### Marcelina FARAH UMICRO #### [facility] [address] [place] [address] Dr. Jonas Ann pH (U) 5.5 [pH] Normal 5-9 [facility] Comment on above: Performed By: #### Marcelina FARAH UMICRO #### [facility] [address] [place] [address] Dr. Jonas Ann SPEC GRAVITY 1.020 Normal 1.005-<=1.025 [facility] Comment on above: Performed By: #### Marcelina FARAH UMICRO #### [facility] [address] [place] [address] Dr. Jonas Ann UA PROTEIN Negative Normal NEGATIVE/ TRACE [facility] Comment on above: Performed By: #### Marcelina FARAH UMICRO #### [facility] [address] [place] [address] Dr. Jonas Ann UR MICRO IND INDICATED Normal [facility] Comment on above: Performed By: #### ARMANDO CASASRO #### [facility] [address] [place] [address] Dr. Jonas Ann Urobilinogen Qn (U) 0.2 {Bettina'U}/dL Normal 0.2 - 1. 0 [facility] Comment on above: Performed By: #### E GAGAN ICRO #### [facility] [address] [place] [address] Dr. Jonas Ann LIPASEon 09-08-2021 Lipase [Catalytic activity/Vol] 94.0 U/L Normal 23.0-300.0 [facility] Comment on above: Performed By: #### L IPA, CMP #### [facility] [address] [place] [address] Dr. Jonas Ann PROF 14(COMP METB)on 022 Albumin [Mass/Vol] 4.2 g/dL Normal 3.4-5.0 [facility] Comment on above: Performed By: #### L IPA, CMP #### [facility] [address] [place] [address] Dr. Jonas Ann Albumin/Globulin [Mass ratio] 1.3 {ratio} Normal [facility] Comment on above: Performed By: #### L IPA, CMP #### [facility] [address] [place] [address] Dr. Jonas Ann ALP [Catalytic activity/Vol] 107 U/L Normal 46-116 [facility] Comment on above: Performed By: #### L IPA, CMP #### [facility] [address] [place] [address] Dr. Jonas Ann ALT [Catalytic activity/Vol] 44 U/L Normal 14-59 [facility] Comment on above: Performed By: #### L IPA, CMP #### [facility] [address] [place] [address] Dr. Jonas Ann Anion gap [Moles/Vol] 19.4 mmol/L Normal [facility] Comment on above: Performed By: #### L IPA, CMP #### [facility] [address] [place] [address] Dr. Jonas Ann AST [Catalytic activity/Vol] 28 U/L Normal 15-37 [facility] Comment on above: Performed By: #### L IPA, CMP #### [facility] [address] [place] [address] Dr. Jonas Ann Bilirubin [Mass/Vol] 1.2 mg/dL Normal 0.2-1.3 [facility] Comment on above: Performed By: #### L IPA, CMP #### [facility] [address] [place] [address] Dr. Jonas Ann Calcium [Mass/Vol] 9.4 mg/dL Normal 8.5-10.1 [facility] Comment on above: Performed By: #### L IPA, CMP #### [facility] [address] [place] [address] Dr. Jonas Ann Chloride [Moles/Vol] 100 mmol/L Normal 98-107 [facility] Comment on above: Performed By: #### L IPA, CMP #### [facility] [address] [place] [address] Dr. Jonas Ann CO2 [Moles/Vol] 21.9 mmol/L Critically low 22.0-30.0 [facility] Comment on above: Performed By: #### L IPA, CMP #### [facility] [address] [place] [address] Dr. Jonas Ann Creatinine [Mass/Vol] 0.86 mg/dL Normal 0.52-1.04 [facility] Comment on above: Performed By: #### L IPA, CMP #### [facility] [address] [place] [address] Dr. Jonas Ann EGFR-AF QATARI >60 Normal >=60 [facility] Comment on above: Performed By: #### L IPA, CMP #### [facility] [address] [place] [address] Dr. Jonas Ann EGFR-NON AF QATARI >60 Normal >=60 [facility] Comment on above: Performed By: #### L IPA, CMP #### [facility] [address] [place] [address] Dr. Jonas Ann Globulin (S) [Mass/Vol] 3.2 g/dL Normal [facility] Comment on above: Performed By: #### L IPA, CMP #### [facility] [address] [place] [address] Dr. Jonas Ann Glucose [Mass/Vol] 262 mg/dL Critically high 74-106 [facility] Comment on above: Performed By: #### L IPA, CMP #### [facility] [address] [place] [address] Dr. Jonas Ann Potassium [Moles/Vol] 3.3 mmol/L Critically low 3.4-5.0 [facility] Comment on above: Performed By: #### L IPA, CMP #### [facility] [address] [place] [address] Dr. Jonas Ann Protein [Mass/Vol] 7.4 g/dL Normal 6.1-8.2 [facility] Comment on above: Performed By: #### L IPA, CMP #### [facility] [address] [place] [address] Dr. Jonas Ann Sodium [Moles/Vol] 138 mmol/L Normal 137-145 [facility] Comment on above: Performed By: #### L IPA, CMP #### [facility] [address] [place] [address] Dr. Jonas Ann Urea nitrogen [Mass/Vol] 19.0 mg/dL Critically high 7.0-18.0 [facility] Comment on above: Performed By: #### L IPA, CMP #### [facility] [address] [place] [address] Dr. Jonas Ann Urea nitrogen/Creatinine [Mass ratio] 22.1 mg/mg Normal [facility] Comment on above: Performed By: #### L IPA, CMP #### [facility] [address] [place] [address] Dr. Jonas Ann URINE MICROSCOPIC ONLYon BACTERIA NONE SEEN Normal NONE SEEN [facility] Comment on above: Performed By: #### E SLOANE FARAH #### [facility] [address] [place] [address] Dr. Jonas Ann Bacteria identified Cx Nom (U) NOT INDICATED Normal [facility] Comment on above: Performed By: #### E RUR, UMICRO #### [facility] [address] [place] [address] Dr. Jonas Ann CAST NONE SEEN Normal NONE SEEN [facility] Comment on above: Performed By: #### E RUR, UMICRO #### [facility] [address] [place] [address] Dr. Jonas Ann Crystals LM Nom (Urine sed) SEEN Abnormal NONE SEEN [facility] Comment on above: Performed By: #### E RUR, UMICRO #### [facility] [address] [place] [address] Dr. Jonas Ann Epithelial cells LM Ql (Urine sed) NONE SEEN Normal NONE SEEN /RARE [facility] Comment on above: Performed By: #### E RUR, UMICRO #### [facility] [address] [place] [address] Dr. Jonas Ann MUCOUS NONE SEEN Normal NONE SEEN [facility] Comment on above: Performed By: #### E RUR, UMICRO #### [facility] [address] [place] [address] Dr. Jonas Ann RBC 10-20 Abnormal 0-2 [facility] Comment on above: Performed By: #### E RUR, UMICRO #### [facility] [address] [place] [address] Dr. Jonas Ann WBC NONE SEEN Normal NONE SEEN [facility] Comment on above: Performed By: #### E RUR, UMICRO #### [facility] [address] [place] [address] Dr. Jonas Ann Vital Signs Date Time Vital Sign Value Performing Clinician Facility 02-23-2024 09:040 Body height 157.5 cm [place] [facility] Work [facility]: [facility] 02-23-2024 09:25-0400 Body mass index (BMI) [Ratio] 19.39 kg/m2 [place] [facility] Work [facility]: [facility] 02-23-2024 09:25-0400 Body temperature 97.5 [degF] Tania Petznick DO Work Phone: [facility] 02-23-2024 09:25-0400 Body weight 48.08 kg Tania Petznick DO Work Phone: [facility] 02-23-2024 09:25-0400 Diastolic blood pressure 72 mm[Hg] Tania Petznick DO Work Phone: [facility] 02-23-2024 09:25-0400 Heart rate 70 /min Tania Petznick DO Work Phone: [facility] 02-23-2024 09:25-0400 SaO2% (BldA) [Mass fraction] 99 % Tania Petznick DO Work Phone: [facility] 02-23-2024 09:25-0400 Systolic blood pressure 124 mm[Hg] Tania Petznick DO Work Phone: [facility] 02-16-2024 15:36-0400 Body height 157.5 cm Akhil Murphyedenbach DO Work Phone: [facility] 02-16-2024 15:36-0400 Body mass index (BMI) [Ratio] 18.47 kg/m2 Akhil Colvinenbach DO Work Phone: [facility] 02-16-2024 15:36-0400 Body weight 45.81 kg Akhil Colvinenbach DO Work Phone: [facility] 01-28-2024 09:11-0400 Body height 157.5 cm Tania Petznick DO Work Phone: [facility] 01-28-2024 09:11-0400 Body mass index (BMI) [Ratio] 18.47 kg/m2 Tania Petznick DO Work Phone: [facility] 01-28-2024 09:11-0400 Body temperature 98.1 [degF] Tania Petznick DO Work Phone: [facility] 01-28-2024 09:11-0400 Body weight 45.81 kg Tania Petznick DO Work Phone: [facility] 01-28-2024 09:11-0400 Diastolic blood pressure 60 mm[Hg] Tania Petznick DO Work Phone: [facility] 01-28-2024 09:11-0400 Heart rate 67 /min Tania Petznick DO Work Phone: [facility] 01-28-2024 09:11-0400 SaO2% (BldA) [Mass fraction] 95 % Tania Petznick DO Work Phone: [facility] 01-28-2024 09:11-0400 Systolic blood pressure 122 mm[Hg] Tania Petznick DO Work Phone: [facility] 01-26-2024 15:17-0400 Body height 157.5 cm Akhil Colvinenmarbin DO Work Phone: [facility] 01-26-2024 15:17-0400 Body mass index (BMI) [Ratio] 18.11 kg/m2 Akhil Biedenbach DO Work Phone: [facility] 01-26-2024 15:17-0400 Body weight 44.91 kg Akhil Biedenmarbin DO Work Phone: [facility] 12-02-2023 09:29-0400 Body height 157.48 cm [facility] 12-02-2023 09:29-0400 Body mass index (BMI) [Ratio] 18.3 kg/m2 [facility] 12-02-2023 09:29-0400 Body weight 45.35 kg [facility] 12-02-2023 09:29-0400 Diastolic blood pressure 67 mm[Hg] [facility] 12-02-2023 09:29-0400 Heart rate 76 /min [facility] 12-02-2023 09:29-0400 Respiratory rate 12 /min [facility] 12-02-2023 09:29-0400 Systolic blood pressure 106 mm[Hg] [facility] 06-10-2023 09:30-0500 Body height 157.48 cm Hayes Ball Other [facility] Other 06-10-2023 09:30-0500 Body mass index (BMI) [Ratio] 19.75 kg/m2 Hayes Ball Other [facility] Other 06-10-2023 09:30-0500 Body weight 48.99 kg Hayes Ball Other [facility] Other 06-10-2023 09:30-0500 Diastolic blood pressure 70 mm[Hg] Hayes Ball Other [facility] Other 06-10-2023 09:30-0500 Respiratory rate 12 /min Hayes Ball Other [facility] Other 06-10-2023 09:30-0500 Systolic blood pressure 111 mm[Hg] Hayes Ball Other [facility] Other 05-29-2023 12:25-0500 Body height 157.48 cm Evelyn Huma Other [facility] Other 05-29-2023 12:25-0500 Body mass index (BMI) [Ratio] 19.46 kg/m2 Evelyn Huma Other [facility] Other 05-29-2023 12:25-0500 Body temperature 97.5 [degF] Evelyn Huma Other [facility] Other 05-29-2023 12:25-0500 Body weight 48.26 kg Evelyn Huma Other [facility] Other 05-29-2023 12:25-0500 Diastolic blood pressure 54 mm[Hg] Evelyn Huma Other [facility] Other 05-29-2023 12:25-0500 Respiratory rate 18 /min Evelyn Finn Other [facility] Other 05-29-2023 12:25-0500 SaO2% (BldA) [Mass fraction] 97 % Evelyn Finn Other [facility] Other 05-29-2023 12:25-0500 Systolic blood pressure 112 mm[Hg] Evelyn Finn Other [facility] Other 01-09-2023 08:45-0400 Body height 157.48 cm Hayes Ball Other [facility] Other 01-09-2023 08:45-0400 Body mass index (BMI) [Ratio] 21.54 kg/m2 Hayes Ball Other [facility] Other 01-09-2023 08:45-0400 Body weight 53.43 kg Hayes Ball Other [facility] Other 01-09-2023 08:45-0400 Diastolic blood pressure 74 mm[Hg] Hayes Ball Other [facility] Other 01-09-2023 08:45-0400 Respiratory rate 12 /min Hayes Ball Other [facility] Other 01-09-2023 08:45-0400 Systolic blood pressure 133 mm[Hg] Hayes Ball Other [facility] Other Encounters Encounter Date Encounter Type Care Provider Facility Start: 08-10-2024 ambulatory Sarai Long Facility:C D:[id number] Start: 08-05-2024 ambulatory Sarai Long Facility:[facility] Start: 08-04-2024 Non-patient / Non-visit [facility] Work Phone: Start: 08-04-2024 End: 08-04-2024 ambulatory NON STAFF [facility] Work Phone: Start: 08-04-2024 End: 08-04-2024 Departed Referred [facility] Start: 02-23-2024 End: 02-23-2024 Office outpatient visit 25 minutes Tania Samson DO Work Phone: [facility] [phone] Comment on above: Type 1 diabetes gary itus with hyperglycemia (HCC) (CMS/HCC) (Primary Dx); 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 (CMS/HCC) Start: 02-23-2024 End: 02-23-2024 ambulatory TANIA SAMSON Not Available Start: 02-16-2024 End: 02-16-2024 ambulatory AKHIL ABRAHAM Not Available Start: 02-16-2024 End: 02-16-2024 Office outpatient visit 15 minutes Akhil Abraham DO Work Phone: [facility] Comment on above: Sensorineural hearin g loss (SNHL) of both ears (Primary Dx); Dizziness and giddiness; Nasal septal deviation; Chronic rhinitis Start: 02-16-2024 End: 02-16-2024 Bamboo flowsheet Akhil Abraham DO Work Phone: [facility] Start: 02-16-2024 End: 02-16-2024 Bamboo flowsheet Akhil Abraham DO Work Phone: [facility] Start: 01-28-2024 End: 01-28-2024 Office outpatient visit 25 minutes Tania Samson DO Work Phone: [facility] 225 Comment on above: Type 1 diabetes gary itus with hyperglycemia (HCC) (CMS/HCC) (Primary Dx); 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 (CMS/HCC) Start: 01-28-2024 End: 01-28-2024 ambulatory TANIA SAMSON Not Available Start: 01-26-2024 End: 01-26-2024 Office outpatient visit 25 minutes [facility]hil Abraham DO [facility] Comment on above: Sensorineural hearin g loss (SNHL) of both ears (Primary Dx); Dizziness and giddiness; Nasal septal deviation; Chronic rhinitis Start: 01-26-2024 End: 01-26-2024 ambulatory AKHIL ABRAHAM Not Available Start: 01-26-2024 End: 01-26-2024 Bamboo flowsheet Akhil Abraham DO Work Phone: [facility] Start: 01-26-2024 End: 01-26-2024 Bamboo flowsheet Akhil Abraham DO Work Phone: [facility] Start: 12-17-2023 ambulatory [facility] Work Phone: Start: 12-17-2023 Non-patient / Non-visit [facility]ician [facility] Work Phone: Start: 12-11-2023 End: 12-11-2023 ambulatory TANIA KAMINSKIEGRRY Not Available Start: 12-02-2023 End: 12-02-2023 ambulatory [facility] Work Phone: Start: 12-02-2023 End: 12-02-2023 Patient encounter procedure [facility] Work Phone: Start: 09-17-2023 Non-patient / Non-visit [facility]ician [facility] Work Phone: Start: 08-11-2023 End: 08-11-2023 ambulatory OLGA H TIMMIS Not Available Start: 08-05-2023 End: 08-05-2023 ambulatory OLGA H TIMMIS Not Available Start: 07-31-2023 End: 07-31-2023 ambulatory DONTRELL KIRBY Not Available Start: 06-15-2023 End: 06-15-2023 ambulatory Hayes Watkins Other [facility] Other Start: 06-15-2023 Telephone encounter Hayes LYN G [facility] Start: 06-10-2023 End: 06-10-2023 ambulatory Hayes Watkins Other [facility] Other Start: 06-10-2023 Office outpatient vi sit 15 minutes Hayes Watkins [facility] Start: 05-29-2023 End: 05-29-2023 ambulatory Evelyn Huma Other [facility] Other Start: 05-29-2023 Office outpatient vi sit 15 minutes Evelyn Huma [facility] Start: 05-29-2023 Telephone encounter [facility] Start: 04-15-2023 End: 04-15-2023 ambulatory DIPIKA GRANT Not Available Start: 03-19-2023 End: 03-19-2023 ambulatory Hayes Watkins Other [facility] Other Start: 03-19-2023 Office outpatient vi sit 15 minutes Hayes Watkins [facility] Start: 01-09-2023 End: 01-09-2023 ambulatory Hayes Watkins Other [facility] Other Start: 01-09-2023 Encounter for genera l adult medical examination without abnormal findings Hayes Watkins [facility] Start: 01-09-2023 Periodic preventive med est patient 40-64yrs Hayes Watkins [facility] Start: 07-17-2022 Encounter for genera l adult medical examination without abnormal findings DR TANIA SAMSON [facility] Start: 07-12-2022 End: 07-13-[address] TANIA SAMSON Facility:[facility] Start: 07-12-2022 End: 07-13-2022 Encounter for general adult medical examination without abnormal findings DR TANIA SAMSON Facility:[facility] Start: 05-05-2022 End: 05-06-2022 ambulatory JOSÉ STUART Facility:[facility] Start: 09-08-2021 End: 09-08-[address] HAYES WATKINS Facility: Start: 04-12-2019 End: 04-13-2019 Patient encounter procedure [facility]IBA [facility]RIEN [facility] Start: 04-12-2019 End: 04-12-2019 Subsequent hospital visit by physician Suman Brown [facility] Comment on above: Arrived Start: 04-06-2019 End: 04-07-2019 Patient encounter procedure FARIBA OBRIEN [facility] Start: 03-30-2019 End: 03-30-2019 Subsequent hospital visit by physician Zeus Rubalcava [facility] Start: 03-28-2019 End: 03-29-2019 Patient encounter procedure FARIBA OBRIEN [facility] Start: 03-28-2019 End: 03-28-2019 Subsequent hospital visit by physician Roque Boyd [facility] Physical Therapy Comment on above: Arrived Start: 03-23-2019 End: 03-24-2019 Patient encounter procedure FARIBA OBRIEN [facility] Start: 03-23-2019 End: 03-23-2019 Subsequent hospital visit by physician Zeus Rubalcava [facility] Physical Therapy Comment on above: Arrived Start: 03-21-2019 End: 03-22-2019 Patient encounter procedure FARIBA OBRIEN [facility] Start: 03-21-2019 End: 03-21-2019 Subsequent hospital visit by physician Lobo Floyd [facility] Physical Therapy Comment on above: Arrived Start: 03-16-2019 End: 03-16-2019 Subsequent hospital visit by physician Roque Boyd [facility] Start: 03-14-2019 End: 03-15-2019 Patient encounter procedure FARIBA OBRIEN [facility] Start: 03-14-2019 End: 03-14-2019 Subsequent hospital visit by physician Lobo Floyd [facility] Physical Therapy Comment on above: Arrived Start: 03-09-2019 End: 03-09-2019 Subsequent hospital visit by physician Zeus Rubalcava [facility] Start: 03-08-2019 End: 03-09-2019 Patient encounter procedure FARIBA OBRIEN [facility] Start: 03-08-2019 End: 03-08-2019 Subsequent hospital visit by physician Maximiliano Hickey [facility] Physical Therapy Comment on above: Arrived Start: 03-02-2019 End: 03-03-2019 Patient encounter procedure FARIBA OBRIEN [facility] Start: 03-02-2019 End: 03-02-2019 Subsequent hospital visit by physician Zeus [facility] Comment on above: Arrived Start: 03-01-2019 End: 03-02-2019 Patient encounter procedure FARIBA [facility] Start: 03-01-2019 End: 03-01-2019 Subsequent hospital visit by physician Roque [facility] Comment on above: Arrived Start: 02-23-2019 End: 02-24-2019 Patient encounter procedure FARIBA OBRIEN [facility] Start: 02-23-2019 End: 02-23-2019 Subsequent hospital visit by physician Roque [facility] Comment on above: Arrived Start: 02-21-2019 End: 02-22-2019 Patient encounter procedure FARIBA OBRIEN [facility] Start: 02-21-2019 End: 02-21-2019 Subsequent hospital visit by physician Lobo [facility] Comment on above: Arrived Start: 02-15-2019 End: 02-16-2019 Patient encounter procedure FARIBA OBRIEN [facility] Start: 02-14-2019 End: 02-15-2019 Patient encounter procedure LOBO PERALTA [facility] Start: 02-14-2019 End: 02-14-2019 Subsequent hospital visit by physician Lobo [facility] Comment on above: Arrived Start: 02-09-2019 End: 02-10-2019 Patient encounter procedure ROQUE BOYD [facility] Start: 02-09-2019 End: 02-09-2019 Subsequent hospital visit by physician Roque [facility] Comment on above: Arrived Start: 02-07-2019 End: 02-08-2019 Patient encounter procedure LOBO PERALTA [facility] Start: 02-07-2019 End: 02-07-2019 Subsequent hospital [facility] Comment on above: Arrived Start: 02-02-2019 End: 02-03-2019 [facility] Start: 02-02-2019 End: 02-02-2019 Subsequent hospital visit by physician Zeus [facility] Comment on above: Arrived Start: 01-31-2019 End: 02-01-2019 Patient encounter procedure LOBO PERALTA [facility] Start: 01-31-2019 End: 01-31-2019 Subsequent hospital visit by physician Lobo Floyd [facility] Physical Therapy Comment on above: Arrived Start: 01-26-2019 End: 01-27-2019 Patient encounter procedure SUMAN BROWN [facility] Start: 01-26-2019 End: 01-26-2019 Subsequent hospital visit by physician Suman Brown [facility] Physical Therapy Comment on above: Arrived Start: 01-19-2019 End: 01-20-2019 Patient encounter procedure [facility] Start: 01-17-2019 End: 01-18-2019 Patient encounter procedure [facility] Start: 01-17-2019 End: 01-17-2019 Subsequent hospital visit by physician Roque Boyd [facility] Physical Therapy Comment on above: Arrived Start: 01-12-2019 End: 01-13-2019 Patient encounter procedure [facility] Start: 01-12-2019 End: 01-12-2019 [facility] above: Arrived Procedures Date Procedure Procedure Detail Performing Clinician Start: 02-23-2024 Hemoglobin glycosyla annie a1c Tania Samson DO Work Phone: Plan of Treatment Date Care Activity Detail Author Start: 02-21-2025 End: 02-21-2025 Patient encounter procedure 02/21/2025 3:45 PM EDT Office Visit [facility] [address] [place] [phone] Akhil Abraham, DO [address] [place] [address] [facility] [place] Start: 02-14-2025 End: 02-14-2025 Patient encounter procedure 02/14/2025 3:30 PM EDT Office Visit [facility] [address] [place] [phone] Tania Warren, AUD [address] [place] [address] [facility] Start: 08-04-2024 Bacteria identified in Urine by Culture Urine Culture [facility] Start: 08-04-2024 Urine culture [facility] Start: 04-08-2024 End: 04-08-2024 Patient encounter procedure 04/08/2024 8:45 AM EST Office Visit [facility] [address] [place] [phone] Tania Samson, DO [address] [place] [address] [facility] [address] Start: 02-23-2024 End: 02-23-2024 Patient encounter procedure 02/23/2024 9:30 AM EDT Office Visit [facility] [address] [place] [phone] Tania Samson, DO [address] [place] [address] [facility] [address] Start: 02-16-2024 End: 02-16-2024 Patient encounter procedure 02/16/2024 3:30 PM EDT Office Visit [facility] [address] [place] [phone] Akhil Abraham, DO [address] [place] [address] [facility] [place] Start: 01-28-2024 End: 01-28-2024 Patient encounter procedure 01/28/2024 9:15 AM EDT Office Visit [facility] [address] [place] [phone] Tania Samson, DO [address] [place] [address] [facility] [address] Start: 01-26-2024 End: 01-26-2024 Patient encounter procedure 01/26/2024 3:30 PM EDT Office Visit [facility] [address] [place] [address] Akhil Abraham, DO [address] [place] [address] Arrived [facility] Comment on above: Arrived Start: 12-17-2023 Patient referral [facility] Work Phone: Start: 04-12-2019 End: 04-12-2019 Appointment [facility] Start: 04-06-2019 End: 04-06-2019 Appointment 04/06/2019 Appointment Physical Therapy [facility]us [facility]alcava, [facility] Start: 03-30-2019 End: 03-30-2019 Appointment 03/30/2019 Appointment Physical Therapy Zeus [facility]alcava [facility] Start: 03-23-2019 End: 03-23-2019 Appointment 03/23/2019 Appointment Physical Therapy Zeus [facility]alcava [facility] Start: 03-21-2019 End: 03-21-2019 Appointment [facility] Start: 03-16-2019 End: 03-16-2019 Appointment [facility] Start: 03-14-2019 End: 03-14-2019 Appointment [facility] Start: 03-09-2019 End: 03-09-2019 Appointment 03/09/2019 Appointment Physical Therapy Ze[facility]alcava[facility] Start: 03-08-2019 End: 03-08-2019 Appointment 03/08/2019 Appointment Physical Therapy Maximiliano Hickey [facility] Start: 03-07-2019 End: 03-07-2019 Appointment 03/07/2019 Appointment Physical Therapy Lobo Floyd, RADHAMES [facility] Start: 03-02-2019 End: 03-02-2019 Appointment 03/02/2019 Appointment Physical Therapy Zeus Rubalcava PT [facility] Start: 03-01-2019 End: 03-01-2019 Appointment 03/01/2019 Appointment Physical Therapy Roque Boyd HORTICULTURALIST [facility] Physical Therapy Start: 02-23-2019 End: 02-23-2019 Appointment 02/23/2019 Appointment Physical Therapy Roque Boyd PTA [facility] Physical Therapy Start: 02-21-2019 End: 02-21-2019 Appointment 02/21/2019 Appointment Physical Therapy Lobo Floyd PTA [facility] Physical Therapy Start: 02-16-2019 End: 02-16-2019 Appointment 02/16/2019 Appointment Physical Therapy Zeus Rubalcava PT [facility] Physical Therapy Start: 02-15-2019 End: 02-15-2019 Appointment 02/15/2019 Appointment Physical Therapy Maximiliano Hickey [facility] Physical Therapy Start: 02-14-2019 End: 02-14-2019 Appointment 02/14/2019 Appointment Physical Therapy Lobo Floyd PTA [facility] Physical Therapy Start: 02-09-2019 End: 02-09-2019 Appointment 02/09/2019 Appointment Physical Therapy Roque Boyd PTA [facility] Physical Therapy Start: 02-07-2019 End: 02-07-2019 Appointment 02/07/2019 Appointment Physical Therapy Lobo Floyd PTA [facility] Physical Therapy Start: 02-02-2019 End: 02-02-2019 Appointment [facility] Physical Therap [facility] Start: 01-31-2019 End: 01-31-2019 Appointment 01/31/2019 Appointment Physical Therapy Lobo Floyd PTA [facility] Physical Therapy Start: 01-26-2019 End: 01-26-2019 Appointment [facility] Start: 01-23-2019 Influenza vaccination Flu vaccine (# 1) [place] Start: 01-20-2019 End: 01-20-2019 Appointment 01/20/2019 Appointment Physical Therapy Ramya Odonnell [facility] Physical [facility] Start: 01-19-2019 End: 01-19-2019 Appointment 01/19/2019 Appointment Physical Therapy Roque Boyd PTA [facility] Physical Therapy Start: 01-17-2019 End: 01-17-2019 Appointment 01/17/2019 Appointment Physical Therapy Roque Boyd PTA [facility] Physical Therapy Start: 2012 Breast cancer screen Breast cancer s creen [place], [place] Start: 2012 Colon cancer screen colonoscopy Colon cancer screen colonoscopy [place] Start: 2012 Shingles Vaccine (1 of 2) Shingles Vaccine (1 of 2) [place] Start: 2002 Lipid screen Lipid screen [place], [place] Start: 1983 Cervical cancer screen Cervical canc er screen [place], [place] Start: 1981 DTaP/Tdap/Td vaccine (1 - Tdap) DTaP/Tdap/Td vaccine (1 - Tdap) [place] Start: 1977 HIV screen HIV screen [place], [place] Start: 1973 DTaP/Tdap/Td vaccine (1 - Tdap) DTaP/Tdap/Td vaccine (1 - Tdap) [place], [place] Start: 1962 Hepatitis C screen Hepatitis C scree n [place] Sinuses WO contrast [facility] Patient referral [facility] Work Phone: Payers Date Payer Category Payer Private Health Insurance [facility] [id number] 2022-Present [address] [address] [place] [address] [id number] 2022 Private Health Insurance [id number] [id number] 2016 Unknown [employer] [address] xxxxxxxxxxxx 2016-Present [phone] [address] [place] [address] xxxxxxxxxxxx [id number] 2016 Unknown [id number] 1962 Unknown [id number] 2.16.840.1.008970.3.579.2 .173 1962 Unknown [id number] 2.16.840.1.702965.3.579.2 .173 1962 Unknown [id number] 2.16.840.1.270953.3.579.2 .173 1962 Unknown [id number] 2.16.840.1.839301.3.579.2 .173 1962 Unknown [id number] 2.16.840.1.831257.3.579.2 .173 1962 Unknown [id number] 2.16.840.1.930711.3.579.2 .173 1962 Unknown [id number] 2.16.840.1.031113.3.579.2 .173 1962 Unknown [id number] 2.16.840.1.569044.3.579.2 .173 1962 Unknown [id number] 2.16.840.1.373121.3.579.2 .173 1962 Unknown [id number] 2.16.840.1.654757.3.579.2 .173 1962 Unknown [id number] 2.16.840.1.079816.3.579.2 .173 1962 Unknown [id number] 2.16.840.1.316571.3.579.2 .173 1962 Unknown [id number] 2.16.840.1.808003.3.579.2 .173 1962 Unknown [id number] 2.16.840.1.487120.3.579.2 .173 1962 Unknown [id number] 2.16.840.1.082460.3.579.2 .173 1962 Unknown [id number] 2.16.840.1.882335.3.579.2 .173 1962 Unknown [id number] 2.16.840.1.554418.3.579.2 .173 1962 Unknown [id number] 2.16.840.1.662288.3.579.2 .173 1962 Unknown [id number] 2.16.840.1.176089.3.579.2 .173 1962 Unknown [id number] 2.16.840.1.391357.3.579.2 .173 1962 Unknown [id number] 2.16.840.1.905285.3.579.2 .173 1962 Unknown [id number] 2.16.840.1.725491.3.579.2 .593 1962 Unknown [id number] 2.16.840.1.264169.3.579.2 .593 1962 Unknown [id number] 2.16.840.1.245658.3.579.2 .593 1962 Unknown [id number] 2.16.840.1.759165.3.579.2 .1259 1962 Unknown [id number] 2.16.840.1.329515.3.579.2 .1258 1962 Unknown [id number] 2.16.840.1.048409.3.579.2 .1259 1962 Unknown [id number] 2.16.840.1.870261.3.579.2 .1258 1962 Unknown [id number] 2.16.840.1.620214.3.579.2 .9 1962 Unknown [id number] 2.16.840.1.612645.3.579.2 .1259 1962 Unknown [id number] 2.16.840.1.386023.3.579.2 .1259 1962 Unknown [id number] 2.16.840.1.521663.3.579.2 .1259 1962 Unknown [id number] 2.16.840.1.256203.3.579.2 .9 1962 Unknown [id number] 2.16.840.1.486940.3.579.2 .727 1962 Unknown [id number] 2.16.840.1.054998.3.579.2 .727 1959 Unknown [id number] Self-pay Social History Date Type Detail Facility Start: 02-14-2015 End: 09-30-2017 Tobacco smoking status NHIS Never smoker [facility] Start: 09-30-2017 End: 12-04-2023 Alcohol intake Yes [facility] Start: 02-09-2017 Alcohol Comment occasional [place], [place] Start: 1960 Sex Assigned At Not on file [place] Start: 09-30-2017 End: 02-16-2024 Alcohol intake Current drinker of alcohol (finding) [place], [place] Start: 1960 Sex Assigned At Female [facility] Start: 08-05-2023 Tobacco use and exposure Smokeless tobacco non-user [facility] Start: 12-04-2023 End: 01-28-2024 History of Social function [facility] How often do you nee d to have someone help you when you read instructions, pamphlets, or other written material from your doctor or pharmacy [SILS] Never [facility] Do you belong to any clubs or organizations such as rastafarian groups, unions, fraternal or athletic groups, or [...] 07-30-2023 Alcohol Comment 1- Monthly [facility] Start: 08-05-2024 Sex Female (finding) [facility] Clinical Notes 01-09-2023 to 02-23-2024 Tania Samson, - 02/23/2024 12:56 PM Millicentneeru Sandoval Jannetteeliel, DO - 02/23/2024 9:30 AM EDTPaushanel Mariusz Priestmarbin, DO - 02/16/2024 3:30 PM Millicentneeru Sandoval Janes, DO - 01/28/2024 11:15 AM EDT Note [...] if they have any problems or questions. Theodore Robertson is making improvements and encouraged on [...] from the original note were not included. Theodore Robertson is a 63 y.o. female presents with chief complaint of Diabetes HPI: Diabetes Mellitus Follow-up: Theodore Robertson is here for follow-up evaluation of [...] Type 1 diabetes mellitus with hyperglycemia (HCC) (CMS/LTAC, [facility]ATED [facility]IN [facility]) Social History Tobacco Use Smoking status: Never [...] if they have any problems or questions. Theodore Robertson is making improvements and encouraged on [...] Type 1 diabetes mellitus with hyperglycemia (HCC) ([facility]/HCC) - Primary Follow up in about 6 weeks (around 04/05/2024) for Recheck. Patient's Medications New Prescriptions No medications on file Previous Medications CONTINUOUS GLUCOSE SENSOR (FREESTYLE LIANNA 3 SENSOR) MISC Inject 1 Device under the skin every 14 (fourteen) days INSULIN LISPRO-AABC (LYUMJEV LOIDAIKPEN) 100 UNIT/ML PEN 1:10 carb ratio qAC [...] patient today. documented in this encounter [facility] 02-16-2024 History of Present illness Narrative Subjective Patient ID: Theodore Robertson is a 63 y.o. female who [...] nasal spray. documented in this encounter [facility] 01-28-2024 History of Present illness Narrative Associated Problem(s): Type 1 diabetes mellitus with proliferative retinopathy of both eyes ([facility]) During the appointment today all pertinent labs, [...] if they have any problems or questions. Theodore Robertson is struggling to gain control of [...] from the original note were not included. Theodore Robertson is a 63 y.o. female presents with chief complaint of Diabetes HPI: Diabetes Mellitus Follow-up: Theodore Robertson is here for follow-up evaluation of [...] if they have any problems or questions. Theodore Robertson is struggling to gain control of [...] Type 1 diabetes mellitus with hyperglycemia (HCC) ([facility]/HCC) - Primary Follow up in about 4 [...] patient today. documented in this encounter [facility] 01-26-2024 History of Present illness Narrative Subjective Patient ID: Theodore Robertson is a 63 y.o. female who [...] Pain in pelvis PDR (proliferative diabetic retinopathy) ([facility]) s/p antiVEGF OD x1 and OS x4 and PRP OU. R.A.C. Renal stones 02/09/2017 Sciatica of left side Syncope due to orthostatic hypotension Type 1 diabetes ([facility]) 1991 started Gestational Current Outpatient Medications: Continuous [...] 0 min Stress: Stress Concern Present (12/04/2023) [employer] [place] [employer] - Occupational Stress Questionnaire Feeling of Stress : To some extent Social Connections: Moderately Isolated (12/04/2023) Social Connection and Isolation Panel [NHANES] Frequency of Communication with Friends and Family: Once a week Frequency of Social Gatherings with Friends and Family: Once a week Attends Jain Services: More than 4 times per year [...] for review documented in this encounter [facility] 12-17-2023 Hospital Discharge instructions Ambulatory OrdersReferral to ENT Time Frame: 12/17/23, Location: [facility] Work Phone: 06-10-2023 Evaluation note Encounter [...] her risk for more severe, persistent infection. [facility] Other 01-05-2024 Evaluation note* Encounter Date Diagnosis [...] no improvement in 2 to 3 days [facility] Other 10-26-2023 Evaluation note* Encounter Date Diagnosis [...] BS temporarily. May adjust insulin if experienced. [facility] Other 08-18-2023 Evaluation note* Encounter Date Diagnosis [...] Reommend colonoscopy but patient refuses. 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 ([facility]/HCC) documented in this encounter [facility] HealthcareEvaluation note* Diagnosis Sensorineural hearing loss (SNHL) of both ears- Primary Dizziness and giddiness Nasal septal deviation Deviated nasal septum Chronic rhinitis documented in this encounter [facility] HealthcareEvaluation note* Diagnosis Type 1 diabetes mellitus with hyperglycemia (HCC) ([facility]/HCC)- Primary 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 ([facility]/HCC) documented in this encounter [facility] HealthcareEvaluation note* Diagnosis Sensorineural hearing loss (SNHL) of both ears- Primary Dizziness and giddiness Nasal septal deviation Deviated nasal septum Chronic rhinitis documented in this encounter [facility] general Narrative - Reported* Type Description [...] area removed Hospitalization History SEE ABOVE SURGERY [facility] Other History general Narrative - Reported* Type [...] removal 2022 Hospitalization History SEE ABOVE SURGERY [facility] Other Reason for referral (narrative)* Reason Referral for persist ent decreased hearing, left ear pain, drainage and dizziness Diagnosis 1 Non-recurrent acute serous otitis media of left ear (H65.02) Referral Organization [facility] Danielal saldivar Referring Provider First Name Hayes Referring Provider Last Name Rafita Referring Provider Specialty Internal Sc jenni Referred Organization [facility] Referred Provider MarioalOlga swan Referred Address ,[place], [place],[address] Referred Provider Specialty Otolaryngolo gy Referral Priority Routine General Notes Patient w/ persisten t left ear pain, drainage and dizziness. Examination reveals erythematous, injected left TM (RUQ) w/ ear drainage, decreased hearing w/ B>A and dizziness. She has been instructed to continue Flonase and prescribed a second antibiotic. [facility] Other Advance Directives No Advanced Directives Records FoundDocuments on File Type Date Recorded Patient Package Maker Expl anation Advance Directives and Living Will Power of Plumber Cub Advance Directive Response Recorded Date/ Time Advance Directives No December 01 9:15am History of Present Illness * Sarah Youngblood - 03/16/2019 3:44 PM EDT [facility] Inpatient/Observation/Outpatient Rehabilitation Date: 03/16/2019 Patient Name: Theodore Robertson [] Inpatient Acute/Observation [x] Outpatient : 1960 [] Pt no showed for scheduled appointment [] Pt refused/declined therapy at this time due to: [x] Pt cancelled due to: [] No Reason Given [] Sick/ill [x] Other: Patient called to cancel statingthat a nurse is coming to the house to do a teaching for her and her . Sarah Hogueekta Date: 03/16/2019 documented in this encounter* Zeus Rubalcava, PT - 03/23/2019 6:09 PM EDT [facility] Outpatient Physical Therapy Daily Note Patient: Theodore Robertson : 1960 CSN #: [id number] Referring Practitioner: Prasad Ortega DO Referral Date [...] Joint mobilization: Gr I-II post-inf L GH anup's PROM: L shoulder all planes Assessment Assessment: Patient jannette's improved PROM of L shoulder ER/IR: 35*, [...] []Not met []Met []Partially met []Not met Retirement Goals - Time Frame for 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 worker goals : 6 weeks prison goal 1: Pt. to be independent with HEP -MET []Met []Partially met []Not met prison goal 2: Pt. to have improved AROM of L shoulder flex/abd: 120*, ER: T2, IR: T10 in order to improve functional mobility. []Met []Partially met []Not met 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 worker goal 3: Pt. to have increased L shoulder strength >/=4/5 all planes for improved functional strength. -MET []Met []Partially met []Not met prison goal 4: Pt. to report decrease in pain to </=3/10 at worst for improved QOL. -MET []Met []Partially met []Not met []Met []Partially met []Not met Minutes Tracking: Time In: 1731 Time Out: 1809 Minutes: 38 Zeus Rubalcava PT, DPT Date: 03/23/2019 documented in this encounter* Zeus Rubalcava, PT - 03/30/2019 6:36 PM EST [facility] Inpatient/Observation/Outpatient Rehabilitation Date: 03/30/2019 Patient Name: Theodore Robertson [] Inpatient Acute/Observation [x] Outpatient : [...] DPT Date: 03/30/2019 documented in this encounter* Daniele Roque, HORTICULTURALIST - 02/09/2019 6:09 PM EDT [facility] Outpatient Physical Therapy Daily Note Patient: Theodore Robertson : 1960 CSN #: [id number] Referring Practitioner: Prasad Ortega DO Referral Date [...] []Not met []Met []Partially met []Not met [employer] Goals - Time Frame for prison goals : 6 weeks 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 worker goal 1: Pt. to be independent with HEP []Met []Partially met [x]Not met prison goal 2: Pt. to have improved AROM of L shoulder flex/abd: 120*, ER: T2, IR: T10 in order to improve functional mobility. []Met []Partially met [x]Not met prison goal 3: Pt. to have increased L shoulder strength >/=4/5 all planes for improved functional strength. []Met []Partially met [x]Not met 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 worker goal 4: Pt. to report decrease in pain to </=3/10 at worst for improved QOL. []Met []Partially met [x]Not met []Met []Partially met []Not met Minutes Tracking: Time In: 1709 Time Out: 1805 Minutes: 56 Roque Boyd, HORTICULTURALIST Date: 02/09/2019 documented in this encounter* Zeus Rubalcava, PT - 01/12/2019 7:02 PM EDT [facility] Outpatient Physical Therapy Evaluation Date: 01/12/2019 Patient: Theodore Robertson : 1960 CSN #: [id number] Referring Practitioner: Prasad Ortega DO Referral Date : 01/07/19 Diagnosis: Adhesive capsulitis of left shoulder, M75.02 Treatment Diagnosis: L shoulder adhesive capsulitis Onset Date: 10/12/18 PT Insurance Information: [employer] Total # of Visits Approved: 24 Total [...] 35*, IR: 35* for improved functional mobility. prison goals Time Frame for 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 worker goals : 6 weeks 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 worker goal 1: Pt. to be independent with HEP prison goal 2: Pt. to have improved AROM of L shoulder flex/abd: 120*, ER: T2, IR: T10 in order to improve functional mobility. prison goal 3: Pt. to have increased L shoulder strength >/=4/5 all planes for improved functional strength. 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 worker goal 4: Pt. to report decrease in pain to </=3/10 at worst for improved QOL. Patient goals : To regain my range of motion and get rid of any pain and numbness Minutes Tracking: Time In: 1740 Time Out: 1835 Minutes: 55 Zeus Rubalcava PT, DPT 01/12/2019 documented in this encounter* Zeus Rubalcava, PT - 02/02/2019 5:55 PM EDT [facility] Outpatient Physical Therapy Daily Note Patient: Theodore Robertson : 1960 CSN #: [id number] Referring Practitioner: Prasad Ortega DO Referral Date : 01/07/19 Date: 02/02/2019 Diagnosis: Adhesive capsulitis of left shoulder, M75.02 Treatment Diagnosis: L shoulder adhesive capsulitis Onset Date: 10/12/18 PT Insurance Information: [employer] Total # of Visits Approved: 24 Per [...] []Not met []Met []Partially met []Not met [employer] Goals - Time Frame for prison goals : 6 weeks 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 worker goal 1: Pt. to be independent with HEP []Met []Partially met []Not met 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 worker goal 2: Pt. to have improved AROM of L shoulder flex/abd: 120*, ER: T2, IR: T10 in order to improve functional mobility. []Met []Partially met []Not met prison goal 3: Pt. to have increased L shoulder strength >/=4/5 all planes for improved functional strength. []Met []Partially met []Not met prison goal 4: Pt. to report decrease in pain to </=3/10 at worst for improved QOL. []Met []Partially met []Not met []Met []Partially met []Not met Minutes Tracking: Time In: 1713 Time Out: 1812 Minutes: 59 Zeus Rubalcava, PT, DPT Date: 02/02/2019 documented in this encounter* Zeus Rubalcava, PT - 03/02/2019 6:09 PM EDT [facility] Outpatient Physical Therapy Daily Note Patient: Theodore Robertson : 1960 CSN #: [id number] Referring Practitioner: Prasad Ortega DO Referral Date [...] []Not met []Met []Partially met []Not met Retirement Goals - Time Frame for prison goals : 6 weeks 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 worker goal 1: Pt. to be independent with HEP -MET []Met []Partially met []Not met prison goal 2: Pt. to have improved AROM of L shoulder flex/abd: 120*, ER: T2, IR: T10 in order to improve functional mobility. []Met []Partially met []Not met 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 worker goal 3: Pt. to have increased L shoulder strength >/=4/5 all planes for improved functional strength. []Met []Partially met []Not met 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 worker goal 4: Pt. to report decrease in pain to </=3/10 at worst for improved QOL. -MET []Met []Partially met []Not met []Met []Partially met []Not met Minutes Tracking: Time In: 1728 Time Out: 1807 Minutes: 39 Zeus Rubalcava PT, DPT Date: 03/02/2019 documented in this encounter* Zeus Rubalcava, PT - 03/09/2019 5:43 PM EDT [facility] Inpatient/Observation/Outpatient Rehabilitation Date: 03/09/2019 Patient Name: Theodore Robertson [] Inpatient Acute/Observation [x] Outpatient : 1960 [] Pt no showed for scheduled appointment [] Pt refused/declined therapy at this time due to: [x] Pt cancelled due to: [] No Reason Given [] Sick/ill [] Other: Patient is sick and cancelled herappointment today. Will attempt evaluation at our earliest opportunity. Zeus Rubalcava PT, DPT Date: 03/09/2019 documented in this encounter* Suman Brown, RADHAMES - 01/26/2019 10:15 AM EDT [facility] Outpatient Physical Therapy Daily Note Patient: Theodore Robertson : 1960 CSN #: [id number] Referring Practitioner: Prasad Ortega DO Referral Date : 01/07/19 Date: 01/26/2019 Diagnosis: Adhesive capsulitis of left shoulder, M75.02 Treatment Diagnosis: L shoulder adhesive capsulitis Onset Date: 10/12/18 PT Insurance Information: [employer] Total # of Visits Approved: 24 Per [...] limited by pain today with PROM. PROM vyta=976*, abd=87*, IR=27* and ER=16 - all limited [...] []Not met []Met []Partially met []Not met [employer] Goals - Time Frame for prison goals : 6 weeks prison goal 1: Pt. to be independent with HEP []Met []Partially met []Not met prison goal 2: Pt. to have improved AROM of L shoulder flex/abd: 120*, ER: T2, IR: T10 in order to improve functional mobility. []Met []Partially met []Not met prison goal 3: Pt. to have increased L shoulder strength >/=4/5 all planes for improved functional strength. []Met []Partially met []Not met prison goal 4: Pt. to report decrease in pain to </=3/10 at worst for improved QOL. []Met []Partially met []Not met []Met []Partially met []Not met Minutes Tracking: Time In: 931 Time Out: 1029 Minutes: 57 Suman Brown, RADHAMES Date: 01/26/2019 documented in this encounter Summary Purpose Family History No Family History Records Found Relationship Condition Age at Onset Recorded Date/T tanmay father Malignant neoplasm Unknown grandparent Malignant neoplasm Unknown Unknown Chief Complaint and Reason for Visit Chief Complaint Amb Documentation Vertigo Chief Complaint Vertigo Reason for Visit BPPV (benign paroxys mal positional vertigo) Chronic sinusitis SNHL (sensorineural hearing loss) Chief Complaint Admit Date Unknown August 04, 2024 2:3 4am Additional Source Comments INFORMATION SOURCE (unrecogn ized section and content) DATE CREATED AUTHOR 04/13/2019 [facility] DATE CREATED AUTHOR AUTHOR'S ORGANIZ ATION 07/18/2022 [facility] DATE CREATED AUTHOR AUTHOR'S ORGANIZ ATION 02/24/2024 [facility] EPIC DATE CREATED AUTHOR AUTHOR'S ORGANIZ ATION 08/07/2024 [facility] DATE CREATED AUTHOR AUTHOR'S ORGANIZ ATION 08/08/2024 [facility] REASON FOR VISIT (unrecogniz ed section and [...] Provider Active Start : September 17, 2023 Primary Care Md Relationship Specialty Start Date End Date Hayes Watkins MD [address] [place] [id number] PCP - General Internal Medicine 01/21/24 Akhil Abraham DO [address] [place] [address] Otolaryngology 02/16/24 Primary Care Md Relationship Specialty Start Date End Date Hayes Watkins MD [address] [facility] [place] [address] PCP - General Internal Medicine 01/21/24 Primary Care Md Relationship Specialty Start Date End Date Hayes Watkins MD [address] [facility] [place] [address] PCP - General Internal Medicine 01/21/24 Primary Care Md Relationship Specialty Start Date End Date Hayes Watkins MD [address] [facility] [place] [address] PCP - General Internal Medicine 01/21/24 Primary Care Md Relationship Specialty Start Date End Date Hayes Watkins MD [address] [facility] [place] [address] PCP - General Internal Medicine 01/21/24 Akhil Abraham DO [address] [place] [address] Otolaryngology 02/16/24 Primary Care Md Relationship Specialty Start Date End Date Hayes Watkins MD [address] [facility] [place] [address] PCP - General Internal Medicine 01/21/24 Akhil Abraham DO [address] [place] [address] Otolaryngology 02/16/24 Team Status: Inactive Member Role Status Dates NON STAFF Attending Provider Active Start: [facility] 2024 End: August 04, 2024 Team Status: Active Member Role Status Dates Hayes Watkins , DO Primary Care Provide r, Attending Provider Active Start: August 04, 2024 Goals (unrecognized section and content) Goals may [...] BE BASED ON THE PRIMARY CLINICAL RECORDS. [facility] [employer] provides no warranty or guarantee of the accuracy or completeness of information in this document.
== END 2024-08-09 13:02 | disposition home or self-care (01) ==
LOC: PST 13:02
PROVIDERS: PCP Internal Medicine; Visit Provider Urology
DX: Z01.818 Encounter for other preprocedural examination (principal); N13.2 Hydronephrosis with renal and ureteral calculous obstruction; R73.9 Hyperglycemia, unspecified

== ENCOUNTER 2024-08-10 11:42 | Day surgery (SDC) | payer OTHER, SELFPAY ==
[2024-08-10] VITALS (10 sets, daily range): BP systolic 102–143; BP diastolic 54–75; PULSE 58–90; TEMP 36–36.3; O2SAT 96–100; BMI 19.4
--- NOTE | 2024-08-10 | XR_ITS ---
[address] [address] Patient Name: THEODORE FLETCHER MRN: [id number] date: 1960 Sex: F Assigned Patient Location: [facility] Current Patient Location: Accession/Order Number: [id number] Exam Date: 08/10/2024 18:44 Report Date: 08/10/2024 18:45 At the request of: THONG FUENTES MD Procedure: XR urethrogram retrograde Intraoperative study. Reason for exam: Left kidney stones. Findings: 1 images were obtained intraoperatively. Left ureteral stent was placed. 33 seconds of fluoroscopic time is utilized. XR/XR urethrogram retrograde Impression: Intraoperative study. . Impression dictated by: Jovani Ramirez Jr.OClaire08/10/2024 6:45 PM Dictation Location: [place] [address] Electronically authenticated by: [id number] Y Date: 08/10/2024 18:45
--- OUTSIDE RECORDS SUMMARY | 2024-08-10 11:49 | XMS_ITS | CCD ---
Author Organization [facility] ion [facility] Care Team Providers Care Sexual Health Physician Name Role Phone Fariba Obrien Primary Care [...] (20 sources) Cephalexin Drug Allergy 02-10-[address] [facility] [place] [place] ([facility] sources) Antihistamines, Chlorpheniramine-T ype Propensity to adverse reactions to drug 02-10-20 17 Other (See Comments) [place] (7 sources) Cephalexin Drug Allergy hives [facility] (4 sources) Nitrofurantoin Drug Allergy 12-02-19 24 Unknown Reaction [facility] (16 sources) fexofenadine / Pseudoephedrine Drug Allergy 04-15-20 23 Comment:syncop e [facility] Other (6 sources) levoFLOXacin Drug Allergy anaphylaxis [facility] Other (16 sources) Nitrofurantoin Drug Allergy 03-20-20 23 Unknown [facility] Other (6 sources) Keflex *CEPHALOSPORINS* Propensity to adverse reactions Unknown [facility] Other (6 sources) Biaxin *MACROLIDES* Propensity to adverse reactions 12-24-19 Unknown [facility] Other (12 sources) Cephalosporins (Antibiotic) Allergy to substance 12-02-19 Unknown Reaction [facility] (13 sources) Clarithromycin Drug Allergy 07-30-19 Unknown Reaction [facility] Comment on above: Onset Date: 12/24/19 19 (13 sources) levoFLOXacin Drug Allergy 07-30-19 Anaphylaxis [facility] (3 sources) Antihistamine & Nasal Deconges Allergy to substance 06-10-19 Comment:syncop e [facility] (10 sources) Propylamine derivative antihistamine Drug [...] Continuous Glucose Sensor (FreeStyle Lianna 3 Sensor) [facility] [place]ications: 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 (CMS/HCC) Inject 1 Device under the skin every 14 (fourteen) days 6 each 3 01/28/2024 Active Start: 12-13-2023 End: 01-28-2024 inject 1 dose by subcutaneous injection once Continuous Glucose Sensor (FreeStyle Lianna 3 Sensor) [facility] [place]ications: 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) use of insulin; Translations: [NURSING HOME CURRENT USE OF INSULIN] Onset: 09-10-2021 Episodic Other aftercare (1 source) Other intermediate (current) drug therapy; Translations: [OTH HEALTH NURSE CURRENT DRUG THERAPY] Onset: 09-10-2021 Episodic Otitis [...] Basophils (Bld) [#/Vol] Automated basophil count 0.0-0.1 [facility] Basophils/100 WBC Auto (Bld) on 08-04-2024 Basophils/100 WBC (Bld) Automated basophil % 0.2-2.0 [facility] Eosinophils/100 WBC Auto (Bl d)on 08-04-2024 Eosinophils/100 WBC (Bld) Automated eosinophil % 0.9-7.0 [facility] Erythrocyte distribution wid th Auto (RBC) [Ratio]on 08-04-2024 Erythrocyte distribution width (RBC) [Ratio] Erythrocyte distribution width [Ratio] by Automated count 11.0-15.0 [facility] Estimated glomerular filtrat ion rate (GFR) non- Americanon 08-04-2024 GFR/1.73 sq M.predicted among non-blacks MDRD (S/P/Bld) [Vol rate/Area] Estimated glomerular filtration rate (GFR) non- Low >=60 mL/min/1.73m 2 [facility] Globulin Calc (S) [Mass/Vol] on 08-04-2024 Globulin (S) [Mass/Vol] Serum globulin measurement by calculation (mass/volume) [facility] Hematocrit Auto (Bld) [Volum e fraction]on 08-04-2024 Hematocrit (Bld) [Volume fraction] Hematocrit [Volume Fraction] of Blood by Automated count 36.0-48.0 [facility] Hemoglobin [Mass/volume] in Bloodon 08-04-2024 Hemoglobin (Bld) [Mass/Vol] Hemoglobin [Mass/volume] in Blood 12.0-16.0 [facility] Laboratory - Chemistry and C hemistry - challengeon 08-04-2024 Lactate [Moles/Vol] 1.1 mmol/L 0.4-2.0 [facility] Albumin [Mass/Vol] 3.7 g/dL 3.4-5.0 [facility] ALP [Catalytic activity/Vol] 106 U/L 46-116 [facility] ALT [Catalytic activity/Vol] 25 U/L 14-59 [facility] AST [Catalytic activity/Vol] 13 U/L Low 15-37 [facility] Bilirubin [Mass/Vol] 0.5 mg/dL 0.2-1.0 [facility] Calcium [Mass/Vol] 9.5 mg/dL 8.5-10.1 [facility] Chloride [Moles/Vol] 96 mmol/L Low 98-107 [facility] CO2 [Moles/Vol] 24.4 mmol/L 21.0-32.0 [facility] Creatinine [Mass/Vol] 1.41 mg/dL High 0.55-1.02 [facility] GFR/1.73 sq M.predicted MDRD (S/P/Bld) [Vol rate/Area] 46 mL/min/{1.73_m2} Low >=60 mL/min/1.73m 2 [facility] Glucose [Mass/Vol] 639 mg/dL Critically high 74-106 [facility] Comment on above: RESULTS CALLED TO JOHN JOSHUA RN at 0319 Potassium [Moles/Vol] 4.0 mmol/L 3.5-5.1 [facility] Protein [Mass/Vol] 7.3 g/dL 6.4-8.2 [facility] Sodium [Moles/Vol] 134 mmol/L Low 136-145 [facility] Urea nitrogen [Mass/Vol] 19.0 mg/dL High 7.0-18.0 [facility] Urea nitrogen/Creatinine [Mass ratio] 13.5 mg/mg [facility] Laboratory - Hematology and Cell countson 08-04-2024 Immature granulocytes/100 WBC (Bld) 0.2 % 0.0-0.5 [facility] Laboratory - Urinalysison Mucus Ql (Urine sed) NONE SEEN NONE SEEN [facility] Leukocytes [#/volume] correc annie for nucleated erythrocytes in Blood by Automated counon 08-04-2024 WBC corrected for nucl RBC Auto (Bld) [#/Vol] Leukocytes [#/volume] corrected for nucleated erythrocytes in Blood by Automated coun 4.0-11.0 [facility] Lymphocytes Auto (Bld) [#/Vo l]on 08-04-2024 Lymphocytes (Bld) [#/Vol] Lymphocytes [#/volume] in Blood by Automated count 1.2-3.8 [facility] Lymphocytes/100 WBC Auto (Bl d)on 08-04-2024 Lymphocytes/100 WBC (Bld) Lymphocytes/100 leukocytes in Blood by Automated count 20.5-60.0 [facility] MCH Auto (RBC) [Entitic mass ]on 08-04-2024 MCH (RBC) [Entitic mass] MCH [Entitic mass] by Automated count 26.7-34.0 [facility] MCHC Auto (RBC) [Mass/Vol]on 08-04-2024 MCHC (RBC) [Mass/Vol] MCHC [Mass/volume] by Automated count 29.9-35.2 [facility] MCV Auto (RBC) [Entitic vol] on 08-04-2024 MCV (RBC) [Entitic vol] MCV [Entitic volume] by Automated count 81.0-99.0 [facility] Monocytes Auto (Bld) [#/Vol] on 08-04-2024 Monocytes (Bld) [#/Vol] Automated blood monocyte count 0.3-0.8 [facility] Monocytes/100 WBC Auto (Bld) on 08-04-2024 Monocytes/100 WBC (Bld) Automated monocyte % 1.7-12.0 [facility] Neutrophils Auto (Bld) [#/Vo l]on 08-04-2024 Neutrophils (Bld) [#/Vol] Neutrophils [#/volume] in Blood by Automated count 1.4-6.5 [facility] Neutrophils/100 WBC Auto (Bl d)on 08-04-2024 Neutrophils/100 WBC (Bld) Automated neutrophil % 43.0-75.0 [facility] No Panel Informationon 08-04 Urine Bacteria TRACE #/HPF Abnormal NONE SEEN [facility] Urine Culture Reflexed NO [facility] Urine Other Casts NONE SEEN #/LPF NONE SEEN [facility] Urine Other Crystals None Seen #/HPF None Seen [facility] Urine RBC 20-50 #/HPF Abnormal 0-2 [facility] Urine Squamous Epithelial Cells RARE #/LPF NONE/RARE [facility] Urine WBC 2-5 #/HPF Abnormal NONE SEEN [facility] Acetone Level Negative NEGATIVE [facility] Eosinophils # (Auto) 0.1 10 3/uL 0.0-0.7 [facility] Immature Granulocyte # (Auto) 0.02 10 3/uL 0.00-0.03 [facility] Platelet mean volume Auto (B ld) [Entitic vol]on 08-04-2024 Platelet mean volume (Bld) [Entitic vol] Platelet mean volume [Entitic volume] in Blood by Automated count 9.5-13.5 [facility] Platelets Auto (Bld) [#/Vol] on 08-04-2024 Platelets (Bld) [#/Vol] Platelets [#/volume] in Blood by Automated count 150-450 [facility] RBC Auto (Bld) [#/Vol]on RBC (Bld) [#/Vol] Erythrocytes [#/volume] in Blood by Automated count 4.20-5.40 [facility] Serum or plasma albumin/glob ulin mass ratioon 08-04-2024 Albumin/Globulin [Mass ratio] Serum or plasma albumin/globulin mass ratio [facility] Serum or plasma anion gap de terminationon 08-04-2024 Anion gap [Moles/Vol] Serum or plasma anion gap determination [facility] Urine Cultureon 08-04-2024 Bacteria identified Cx Nom (U) DR JEANNINE ULLOA ORGANISM: Escherichia coli (O:ESCCOL) [place] Count >100,000 Aerobic BECKI Charge (NMIC56) ----- [...] RESISTANT TO ALL B-LACTAM DRUGS. PERFORMED BY: [place] [address] PATHOLOGIST TELETYPESETTER OPERATOR MARIBELL MONZON M.D. Normal [facility] Comment on above: Performed By: #### C UU #### [address] HbA1c (Bld) [Mass fraction]o n 02-23-2024 Interpretation and review of laboratory results Abnormal [facility] Laboratory - Hematology and Cell countson 02-23-2024 HbA1c (Bld) [Mass fraction] 13.0 % [facility] COVID/FLU RT-PCRon 4 SARS-CoV-2 (COVID-19) RNA SELVIN+probe Ql (Unsp spec) Negative [facility] Other COVID/FLU RT-PCR Negative [facility] Other CBC AUTO DIFFon 07-12-2022 BASO # 0.1 103/ul Normal 0.0-0.1 [facility] Comment on above: Performed By: #### L IPID, TSH, CMP #### [facility] [address] [place] [address] Dr. Jonas Ann Basophils/100 WBC (Bld) 0.8 % Normal 0.2-2.0 [facility] Comment on above: Performed By: #### L IPID, TSH, CMP #### [facility] [address] [place] [address] Dr. Jonas Ann EO # 0.2 103/ul Normal 0.0-0.7 [facility] Comment on above: Performed By: #### L IPID, TSH, CMP #### [facility] [address] [place] [address] Dr. Jonas Ann Eosinophils/100 WBC (Bld) 2.5 % Normal 0.9-7.0 [facility] Comment on above: Performed By: #### L IPID, TSH, CMP #### [facility] [address] [place] [address] Dr. Jonas Ann Erythrocyte distribution width (RBC) [Ratio] 12.8 % Normal 11.0-15.0 [facility] Comment on above: Performed By: #### L IPID, TSH, CMP #### [facility] [address] [place] [address] Dr. Jonas Ann Hematocrit (Bld) [Volume fraction] 39.5 % Normal 36.0-48.0 [facility] Comment on above: Performed By: #### L IPID, TSH, CMP #### [facility] [address] [place] [address] Dr. Jonas Ann Hemoglobin (Bld) [Mass/Vol] 13.4 g/dL Normal 12.0-16.0 [facility] Comment on above: Performed By: #### L IPID, TSH, CMP #### [facility] [address] [place], [place] [id number] Dr. Jonas Ann IG # 0.02 10e3/ul Normal 0.00-0.03 [facility] Comment on above: Performed By: #### L IPID, TSH, CMP #### [facility] [address] [place] [address] Dr. Jonas Ann IG % 0.3 % Normal 0.0-0.5 [facility] Comment on above: Performed By: #### L IPID, TSH, CMP #### [facility] [address] [place] [address] Dr. Jonas Ann LYMPH # 2.3 103/ul Normal 1.2-3.8 [facility] Comment on above: Performed By: #### L IPID, TSH, CMP #### [facility] [address] [place] [address] Dr. Jonas Ann Lymphocytes/100 WBC (Bld) 39.1 % Normal 20.5-60.0 [facility] Comment on above: Performed By: #### L IPID, TSH, CMP #### [facility] [address] [place] [address] Dr. Jonas Ann MANUAL DIFF REQ NO Normal [facility] Comment on above: Performed By: #### L IPID, TSH, CMP #### [facility] [address] [place] [address] Dr. Jonas Ann MCH (RBC) [Entitic mass] 28.9 pg Normal 26.7-34.0 [facility] Comment on above: Performed By: #### L IPID, TSH, CMP #### [facility] [address] [place] [address] Dr. Jonas Ann MCHC (RBC) [Mass/Vol] 33.9 g/dL Normal 29.9-35.2 [facility] Comment on above: Performed By: #### L IPID, TSH, CMP #### [facility] [address] [place] [address] Dr. Jonas Ann MCV (RBC) [Entitic vol] 85.1 fL Normal 81.0-99.0 [facility] Comment on above: Performed By: #### L IPID, TSH, CMP #### [facility] [address] [place] [address] Dr. Jonas Ann MONO # 0.5 103/ul Normal 0.3-0.8 [facility] Comment on above: Performed By: #### L IPID, TSH, CMP #### [facility] [address] [place] [address] Dr. Jonas Ann Monocytes/100 WBC (Bld) 8.3 % Normal 1.7-12.0 [facility] Comment on above: Performed By: #### L IPID, TSH, CMP #### [facility] [address] [place] [address] Dr. Jonas Ann NEUT # 2.9 103/ul Normal 1.4-6.5 [facility] Comment on above: Performed By: #### L IPID, TSH, CMP #### [facility] [address] [place] [address] Dr. Jonas Ann Neutrophils/100 WBC (Bld) 49.0 % Normal 43.0-75.0 [facility] Comment on above: Performed By: #### L IPID, TSH, CMP #### [facility] [address] [place] [address] Dr. Jonas Ann Platelet mean volume (Bld) [Entitic vol] 10.9 fL Normal 9.5-13.5 [facility] Comment on above: Performed By: #### L IPID, TSH, CMP #### [facility] [address] [place] [address] Dr. Jonas Ann PLT 278 103/ul Normal 150-450 [facility] Comment on above: Performed By: #### L IPID, TSH, CMP #### [facility] [address] [place] [address] Dr. Jonas Ann RBC 4.64 106/ul Normal 4.20-5.40 [facility] Comment on above: Performed By: #### L IPID, TSH, CMP #### [facility] [address] [place] [address] Dr. Jonas Ann WBC 5.9 103/ul Normal 4.0-11.0 [facility] Comment on above: Performed By: #### L IPID, TSH, CMP #### [facility] [address] [address] [address] Jonas Ann LIPID PROFILEon 07-12-2022 CHOL-HDL RATIO NORM SEE BELOW Normal [facility] Comment on above: Result Comment: 3.3 - 4.4 LOW RISK 4.4 - 7.1 AVERAGE RISK 7.1 - 11.0 MODERATE RISK >11.0 HIGH RISK Performed By: #### L IPID, TSH, CMP #### [facility] [address] [address] [address] Jonas Ann Cholesterol [Mass/Vol] 264 mg/dL Critically high <=200 [facility] Comment on above: Performed By: #### L IPID, TSH, CMP #### [facility] [address] [address] [address] Jonas Ann Cholesterol in HDL [Mass/Vol] 95 mg/dL Critically high 40-60 [facility] Comment on above: Performed By: #### L IPID, TSH, CMP #### [facility] [address] [address] [address] Jonas Ann Cholesterol in LDL [Mass/Vol] 155.2 mg/dL Normal [facility] Comment on above: Performed By: #### L IPID, TSH, CMP #### [facility] [address] [address] [address] Jonas Ann Cholesterol.total/Ch olesterol in HDL [Mass ratio] 2.8 {ratio} Normal [facility] Comment on above: Performed By: #### L IPID, TSH, CMP #### [facility] [address] [address] [address] Jonas Ann HDL NORMAL > or = 60 mg/dl - LOW CARDIOVASCULAR RISK <40 mg/dl - HIGH CARDIOVASCULAR RISK Normal [facility] Comment on above: Performed By: #### L IPID, TSH, CMP #### [facility] [address] [address] [address] Jonas Ann LDL CALC NORMAL SEE BELOW Normal [facility] Comment on above: Result Comment: <100 mg/dl OPTIMAL 100 - 129 mg/dl NEAR OR ABOVE OPTIMAL 130 - 159 mg/dl BORDERLINE HIGH 160 - 189 mg/dl HIGH >190 mg/dl VERY HIGH Performed By: #### L IPID, TSH, CMP #### [facility] [address] [address] [address] Jonas Ann Triglyceride [Mass/Vol] 69 mg/dL Normal <=150 [facility] Comment on above: Performed By: #### L IPID, TSH, CMP #### [facility] [address] [address] [address] Jonas Ann VLDL CALC 13.8 mg/dL Normal [facility] Comment on above: Performed By: #### L IPID, TSH, CMP #### [facility] [address] [address] [address] Jonas Ann MICROALB CREAT RATIO RANDOMo n 07-12-2022 mALB 4.5 mg/L Normal <=30.0 [facility] Comment on above: Performed By: #### L IPID, TSH, CMP #### [facility] [address] [address] [address] Jonas HUERTAB CR RATIO 20.9 mg/g Normal 0.0-29.9 [facility] Comment on above: Performed By: #### L IPID, TSH, CMP #### [facility] [address] [address] [address] Jonas Ann MALB CR RATIO RANGE SEE BELOW Normal [facility] Comment on above: Result Comment: NO M ICROALBUMINURIA 0-29 MG/G CLINICAL MICROALBUMINURIA 30-300 MG/G MACROALBUMINURIA >300 MG/G Performed By: #### L IPID, TSH, CMP #### [facility] [address] [address] [address] Jonas Ann URINE CREAT 215.82 mg/dL Normal 20.00-300.00 [facility] Comment on above: Performed By: #### L IPID, TSH, CMP #### [facility] [address] [address] [address] Jonas Ann PROF 14(COMP METB)on 023 Albumin [Mass/Vol] 3.7 g/dL Normal 3.4-5.0 [facility] Comment on above: Performed By: #### L IPID, TSH, CMP #### [facility] [address] [address] [address] Jonas Ann Albumin/Globulin [Mass ratio] 1.1 {ratio} Normal [facility] Comment on above: Performed By: #### L IPID, TSH, CMP #### [facility] [address] [address] [address] Jonas Ann ALP [Catalytic activity/Vol] 93 U/L Normal 46-116 [facility] Comment on above: Performed By: #### L IPID, TSH, CMP #### [facility] [address] [address] [address] Jonas Ann ALT [Catalytic activity/Vol] 26 U/L Normal 14-59 [facility] Comment on above: Performed By: #### L IPID, TSH, CMP #### [facility] [address] [address] [address] Jonas Ann Anion gap [Moles/Vol] 12.8 mmol/L Normal [facility] Comment on above: Performed By: #### L IPID, TSH, CMP #### [facility] [address] [address] [address] Jonas Ann AST [Catalytic activity/Vol] 17 U/L Normal 15-37 [facility] Comment on above: Performed By: #### L IPID, TSH, CMP #### [facility] [address] [address] [address] Jonas Ann Bilirubin [Mass/Vol] 0.7 mg/dL Normal 0.2-1.0 [facility] Comment on above: Performed By: #### L IPID, TSH, CMP #### [facility] [address] [address] [address] Jonas Ann Calcium [Mass/Vol] 9.4 mg/dL Normal 8.5-10.1 [facility] Comment on above: Performed By: #### L IPID, TSH, CMP #### [facility] [address] [address] [address] Jonas Ann Chloride [Moles/Vol] 106 mmol/L Normal 98-107 [facility] Comment on above: Performed By: #### L IPID, TSH, CMP #### [facility] [address] [address] [address] Jonas Ann CO2 [Moles/Vol] 27.5 mmol/L Normal 21.0-32.0 [facility] Comment on above: Performed By: #### L IPID, TSH, CMP #### [facility] [address] [address] [address] Jonas Ann Creatinine [Mass/Vol] 0.76 mg/dL Normal 0.55-1.02 [facility] Comment on above: Performed By: #### L IPID, TSH, CMP #### [facility] [address] [place] [address] Dr. oJnas Ann EGFR-AF TRISTANIAN >60 Normal >=60 [facility] Comment on above: Performed By: #### L IPID, TSH, CMP #### [facility] [address] [place] [address] Dr. Jonas Ann EGFR-NON AF TRISTANIAN >60 Normal >=60 [facility] Comment on above: Performed By: #### L IPID, TSH, CMP #### [facility] [address] [address] [address] Jonas Ann Globulin (S) [Mass/Vol] 3.3 g/dL Normal [facility] Comment on above: Performed By: #### L IPID, TSH, CMP #### [facility] [address] [address] [address] Jonas Ann Glucose [Mass/Vol] 211 mg/dL Critically high 74-106 [facility] Comment on above: Performed By: #### L IPID, TSH, CMP #### [facility] [address] [address] [address] Jonas Ann Potassium [Moles/Vol] 4.3 mmol/L Normal 3.5-5.1 [facility] Comment on above: Performed By: #### L IPID, TSH, CMP #### [facility] [address] [address] [address] Jonas Ann Protein [Mass/Vol] 7.0 g/dL Normal 6.4-8.2 [facility] Comment on above: Performed By: #### L IPID, TSH, CMP #### [facility] [address] [address] [address] Jonas Ann Sodium [Moles/Vol] 142 mmol/L Normal 136-145 [facility] Comment on above: Performed By: #### L IPID, TSH, CMP #### [facility] [address] [place] [address] Dr. Jonas Ann Urea nitrogen [Mass/Vol] 15.0 mg/dL Normal 7.0-18.0 [facility] Comment on above: Performed By: #### L IPID, TSH, CMP #### [facility] [address] [place] [address] Dr. Jnoas Ann Urea nitrogen/Creatinine [Mass ratio] 19.7 mg/mg Normal [facility] Comment on above: Performed By: #### L IPID, TSH, CMP #### [facility] [address] [place] [address] Dr. Jonas Ann TSHon 07-12-2022 TSH 0.417 uIU/mL Normal 0.358-3.740 [facility] Comment on above: Performed By: #### L IPID, TSH, CMP #### [facility] [address] [place] [address] Dr. Jonas Ann GLUCOSE BLOODon 05-05-2022 Glucose [Mass/Vol] 224 mg/dL Critically high 74-106 [place] Comment on above: Performed By: #### G KAYLI, LIPID #### [facility] [address] [place] [address] Dr. Jonas Ann LIPID PROFILEon 05-05-2022 CHOL-HDL RATIO NORM SEE BELOW Normal [facility] Comment on above: Result Comment: 3.3 - 4.4 LOW RISK 4.4 - 7.1 AVERAGE RISK 7.1 - 11.0 MODERATE RISK >11.0 HIGH RISK Performed By: #### G KAYLI, LIPID #### [facility] [address] [place] [address] Dr. Jonas Ann Cholesterol [Mass/Vol] 287 mg/dL Critically high <=200 [facility] Comment on above: Performed By: #### G KAYLI, LIPID #### [facility] [address] [place] [address] Dr. Jonas Ann Cholesterol in HDL [Mass/Vol] 99 mg/dL Critically high 40-60 [facility] Comment on above: Performed By: #### G KAYLI, LIPID #### [facility] [facility] [address] [place] [address] Dr. Jonas Ann Cholesterol in LDL [Mass/Vol] 170.2 mg/dL Normal [facility] Comment on above: Performed By: #### G KAYLI, LIPID #### [facility] [address] [place] [address] Dr. Jonas Ann Cholesterol.total/Ch olesterol in HDL [Mass ratio] 2.9 {ratio} Normal [facility] Comment on above: Performed By: #### G KAYLI, LIPID #### [facility] [address] [place] [address] Dr. Jonas Ann HDL NORMAL > or = 60 mg/dl - LOW CARDIOVASCULAR RISK <40 mg/dl - HIGH CARDIOVASCULAR RISK Normal [facility] Comment on above: Performed By: #### G KAYLI, LIPID #### [facility] [address] [place] [address] Dr. Jonas Ann LDL CALC NORMAL SEE BELOW Normal [facility] Comment on above: Result Comment: <100 mg/dl OPTIMAL 100 - 129 mg/dl NEAR OR ABOVE OPTIMAL 130 - 159 mg/dl BORDERLINE HIGH 160 - 189 mg/dl HIGH >190 mg/dl VERY HIGH Performed By: #### G KAYLI, LIPID #### [facility] [address] [place] [address] Dr. Jonas Ann Triglyceride [Mass/Vol] 89 mg/dL Normal <=150 [facility] Comment on above: Performed By: #### G KAYLI, LIPID #### [facility] [address] [place] [address] Dr. Jonas Ann VLDL CALC 17.8 mg/dL Normal [facility] Comment on above: Performed By: #### G KAYLI, LIPID #### [facility] [address] [place] [address] Dr. Jonas Ann CBC AUTO DIFFon 09-08-2021 BASO # 0.0 103/ul Normal 0.0-0.1 [facility] Comment on above: Performed By: #### L IPID, TSH, CMP #### [facility] [address] [place] [address] Dr. Jonas Ann Basophils/100 WBC (Bld) 0.4 % Normal 0.2-2.0 [facility] Comment on above: Performed By: #### L IPID, TSH, CMP #### [facility] [address] [place] [address] Dr. Jonas Ann EO # 0.1 103/ul Normal 0.0-0.7 [facility] Comment on above: Performed By: #### L IPID, TSH, CMP #### [facility] [address] [place] [address] Dr. Jonas Ann Eosinophils/100 WBC (Bld) 0.8 % Critically low 0.9-7.0 [facility] Comment on above: Performed By: #### L IPID, TSH, CMP #### [facility] [address] [place] [address] Dr. Jonas Ann Erythrocyte distribution width (RBC) [Ratio] 13.2 % Normal 11.0-15.0 [facility] Comment on above: Performed By: #### L IPID, TSH, CMP #### [facility] [address] [place] [address] Dr. Jonas Ann Hematocrit (Bld) [Volume fraction] 37.6 % Normal 36.0-48.0 [facility] Comment on above: Performed By: #### L IPID, TSH, CMP #### [facility] [address] [place] [address] Dr. Jonas Ann Hemoglobin (Bld) [Mass/Vol] 12.4 g/dL Normal 12.0-16.0 [facility] Comment on above: Performed By: #### L IPID, TSH, CMP #### [facility] [address] [place] [address] Dr. Jonas Ann IG # 0.03 10e3/ul Normal 0.00-0.03 [facility] Comment on above: Performed By: #### L IPID, TSH, CMP #### [facility] [address] [place] [address] Dr. Jonas Ann IG % 0.3 % Normal 0.0-0.5 [facility] Comment on above: Performed By: #### L IPID, TSH, CMP #### [facility] [address] [place] [address] Dr. Jonas Ann LYMPH # 2.0 103/ul Normal 1.2-3.8 [facility] Comment on above: Performed By: #### L IPID, TSH, CMP #### [facility] [address] [place] [address] Dr. Jonas Ann Lymphocytes/100 WBC (Bld) 20.5 % Normal 20.5-60.0 [facility] Comment on above: Performed By: #### L IPID, TSH, CMP #### [facility] [address] [place] [address] Dr. Jonas Ann MANUAL DIFF REQ NO Normal [facility] Comment on above: Performed By: #### L IPID, TSH, CMP #### [facility] [address] [place] [address] Dr. Jonas Ann MCH (RBC) [Entitic mass] 29.0 pg Normal 26.7-34.0 [facility] Comment on above: Performed By: #### L IPID, TSH, CMP #### [facility] [address] [place] [address] Dr. Jonas Ann MCHC (RBC) [Mass/Vol] 33.0 g/dL Normal 29.9-35.2 [facility] Comment on above: Performed By: #### L IPID, TSH, CMP #### [facility] [address] [place] [address] Dr. Jonas Ann MCV (RBC) [Entitic vol] 88.1 fL Normal 81.0-99.0 [facility] Comment on above: Performed By: #### L IPID, TSH, CMP #### [facility] [address] [address] [address] Jonas Ann MONO # 0.7 103/ul Normal 0.3-0.8 [facility] Comment on above: Performed By: #### L IPID, TSH, CMP #### [facility] [address] [place] [address] Dr. Jonas Ann Monocytes/100 WBC (Bld) 7.4 % Normal 1.7-12.0 [facility] Comment on above: Performed By: #### L IPID, TSH, CMP #### [facility] [address] [place] [address] Dr. Jonas Ann NEUT # 6.9 103/ul Critically high 1.4-6.5 [facility] Comment on above: Performed By: #### L IPID, TSH, CMP #### [facility] [address] [place] [address] Dr. Jonas Ann Neutrophils/100 WBC (Bld) 70.6 % Normal 43.0-75.0 [facility] Comment on above: Performed By: #### L IPID, TSH, CMP #### [facility] [address] [place] [address] Dr. Jonas Ann Platelet mean volume (Bld) [Entitic vol] 11.3 fL Normal 9.5-13.5 [facility] Comment on above: Performed By: #### L IPID, TSH, CMP #### [facility] [address] [place] [address] Dr. Jonas Ann PLT 275 103/ul Normal 150-450 [facility] Comment on above: Performed By: #### L IPID, TSH, CMP #### [facility] [address] [place] [address] Dr. Jonas Ann RBC 4.27 106/ul Normal 4.20-5.40 [facility] Comment on above: Performed By: #### L IPID, TSH, CMP #### [facility] [address] [place], [place] [address] Dr. Jonas Ann WBC 9.8 103/ul Normal 4.0-11.0 [facility] Comment on above: Performed By: #### L IPID, TSH, CMP #### [facility] [address] [place], [place] [address] ABD/PELV W CONon [...] VIVIAN OSPINA Date: 2021-09-08 16:14 Normal [facility] ER URINE PROFILEon 2 Bilirubin Ql (U) Negative Normal NEGATIVE [facility] Comment on above: Performed By: #### SLOANE CASAS #### [facility] [address] [place] [address] Dr. Jonas Ann Clarity (U) CLEAR Normal CLEAR [facility] Comment on above: Performed By: #### SLOANE CASAS #### [facility] [address] [place] [address] Dr. Jonas Ann Color (U) LT. YELLOW Normal YELLOW [facility] Comment on above: Performed By: #### SLOANE CASAS #### [facility] [address] [place] [address] Dr. Jonas Ann ERUAHD A micrscopic examination will be performed if indicated. Normal [facility] Comment on above: Performed By: #### SLOANE CASAS #### [facility] [address] [address] [address] Jonas Ann Glucose Ql (U) 500 mg/dl Abnormal NEGATIVE [facility] Comment on above: Performed By: #### VLAD CASASICRO #### [facility] [address] [place] [address] Dr. Jonas Ann Hemoglobin Ql (U) LARGE Abnormal NEGATIVE [facility] Comment on above: Performed By: #### Marcelina FARAH UMICRO #### [facility] [address] [address] [address] Jonas Ann Ketones Ql (U) >=80 Abnormal NEGATIVE [facility] Comment on above: Performed By: #### Marcelina FARAH UMICRO #### [facility] [address] [place] [address] Dr. Jonas Ann LEUKOCYTES Negative Normal NEGATIVE [facility] Comment on above: Performed By: #### Marcelina FARAH UMICRO #### [facility] [address] [place] [address] Dr. Jonas Ann Nitrite Ql (U) Negative Normal NEGATIVE [facility] Comment on above: Performed By: #### Marcelina FARAH UMICRO #### [facility] [address] [place] [address] Dr. Jonas Ann pH (U) 5.5 [pH] Normal 5-9 [facility] Comment on above: Performed By: #### Marcelina FARAH UMICRO #### [facility] [address] [place] [address] Dr. Jonas Ann SPEC GRAVITY 1.020 Normal 1.005-<=1.025 [facility] Comment on above: Performed By: #### Marcelina FARAH UMICRO #### [facility] [address] [place] [address] Dr. Jonas Ann UA PROTEIN Negative Normal NEGATIVE/ TRACE [facility] Comment on above: Performed By: #### Marcelina FARAH UMICRO #### [facility] [address] [place] [address] Dr. Jonas Ann UR MICRO IND INDICATED Normal [facility] Comment on above: Performed By: #### ARMANDO CASASRO #### [facility] [address] [place] [address] Dr. Jonas Ann Urobilinogen Qn (U) 0.2 {Bettina'U}/dL Normal 0.2 - 1. 0 [facility] Comment on above: Performed By: #### E GAGAN ICRO #### [facility] [address] [place] [address] Dr. Jonas Ann LIPASEon 09-08-2021 Lipase [Catalytic activity/Vol] 94.0 U/L Normal 23.0-300.0 [facility] Comment on above: Performed By: #### L IPA, CMP #### [facility] [address] [place] [address] Dr. Jonas Ann PROF 14(COMP METB)on 022 Albumin [Mass/Vol] 4.2 g/dL Normal 3.4-5.0 [facility] Comment on above: Performed By: #### L IPA, CMP #### [facility] [address] [place] [address] Dr. Jonas Ann Albumin/Globulin [Mass ratio] 1.3 {ratio} Normal [facility] Comment on above: Performed By: #### L IPA, CMP #### [facility] [address] [place] [address] Dr. Jonas Ann ALP [Catalytic activity/Vol] 107 U/L Normal 46-116 [facility] Comment on above: Performed By: #### L IPA, CMP #### [facility] [address] [place] [address] Dr. Jonas Ann ALT [Catalytic activity/Vol] 44 U/L Normal 14-59 [facility] Comment on above: Performed By: #### L IPA, CMP #### [facility] [address] [place] [address] Dr. Jonas Ann Anion gap [Moles/Vol] 19.4 mmol/L Normal [facility] Comment on above: Performed By: #### L IPA, CMP #### [facility] [address] [place] [address] Dr. Jonas Ann AST [Catalytic activity/Vol] 28 U/L Normal 15-37 [facility] Comment on above: Performed By: #### L IPA, CMP #### [facility] [address] [place] [address] Dr. Jonas Ann Bilirubin [Mass/Vol] 1.2 mg/dL Normal 0.2-1.3 [facility] Comment on above: Performed By: #### L IPA, CMP #### [facility] [address] [place] [address] Dr. Jonas Ann Calcium [Mass/Vol] 9.4 mg/dL Normal 8.5-10.1 [facility] Comment on above: Performed By: #### L IPA, CMP #### [facility] [address] [place] [address] Dr. Jonas Ann Chloride [Moles/Vol] 100 mmol/L Normal 98-107 [facility] Comment on above: Performed By: #### L IPA, CMP #### [facility] [address] [place] [address] Dr. Jonas Ann CO2 [Moles/Vol] 21.9 mmol/L Critically low 22.0-30.0 [facility] Comment on above: Performed By: #### L IPA, CMP #### [facility] [address] [place] [address] Dr. Jonas Ann Creatinine [Mass/Vol] 0.86 mg/dL Normal 0.52-1.04 [facility] Comment on above: Performed By: #### L IPA, CMP #### [facility] [address] [place] [address] Dr. Jonas Ann EGFR-AF TRISTANIAN >60 Normal >=60 [facility] Comment on above: Performed By: #### L IPA, CMP #### [facility] [address] [place] [address] Dr. Jonas Ann EGFR-NON AF TRISTANIAN >60 Normal >=60 [facility] Comment on above: Performed By: #### L IPA, CMP #### [facility] [address] [place] [address] Dr. Jonas Ann Globulin (S) [Mass/Vol] 3.2 g/dL Normal [facility] Comment on above: Performed By: #### L IPA, CMP #### [facility] [address] [place] [address] Dr. Jonas Ann Glucose [Mass/Vol] 262 mg/dL Critically high 74-106 [facility] Comment on above: Performed By: #### L IPA, CMP #### [facility] [address] [place] [address] Dr. Jonas Ann Potassium [Moles/Vol] 3.3 mmol/L Critically low 3.4-5.0 [facility] Comment on above: Performed By: #### L IPA, CMP #### [facility] [address] [place] [address] Dr. Jonas Ann Protein [Mass/Vol] 7.4 g/dL Normal 6.1-8.2 [facility] Comment on above: Performed By: #### L IPA, CMP #### [facility] [address] [place] [address] Dr. Jonas Ann Sodium [Moles/Vol] 138 mmol/L Normal 137-145 [facility] Comment on above: Performed By: #### L IPA, CMP #### [facility] [address] [place] [address] Dr. Jonas Ann Urea nitrogen [Mass/Vol] 19.0 mg/dL Critically high 7.0-18.0 [facility] Comment on above: Performed By: #### L IPA, CMP #### [facility] [address] [place] [address] Dr. Jonas Ann Urea nitrogen/Creatinine [Mass ratio] 22.1 mg/mg Normal [facility] Comment on above: Performed By: #### L IPA, CMP #### [facility] [address] [place] [address] Dr. Jonas Ann URINE MICROSCOPIC ONLYon BACTERIA NONE SEEN Normal NONE SEEN [facility] Comment on above: Performed By: #### E SLOANE FARAH #### [facility] [address] [place] [address] Dr. Jonas Ann Bacteria identified Cx Nom (U) NOT INDICATED Normal [facility] Comment on above: Performed By: #### E RUR, UMICRO #### [facility] [address] [place] [address] Dr. Jonas Ann CAST NONE SEEN Normal NONE SEEN [facility] Comment on above: Performed By: #### E RUR, UMICRO #### [facility] [address] [place] [address] Dr. Jonas Ann Crystals LM Nom (Urine sed) SEEN Abnormal NONE SEEN [facility] Comment on above: Performed By: #### E RUR, UMICRO #### [facility] [address] [place] [address] Dr. Jonas Ann Epithelial cells LM Ql (Urine sed) NONE SEEN Normal NONE SEEN /RARE [facility] Comment on above: Performed By: #### E RUR, UMICRO #### [facility] [address] [place] [address] Dr. Jonas Ann MUCOUS NONE SEEN Normal NONE SEEN [facility] Comment on above: Performed By: #### E RUR, UMICRO #### [facility] [address] [place] [address] Dr. Jonas Ann RBC 10-20 Abnormal 0-2 [facility] Comment on above: Performed By: #### E RUR, UMICRO #### [facility] [address] [place] [address] Dr. Jonas Ann WBC NONE SEEN Normal NONE SEEN [facility] Comment on above: Performed By: #### E RUR, UMICRO #### [facility] [address] [place] [address] Dr. Jonas Ann Vital Signs Date Time Vital Sign Value Performing Clinician Facility 02-23-2024 09:040 Body height 157.5 cm [facility] Work Phone: [facility] 02-23-2024 09:25-0400 Body mass index (BMI) [Ratio] 19.39 kg/m2 [facility] Work [facility]: [facility] 02-23-2024 09:25-0400 Body temperature 97.5 [degF] Tania Petznick DO Work Phone: [facility] 02-23-2024 09:25-0400 Body weight 48.08 kg Tania Petznick DO Work Phone: [facility] 02-23-2024 09:25-0400 Diastolic blood pressure 72 mm[Hg] Tania Petznick DO Work Phone: [facility] 02-23-2024 09:25-0400 Heart rate 70 /min Tania Petznick DO Work Phone: [facility] 02-23-2024 09:25-0400 SaO2% (BldA) [Mass fraction] 99 % Tania Petznick DO Work Phone: [facility] 02-23-2024 09:25-0400 Systolic blood pressure 124 mm[Hg] Tania Petznick DO Work Phone: [facility] 02-16-2024 15:36-0400 Body height 157.5 cm Akhil Murphyedenbach DO Work Phone: [facility] 02-16-2024 15:36-0400 Body mass index (BMI) [Ratio] 18.47 kg/m2 Akhil Colvinenbach DO Work Phone: [facility] 02-16-2024 15:36-0400 Body weight 45.81 kg Akhil Colvinenbach DO Work Phone: [facility] 01-28-2024 09:11-0400 Body height 157.5 cm Tania Petznick DO Work Phone: [facility] 01-28-2024 09:11-0400 Body mass index (BMI) [Ratio] 18.47 kg/m2 Tania Petznick DO Work Phone: [facility] 01-28-2024 09:11-0400 Body temperature 98.1 [degF] Tania Petznick DO Work Phone: [facility] 01-28-2024 09:11-0400 Body weight 45.81 kg Tania Petznick DO Work Phone: [facility] 01-28-2024 09:11-0400 Diastolic blood pressure 60 mm[Hg] Tania Petznick DO Work Phone: [facility] 01-28-2024 09:11-0400 Heart rate 67 /min Tania Petznick DO Work Phone: [facility] 01-28-2024 09:11-0400 SaO2% (BldA) [Mass fraction] 95 % Tania Petznick DO Work Phone: [facility] 01-28-2024 09:11-0400 Systolic blood pressure 122 mm[Hg] Tania Petznick DO Work Phone: [facility] 01-26-2024 15:17-0400 Body height 157.5 cm Akhil Colvinenmarbin DO Work Phone: [facility] 01-26-2024 15:17-0400 Body mass index (BMI) [Ratio] 18.11 kg/m2 Akhil Biedenbach DO Work Phone: [facility] 01-26-2024 15:17-0400 Body weight 44.91 kg Akhil Biedenmarbin DO Work Phone: [facility] 12-02-2023 09:29-0400 Body height 157.48 cm [facility] 12-02-2023 09:29-0400 Body mass index (BMI) [Ratio] 18.3 kg/m2 [facility] 12-02-2023 09:29-0400 Body weight 45.35 kg [facility] 12-02-2023 09:29-0400 Diastolic blood pressure 67 mm[Hg] [facility] 12-02-2023 09:29-0400 Heart rate 76 /min [facility] 12-02-2023 09:29-0400 Respiratory rate 12 /min [facility] 12-02-2023 09:29-0400 Systolic blood pressure 106 mm[Hg] [facility] 06-10-2023 09:30-0500 Body height 157.48 cm Hayes Ball Other [facility] 06-10-2023 09:30-0500 Body mass index (BMI) [Ratio] 19.75 kg/m2 Hayes Ball Other [facility] Other 06-10-2023 09:30-0500 Body weight 48.99 kg Hayes Ball Other [facility] Other 06-10-2023 09:30-0500 Diastolic blood pressure 70 mm[Hg] Hayes Ball Other [facility] Other 06-10-2023 09:30-0500 Respiratory rate 12 /min Hayes Ball Other [facility] Other 06-10-2023 09:30-0500 Systolic blood pressure 111 mm[Hg] Hayes Ball Other [facility] Other 05-29-2023 12:25-0500 Body height 157.48 cm Evelyn Huma Other [facility] Other 05-29-2023 12:25-0500 Body mass index (BMI) [Ratio] 19.46 kg/m2 Evelyn Huma Other [facility] 05-29-2023 12:25-0500 Body temperature 97.5 [degF] Evelyn Huma Other [facility] Other 05-29-2023 12:25-0500 Body weight 48.26 kg Evelyn Huma Other [facility] Other 05-29-2023 12:25-0500 Diastolic blood pressure 54 mm[Hg] Evelyn Huma Other [facility] Other 05-29-2023 12:25-0500 Respiratory rate 18 /min Evelyn Finn Other [facility] Other 05-29-2023 12:25-0500 SaO2% (BldA) [Mass fraction] 97 % Evelyn Finn Other [facility] Other 05-29-2023 12:25-0500 Systolic blood pressure 112 mm[Hg] Evelyn Finn Other [facility] Other 01-09-2023 08:45-0400 Body height 157.48 cm Hayes Ball Other [facility] Other 01-09-2023 08:45-0400 Body mass index (BMI) [Ratio] 21.54 kg/m2 Hayes Ball Other [facility] Other 01-09-2023 08:45-0400 Body weight 53.43 kg Hayes Ball Other [facility] Other 01-09-2023 08:45-0400 Diastolic blood pressure 74 mm[Hg] Hayes Ball Other [facility] Other 01-09-2023 08:45-0400 Respiratory rate 12 /min Hayes Ball Other [facility] Other 01-09-2023 08:45-0400 Systolic blood pressure 133 mm[Hg] Hayes Ball Other [facility] Other Encounters Encounter Date Encounter Type Care Provider Facility Start: 08-10-2024 ambulatory Sarai Long Facility:C D:[id number] Start: 08-05-2024 ambulatory Sarai Long Facility:Marcel[facility] Clifford Start: 08-04-2024 Non-patient / Non-visit [facility] Work Phone: Start: 08-04-2024 End: 08-04-2024 ambulatory NON STAFF [facility] Work Phone: Start: 08-04-2024 End: 08-04-2024 Departed Referred [facility] Start: 02-23-2024 End: 02-23-2024 Office outpatient visit 25 minutes Tania Samson DO Work Phone: [facility] 212 Comment on above: Type 1 diabetes gary itus with hyperglycemia (HCC) (CMS/HCC) (Primary Dx); 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 (CMS/HCC) Start: 02-23-2024 End: 02-23-2024 ambulatory TANIA SAMSON Not Available Start: 02-16-2024 End: 02-16-2024 ambulatory AKHIL ABRAHAM Not Available Start: 02-16-2024 End: 02-16-2024 Office outpatient visit 15 minutes Akhil Abraham DO Work Phone: [facility] Comment on above: Sensorineural hearin g loss (SNHL) of both ears (Primary Dx); Dizziness and giddiness; Nasal septal deviation; Chronic rhinitis Start: 02-16-2024 End: 02-16-2024 Bamboo flowsheet Akhil Abraham DO Work Phone: [facility] [place] Start: 02-16-2024 End: 02-16-2024 Bamboo flowsheet Akhil Abraham DO Work Phone: [facility] [place] Start: 01-28-2024 End: 01-28-2024 Office outpatient visit 25 minutes Tania Samson DO Work Phone: [facility] Comment on above: Type 1 diabetes gary itus with hyperglycemia (HCC) (CMS/HCC) (Primary Dx); 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 (CMS/HCC) Start: 01-28-2024 End: 01-28-2024 ambulatory TANIA SAMSON Not Available Start: 01-26-2024 End: 01-26-2024 Office outpatient visit 25 minutes Akhil Abraham DO [facility] Comment on above: Sensorineural hearin g loss (SNHL) of both ears (Primary Dx); Dizziness and giddiness; Nasal septal deviation; Chronic rhinitis Start: 01-26-2024 End: 01-26-2024 ambulatory AKHIL ABRAHAM Not Available Start: 01-26-2024 End: 01-26-2024 Bamboo flowsheet Akhil Abraham DO Work Phone: [facility] [place] Start: 01-26-2024 End: 01-26-2024 Bamboo flowsheet Akhil Abraham DO Work Phone: [facility] [place] Start: 12-17-2023 ambulatory [facility] Work Phone: Start: 12-17-2023 Non-patient / Non-visit [facility] Work Phone: Start: 12-11-2023 End: 12-11-2023 ambulatory TANIA KAMINSKIGERRY Not Available Start: 12-02-2023 End: 12-02-2023 ambulatory [facility] [facility] Work Phone: Start: 12-02-2023 End: 12-02-2023 Patient encounter procedure [facility] Work Phone: Start: 09-17-2023 Non-patient / Non-visit [facility] Work Phone: Start: 08-11-2023 End: 08-11-2023 ambulatory OLGA H TIMMIS Not Available Start: 08-05-2023 End: 08-05-2023 ambulatory OLGA H TIMMIS Not Available Start: 07-31-2023 End: 07-31-2023 ambulatory DONTRELL KIRBY Not Available Start: 06-15-2023 End: 06-15-2023 ambulatory Hayes Watkins Other [facility] Other Start: 06-15-2023 Telephone encounter Hayes LYN G [facility] Start: 06-10-2023 End: 06-10-2023 ambulatory Hayes Watkins Other [facility] Other Start: 06-10-2023 Office outpatient vi sit 15 minutes Hayes Watkins [facility] Start: 05-29-2023 End: 05-29-2023 ambulatory Evelyn Huma Other [facility] Other Start: 05-29-2023 Office outpatient vi sit 15 minutes Evelyn Huma [facility] Start: 05-29-2023 Telephone encounter Hayes [facility] Start: 04-15-2023 End: 04-15-2023 ambulatory DIPIKA GRANT Not Available Start: 03-19-2023 End: 03-19-2023 ambulatory Hayes Watkins Other [facility] Other Start: 03-19-2023 Office outpatient vi sit 15 minutes Hayes Watkins [facility] Start: 01-09-2023 End: 01-09-2023 ambulatory Hayes Watkins Other [facility] Other Start: 01-09-2023 Encounter for genera l adult medical examination without abnormal findings Hayes Watkins [facility] Start: 01-09-2023 Periodic preventive med est patient 40-64yrs Hayes Watkins [facility] Start: 07-17-2022 Encounter for genera l adult medical examination without abnormal findings DR TANIA SAMSON [facility] Start: 07-12-2022 End: 07-13-[address] TANIA SAMSON Facility:[facility] Start: 07-12-2022 End: 07-13-2022 Encounter for general adult medical examination without abnormal findings DR TANIA SAMSON Facility:[facility] Start: 05-05-2022 End: 05-06-2022 ambulatory JOSÉ STUART Facility:[facility] Start: 09-08-2021 End: 09-08-[address] HAYES WATKINS Facility: Start: 04-12-2019 End: 04-13-2019 Patient encounter [facility] Start: 04-12-2019 End: 04-12-2019 Subsequent hospital visit by physician Suman Brown [facility] Comment on above: Arrived Start: 04-06-2019 End: 04-07-2019 Patient encounter procedure [facility] Start: 03-30-2019 End: 03-30-2019 Subsequent hospital visit by physician Zeus Rubalcava [facility] Start: 03-28-2019 End: 03-29-2019 Patient encounter procedure [facility] Start: 03-28-2019 End: 03-28-2019 Subsequent hospital visit by physician Roque Boyd [facility] Comment on above: Arrived Start: 03-23-2019 End: 03-24-2019 Patient encounter procedure [facility] Start: 03-23-2019 End: 03-23-2019 Subsequent hospital visit by physician Zeus Rubalcava [facility] Comment on above: Arrived Start: 03-21-2019 End: 03-22-2019 Patient encounter procedure [facility] Start: 03-21-2019 End: 03-21-2019 Subsequent hospital visit by physician Lobo Floyd [facility] Comment on above: Arrived Start: 03-16-2019 End: 03-16-2019 Subsequent hospital visit by physician Roque Boyd [facility] Start: 03-14-2019 End: 03-15-2019 Patient encounter procedure [facility] Start: 03-14-2019 End: 03-14-2019 Subsequent hospital visit by physician Lobo Floyd [facility] Comment on above: Arrived Start: 03-09-2019 End: 03-09-2019 Subsequent hospital visit by physician Zeus Rubalcava [facility] Start: 03-08-2019 End: 03-09-2019 Patient encounter procedure [facility] Start: 03-08-2019 End: 03-08-2019 Subsequent hospital visit by physician Maximiliano Hickey [facility] Comment on above: Arrived Start: 03-02-2019 End: 03-03-2019 Patient encounter procedure FARIBA OBRIEN [facility] Start: 03-02-2019 End: 03-02-2019 Subsequent hospital visit by physician Zeus [facility] Comment on above: Arrived Start: 03-01-2019 End: 03-02-2019 Patient encounter procedure FARIBA [place] [facility] Start: 03-01-2019 End: 03-01-2019 Subsequent hospital visit by physician Roque [facility] Comment on above: Arrived Start: 02-23-2019 End: 02-24-2019 Patient encounter procedure [facility] Start: 02-23-2019 End: 02-23-2019 Subsequent hospital visit by physician Roque [facility] Comment on above: Arrived Start: 02-21-2019 End: 02-22-2019 Patient encounter procedure [facility] Start: 02-21-2019 End: 02-21-2019 Subsequent hospital visit by physician Lobo [facility] Comment on above: Arrived Start: 02-15-2019 End: 02-16-2019 Patient encounter procedure FARIBA OBRIEN [facility] Start: 02-14-2019 End: 02-15-2019 Patient encounter procedure LOBO PERALTA [facility] Start: 02-14-2019 End: 02-14-2019 Subsequent hospital visit by physician Lobo [facility] Comment on above: Arrived Start: 02-09-2019 End: 02-10-2019 Patient encounter procedure ROQUE BOYD [facility] Start: 02-09-2019 End: 02-09-2019 Subsequent hospital visit by physician Roque [facility] Comment on above: Arrived Start: 02-07-2019 End: 02-08-2019 Patient encounter procedure LOBO PERALTA [facility] Start: 02-07-2019 End: 02-07-2019 Subsequent [facility] Comment on above: Arrived Start: 02-02-2019 End: 02-03-2019 [facility] Start: 02-02-2019 End: 02-02-2019 Subsequent hospital visit by physician Zeus [facility] Comment on above: Arrived Start: 01-31-2019 End: 02-01-2019 Patient encounter procedure LOBO PERALTA [facility] Start: 01-31-2019 End: 01-31-2019 Subsequent hospital visit by physician Lobo Floyd [facility] Comment on above: Arrived Start: 01-26-2019 End: 01-27-2019 Patient encounter procedure SUMAN BROWN [facility] Start: 01-26-2019 End: 01-26-2019 Subsequent hospital visit by physician Suman Brown [facility] Comment on above: Arrived Start: 01-19-2019 End: 01-20-2019 Patient encounter procedure [facility] Start: 01-17-2019 End: 01-18-2019 Patient encounter procedure [facility] Start: 01-17-2019 End: 01-17-2019 Subsequent hospital visit by physician Roque Boyd [facility] Comment on above: Arrived Start: 01-12-2019 End: 01-13-2019 Patient encounter procedure [facility] Start: 01-12-2019 End: 01-12-2019 [facility]: Arrived Procedures Date Procedure Procedure Detail Performing Clinician Start: 02-23-2024 Hemoglobin glycosyla annie a1c Tania Samson DO Work Phone: Plan of Treatment Date Care Activity Detail Author Start: 02-21-2025 End: 02-21-2025 Patient encounter procedure 02/21/2025 3:45 PM EDT [facility] [address] [place] [phone] Akhil Abraham, DO [address] [place] [address] [facility] Start: 02-14-2025 End: 02-14-2025 Patient encounter procedure 02/14/2025 3:30 PM EDT Office Visit [facility] [address] [place] [phone] Tania Warren, AUD [address] [place] [address] [facility] Start: 08-04-2024 Bacteria identified in Urine by Culture Urine Culture [facility] Start: 08-04-2024 Urine culture [facility] Start: 04-08-2024 End: 04-08-2024 Patient encounter procedure 04/08/2024 8:45 AM EST Office Visit [facility] [address] [place] [phone] Tania Samson, DO [address] [place] [address] [facility] [address] Start: 02-23-2024 End: 02-23-2024 Patient encounter procedure 02/23/2024 9:30 AM EDT Office Visit [facility] [address] [place] [phone] Tania Samson, DO [address] [place] [address] [facility] [address] Start: 02-16-2024 End: 02-16-2024 Patient encounter procedure 02/16/2024 3:30 PM EDT [facility] [address] [place] [phone] Akhil Abraham, DO [address] [place] [address] [facility] Start: 01-28-2024 End: 01-28-2024 Patient encounter procedure 01/28/2024 9:15 AM EDT Office Visit [facility] [address] [place] [phone] Tania Samson, DO [address] [place] [address] [facility] [address] Start: 01-26-2024 End: 01-26-2024 Patient encounter procedure 01/26/2024 3:30 PM EDT Office [facility] [address] [place] [address] Akhil Abraham, DO [address] [place] [address] Arrived [facility] Comment on above: Arrived Start: 12-17-2023 Patient referral [facility] Work Phone: Start: 04-12-2019 End: 04-12-2019 Appointment [facility] Start: 04-06-2019 End: 04-06-2019 Appointment 04/06/2019 Appointment Physical Therapy Zeus Rubalcava, [facility] Start: 03-30-2019 End: 03-30-2019 Appointment 03/30/2019 Appointment Physical Therapy Zeus Rubalcava [facility] Start: 03-23-2019 End: 03-23-2019 Appointment 03/23/2019 Appointment Physical Therapy Zeus Rubalcava PT [facility] Start: 03-21-2019 End: 03-21-2019 Appointment [facility] Start: 03-16-2019 End: 03-16-2019 Appointment [facility] Start: 03-14-2019 End: 03-14-2019 Appointment [facility] Start: 03-09-2019 End: 03-09-2019 Appointment 03/09/2019 Appointment Physical Therapy Zeus Rubalcava, [facility] Start: 03-08-2019 End: 03-08-2019 Appointment 03/08/2019 Appointment Physical Therapy Maximiliano Hickey [facility] Start: 03-07-2019 End: 03-07-2019 Appointment 03/07/2019 Appointment Physical Therapy Lobo Floyd, RADHAMES [facility] Start: 03-02-2019 End: 03-02-2019 Appointment 03/02/2019 Appointment Physical Therapy Zeus Rubalcava PT [facility] Start: 03-01-2019 End: 03-01-2019 Appointment 03/01/2019 Appointment Physical Therapy Roque Boyd DA[employer]Y [employer] TECHNICIAN [facility] Start: 02-23-2019 End: 02-23-2019 Appointment 02/23/2019 Appointment Physical Therapy Roque Boyd PTA [facility] Start: 02-21-2019 End: 02-21-2019 Appointment 02/21/2019 Appointment Physical Therapy Lobo Floyd PTA [facility] Start: 02-16-2019 End: 02-16-2019 Appointment 02/16/2019 Appointment Physical Therapy Zeus Rubalcava PT [facility] Start: 02-15-2019 End: 02-15-2019 Appointment 02/15/2019 Appointment Physical Therapy Maximiliano Hickey [facility] Start: 02-14-2019 End: 02-14-2019 Appointment 02/14/2019 Appointment Physical Therapy Lobo Floyd PTA [facility] Start: 02-09-2019 End: 02-09-2019 Appointment 02/09/2019 Appointment Physical Therapy Roque Boyd PTA [facility] Start: 02-07-2019 End: 02-07-2019 Appointment 02/07/2019 Appointment Physical Therapy Lobo Floyd PTA [facility] Start: 02-02-2019 End: 02-02-[address] [facility] Start: 01-31-2019 End: 01-31-2019 Appointment 01/31/2019 Appointment Physical Therapy Lobo Floyd PTA [facility] Start: 01-26-2019 End: 01-26-2019 [facility]ment [facility] Start: 01-23-2019 Influenza vaccination Flu vaccine (# 1) [place], [place] Start: 01-20-2019 End: 01-20-2019 Appointment 01/20/2019 Appointment Physical Therapy Ramya Odonnell [facility] Start: 01-19-2019 End: 01-19-2019 Appointment 01/19/2019 Appointment Physical Therapy Roque Boyd PTA [facility] Start: 01-17-2019 End: 01-17-2019 Appointment 01/17/2019 Appointment Physical Therapy Roque Boyd PTA [facility] Start: 2012 Breast cancer screen Breast cancer s creen [place], [place] Start: 2012 Colon cancer screen colonoscopy Colon cancer screen colonoscopy [place] Start: 2012 Shingles Vaccine (1 of 2) Shingles Vaccine (1 of 2) [place] Start: 2002 Lipid screen Lipid screen [place], [place] Start: 1983 Cervical cancer screen Cervical canc er screen [place], [place] Start: 1981 DTaP/Tdap/Td vaccine (1 - Tdap) DTaP/Tdap/Td vaccine (1 - Tdap) [place] Start: 1977 HIV screen HIV screen [place], [place] Start: 1973 DTaP/Tdap/Td vaccine (1 - Tdap) DTaP/Tdap/Td vaccine (1 - Tdap) [place] Start: 1962 Hepatitis C screen Hepatitis C scree n [place], [place] CT Sinuses WO contrast [facility] Patient referral [facility] Work Phone: Payers Date Payer Category Payer Private Health Insurance [facility] [id number] 2022-Present [address] [address] [place] [address] [id number] 2022 Private Health Insurance [id number] [id number] 2016 Unknown [employer] [address] xxxxxxxxxxxx 2016-Present [phone] [address] [place] [address] xxxxxxxxxxxx [id number] .[id number] 2016 Unknown [id number] 1962 Unknown [id number] 2.16.840.1.788774.3.579.2 .173 1962 Unknown [id number] 2.16.840.1.782605.3.579.2 .173 1962 Unknown [id number] 2.16.840.1.311794.3.579.2 .173 1962 Unknown [id number] 2.16.840.1.279254.3.579.2 .173 1962 Unknown [id number] 2.16.840.1.548800.3.579.2 .173 1962 Unknown [id number] 2.16.840.1.674072.3.579.2 .173 1962 Unknown [id number] 2.16.840.1.646179.3.579.2 .173 1962 Unknown [id number] 2.16.840.1.358898.3.579.2 .173 1962 Unknown [id number] 2.16.840.1.035201.3.579.2 .173 1962 Unknown [id number] 2.16.840.1.197345.3.579.2 .173 1962 Unknown [id number] 2.16.840.1.092813.3.579.2 .173 1962 Unknown [id number] 2.16.840.1.434870.3.579.2 .173 1962 Unknown [id number] 2.16.840.1.498842.3.579.2 .173 1962 Unknown [id number] 2.16.840.1.816043.3.579.2 .173 1962 Unknown [id number] 2.16.840.1.203503.3.579.2 .173 1962 Unknown [id number] 2.16.840.1.965935.3.579.2 .173 1962 Unknown [id number] 2.16.840.1.612871.3.579.2 .173 1962 Unknown [id number] 2.16.840.1.049861.3.579.2 .173 1962 Unknown [id number] 2.16.840.1.765098.3.579.2 .173 1962 Unknown [id number] 2.16.840.1.049856.3.579.2 .173 1962 Unknown [id number] 2.16.840.1.319750.3.579.2 .173 1962 Unknown [id number] 2.16.840.1.015001.3.579.2 .593 1962 Unknown [id number] 2.16.840.1.287128.3.579.2 .593 1962 Unknown [id number] 2.16.840.1.877396.3.579.2 .593 1962 Unknown [id number] 2.16.840.1.923201.3.579.2 .1259 1962 Unknown [id number] 2.16.840.1.107762.3.579.2 .1258 1962 Unknown [id number] 2.16.840.1.571205.3.579.2 .1259 1962 Unknown [id number] 2.16.840.1.195123.3.579.2 .1258 1962 Unknown [id number] 2.16.840.1.709836.3.579.2 .9 1962 Unknown [id number] 2.16.840.1.706884.3.579.2 .1259 1962 Unknown [id number] 2.16.840.1.582228.3.579.2 .1259 1962 Unknown [id number] 2.16.840.1.329708.3.579.2 .1259 1962 Unknown [id number] 2.16.840.1.865144.3.579.2 .9 1962 Unknown [id number] 2.16.840.1.460584.3.579.2 .727 1962 Unknown [id number] 2.16.840.1.678810.3.579.2 .727 1959 Unknown [id number] Self-pay Social History Date Type Detail Facility Start: 02-14-2015 End: 09-30-2017 Tobacco smoking status NHIS Never smoker [facility] Start: 09-30-2017 End: 12-04-2023 Alcohol intake Yes [facility] Start: 02-09-2017 Alcohol Comment occasional [place], [place] Start: 1960 Sex Assigned At Not on file [place] Start: 09-30-2017 End: 02-16-2024 Alcohol intake Current drinker of alcohol (finding) [place] Start: 1960 Sex Assigned At Female [facility] Start: 08-05-2023 Tobacco use and exposure Smokeless tobacco non-user [facility] Start: 12-04-2023 End: 01-28-2024 History of Social function [facility] How often do you nee d to have someone help you when you read instructions, pamphlets, or other written material from your doctor or pharmacy [SILS] Never [facility] Do you belong to any clubs or organizations such as christianity groups, unions, fraternal or athletic groups, or [...] [facility] Start: 08-05-2024 Sex Female (finding) [facility] Clinical Notes 01-09-2023 to 02-23-2024 Tania Samson, [...] Type 1 diabetes mellitus with hyperglycemia (HCC) ([facility]) Social History Tobacco Use Smoking status: Never [...] Type 1 diabetes mellitus with hyperglycemia (HCC) ([facility]/HCC) - Primary Follow up in about [...] today. documented in this encounter [facility] 02-16-2024 History of Present illness Narrative Subjective [...] spray. documented in this encounter [facility] 01-28-2024 History of Present illness Narrative Associated Problem(s): Type 1 diabetes mellitus with proliferative retinopathy of both eyes ([facility]) During the appointment today all [...] Type 1 diabetes mellitus with hyperglycemia (HCC) ([facility]CC) - Primary Follow up in about [...] today. documented in this encounter [facility] 01-26-2024 History of Present illness Narrative Subjective [...] Pain in pelvis PDR (proliferative diabetic retinopathy) ([facility]) s/p antiVEGF OD x1 and OS x4 and PRP OU. R.A.C. Renal stones 02/09/2017 Sciatica of left side Syncope due to orthostatic hypotension Type 1 diabetes ([facility]) 1991 started Gestational Current Outpatient [...] 0 min Stress: Stress Concern Present (12/04/2023) [employer] [place] [employer] - Occupational Stress Questionnaire Feeling of Stress : To some extent Social Connections: Moderately Isolated (12/04/2023) Social Connection and Isolation Panel [NHANES] Frequency of Communication with Friends and Family: Once a week Frequency of Social Gatherings with Friends and Family: Once a week Attends Muslim Services: More than 4 times per year [...] review documented in this encounter [facility] 12-17-2023 Hospital Discharge instructions Ambulatory OrdersReferral to ENT Time Frame: 12/17/23, Location: [facility] Work Phone: 06-10-2023 Evaluation note [...] her risk for more severe, persistent infection. [facility] 01-05-2024 Evaluation note* Encounter Date Diagnosis [...] no improvement in 2 to 3 days [facility] 10-26-2023 Evaluation note* Encounter Date Diagnosis [...] BS temporarily. May adjust insulin if experienced. [facility] Other 08-18-2023 Evaluation note* Encounter Date Diagnosis [...] Reommend colonoscopy but patient refuses. 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 ([facility]) documented in this encounter [facility]* Diagnosis Sensorineural hearing loss (SNHL) of both ears- Primary Dizziness and giddiness Nasal septal deviation Deviated nasal septum Chronic rhinitis documented in this encounter [facility]* Diagnosis Type 1 diabetes mellitus with hyperglycemia (HCC) ([facility])- Primary 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 ([facility]) documented in this encounter [facility]* Diagnosis Sensorineural hearing loss [...] area removed Hospitalization History SEE ABOVE SURGERY [facility] Other History general Narrative - Reported* Type [...] removal 2022 Hospitalization History SEE ABOVE SURGERY [facility] Reason for referral (narrative)* Reason Referral for persist ent decreased hearing, left ear pain, drainage and dizziness Diagnosis 1 Non-recurrent acute serous otitis media of left ear (H65.02) Referral Organization [facility] Daniella saldivar Referring Provider First Name Hayes Referring Provider Last Name Rafita Referring Provider Specialty Internal Nj jenni Referred Organization [facility] Referred Provider MarionjOlga swan Referred Address ,[place], [place],[address] Referred Provider Specialty Otolaryngolo gy Referral Priority Routine General Notes Patient w/ persisten t left ear pain, drainage and dizziness. Examination reveals erythematous, injected left TM (RUQ) w/ ear drainage, decreased hearing w/ B>A and dizziness. She has been instructed to continue Flonase and prescribed a second antibiotic. [facility] Other Advance Directives No Advanced Directives Records FoundDocuments on File Type Date Recorded Patient Audiovisual Tech Expl anation Advance Directives and Living Will Power of Patrol Sergeant Advance Directive Response Recorded Date/ Time Advance Directives No December 01 9:15am History of Present Illness * Sarah Youngblood - 03/16/2019 3:44 PM EDT [facility] Inpatient/Observation/Outpatient Rehabilitation Date: 03/16/2019 Patient Name: [...] Rubalcava, PT - 03/23/2019 6:09 PM EDT [facility] Outpatient Physical Therapy Daily Note Patient: Theodore Robertson : 1960 CSN #: [id number] Referring Practitioner: Prasad Ortega DO Referral Date [...] []Not met []Met []Partially met []Not met Correction Goals - Time Frame for production grader goals : 6 weeks alf goal 1: Pt. to be independent with HEP -MET []Met []Partially met []Not met alf goal 2: Pt. to have improved AROM of L shoulder flex/abd: 120*, ER: T2, IR: T10 in order to improve functional mobility. []Met []Partially met []Not met production grader goal 3: Pt. to have increased L shoulder strength >/=4/5 all planes for improved functional strength. -MET []Met []Partially met []Not met alf goal 4: Pt. to report decrease in pain to </=3/10 at worst for improved QOL. -MET []Met []Partially met []Not met []Met []Partially met []Not met Minutes Tracking: Time In: 1731 Time Out: 1809 Minutes: 38 Zeus Rubalcava PT, DPT Date: 03/23/2019 documented in this encounter* Zeus Rubalcava, PT - 03/30/2019 6:36 PM EST [facility] Inpatient/Observation/Outpatient Rehabilitation Date: 03/30/2019 Patient Name: [...] 03/30/2019 documented in this encounter* Daniele Roque, DAIRY LAB TECHNICIAN - 02/09/2019 6:09 PM EDT [facility] Outpatient Physical Therapy Daily Note Patient: Theodore Robertson : 1960 CSN #: [id number] Referring Practitioner: Prasad Ortega DO Referral Date [...] []Not met []Met []Partially met []Not met Bag Shop Worker Goals - Time Frame for alf goals : 6 weeks production grader goal 1: Pt. to be independent with HEP []Met []Partially met [x]Not met alf goal 2: Pt. to have improved AROM of L shoulder flex/abd: 120*, ER: T2, IR: T10 in order to improve functional mobility. []Met []Partially met [x]Not met alf goal 3: Pt. to have increased L shoulder strength >/=4/5 all planes for improved functional strength. []Met []Partially met [x]Not met production grader goal 4: Pt. to report decrease in pain to </=3/10 at worst for improved QOL. []Met []Partially met [x]Not met []Met []Partially met []Not met Minutes Tracking: Time In: 1709 Time Out: 1805 Minutes: 56 Roque Boyd, DAIRY LAB TECHNICIAN Date: 02/09/2019 documented in this encounter* Zeus Rubalcava, PT - 01/12/2019 7:02 PM EDT [facility] Outpatient Physical Therapy Evaluation Date: 01/12/2019 Patient: Theodore Robertson : 1960 CSN #: [id number] Referring Practitioner: Prasad Ortega DO Referral Date : 01/07/19 Diagnosis: Adhesive capsulitis of left shoulder, M75.02 Treatment Diagnosis: L shoulder adhesive capsulitis Onset Date: 10/12/18 PT Insurance Information: [employer] Total # of Visits Approved: 24 Total [...] 35*, IR: 35* for improved functional mobility. alf goals Time Frame for production grader goals : 6 weeks production grader goal 1: Pt. to be independent with HEP alf goal 2: Pt. to have improved AROM of L shoulder flex/abd: 120*, ER: T2, IR: T10 in order to improve functional mobility. alf goal 3: Pt. to have increased L shoulder strength >/=4/5 all planes for improved functional strength. production grader goal 4: Pt. to report decrease in pain to </=3/10 at worst for improved QOL. Patient goals : To regain my range of motion and get rid of any pain and numbness Minutes Tracking: Time In: 1740 Time Out: 1835 Minutes: 55 Zeus Rubalcava PT, DPT 01/12/2019 documented in this encounter* Zeus Rubalcava, PT - 02/02/2019 5:55 PM EDT [facility] Outpatient Physical Therapy Daily Note Patient: Theodore Robertson : 1960 CSN #: [id number] Referring Practitioner: Prasad Ortega DO Referral Date : 01/07/19 Date: 02/02/2019 Diagnosis: Adhesive capsulitis of left shoulder, M75.02 Treatment Diagnosis: L shoulder adhesive capsulitis Onset Date: 10/12/18 PT Insurance Information: [employer] Total # of Visits Approved: 24 Per [...] []Not met []Met []Partially met []Not met Bag Shop Worker Goals - Time Frame for alf goals : 6 weeks production grader goal 1: Pt. to be independent with HEP []Met []Partially met []Not met production grader goal 2: Pt. to have improved AROM of L shoulder flex/abd: 120*, ER: T2, IR: T10 in order to improve functional mobility. []Met []Partially met []Not met alf goal 3: Pt. to have increased L shoulder strength >/=4/5 all planes for improved functional strength. []Met []Partially met []Not met alf goal 4: Pt. to report decrease in pain to </=3/10 at worst for improved QOL. []Met []Partially met []Not met []Met []Partially met []Not met Minutes Tracking: Time In: 1713 Time Out: 1812 Minutes: 59 Zeus Rubalcava, PT, DPT Date: 02/02/2019 documented in this encounter* Zeus Rubalcava, PT - 03/02/2019 6:09 PM EDT [facility] Outpatient Physical Therapy Daily Note Patient: Theodore Robertson : 1960 CSN #: [id number] Referring Practitioner: Prasad Ortega DO Referral Date [...] []Not met []Met []Partially met []Not met Correction Goals - Time Frame for alf goals : 6 weeks production grader goal 1: Pt. to be independent with HEP -MET []Met []Partially met []Not met alf goal 2: Pt. to have improved AROM of L shoulder flex/abd: 120*, ER: T2, IR: T10 in order to improve functional mobility. []Met []Partially met []Not met production grader goal 3: Pt. to have increased L shoulder strength >/=4/5 all planes for improved functional strength. []Met []Partially met []Not met production grader goal 4: Pt. to report decrease in pain to </=3/10 at worst for improved QOL. -MET []Met []Partially met []Not met []Met []Partially met []Not met Minutes Tracking: Time In: 1728 Time Out: 1807 Minutes: 39 Zeus Rubalcava PT, DPT Date: 03/02/2019 documented in this encounter* Zeus Rubalcava, PT - 03/09/2019 5:43 PM EDT [facility] Inpatient/Observation/Outpatient Rehabilitation Date: 03/09/2019 Patient Name: [...] Brown, RADHAMES - 01/26/2019 10:15 AM EDT [facility] Outpatient Physical Therapy Daily Note Patient: Theodore Robertson : 1960 CSN #: [id number] Referring Practitioner: Prasad Ortega DO Referral Date : 01/07/19 Date: 01/26/2019 Diagnosis: Adhesive capsulitis of left shoulder, M75.02 Treatment Diagnosis: L shoulder adhesive capsulitis Onset Date: 10/12/18 PT Insurance Information: [employer] Total # of Visits Approved: 24 Per [...] limited by pain today with PROM. PROM yitr=997*, abd=87*, IR=27* and ER=16 - all limited [...] []Not met []Met []Partially met []Not met Bag Shop Worker Goals - Time Frame for alf goals : 6 weeks alf goal 1: Pt. to be independent with HEP []Met []Partially met []Not met alf goal 2: Pt. to have improved AROM of L shoulder flex/abd: 120*, ER: T2, IR: T10 in order to improve functional mobility. []Met []Partially met []Not met alf goal 3: Pt. to have increased L shoulder strength >/=4/5 all planes for improved functional strength. []Met []Partially met []Not met alf goal 4: Pt. to report decrease in [...] DATE CREATED AUTHOR AUTHOR'S ORGANIZ ATION 02/24/2024 [facility] EPIC DATE CREATED AUTHOR AUTHOR'S ORGANIZ ATION 08/07/2024 [facility] DATE CREATED AUTHOR AUTHOR'S ORGANIZ ATION 08/08/2024 [facility] REASON FOR VISIT (unrecogniz [...] Provider Active Start : September 17, 2023 Sexual Health Physician Relationship Specialty Start Date End Date Hayes Watkins MD [address] [place] [id number] PCP - General Internal Medicine 01/21/24 Akhil Abraham DO [address] [place] [address] Otolaryngology 02/16/24 Sexual Health Physician Relationship Specialty Start Date End Date Hayes Watkins MD [address] [facility] [place] [address] PCP - General Internal Medicine 01/21/24 Sexual Health Physician Relationship Specialty Start Date End Date Hayes Watkins MD [address] [place] [facility] [place] [address] PCP - General Internal Medicine 01/21/24 Sexual Health Physician Relationship Specialty Start Date End Date Hayes Watkins MD [address] [place] [facility] [place] [address] PCP - General Internal Medicine 01/21/24 Sexual Health Physician Relationship Specialty Start Date End Date Hayes Watkins MD [address] [facility] [place] [address] PCP - General Internal Medicine 01/21/24 Akhil Arbaham DO [address] [place] [address] Otolaryngology 02/16/24 Sexual Health Physician Relationship Specialty Start Date End Date Hayes Watkins MD [address] [place] [facility] [place] [address] PCP - General Internal Medicine 01/21/24 Akhil Abraham DO [address] [place] [address] Otolaryngology 02/16/24 Team Status: Inactive Member Role Status Dates NON STAFF Attending Provider Active Start: [facility] 2024 End: August 04, 2024 Team [...] BE BASED ON THE PRIMARY CLINICAL RECORDS. [facility] [employer] provides no warranty or guarantee of the accuracy or completeness of information in this document.
[2024-08-10] MEDS: LACTATED RINGER'S SOLUTION 1,000 ML 50 ML IV ×2 (12:37→14:24)
[2024-08-10] MEDS: SCOPOLAMINE 1 MG/3 DAYS TRANSDERM PATCH 1 PATCH TD (13:05)
[2024-08-10] MEDS: CIPROFLOXACIN IN 5 % DEXTROSE 400 MG/200 ML PREMIX 200 MG IV (13:15)
--- NOTE | 2024-08-10 13:26 | PM.URSON ---
Urology Surgery Operative Note Operative Note Procedure Date: 08/10/24 Time Out Performed: yes Pre-op Diagnosis: 1. Left ureteral stone with hydronephrosis, 2. Left kidney stones Post-op Diagnosis: same as pre-op (Left ureteral stone with hydronephrosis, cystit) Procedures performed: Cystoscopy, left retrograde pyelogram, left ureteroscopy with laser lithotripsy of ureteral and kidney stones, ureteral stent exchange Anesthesia: General-LMA (Dr. Combs ) Primary Surgeon: Sarai Long Complications: none Estimated blood loss (mL): 0 Findings: -Radiopaque proximal ureteral stone and kidney stones. -Ureteral stone slightly impacted into mucosa, successfully laser lithotripsied and basket extracted. -Few small 3 mm stones basket extracted from the kidney. The upper pole stone was partially exposed from papilla and laser lithotripsed to reveal remainder was still submucosal. These fragments did fall out. The larger mid pole stone was also embedded in the papilla, unable to be removed or lasered, majority still covered with mucosa. L RPG No hydronephrosis, filling defects or extravasation of contrast at end of case. Contrast does not show a connection to midpole stone on fluoroscopy. Specimens: none Drains: 6Fr x 24 cm JJ left ureteral stent Indications for Procedures: 64-year-old female with a history of kidney stones requiring intervention and uncontrolled IDDM who presented to ER last week for lactic acidosis and pain secondary to a 6 mm left mid ureteral stone with severe hydronephrosis and significant perinephric stranding, multiple additional left kidney stones s/p cystoscopy, left ureteral stent placement 08/04/24. Her UTI has been treated with culture appropriate antibiotics. After discussion of risks/benefits of management options, patient elects to proceed to the OR for definitive ureteral and kidney stone treatment as above. Risks were discussed including but not limited to bleeding, pain, infection, damage to surrounding structures, inability to treat the stone/place a stent, and need for additional procedures. The patient understands the stent is not permanent and needs to be removed or exchanged within 3 months to prevent encrustation, infection, invasive procedures and/or permanent renal damage. Detailed description of Procedure: After informed consent was obtained, the patient was brought to the operating room and transferred onto the operating table in supine position. Sequential compression devices were placed on bilateral lower extremities. The patient received the appropriate dose of preoperative IV antibiotics and general anesthesia LMA was induced. They were positioned in modified dorsolithotomy with the appropriate pressure points padded, prepped, and draped in the usual sterile fashion for this procedure. An operative safety timeout was performed confirming the patient's identity, laterality and procedure, and all present agreed to proceed. I began by inserting a 22 Latvian rigid cystoscope with 30 degree lens into the patient's urethra and bladder without difficulty. There were no bladder tumors, lesions, stones or foreign bodies. Bilateral ureteral orifices were orthotopic and patent. I turned my attention to the left ureter and brought the indwelling stent to the meatus with flexible graspers. A Sensor wire was inserted into the ureter up to the renal pelvis confirmed on fluoroscopy. The radiopaque proximal ureteral stone and kidney stones were clearly seen on fluoroscopy. An 11/13 Latvian by 36 cm ureteral access sheath was inserted over the wire in a sequential fashion to gain access to the stone. Next a flexible ureteroscope was inserted through the sheath and advanced to the ureter under fluoroscopic guidance until the stone was reached. This was noted to be slightly impacted into mucosa. A 275 ?m thulium laser fiber was used to break the stone into fragments which were then removed with a 1.8 tipless nitinol basket. After the stone was adequately treated, a full renoscopy was performed removing a few small 3 mm stones from the kidney. The upper pole stone was partially exposed from papilla and laser lithotripsed to reveal remainder was still submucosal. These fragments did fall out. The larger mid pole stone was also embedded in the papilla, unable to be removed. Of note, contrast does not show a connection to this midpole radiopacity on fluoroscopy. A full renoscopy was performed confirming no significant residual stones or fragments remained. Contrast was injected to assist with mapping for the renoscopy. The wire was reinserted and a pull down ureteroscopy was performed confirming no stones remained in the ureter. Contrast was injected for retrograde pyelogram confirming no extravasation of contrast, filling defects or hydronephrosis. The wire was backloaded through the cystoscope and 6 Fr x 24 cm JJ length ureteral stent was advanced over the wire, noting adequate curl in the renal pelvis and bladder on fluoroscopic and direct visualization. The bladder was drained and inspected one final time to ensure adequate position of stent and no undue trauma to the bladder was done. The stones were sent for analysis and the cystoscope was removed. The patient tolerated the procedure well without complication. The patient was awakened from anesthesia and sent to PACU in stable condition. Plan: Discharge home. Follow up next week for in-office cystoscopy, stent removal in 1-2 weeks - prophylactic antibiotics for this were sent.
[2024-08-10] MEDS: IOHEXOL 240 MG/ML - 50 ML VIAL INJ (13:50)
[2024-08-10 14:44] LABS: Glucometer 202 mg/dL (74-106)
--- NOTE | 2024-08-10 14:45 | PC.NURSE ---
Very drowsy and returns to sleep immediately after being awakened; no verbal response; shakes head; Dr. Combs aware and states it's okay to transfer to phase 2
--- NOTE | 2024-08-10 15:21 | PC.NURSE ---
Remains very drowsy; takes few sips water with much encouragement; Scopalamine patch removed per Dr. Combs's request; mother at bedside
--- NOTE | 2024-08-10 16:00 | PC.NURSE ---
Up to bathroom with 2 assist and voids pink tinged urine without difficulty; sitting in chair and eating snack; more awake than previous
== END 2024-08-10 16:35 | disposition home or self-care (01) ==
PROVIDERS: PCP Internal Medicine; Visit Provider Urology
PROC: (CPT 918; principal; 2024-08-10 13:00)
DX: N13.2 Hydronephrosis with renal and ureteral calculous obstruction (principal); Z87.442 Personal history of urinary calculi; Z87.440 Personal history of urinary (tract) infections; E10.9 Type 1 diabetes mellitus without complications; Z96.1 Presence of intraocular lens; Z79.4 Long term (current) use of insulin; K21.9 Gastro-esophageal reflux disease without esophagitis
CPT/HCPCS: 52356; 36415; 74420; 82365; 82948; 99999; J0744; J1100; J1885; J2250; J2371; J2405; J2704; J3010; Q9966

== ENCOUNTER 2024-12-16 11:42 | Outpatient (OUT) | payer OTHER, SELFPAY ==
--- NOTE | 2024-12-16 11:45 | US_ITS ---
[address] [address] Patient Name: THEODORE FLETCHER MRN: [id number] date: 1960 Sex: F Assigned Patient Location: US Current Patient Location: US Accession/Order Number: [id number] Exam Date: 12/16/2024 12:43 Report Date: 12/16/2024 12:47 At the request of: THONG FUENTES MD Procedure: US renal BI BILATERAL RENAL AND BLADDER ULTRASOUND CLINICAL HISTORY: History Of Kidney Stones COMPARISON: None FINDINGS: Estimation of renal size is approximately 10.0 cm on the right and 10.6 cm on the left. Moderate right-sided hydronephrosis. Bilateral nephrolithiasis. Largest stone measures 8 mm within the left kidney. The urinary bladder is partially distended with a volume of 18.4 ml. No shadowing stone or focal lesion. No significant postvoid residual. US/US renal BI IMPRESSION: BILATERAL NEPHROLITHIASIS WITH MODERATE HYDRONEPHROSIS OF THE RIGHT KIDNEY. Impression dictated by: Christ Rodriguez Jr., D.O. 12/16/2024 12:47 PM Dictation Location: [place] [address] Electronically authenticated by: [id number] Y Date: 12/16/2024 12:47
== END 2024-12-16 11:43 | disposition home or self-care (01) ==
LOC: US 11:42
PROVIDERS: PCP Internal Medicine; Visit Provider Urology
DX: N20.0 Calculus of kidney (principal); Z87.442 Personal history of urinary calculi; N13.30 Unspecified hydronephrosis
CPT/HCPCS: 76775